=== PATIENT | female | born 1940 | race Caucasian/White ===

== ENCOUNTER → 2017-04-24 12:00 | Outpatient (CLI) | payer MEDICARE, OTHER, SELFPAY ==
[2017-04-24 14:13] LABS: Absolute Lymphocyte Count 1.01 X10^3/ul (0.83-4.51); Absolute Neutrophil Count 2.7 X10^3/uL (2.0-7.7); Basophil# 0.01 X10^3/uL; Basophil% 0.2 % (0-1); Eosinophil# 0.07 X10^3/uL; Eosinophils% 1.6 % (0-5); Hematocrit 42.9 % (37-47); Hemoglobin 13.8 g/dl (12.0-15.0); Lymphocyte # 1.01 X10^3/ul (4.0); Lymphocyte % 23.7 % (19-41); Mean Corp Hgb Conc 32.2 g/gl (32-36); Mean Corpuscular Hgb 30.3 pg (27.0-32.0); Mean Corpuscular Volume 94.3 fL (81-99); Mean Platelet Vol. 10.5 fl (6.2-12.0); Monocyte% 11.7 % (0-10); Neutrophil # 2.68 X10^3/uL (2.7-7.7); Neutrophil % 62.8 % (47-70); Platelet Count 181 K/mm3 (150-450); RBC Distribution Width CV 13.2 % (11.6-14.6); RBC Distribution Width SD 45.6 fl (35.1-43.9); Red Blood Count 4.55 M/mm3 (4.2-5.4); White Blood Count 4.3 K/mm3 (4.4-11.0)
[2017-04-24 14:15] LABS: POSITIVE COUNT NO; POSITIVE DIFFERENTIAL NO; POSITIVE MORPHOLOGY NO
[2017-04-24 14:56] LABS: Anion Gap 5 (5-15); BUN 19 mg/dL (7-18); BUN/Creat Ratio 26.1 RATIO (10-20); Calcium,Total 8.7 mg/dL (8.5-10.1); Chloride 103 mmol/L (98-107); Creatinine, Serum 0.73 mg/dL (0.55-1.02); EST Glomerular Filtration Rate 83 mL/min (>60); Est Glom Filt Rate - Afr Amer 100 mL/min (>60); Glucose 77 mg/dL (74-106); Potassium 4.3 mmol/L (3.5-5.1); Sodium Level 138 mmol/L (136-145); Thyroid Stim Hormone (TSH) 2.57 uIU/mL (0.358-3.74)
== END ==
PROVIDERS: Family Provider Family Medicine; PCP Family Medicine; Visit Provider Physician Assistant Medical
DX: I48.91 Unspecified atrial fibrillation (principal); R53.83 Other fatigue
CPT/HCPCS: 80048; 83735; 84436; 84443; 85025

== ENCOUNTER → 2017-05-08 05:50 | Outpatient (CLI) | payer MEDICARE, OTHER, SELFPAY ==
--- NOTE | 2017-05-08 09:52 | STRESSREP_ITS ---
Stress Test Report Pharmacologic myocardial perfusion stress test. 77-year-old lady with a history of chest pain. Stress protocol: Resting EKG demonstrates sinus rhythm with frequent premature atrial complexes noted. Resting blood pressure is 122/70 mmHg. 0.4 mg of regadenoson was infused per usual protocol. Continuous EKG monitoring was performed. The maximum heart rate attained was 73 bpm which was 50% of maximum predicted heart rate the maximum workload attained was 1 metabolic equivalent. At rest or T- wave inversions was noted in leads II, III and aVF V5 and V6. The above persisted throughout the infusion. No other ST or T-wave changes were noted suggest ischemia. The resting blood pressure is 122/70 final blood pressure was 120/76. Myocardial perfusion protocol. 11.2 mCi of technetium 99m sestamibi was injected at rest. 0.4 mg regadenoson was infused per usual protocol. At peak infusion 33.3 mCi of technetium 99m sestamibi was injected. Stress images were obtained. Stress and rest images were reconstructed and compared in the short axis vertical long and horizontal long axis. Gated images could not be obtained. Perfusion SPECT analysis: Review of the stress images demonstrate normal uptake of tracer noted in the septum anterior wall and lateral wall. There is reduction of perfusion noted in the inferior wall on the stress and resting images to a similar extent. The above appears to be suggestive of a previous inferior infarct. Diaphragmatic and GI attenuation artifact is also likely. There is mild reduction in the apex as well. No obvious ischemia is noted. Gated SPECT analysis. Gated images were not obtained. Conclusion: Pharmacologic myocardial perfusion stress test with no obvious ischemia noted. Previous inferior infarct and apical infarct cannot be completely excluded.
== END ==
PROVIDERS: Family Provider Family Medicine; PCP Family Medicine; Visit Provider Physician Assistant Medical
DX: I48.91 Unspecified atrial fibrillation (principal); R53.83 Other fatigue; R94.31 Abnormal electrocardiogram [ECG] [EKG]
CPT/HCPCS: 78452; 93017; A9500; A4216; J2785

== ENCOUNTER 2017-05-25 07:29 | Day surgery (SDC) | payer MEDICARE, OTHER, SELFPAY ==
[2017-05-25 07:52] VITALS: BP 175/64; PULSE 47; RESP 14; TEMP 36.3; O2SAT 95; BMI 37.5
--- NOTE | 2017-05-25 08:55 | RAD_ITS ---
STUDY: X-RAY - RIGHT KNEE REASON FOR EXAM: Female, 77 years old. Radiofrequency ablation of the genicular nerve. TECHNIQUE: 8 C-arm view(s) of the knee. 13.8 seconds of fluoroscopy time. COMPARISON: None. FINDINGS: C-arm views of the knee show knees along the medial surfaces of the distal femur and proximal tibia for nerve ablation. Correlate with procedure note. Electronically Signed: Michael Gallagher MD at 7:48 EDT , Service support , RAD/Knee 1 or 2 Views
[2017-05-25] MEDS: Bupivacaine 0.25% 30 ML Vial (09:08)
[2017-05-25] MEDS: MethylPREDNISolone Acetate 80 MG/ML Vial (09:08)
[2017-05-25 09:22] VITALS: BP 122/53; BP 175/64; PULSE 49; RESP 14; TEMP 36.3; O2SAT 94
[2017-05-25 09:30] VITALS: BP 140/56; BP 175/64; PULSE 49; RESP 14; O2SAT 94
[2017-05-25 09:35] VITALS: BP 140/60; BP 175/64; PULSE 49; RESP 14; O2SAT 95
[2017-05-25 09:40] VITALS: BP 153/63; BP 175/64; PULSE 50; RESP 14; TEMP 36.6; O2SAT 94
[2017-05-25 10:14] VITALS: BP 175/64
--- NOTE | 2017-05-25 10:25 | PCM.OPRPT ---
Problem List (1) Chronic postoperative pain Status: Chronic (2) Status post right partial knee replacement Status: Chronic (3) History of partial knee replacement Status: Chronic Report of Operation Date of Procedure: 05/25/17 Pre-Operative Diagnosis: Chronic postoperative right knee pain, history of right partial knee replacement Post-Operative Diagnosis: Chronic postoperative knee pain, history of right partial knee replacement Surgery/Procedure Performed:: Right sided radiofrequency ablation of the knee superior medial, superior lateral, medial genicular nerves under fluoroscopic guidance Description of Surgical Findings:: PROCEDURE: Right sided radiofrequency ablation of the knee superior medial, superior lateral, inferior medial genicular nerves under fluoroscopic guidance PREOPERATIVE DIAGNOSIS: chronic postoperative right knee pain, history of right partial knee replacement POSTOPERATIVE DIAGNOSIS: Chronic postoperative right knee pain, history of right partial knee replacement ANESTHESIA: MAC COMPLICATIONS: None BLOOD LOSS: Minimal PROCEDURE IN DETAIL: History and physical today was reviewed. Risks and benefits of the procedure were explained. The patient understood, agreed to our procedure, and informed consent was obtained. IV inserted per routine protocol. The patient was taken to the operating room, placed in a supine position with a pillow position underneath the right knee the left knee was prepped and draped in a sterile fashion using iodine ?3 under direct visualization fluoroscopy on AP view the left knee joint was visualized the skin and subcutaneous tissue were anesthetized with approximately 10 cc of 1% lidocaine using a 25-gauge regular needle under direct visualization fluoroscopy starting at the right superior medial ending at the right inferior medial passing through the right superior lateral genicular nerves using a 20-gauge 10 cm with a 10 mm curved active tip radiofrequency ablation needle the needle passed through the skin the tip of the needle's maneuver and directed towards the diaphyseal junction of each corresponding nerve once the tip of the needle was at the vicinity of the nerve and contact with the bone after confirmation of AP as well as lateral and oblique view the stylette of each needle was then removed after negative aspiration for blood the radiofrequency ablation probe was then inserted at each level impedance was recorded at the superior medial 274 at the superior lateral 272 at the inferior medial 230 ohm motor evoked potential was then initiated to 1.5 V without any motor response at each corresponding level the radiofrequency ablation probe was then removed after repeated negative aspiration for blood a total of 6 cc of preservative-free 1% lidocaine were injected in divided doses between those 3 levels the radiofrequency ablation probe was then reinserted after confirmation AP as well as lateral view radiofrequency ablation was then initiated to 80?C for 90 seconds at each level once concluded the probe was then removed intact and a total of 6 cc of preservative-free 0.25% Marcaine with 40 mg of Depo-Medrol were injected in divided doses between those 3 levels the needles were then removed intact patient experienced no sinus symptoms of intravascular injection patient experienced no paresthesia the procedure was completed without any apparent difficulty any complication the patient appeared to tolerate well sensory as well as motor exam was unchanged from prior to the procedure. ASSESSMENT AND PLAN: This is a 77-year-old female with chronic postoperative right knee pain history of right partial knee replacement status post right-sided radiofrequency ablation of the knee superior medial, superior lateral, inferior medial genicular nerves under fluoroscopic guidance guidance, patient will continue her current medications. The patient will follow in approximately 2 weeks for reevaluation.
--- NOTE | 2017-05-25 10:44 | OP.PCM_ITS ---
Problem List (1) Chronic postoperative pain Status: Chronic (2) Status post right partial knee replacement Status: Chronic (3) History of partial knee replacement Status: Chronic Report of Operation Date of Procedure: 05/25/17 Pre-Operative Diagnosis: Chronic postoperative right knee pain, history of right partial knee replacement Post-Operative Diagnosis: Chronic postoperative knee pain, history of right partial knee replacement Surgery/Procedure Performed:: Right sided radiofrequency ablation of the knee superior medial, superior lateral, medial genicular nerves under fluoroscopic guidance Description of Surgical Findings:: PROCEDURE: Right sided radiofrequency ablation of the knee superior medial, superior lateral, inferior medial genicular nerves under fluoroscopic guidance PREOPERATIVE DIAGNOSIS: chronic postoperative right knee pain, history of right partial knee replacement POSTOPERATIVE DIAGNOSIS: Chronic postoperative right knee pain, history of right partial knee replacement ANESTHESIA: MAC COMPLICATIONS: None BLOOD LOSS: Minimal PROCEDURE IN DETAIL: History and physical today was reviewed. Risks and benefits of the procedure were explained. The patient understood, agreed to our procedure, and informed consent was obtained. IV inserted per routine protocol. The patient was taken to the operating room, placed in a supine position with a pillow position underneath the right knee the left knee was prepped and draped in a sterile fashion using iodine ?3 under direct visualization fluoroscopy on AP view the left knee joint was visualized the skin and subcutaneous tissue were anesthetized with approximately 10 cc of 1 % lidocaine using a 25-gauge regular needle under direct visualization fluoroscopy starting at the right superior medial ending at the right inferior medial passing through the right superior lateral genicular nerves using a 20- gauge 10 cm with a 10 mm curved active tip radiofrequency ablation needle the needle passed through the skin the tip of the needle's maneuver and directed towards the diaphyseal junction of each corresponding nerve once the tip of the needle was at the vicinity of the nerve and contact with the bone after confirmation of AP as well as lateral and oblique view the stylette of each needle was then removed after negative aspiration for blood the radiofrequency ablation probe was then inserted at each level impedance was recorded at the superior medial 274 at the superior lateral 272 at the inferior medial 230 ohm motor evoked potential was then initiated to 1.5 V without any motor response at each corresponding level the radiofrequency ablation probe was then removed after repeated negative aspiration for blood a total of 6 cc of preservative- free 1% lidocaine were injected in divided doses between those 3 levels the radiofrequency ablation probe was then reinserted after confirmation AP as well as lateral view radiofrequency ablation was then initiated to 80?C for 90 seconds at each level once concluded the probe was then removed intact and a total of 6 cc of preservative-free 0.25% Marcaine with 40 mg of Depo-Medrol were injected in divided doses between those 3 levels the needles were then removed intact patient experienced no sinus symptoms of intravascular injection patient experienced no paresthesia the procedure was completed without any apparent difficulty any complication the patient appeared to tolerate well sensory as well as motor exam was unchanged from prior to the procedure. ASSESSMENT AND PLAN: This is a 77-year-old female with chronic postoperative right knee pain history of right partial knee replacement status post right-sided radiofrequency ablation of the knee superior medial, superior lateral, inferior medial genicular nerves under fluoroscopic guidance guidance, patient will continue her current medications. The patient will follow in approximately 2 weeks for reevaluation.
== END 2017-05-25 10:17 | disposition home or self-care (01) ==
LOC: SDC 07:29
PROVIDERS: Family Provider Family Medicine; PCP Family Medicine; Visit Provider Anesthesiology Pain Medicine
PROC: (CPT 64999; principal; 2017-05-25 08:55)
DX: M25.561 Pain in right knee (principal); G89.28 Other chronic postprocedural pain; M51.16 Intervertebral disc disorders with radiculopathy, lumbar region; M47.817 Spondylosis without myelopathy or radiculopathy, lumbosacral region; M48.061 Spinal stenosis, lumbar region without neurogenic claudication; I48.91 Unspecified atrial fibrillation; J44.9 Chronic obstructive pulmonary disease, unspecified; I27.20 Pulmonary hypertension, unspecified; E11.9 Type 2 diabetes mellitus without complications; I10 Essential (primary) hypertension; G25.81 Restless legs syndrome; K58.9 Irritable bowel syndrome, unspecified; G47.30 Sleep apnea, unspecified; G56.00 Carpal tunnel syndrome, unspecified upper limb; Z79.01 Long term (current) use of anticoagulants; Z79.891 Long term (current) use of opiate analgesic; Z79.899 Other long term (current) drug therapy; Z96.651 Presence of right artificial knee joint; Z87.891 Personal history of nicotine dependence
CPT/HCPCS: 64999; 73560; 76000; J7120

== ENCOUNTER → 2017-06-04 11:52 | Outpatient (CLI) | payer MEDICARE, OTHER, SELFPAY ==
--- NOTE | 2017-06-04 11:58 | BI_ITS ---
MAMMOGRAPHY - BILATERAL SCREENING REASON FOR EXAM: Female, 77 years old. Routine annual screening examination. PERTINENT HISTORY: Non-contributory. TECHNIQUE: Digital bilateral breast mayo (3D mammographic acquisition) in the CC and MLO projections. 2-D mediolateral oblique (MLO) and craniocaudad (CC) views of both breasts were obtained. CAD: Full Field Digital Mammography with Computer Added Detection was performed. COMPARISON: Comparison is made with prior study dated February 04, 2016 and December 28, 2014. FINDINGS: Breast Composition: The breasts are almost entirely fatty. There are no dominant masses or suspicious calcifications. No other significant abnormalities are identified. There has been no significant change since the prior study. BI/SCREENING MAMM (CAD), BILAT IMPRESSION: Stable bilateral screening mammogram. Yearly follow-up mammogram recommended. (A) ASSESSMENT CATEGORY: BIRADS Category 1: Negative. A letter regarding these results will be sent to the patient by the facility within 30 days. Approximately 10% of breast cancers are not detected by mammography. A normal mammogram should not delay biopsy of a clinically suspicious abnormality. [id number] Electronically Signed: Rajesh Velasquez MD at 13:35 EDT Tel [phone], Service support ,
== END ==
PROVIDERS: Family Provider Family Medicine; PCP Family Medicine; Visit Provider Family Medicine
DX: Z12.31 Encounter for screening mammogram for malignant neoplasm of breast (principal)
CPT/HCPCS: 77063; 77067

== ENCOUNTER → 2017-06-11 10:04 | Outpatient (CLI) | payer MEDICARE, OTHER, SELFPAY ==
[2017-06-11 12:26] LABS: Cholesterol 142 mg/dL (200); High Density Lipoprotein 52 mg/dL; Triglycerides 101 mg/dL; Very Low Density Lipoprotein 20 mg/dL (5-40)
== END ==
PROVIDERS: Family Provider Family Medicine; PCP Family Medicine; Visit Provider Family Medicine
DX: Z00.00 Encounter for general adult medical examination without abnormal findings (principal)
CPT/HCPCS: 36415; 80061

== ENCOUNTER 2017-09-13 11:28 | Emergency (ER) | payer MEDICARE, OTHER, SELFPAY ==
[2017-09-13 11:29] VITALS: BP 190/80; PULSE 99; RESP 16; TEMP 36.5; O2SAT 114; BMI 29.3
--- NOTE | 2017-09-13 11:42 | EKG12_ITS ---
Test Reason : Blood Pressure : / mmHG Vent. Rate : 070 BPM Atrial Rate : 070 BPM P-R Int : 146 ms QRS Dur : 078 ms QT Int : 412 ms P-R-T Axes : 078 015 218 degrees QTc Int : 444 ms Sinus rhythm with frequent Premature ventricular complexes and Premature atrial complexes Nonspecific ST and T wave abnormality Abnormal ECG Confirmed by PORTILLO SCHROEDER, JOSH ([id number]), city editor KUNAL CRAFT ([id number]) on 09/15/2017 1:31:01 PM Referred By: LUZ ELENA Confirmed By:JOSH NATH MD
--- NOTE | 2017-09-13 11:58 | ED.VISSUMM ---
- ER Visit Summary Date of Service: 09/13/17 Chief Complaint: Acute exacerbation left flank upper lumbar back pain History of Present Illness: The patient is a 77 F with history of chronic back pain for months. She seen by Dr. Denis. Has an appointment see Dr. Denis tomorrow. She is over the past 24 hours the pain is worse. She has a fentanyl patch on. She is also on Voltaren cream, Flexeril and gabapentin. She denies fever, chills night sweats. She denies dysuria, frequency, urgency or hematuria. She denies history of renal or ureteral calculi. She reports her pain is better to gone when she remains supine and still. Any type of movement exacerbates the pain. She denies bowel bladder dysfunction. I saddle paresthesia anesthesia. She denies thigh weakness going up or down her steps or inclines. She denies foot drop. Physical Examination: Patient's blood pressure is elevated 190/80. She was uncomfortable. HEENT is unremarkable. Heart is irregular secondary to frequent ventricular premature beats. Monitor reveals a sinus mechanism. Lungs are clear to auscultation. Abdomen soft nontender. She has reproducible back pain left side. Straight leg test is negative. She has normal sensation bilaterally and perineal region. Patella and ankle reflex are 1-2+ symmetric. EHL is intact. There is no clonus or Babinski sign noted. DP pulses palpable bilaterally. Test Results: UA was obtained because of the abrupt onset of worsening left flank pain. EKG reveals a sinus rhythm with frequent premature ventricular beats. MD interval normal. Respiration normal. No evidence of ischemia. CBC unremarkable. BMP unremarkable. UA is unremarkable. Emergency Department Course and Treatment: There is no history of trauma and no evidence of trauma therefore imaging was not obtained. She was medicated with opiate analgesia and a UA was obtained to evaluate the worsening left flank pain. Treatment Plan: Patient was initially medicated with morphine. She had improvement was unable to ambulate without significant assistance. She received a second dose of morphine. She was seen walking with walker in the hallway. Plan is to discharge to home since she has an appointment with pain management tomorrow. Disposition: Discharged home with daughter in stable improved condition Impression: Acute exacerbation of left thoracic lumbar back strain History of chronic back pain History of pulmonary hypertension History of paroxysmal atrial fibrillation on Eliquis This note was generated with Dragon dictation software. It may contain incorrect words, spelling, and punctuation that were not noted in review of the chart prior to signing ED Disposition - Plan for ED Patient: Disposition: Home or Assisted Living Chief Complaint: Back Instructions: ED Neck Back Pain General Referrals: Jake Schwarz [Primary Care Provider] - As Needed Hasmukh Noble MD [STAFF PHYSICIAN] - Keep Whitney appointment
[2017-09-13 12:50] LABS: Absolute Lymphocyte Count 0.64 X10^3/ul (0.83-4.51); Absolute Neutrophil Count 3.9 X10^3/uL (2.0-7.7); Eosinophil# 0.07 X10^3/uL; Eosinophils% 1.4 % (0-5); Hematocrit 40.9 % (37-47); Hemoglobin 13.2 g/dl (12.0-15.0); Lymphocyte # 0.64 X10^3/ul (4.0); Lymphocyte % 12.7 % (19-41); Mean Corp Hgb Conc 32.3 g/gl (32-36); Mean Corpuscular Hgb 30.4 pg (27.0-32.0); Mean Corpuscular Volume 94.2 fL (81-99); Mean Platelet Vol. 10.1 fl (6.2-12.0); Monocyte# 0.44 X10^3/uL; Monocyte% 8.8 % (0-10); Neutrophil # 3.87 X10^3/uL (2.7-7.7); Neutrophil % 77.1 % (47-70); Platelet Count 174 K/mm3 (150-450); RBC Distribution Width CV 13.2 % (11.6-14.6); Red Blood Count 4.34 M/mm3 (4.2-5.4)
[2017-09-13 12:51] LABS: POSITIVE COUNT NO; POSITIVE DIFFERENTIAL NO; POSITIVE MORPHOLOGY NO
[2017-09-13] MEDS: Ondansetron 4 MG/2 ML Vial IV (12:51)
[2017-09-13] MEDS: morphine 8 MG/ML Syringe 6 MG IV (12:52)
[2017-09-13 12:53] VITALS: BP 166/48; PULSE 62; RESP 18; O2SAT 96
[2017-09-13 13:01] LABS: Anion Gap 7 (5-15); BUN 18 mg/dL (7-18); BUN/Creat Ratio 24.2 RATIO (10-20); Calcium,Total 8.5 mg/dL (8.5-10.1); Chloride 108 mmol/L (98-107); Creatinine, Serum 0.74 mg/dL (0.55-1.02); EST Glomerular Filtration Rate 81 mL/min (>60); Est Glom Filt Rate - Afr Amer 97 mL/min (>60); Glucose 86 mg/dL (74-106); Sodium Level 145 mmol/L (136-145)
[2017-09-13 14:02] LABS: Mucous, Urine 0 SEEN /hpf (<or=2+); Red Blood Cells-Urine 0 SEEN /hpf (0-5)
[2017-09-13 14:04] LABS: Color, Urine Yellow (Yellow); Glucose, Dipstick Normal (Normal); Ketone-Dipstick Negative (Negative); Leukocyte Esterase-Dipstick 100 /ul (Negative); Nitrite-Dipstick Negative (Negative); Occult Blood-Urine Negative /ul (Negative); Protein-Dipstick 30 mg/dl (Negative); Urine Bilirubin Dipstick Negative (Negative); Urine Clarity Sl. Cloudy (Clear); Urine Urobilinogen Normal (Normal); Urine pH 6.5 (5.0 - 8.0)
[2017-09-13 14:12] LABS: Squamous Epithelial Cells - UA 0-5 SEEN /hpf (5-10); White Blood Cells 0-5 SEEN /hpf (0-5)
[2017-09-13 14:13] LABS: Bacteria RARE /hpf (None Seen)
[2017-09-13] MEDS: Morphine 4 MG/ML Syringe IV (14:22)
[2017-09-13 14:26] VITALS: BP 142/53; PULSE 62; RESP 18; O2SAT 94
--- NOTE | 2017-09-13 16:22 | ED.RN ---
WALKED PT AGAIN. PT STATES SHE DOES NOT FEEL LIKE SHE CAN GO HOME. DR LEONE.
[2017-09-13 16:39] VITALS: BP 149/62; PULSE 61; RESP 18
== END 2017-09-13 16:40 | disposition home or self-care (01) ==
PROVIDERS: Emergency Provider Emergency Medicine; Family Provider Family Medicine; PCP Family Medicine
DX: S39.012A Strain of muscle, fascia and tendon of lower back, initial encounter (principal); X58.XXXA Exposure to other specified factors, initial encounter; Y93.9 Activity, unspecified; Y92.9 Unspecified place or not applicable; Y99.9 Unspecified external cause status; G89.29 Other chronic pain; I48.0 Paroxysmal atrial fibrillation; I49.3 Ventricular premature depolarization; I27.20 Pulmonary hypertension, unspecified; I47.1 Supraventricular tachycardia; Z79.01 Long term (current) use of anticoagulants; Z79.899 Other long term (current) drug therapy
CPT/HCPCS: 80048; 81001; 85025; 93005; 96374; 96375; 96376; 99283; A4216; J2405

== ENCOUNTER → 2017-12-10 11:38 | Outpatient (CLI) | payer MEDICARE, OTHER, SELFPAY ==
[2017-12-10 14:27] LABS: AST(SGOT) 27 U/L (15-37); Alanine Aminotransfer ALT/SGPT 28 U/L (13-56); Albumin, Serum 3.3 g/dL (3.2-5.0); Alkaline Phosphatase 91 U/L (45-117); Bilirubin, Direct 0.14 mg/dL (0.00-0.30); Globulin 3.3 g/dL (2.2-4.2); Protein, Total 6.6 g/dL (6.4-8.2)
[2017-12-10 14:32] LABS: BNP,B-Type NATRIURETIC PEPTIDE 206.5 pg/mL (0-100)
== END ==
PROVIDERS: Family Provider Family Medicine; PCP Family Medicine; Referring Provider Internal Medicine Pulmonary Disease; Visit Provider Internal Medicine Pulmonary Disease
DX: R06.02 Shortness of breath (principal); Z79.899 Other long term (current) drug therapy
CPT/HCPCS: 36415; 80076; 83880

== ENCOUNTER → 2018-02-26 13:21 | Outpatient (CLI) | payer MEDICARE, OTHER, SELFPAY ==
--- NOTE | 2018-02-26 13:32 | RAD_ITS ---
STUDY: X-RAY - LEFT ELBOW REASON FOR EXAM: Female, 78 years old. Left elbow pain TECHNIQUE: 3 view(s) of the elbow. COMPARISON: None. FINDINGS: Normal visualized humerus, radius and ulna. Normal radiocapitellar and ulnotrochlear articulations. There is localized soft tissue swelling of the posterior elbow. No joint effusion. RAD/Elbow min 3 Views IMPRESSION: 1. Posterior elbow soft tissue swelling may represent contusion or olecranon bursitis. Electronically Signed: Dominik Banks MD at 8:07 EST , Service support ,
[2018-02-26 14:20] LABS: Absolute Lymphocyte Count 1.02 X10^3/ul (0.83-4.51); Absolute Neutrophil Count 3.4 X10^3/uL (2.0-7.7); Basophil# 0.01 X10^3/uL; Basophil% 0.2 % (0-1); Eosinophil# 0.08 X10^3/uL; Eosinophils% 1.7 % (0-5); Hematocrit 43.2 % (37-47); Hemoglobin 13.6 g/dl (12.0-15.0); Lymphocyte # 1.02 X10^3/ul (4.0); Lymphocyte % 21.3 % (19-41); Mean Corp Hgb Conc 31.5 g/gl (32-36); Mean Corpuscular Volume 95.4 fL (81-99); Monocyte# 0.31 X10^3/uL; Monocyte% 6.5 % (0-10); Neutrophil # 3.36 X10^3/uL (2.7-7.7); Neutrophil % 70.3 % (47-70); Platelet Count 178 K/mm3 (150-450); RBC Distribution Width SD 48.5 fl (35.1-43.9); Red Blood Count 4.53 M/mm3 (4.2-5.4); White Blood Count 4.8 K/mm3 (4.4-11.0)
[2018-02-26 14:28] LABS: POSITIVE COUNT NO; POSITIVE DIFFERENTIAL NO; POSITIVE MORPHOLOGY NO
== END ==
PROVIDERS: Family Provider Family Medicine; PCP Family Medicine; Referring Provider Physician Assistant Medical; Visit Provider Physician Assistant Medical
DX: I48.0 Paroxysmal atrial fibrillation (principal); M25.522 Pain in left elbow
CPT/HCPCS: 73080; 85025

== ENCOUNTER → 2018-05-07 14:14 | Outpatient (CLI) | payer MEDICARE, OTHER, SELFPAY ==
[2018-05-07 16:05] LABS: Anion Gap 3 (5-15); BUN 22 mg/dL (7-18); Calcium,Total 8.3 mg/dL (8.5-10.1); Chloride 107 mmol/L (98-107); Cholesterol 145 mg/dL (200); Creatinine, Serum 0.71 mg/dL (0.55-1.02); EST Glomerular Filtration Rate 85 mL/min (>60); Est Glom Filt Rate - Afr Amer 103 mL/min (>60); Glucose 89 mg/dL (74-106); High Density Lipoprotein 47 mg/dL; Potassium 4.5 mmol/L (3.5-5.1); Sodium Level 142 mmol/L (136-145); Triglycerides 148 mg/dL; Very Low Density Lipoprotein 30 mg/dL (5-40)
== END ==
PROVIDERS: Family Provider Family Medicine; PCP Family Medicine; Referring Provider Family Medicine; Visit Provider Family Medicine
DX: I48.91 Unspecified atrial fibrillation (principal)
CPT/HCPCS: 36415; 80048; 80061

== ENCOUNTER → 2018-05-14 13:52 | Outpatient (CLI) | payer MEDICARE, OTHER, SELFPAY ==
[2018-01-05 14:53] VITALS: BMI 31.1
== END ==
PROVIDERS: Family Provider Family Medicine; PCP Family Medicine; Referring Provider Family Medicine; Visit Provider Family Medicine
DX: R30.0 Dysuria (principal)
CPT/HCPCS: 87077; 87086; 87088; 87186

== ENCOUNTER → 2018-10-26 14:05 | Outpatient (CLI) | payer MEDICARE, OTHER, SELFPAY ==
[2018-07-27 07:58] VITALS: BMI 31.9
--- NOTE | 2018-10-26 14:10 | RAD_ITS ---
STUDY: X-RAY - LUMBAR SPINE REASON FOR EXAM: Female, 78 years old. Lower back pain TECHNIQUE: 3 view(s) of the lumbar spine were obtained. COMPARISON: None FINDINGS: There is straightening of the normal lumbar lordosis. There is diffuse facet arthrosis. Multilevel degenerative disease throughout the lumbar spine. There is an age-indeterminate compression deformity of the L4 vertebral body likely accentuated by levoscoliosis with loss of approximately 50% vertebral body height. The soft tissue structures are unremarkable. Atherosclerotic abdominal aortic calcification visualized. RAD/Lumbar Spine 2 or 3 Views IMPRESSION: Age-indeterminate compression deformity of the L4 vertebral body. Diffuse degenerative changes. Electronically Signed: Phillip Tejada, at 0:49 EDT Tel , Service support ,
== END ==
PROVIDERS: Family Provider Family Medicine; PCP Family Medicine; Referring Provider Nurse Practitioner Family; Visit Provider Nurse Practitioner Family
DX: M51.36 Other intervertebral disc degeneration, lumbar region (principal); M54.16 Radiculopathy, lumbar region; M47.817 Spondylosis without myelopathy or radiculopathy, lumbosacral region; M48.061 Spinal stenosis, lumbar region without neurogenic claudication
CPT/HCPCS: 72100

== ENCOUNTER → 2018-11-01 09:22 | Outpatient (CLI) | payer MEDICARE, OTHER, SELFPAY ==
[2018-07-27 07:58] VITALS: BMI 31.9
--- NOTE | 2018-11-01 09:32 | MRI_ITS ---
STUDY: MRI LUMBAR SPINE WITHOUT CONTRAST REASON FOR EXAM: Female, 78 years old. Lower back pain. No radiculopathy. TECHNIQUE: Standardized fat and water weighted pulse sequences were obtained in the sagittal and axial planes. COMPARISON: Lumbar spine radiographs 10/26/2018. FINDINGS: T10-T11: (Sagittal only). Normal endplates. Normal disc height. Small posterior bulging disc. Normal central canal and bilateral intervertebral neural foramina. T11-T12: (Sagittal only). Moderate anterior wedge compression fracture of the lower T11 vertebral body with minimal residual edema underneath the central aspect of the compression fracture. Normal T12 superior endplate. Decreased disc space height due to the lower T11 compression fracture. Small posterior bulging disc. Normal central canal and bilateral intervertebral neural foramina. T12-L1: Normal endplates. Normal disc height, hydration and morphology. Normal bilateral facet joints. Normal central canal and bilateral lateral recesses. Normal bilateral intervertebral neural foramina. Normal lumbar lordosis. There is no substantial scoliosis. Normal conus medullaris that terminates at the lower L1 vertebral body level. L1-2: Acute fracture across the L1 inferior endplate with fluid edema. Extensive bone edema of the L1 vertebral body. The of bone edema extends into the right L1 pedicle. There is sparing of the left L1 pedicle. Normal L2 superior endplate. Increased disc space height. Minimal degenerative retrolisthesis of L1 on L2. Mild flattening central canal stenosis the AP canal diameter is 10 mm. Mild dorsal epidural lipomatosis. Mild bilateral degenerative facet arthropathy. Left renal cyst is visible at this level. L2-3: Small anterior marginal spurs. Pronounced disc space height narrowing. Mild central canal stenosis. The AP canal diameter is 10 mm. Mild stenosis of the right lateral recesses. Normal left lateral recesses. Mild to moderate right degenerative facet arthropathy. Mild left degenerative facet arthropathy. Normal bilateral intervertebral neural foramina. L3-4: Normal L3 inferior endplate. Moderate old anterior wedge compression fracture of the upper L4 vertebral body causing increased disc space height. Mild degenerative anterolisthesis of L3 on L4. Moderately pronounced central canal stenosis with an AP canal diameter 6.6 mm. Pronounced stenosis of the right lateral recesses. Mild stenosis of the left lateral recesses. Moderately pronounced right degenerative facet hypertrophy. Moderate left degenerative facet arthropathy. Moderately pronounced stenosis of the right intervertebral neural foramen. Normal left intervertebral neural foramen. L4-5: Normal L4 inferior endplate. Minimal central compression fracture of the L5 superior endplate with Modic type II degenerative vertebral marrow fatty change underneath it. Minimal degenerative anterolisthesis of L4 on L5. Mild central canal stenosis with a transverse canal diameter of 9.3 mm. Normal bilateral lateral recesses. Moderate left degenerative facet arthropathy. Mild right degenerative facet arthropathy. Normal bilateral intervertebral neural foramina. L5-S1: Normal endplates. Mild degenerative vacuum phenomenon with mild disc space height narrowing. No ventral extradural defect. Normal central canal and bilateral lateral recesses. Moderate asymmetric degenerative facet arthropathy. Normal bilateral intervertebral foramina. Normal visualized sacral ala. Normal visualized paraspinous soft tissue structures. MRI/Spine Lumbar (Routine) IMPRESSION: 1. Acute fracture across the L1 inferior endplate with fluid underneath the and extensive bone edema of the L1 vertebral body and the fracture edema extends to the right L1 pedicle. This is highly suggestive of osteonecrosis (Kummel's Disease). This is most likely highly symptomatic and is the site of severe back pain. This is feasible for kyphoplasty. 2. Mild flattening central canal stenosis at the L1-L2 disc level and minimal degenerative retrolisthesis of L1 on L2. 3. Mild central canal stenosis at L2-L3 disc level and mild stenosis of the right lateral recess. 4. Moderately pronounced central canal stenosis at L3-L4 disc level with an AP canal diameter 6.6 mm, mild degenerative anterolisthesis of L3 on L4, moderately pronounced right degenerative facet arthropathy and moderately pronounced stenosis of the right intervertebral neural foramen. 5. Mild central canal stenosis at L4-L5 disc space level with minimal degenerative anterolisthesis of L4 on L5 and moderate left degenerative facet arthropathy. 6. Moderate anterior wedge compression fracture of the lower T11 vertebral body with minimal residual edema underneath the central aspect of the compression fracture. Electronically Signed: Duarte Mike MD at 13:49 EDT , Service support ,
== END ==
PROVIDERS: Family Provider Family Medicine; PCP Family Medicine; Referring Provider Anesthesiology Pain Medicine; Visit Provider Anesthesiology Pain Medicine
DX: M48.56XA Collapsed vertebra, not elsewhere classified, lumbar region, initial encounter for fracture (principal); M47.27 Other spondylosis with radiculopathy, lumbosacral region; M48.061 Spinal stenosis, lumbar region without neurogenic claudication
CPT/HCPCS: 72148

== ENCOUNTER → 2018-11-10 15:49 | Outpatient (CLI) | payer MEDICARE, OTHER, SELFPAY ==
[2018-07-27 07:58] VITALS: BMI 31.9
--- NOTE | 2018-11-09 | BON_PTH ---
PATIENT: ADRIEN CHILEL LOC: [facility] U#:[id number] AGE/SX: 84/F ROOM: RE11/10/[address]: Dr. Hasmukh Noble MD : [id number] BED: DIS: SPEC #: [id number] RECD: 11/10/18 15:32 STATUS: BRITTANY MARINE #: [id number] XUAN: 11/09/18 00:[address]: Hasmukh Noble DEPT: SURGICAL PATHOLOGY RECD BY: Raulito Sim ENTERED: 11/11/18 14:23 SP TYPE: Bone OTHR DR: MD Jake Payan [facility] Tissues: Vertebra, NOS Procedures: Decalcification bone/plaque Surgery Specimen Level IV HEADER OPERATION: Kyphoplasty L1 PRE-OP DIAGNOSIS: Compression fracture L1 TISSUE SUBMITTED: Body of L1 MICROSCOPIC DIAGNOSIS Body of L1, biopsy: Bony fragments of unremarkable bone. See microscopic description and comment. AM:louis 11/12/18 COMMENT The lesion may represent an area of fracture. There is no evidence of malignancy. Clinical correlation is suggested. MICROSCOPIC DESCRIPTION Slides are reviewed. Sections show normal cortical bone. Minimal bone marrow elements are present. GROSS DESCRIPTION Received in fixative is one container labeled with the patient's name and designated body of L1. The specimen consists of three minute fragments of brown soft tissue with possible fragment of bone measuring in aggregate <0.1 cm in greatest dimension. / SJ:louis 11/11/18 TC:5 CPT: 17888, 26274
== END ==
PROVIDERS: Family Provider Family Medicine; PCP Family Medicine; Referring Provider Anesthesiology Pain Medicine; Visit Provider Anesthesiology Pain Medicine
DX: M48.56XA Collapsed vertebra, not elsewhere classified, lumbar region, initial encounter for fracture (principal)
CPT/HCPCS: 88305; 88311

== ENCOUNTER → 2018-11-24 10:33 | Outpatient (CLI) | payer MEDICARE, OTHER, SELFPAY ==
[2018-07-27 07:58] VITALS: BMI 31.9
--- NOTE | 2018-11-24 11:02 | BD_ITS ---
STUDY: DUAL ENERGY X-RAY ABSORPTIOMETRY / DXA REASON FOR EXAM: Female, 78 years old. The patient is postmenopausal. Loss of height. TECHNIQUE: Bone Mineral Density (BMD) measurements of lumbar spine and bilateral hips were obtained. COMPARISON: Comparison is made with prior study of June 03, 2012. FINDINGS: Lumbar Spine (L1-L4): g/cm2 (1.208) / T-score (0.1) / Z-score (1.9) Findings are suggestive of normal bone density with a low fracture risk. Left Femur Total: g/cm2 (0.890) / T-score (-0.9) / Z-score (0.9) Left Femoral Neck: g/cm2 (0.801) / T-score (-1.7) / Z-score (0.3) The T-Scores on the most recent prior examination were: Lumbar Spine (L1-L4): There has been worsening of bone density since the previous examination. Left Femur Total: which represents a worsening of 6.4%. Right Femur Total: . BD/Dexa Bone Density Study IMPRESSION: The patient is considered osteopenic as outlined below according to World Zen Organization (WHO) criteria with a moderate fracture risk. There has been worsening of bone density since the previous examination. Reference Information: The T-score is the number of standard deviations above or below the standard which is normal for young adults at their peak bone mineral density. The World Health Organization (WHO) interprets the T-scores as follows: Above -1 Normal bone density Between -1 and -2.5 Osteopenia Equal to / or below -2.5 Osteoporosis As a practical clinical guideline, osteopenia may be graded as follows: Mild -1 through -1.5 Moderate -1.6 through -2.0 Severe -2.1 through -2.4 The Z-score is the number of standard deviations above or below age-matched controls. A Z-score of less than -1.5 would be considered abnormal. References: 1. NIH Osteoporosis and Related Bone Diseases http://www.osteo.org 2. International Society for Clinical Densitometry http://www.iscd.org 3. National Osteoporosis Foundation http://www.nof.org Electronically Signed: Rajesh Velasquez, at 14:23 EDT , Service support ,
== END ==
PROVIDERS: Family Provider Family Medicine; PCP Family Medicine; Referring Provider Family Medicine; Visit Provider Family Medicine
DX: M48.50XA Collapsed vertebra, not elsewhere classified, site unspecified, initial encounter for fracture (principal); M85.80 Other specified disorders of bone density and structure, unspecified site; Z78.0 Asymptomatic menopausal state
CPT/HCPCS: 77080

== ENCOUNTER → 2018-12-06 12:53 | Outpatient (CLI) | payer MEDICARE, OTHER, SELFPAY ==
[2018-07-27 07:58] VITALS: BMI 31.9
[2018-12-06 14:23] LABS: AST(SGOT) 20 U/L (15-37); Alanine Aminotransfer ALT/SGPT 19 U/L (13-56); Albumin, Serum 3.2 g/dL (3.2-5.0); Alkaline Phosphatase 92 U/L (45-117); Bilirubin, Direct 0.13 mg/dL (0.00-0.30); Globulin 3.1 g/dL (2.2-4.2); Protein, Total 6.3 g/dL (6.4-8.2)
[2018-12-06 14:27] LABS: BNP,B-Type NATRIURETIC PEPTIDE 349.9 pg/mL (0-100)
== END ==
PROVIDERS: Family Provider Family Medicine; PCP Family Medicine; Referring Provider Internal Medicine Pulmonary Disease; Visit Provider Internal Medicine Pulmonary Disease
DX: I27.20 Pulmonary hypertension, unspecified (principal)
CPT/HCPCS: 36415; 80076; 83880

== ENCOUNTER → 2019-01-10 12:30 | Outpatient (CLI) | payer MEDICARE, OTHER, SELFPAY ==
[2018-07-27 07:58] VITALS: BMI 31.9
--- NOTE | 2019-01-10 12:36 | RAD_ITS ---
STUDY: X-RAY CHEST REASON FOR EXAM: Female, 78 years old. Bronchitis cough and shortness of breath TECHNIQUE: Two view of the chest were performed COMPARISON: None. FINDINGS: Right hemidiaphragm is elevated along the anterior and central portions, likely eventration/herniated. Left hemidiaphragm is normal. There is no pneumothorax, pulmonary edema or pleural effusions. There is bulky well-defined enlargement of the right hilum, less so of the left hilum. Cardiac size is mildly enlarged. There is osteoporosis with lower thoracic/upper lumbar segment augmentation. Otherwise osseous structures are intact. [ ] RAD/Chest PA and Lateral IMPRESSION: 1. No acute cardiorespiratory disease. [ 2. Enlarged pulmonary tameka, unclear etiology, refer to CT chest with contrast for further assessment. ] 3. Mild cardiomegaly without failure. 4. Eventrated/partially paralyzed/herniated right diaphragm. Electronically Signed: Chad Darnell, at 17:46 EST Tel , Service support ,
== END ==
PROVIDERS: Family Provider Family Medicine; PCP Family Medicine; Referring Provider Family Medicine; Visit Provider Family Medicine
DX: J20.9 Acute bronchitis, unspecified (principal)
CPT/HCPCS: 71046

== ENCOUNTER → 2019-01-18 17:16 | Outpatient (CLI) | payer MEDICARE, OTHER, SELFPAY ==
[2018-07-27 07:58] VITALS: BMI 31.9
--- NOTE | 2019-01-18 17:19 | CT_ITS ---
STUDY: CT CHEST/THORAX WITH CONTRAST REASON FOR EXAM: Female, 78 years old. Right middle lobe mass. Enlarged tameka on chest x-ray. RADIATION DOSAGE (If Supplied By Facility): CTDIvol = ( 12.47 ) mGy, DLP = ( 652.34 ) mGycm TECHNIQUE: Transaxial imaging was performed following intravenous administration of IV 100mL Isovue-370 100. Multiplanar coronal and sagittal images were reformatted. Individualized dose optimization techniques were used for this CT. COMPARISON: PA and lateral chest x-ray January 10, 2019. FINDINGS: The left lobe of the thyroid gland, measuring roughly 4.4 x 2.55 x 2.25 cm, is larger than the right, which is 4.4 x 1.5 x 1.2 cm. Both show mottled density, with question of an incompletely defined 1.25 x 1.5 x 1.8 cm mass on the left. There is moderate elevation of the right diaphragm, etiology uncertain, with corresponding subsegmental atelectasis in the right lung base. Minimal subsegmental atelectasis also in the inferolateral left lower lobe and in the inferior lingula of left upper lobe. There is a 7 mm pleural-based nodule posterolateral periphery of the left lower lobe on series 4 image 82. There is no demonstrated pleural abnormality. There is borderline cardiomegaly. Normal pericardium. Normal mediastinum. Normal hilar regions. The main pulmonary artery is 3.47 x 3.38 cm. The right pulmonary artery is 2.97 x 2.61 cm, while the left pulmonary artery is 2.74 x 2.64 cm. There is atherosclerotic calcification of the aortic arch, proximal right and left subclavian arteries, and proximal abdominal aorta. There are multi-level degenerative changes of the thoracic spine. There is anterior wedging of the T11 vertebra with slight depression of the right superior T12 endplate. Patient has undergone prior cement augmentation of an L1 vertebral fracture. The gallbladder is nonvisualized. The common bile duct diameter reaches 9 mm. Elongated left lobe of liver extends into the left upper quadrant anterior to the spleen. Incidental note of interposition of the hepatic flexure anterior to the liver. Incompletely included in the [id number]-[id number] is a 2.5 x 2.7 cm water density structure in the inferior spleen, consistent with a cyst. There is a very small hiatal hernia. CT/Chest WITH Contrast IMPRESSION: 1. Borderline cardiac enlargement. The proximal pulmonary artery segments are borderline prominent, but there is no hilar mass. 2. There is elevation of the right diaphragm and atelectasis in the right lung base. Minor subsegmental inferior left base atelectasis. 3. 7 mm pleural-based nodule in the posterolateral left lower lobe. No demonstrated right middle lobe mass. 4. Enlarged left lobe of the thyroid with possible 1.8 cm nodule. This could be further characterized and followed with ultrasound. 5. Anterior wedging of the T11 vertebra and slight depression of the right superior T12 vertebral endplate. Prior cement augmentation of an L1 vertebral fracture. There are multilevel degenerative changes of the spine. 6. Very small hiatal hernia. 7. 2.7 cm cyst in the inferior aspect of the spleen. Electronically Signed: Michael De La Fuente MD at 18:30 EST , Service support ,
[2019-01-18 17:36] LABS: CREATININE FINGERSTICK 0.7 mg/dL (0.55-1.02)
== END ==
PROVIDERS: Family Provider Family Medicine; PCP Family Medicine; Referring Provider Family Medicine; Visit Provider Family Medicine
DX: R91.8 Other nonspecific abnormal finding of lung field (principal); J98.6 Disorders of diaphragm
CPT/HCPCS: 71260; Q9967

== ENCOUNTER → 2019-01-27 10:57 | Outpatient (CLI) | payer MEDICARE, OTHER, SELFPAY ==
[2018-07-27 07:58] VITALS: BMI 31.9
--- NOTE | 2019-01-27 10:59 | US_ITS ---
INDICATION: Follow-up thyroid nodule. 78-year-old female. COMPARISON: CT scan 01/18/2019. TECHNIQUE: Ultrasound of the thyroid is performed. FINDINGS: Right Lobe: 4.4 x 1.6 x 1.6 cm. Homogeneous. Normal Doppler flow. Isthmus: 3 mm. Left lobe: 4.7 x 0.1 x 2.5 cm. Homogeneous. Normal Doppler flow. Nodules: Thyroid nodules measuring greater than 5mm are present, as described below: #1- Location: Left midgland Size: 26 x 20 x 24 mm. Composition: Solid or almost completely solid (2 pts) Echogenicity: Hyperechoic or isoechoic (1 pt) Shape: Wider than tall (0 pts) Margins: Smooth (0 pts) Echogenic Foci: None or large comet-tail artifacts (0 pts) US/Thyroid IMPRESSION: Large solid nodule within the left thyroid meets criteria for tissue sampling as listed below. TR3:Probably benign- FNA biopsy if nodule at least 2.5cm; follow if at least 1.5cm. Follow-up is recommended at 1, 3 and 5 years. Electronically Signed: Zia Pandey, at 19:01 EST Tel , Service support ,
== END ==
PROVIDERS: Family Provider Family Medicine; PCP Family Medicine; Referring Provider Family Medicine; Visit Provider Family Medicine
DX: E04.1 Nontoxic single thyroid nodule (principal)
CPT/HCPCS: 76536

== ENCOUNTER → 2019-02-17 11:09 | Outpatient (CLI) | payer MEDICARE, OTHER, SELFPAY ==
[2019-02-17 08:56] VITALS: BMI 31.9
--- NOTE | 2019-02-17 09:00 | ASPS_PTH ---
PATIENT: ADRIEN CHILEL [facility]: [facility] U#:[id number] AGE/SX: 84/F ROOM: RE02/17/[address]: Dr. Gerhard Fu MD : 1940 BED: DIS: SPEC #: [id number] RECD: 02/17/19 11:00 STATUS: BRITTANY MARINE #: [id number] XUAN: 02/17/19 09:[address]: Gerhard Fu DEPT: CYTOLOGY RECD BY: Raulito Sim ENTERED: 02/17/19 13:15 SP TYPE: ASPIRATION OTHR DR: MD Jake Payan Tissues: Thyroid gland, NOS Procedures: Special Stain Group II Cytology Other HEADER OPERATION: Ultrasound-guided left thyroid fine needle aspiration PRE-OP DIAGNOSIS: Left thyroid nodule TISSUE SUBMITTED: Left thyroid fine needle aspiration slides x8 DIAGNOSIS CYTOLOGY Fine needle aspiration, left thyroid nodule (smears): Adequate for evaluation. 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 AM:louis 02/18/19 CYTOLOGY STUDY Slides are reviewed. CYTOLOGY GROSS Received are eight smears labeled with the patient's name and designated per the requisition as left thyroid. Submitted for staining. / louis 02/17/19 TC:? CPT: 72416
== END ==
PROVIDERS: Family Provider Family Medicine; PCP Family Medicine; Referring Provider Surgery; Visit Provider Surgery
DX: E04.1 Nontoxic single thyroid nodule (principal)
CPT/HCPCS: 88161; 88313

== ENCOUNTER → 2019-07-22 13:31 | Outpatient (CLI) | payer MEDICARE, OTHER, SELFPAY ==
[2019-03-04 15:02] VITALS: BMI 37.8
[2019-07-22 15:46] LABS: AST(SGOT) 49 U/L (15-37); Alanine Aminotransfer ALT/SGPT 44 U/L (13-56); Albumin, Serum 3.2 g/dL (3.2-5.0); Alkaline Phosphatase 103 U/L (45-117); Bilirubin, Direct 0.27 mg/dL (0.00-0.30); Globulin 3.5 g/dL (2.2-4.2); Protein, Total 6.7 g/dL (6.4-8.2)
== END ==
PROVIDERS: PCP Family Medicine; Visit Provider Internal Medicine Pulmonary Disease
DX: R06.02 Shortness of breath (principal); I27.20 Pulmonary hypertension, unspecified
CPT/HCPCS: 36415; 80076; 83880

== ENCOUNTER → 2019-08-01 16:33 | Outpatient (CLI) | payer MEDICARE, OTHER, SELFPAY ==
[2019-03-04 15:02] VITALS: BMI 37.8
[2019-08-01 17:44] LABS: Anion Gap 6 (5-15); BUN 16 mg/dL (7-18); BUN/Creat Ratio 22.7 RATIO (10-20); Calcium,Total 8.8 mg/dL (8.5-10.1); Chloride 106 mmol/L (98-107); EST Glomerular Filtration Rate 85 mL/min (>60); Est Glom Filt Rate - Afr Amer 103 mL/min (>60); Glucose 97 mg/dL (74-106); Potassium 4.4 mmol/L (3.5-5.1); Sodium Level 142 mmol/L (136-145)
[2019-08-01 17:45] LABS: Absolute Lymphocyte Count 0.75 X10^3/uL (0.83-4.51); Absolute Neutrophil Count 2.9 X10^3/uL (2.0-7.7); Basophil# 0.01 X10^3/uL; Basophil% 0.2 % (0-1); Eosinophil# 0.05 X10^3/uL; Eosinophils% 1.2 % (0-5); Hematocrit 44.5 % (37-47); Lymphocyte # 0.75 X10^3/ul (4.0); Lymphocyte % 18.4 % (19-41); Mean Corp Hgb Conc 31.5 g/dL (32-36); Mean Corpuscular Hgb 30.8 pg (27.0-32.0); Mean Corpuscular Volume 97.8 fL (81-99); Mean Platelet Vol. 10.7 fl (6.2-12.0); Monocyte# 0.41 X10^3/uL; NRBC Flagged by Analyzer 0 % (0-5); Neutrophil # 2.86 X10^3/uL (2.7-7.7); Neutrophil % 70.2 % (47-70); Platelet Count 142 K/mm3 (150-450); RBC Distribution Width CV 13.3 % (11.6-14.6); RBC Distribution Width SD 47.2 fl (35.1-43.9); Red Blood Count 4.55 M/mm3 (4.2-5.4); White Blood Count 4.1 K/mm3 (4.4-11.0)
== END ==
PROVIDERS: PCP Family Medicine; Referring Provider Family Medicine; Visit Provider Family Medicine
DX: Z00.00 Encounter for general adult medical examination without abnormal findings (principal); E11.9 Type 2 diabetes mellitus without complications
CPT/HCPCS: 36415; 80048; 85025

== ENCOUNTER → 2019-12-21 12:34 | Outpatient (CLI) | payer MEDICARE, OTHER, SELFPAY ==
[2019-11-29 11:26] VITALS: BMI 38.0
--- NOTE | 2019-12-21 12:35 | ECHOD_ITS ---
Reason For Study: Afib Procedure This was a 2D Doppler, Color Flow transthoracic echocardiogram. Exam performed in department. Left Ventricle Normal LV size. Left ventricular systolic function is normal. The estimated ejection fraction is 55 %. No regional wall motion abnormalities noted. Right Ventricle Normal RV size. Normal systolic function. Atria Normal left atrium. Normal right atrium. Mitral Valve Normal mitral valve. Tricuspid Valve Normal tricuspid valve. Aortic Valve Trisinus/trileaflet aortic valve. Mild focal aortic valve calcification. Peak aortic valve gradient 22 mmHg. Mean aortic valve gradient 8 mmHg. Pulmonic Valve Normal pulmonic valve. Great Vessels Normal aortic root. The pulmonary artery is normal size. Normal inferior vena cava. Pericardium/Pleural No pericardial effusion. MMode/2D Measurements & Calculations LVIDd: 4.4 cm IVSd: 1.1 cm LVOT diam: 2.0 cm LVIDs: 3.2 cm LVPWd: 1.3 cm LVOT area: 3.2 cm2 FS: 27.4 % LA dimension: 4.4 cm LAV(MOD-bp): 48.1 ml LA A4 area: 18.6 cm2 LAV(MOD-bp) Indexed: 26.3 ml/m2 LAV(MOD-sp2): 43.8 ml LAV(MOD-sp4): 50.7 ml RA A4 area: 17.0 cm2 Time Measurements MV dec time: 0.17 sec Doppler Measurements & Calculations MV E max srinivasan: 94.9 cm/sec Lat Peak E' Srinivasan: 6.4 cm/sec Med Peak E' Srinivasan: 4.4 cm/sec MV A max srinivasan: 30.7 cm/sec E/E' lat: 14.9 E/E' med: 21.6 MV E/A: 3.1 MV V2 max: 107.8 cm/sec MV P1/2t max srinivasan: 107.4 cm/sec Ao V2 max: 237.7 cm/sec MV max P.7 mmHg MV P1/2t: 74.5 msec Ao max P.6 mmHg MV V2 mean: 47.0 cm/sec MV dec slope: 422.1 cm/sec2 Ao V2 mean: 128.4 cm/sec MV mean P.2 mmHg Ao mean P.5 mmHg MV V2 VTI: 26.6 cm MVA(P1/2t): 3.0 cm2 Ao V2 VTI: 44.6 cm MVA(VTI): 2.1 cm2 REBEL(I,D): 1.2 cm2 REBEL(V,D): 1.2 cm2 LV V1 max: 92.3 cm/sec SV(LVOT): 55.2 ml PA V2 max: 104.0 cm/sec LV V1 max P.4 mmHg LV V1 mean P.5 mmHg LV V1 mean: 56.0 cm/sec LV V1 VTI: 17.2 cm Interpretation Summary Normal LV size. Left ventricular systolic function is normal. The estimated ejection fraction is 55 %. Mild focal aortic valve calcification. Mean aortic valve gradient 8 mmHg. Ordering Physician: Dwaine Lundberg Referring Physician: Jake Schwarz Performed By: Brendan Vieyra RCS
== END ==
PROVIDERS: PCP Family Medicine; Referring Provider Internal Medicine Cardiovascular Disease; Visit Provider Internal Medicine Cardiovascular Disease
DX: I48.19 Other persistent atrial fibrillation (principal)
CPT/HCPCS: 93306

== ENCOUNTER 2019-12-27 07:55 | Day surgery (SDC) | payer MEDICARE, OTHER, SELFPAY ==
[2019-11-29 11:26] VITALS: BMI 38.0
--- NOTE | 2019-12-21 12:48 | EKG12_ITS ---
Test Reason : PRE OP Blood Pressure : / mmHG Vent. Rate : 080 BPM Atrial Rate : 267 BPM P-R Int : 000 ms QRS Dur : 070 ms QT Int : 372 ms P-R-T Axes : 000 -10 075 degrees QTc Int : 429 ms Atrial fibrillation Septal infarct , age undetermined Abnormal ECG Confirmed by PORTILLO SCHROEDER, JOSH ([id number]), editorial director HEATHER PELLETIER ([id number]) on 12/22/2019 8:58:23 AM Referred By: Rose Kraus Confirmed By:JOSH NATH MD
[2019-12-21 13:42] LABS: Hemoglobin 13.9 g/dL (12.0-15.0); Mean Corp Hgb Conc 30.9 g/dL (32-36); Mean Corpuscular Hgb 30.3 pg (27.0-32.0); Mean Corpuscular Volume 98.3 fL (81-99); Mean Platelet Vol. 10.5 fl (6.2-12.0); Platelet Count 180 K/mm3 (150-450); RBC Distribution Width CV 13.4 % (11.6-14.6); RBC Distribution Width SD 48.9 fl (35.1-43.9); Red Blood Count 4.58 M/mm3 (4.2-5.4)
[2019-12-21 14:07] LABS: Hemoglobin A1c 5.9 % (3.8-5.6)
[2019-12-21 14:09] LABS: Anion Gap 2 (5-15); BUN 16 mg/dL (7-18); BUN/Creat Ratio 20.2 RATIO (10-20); Calcium,Total 8.8 mg/dL (8.5-10.1); Chloride 106 mmol/L (98-107); Creatinine, Serum 0.79 mg/dL (0.55-1.02); EST Glomerular Filtration Rate 75 mL/min (>60); Est Glom Filt Rate - Afr Amer 90 mL/min (>60); Glucose 108 mg/dL (74-106); Potassium 4.2 mmol/L (3.5-5.1); Sodium Level 140 mmol/L (136-145)
--- NOTE | 2019-12-27 08:16 | PCM.HP.STD ---
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 She underwent office cystoscopy and was found to have several areas of erythema warranting biopsy for further evaluation and management. Informed consent was obtained including a discussion of COVID-19 risks.] Past Medical History Past Medical History (Chronic Problems): Chronic Problems (Last Reviewed 11/29/19 @ 11:[address] Dwaine Lundberg MD) Nonobstructive atherosclerosis of coronary artery (Chronic) Paroxysmal atrial fibrillation (Chronic) Paroxysmal SVT (supraventricular tachycardia) (Chronic) Nonrheumatic aortic valve stenosis (Chronic) Essential (primary) hypertension (Chronic) Medical History: Medical History (Last Reviewed 12/27/19 @ 08:[address] Rose Kraus MD) Nonobstructive atherosclerosis of coronary artery (Chronic) I25.10 Paroxysmal atrial fibrillation (Chronic) I48.0 Paroxysmal SVT (supraventricular tachycardia) (Chronic) I47.1 Nonrheumatic aortic valve stenosis (Chronic) I35.0 Essential (primary) hypertension (Chronic) I10 Arthritis M19.90 COPD (chronic obstructive pulmonary disease) J44.9 Left thyroid nodule E04.1 Obesity E66.9 Osteoarthritis M19.90 RLS (restless legs syndrome) G25.81 Type 2 diabetes mellitus without complications E11.9 Secondary pulmonary arterial hypertension I27.21 Nonrheumatic aortic valve stenosis (Ruled-out) I35.0 Allergies gabapentin Allergy (Verified 12/20/19 12:27) STROKE LIKE SYMPTOMS ropinirole HCl [From Requip] Allergy (Verified 12/20/19 12:27) STROKE LIKE SYMPTOMS pentazocine lactate [From Talwin] Adverse Reaction (Verified 12/20/19 12:27) Unknown sulfamethoxazole [From Bactrim] Adverse Reaction (Verified 12/20/19 12:27) Makes me high, feel weird trimethoprim [From Bactrim] Adverse Reaction (Verified 12/20/19 12:27) Makes me feel strange Home Medications: Ambulatory Orders Medication Instructions Recorded Albuterol Sulfate [Proventil Hfa] 2 puff IH PRN PRN 09/26/15 Multivitamins,Therapeutic 1 tab PO DAILY 09/26/15 [Multivitamin] fentaNYL patch [Duragesic] 25 mcg TRANSDERM. Q72H 09/26/15 pramipexole 1 mg tablet 1 mg PO QHS 01/05/18 sennosides 8.6 mg tablet 8.6 mg PO BID 01/05/18 oxybutynin chloride 10 mg 10 mg PO DAILY 90 Days #90 tab 07/27/18 tablet,extended release 24 hr apixaban 5 mg tablet 5 mg PO BID #180 tab 02/28/19 metoprolol tartrate 50 mg tablet 50 mg PO BID #180 tab 02/28/19 furosemide 20 mg tablet 20 mg PO DAILY PRN tab 11/29/19 losartan 100 mg tablet 100 mg PO DAILY #90 tab 11/29/19 Calcium Carb/Vitamin D3/Vit K1 2 ea PO DAILY 12/20/19 [Citracal Soft Chew] Macitentan [Opsumit] 10 mg PO QHS 12/20/19 Surgical History: Surgical History (Last Reviewed 12/27/19 @ 08:[address] Rose Kraus MD) H/O right heart catheterization Onset Date: 2007 Z98.890 10/15/2002; 09/14/2007 History of carpal tunnel release Z98.890 History of cholecystectomy Z98.890, Z90.49 History of left heart catheterization Onset Date: 1999 Z98.890 10/20/2002; 11/14/1999; History of open reduction and internal fixation (ORIF) procedure Z98.890 right leg History of right knee joint replacement Z96.651 partial right knee replacement Smoking Status: Former smoker Tobacco Use: Non-smoker Review of Systems Constitutional: Denies: Anorexia, Chills, Fever Eyes: Denies: Vision Change HEENT: Denies: Visual Changes Cardiovascular: Denies: Chest Pain, Chest Pressure Respiratory: Denies: Cough, Shortness of Breath Gastrointestinal: Denies: Abdominal Pain, Vomiting Genitourinary: Reports: Frequency, Incontinence, Urgency Gynecological: Denies: Vaginal itching Musculoskeletal: Denies: Muscle pain Skin: Denies: Wounds Neurological: Denies: Difficulty swallowing VTE Information - Inpt Only VTE Present on Admission: Yes VTE Mechan Device Prophylaxis: SCD's VTE Pharm Prophylaxis ordered?: Yes - Physical Exam Vitals/I&O's: Body Mass Index (BMI) 38.0 General: Alert, Oriented x3, Cooperative, No apparent distress HEENT: Atraumatic, Normocephalic Oral: Moist Mucosa Neck: Supple, Trachea Midline Lungs: Normal air movement Cardiovascular: Regular rate Abdomen: Soft, Non Tender Extremities: No cyanosis Skin: No rashes Musculoskeletal: No Muscle Wasting Neurological: Cranial nerves II-XII grossly intact, Neuro grossly intact Psych/Mental Status: Normal Affect, Alert and oriented to time, place, person, mood and affect Current Medications Cefazolin Sodium 2 gm/ Sodium (Chloride) 110 mls @ 150 mls/hr IV PREOP ONE Stop: 12/27/19 10:13 Assessment/Plan All Active Problems (Last Reviewed 11/29/19 @ 11:[address] Dwaine Lundberg MD) Neoplasm of uncertain behavior of bladder (Acute) Persistent atrial fibrillation (Acute) Nonrheumatic aortic valve stenosis (Ruled-out) Cystoscopy with bladder biopsy and fulguration, patient to restart Eliquis today. Procedure Criteria Procedure Type: Elective COVID Risk Discussion: The surgeon/proceduralist and patient have discussed in detail the risk of exposure to and/or potential harm posed by the COVID-19 virus with having a surgery/procedure at this time versus the risk of delaying the surgery/procedure. It is not possible to know either the risk of delaying the surgery or procedure or chance of getting an infection with perfect accuracy, but a joint decision was made between the patient and the surgeon/proceduralist to proceed at this time with the scheduled surgery/procedure as indicated on the consent form.
--- NOTE | 2019-12-27 08:19 | PCM.OPRPT ---
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 Informed consent was obtained and she agreed to proceed with biopsy under anesthesia. Risks of COVID-19 were discussed and her anticoagulation was stopped. Patient was taken to the operating room and placed on the operating room table anesthesia monitored the head, neck, airway, IV access and vital signs throughout the case. Once anesthesia was appropriately administered the patient was placed into dorsal lithotomy position was prepped and draped in usual sterile fashion. A cystourethroscopy was performed through the urethra under direct visualization. The areas seen in the office were much smaller in size. There were two 3 to 4 mm erythematous lesions in the posterior bladder wall. Each of these areas were biopsied and fulgurated for hemostatic control and tissue treatment. No other lesions were identified, including polyps or foreign bodies. The patient's bladder was emptied and the case was terminated. She was taken the operating room in good condition. There were no complications during this procedure. - Complications None - Admit VTE Documentation VTE Present on Admission: Yes VTE Mechan Device Prophylaxis: SCD's VTE Pharm Prophylaxis ordered?: Yes
[2019-12-27 08:30] VITALS: BP 145/71; PULSE 60; RESP 16; TEMP 36.3; O2SAT 92; BMI 38.7
[2019-12-27] MEDS: Lactated Ringers 1,000 ML 100 ML IV (08:53)
[2019-12-27 09:05] LABS: Bedside Glucose 94 mg/dL (70-110)
[2019-12-27] MEDS: Cefazolin 2 GM in 0.9% Normal Saline 100 ML IV (09:21)
--- NOTE | 2019-12-27 09:40 | BLA_PTH ---
PATIENT: ADRIEN CHILEL [place] [facility] [place][id number] AGE/SX: 79/F ROOM: RE12/27/[address]: Dr. Rose Kraus MD : 1940 BED: DIS: 12/27/2019 SPEC #: [id number] RECD: 12/27/19 09:58 STATUS: BRITTANY MARINE #: [id number] XUAN: 12/27/19 09:[address]: Rose Kraus DEPT: SURGICAL PATHOLOGY RECD BY: Orly Hernandez ENTERED: 12/27/19 15:11 SP TYPE: BLADDER BX OTHR DR: Jake Schwarz Tissues: Urinary bladder, NOS Procedures: Surgery Specimen Level IV HEADER OPERATION: Cysto, biopsy, fulguration, bladder tumor PRE-OP DIAGNOSIS: Bladder neoplasm TISSUE SUBMITTED: Bladder biopsy MICROSCOPIC DIAGNOSIS Urinary bladder, biopsy: Focal urothelial hyperplasia and minimal chronic inflammation. AM:louis 11/4/20 MICROSCOPIC DESCRIPTION Slides are reviewed. GROSS DESCRIPTION Received in fixative is one container labeled with the patient's name and designated bladder biopsy. The specimen consists of two irregular fragments of pa soft tissue that in aggregate measure 0.2 x 0.1 x 0.1 cm. The specimen is totally submitted in one cassette. / SJ:rg 12/27/19 TC:5 CPT: 29019 ADDENDUM ADDENDUM ADDENDUM ADDENDUM 12/29/2019 11:33 ADDENDUM 12/29/2019 11:33 ADDENDUM 12/29/2019 11:33 ADDENDUM 12/29/2019 11:33 ADDENDUM 12/29/2019 11:33 Detrusor muscle is not present in the biopsy. AM:louis 12/29/19
[2019-12-27 09:46] VITALS: BP 128/78; BP 145/71; PULSE 58; RESP 16; TEMP 36.4; O2SAT 94
--- NOTE | 2019-12-27 09:48 | DCINST_ITS ---
Discharge Diet: No Restrictions Discharge Activity: May not drive while taking narcotic pain medications. Call your doctor if you observe: Fever of 101 or Higher, Inability to urinate, Inability to have a bowel movement Additional Instructions: restart Eliquis today Allergies/Adverse Reactions: Allergies gabapentin Allergy (Verified 12/27/19 08:27) STROKE LIKE SYMPTOMS ropinirole HCl [From Requip] Allergy (Verified 12/27/19 08:27) STROKE LIKE SYMPTOMS pentazocine lactate [From Talwin] Adverse Reaction (Verified 12/27/19 08:27) Unknown sulfamethoxazole [From Bactrim] Adverse Reaction (Verified 12/27/19 08:27) Makes me high, feel weird trimethoprim [From Bactrim] Adverse Reaction (Verified 12/27/19 08:27) Makes me feel strange Medications to take at Discharge RX: Albuterol Sulfate [Proventil Hfa] 2 puff IH PRN PRN 09/26/15 RX: Multivitamins,Therapeutic [Multivitamin] 1 tab PO DAILY 09/26/15 RX: fentaNYL patch [Duragesic patch] 25 mcg TRANSDERM. Q72H 09/26/15 pramipexole 1 mg tablet 1 mg PO QHS 01/05/18 sennosides 8.6 mg tablet 8.6 mg PO BID 01/05/18 oxybutynin chloride 10 mg tablet,extended release 24 hr 10 mg PO DAILY 90 Days #90 tab 07/27/18 apixaban 5 mg tablet 5 mg PO BID #180 tab 02/28/19 metoprolol tartrate 50 mg tablet 50 mg PO BID #180 tab 02/28/19 furosemide 20 mg tablet 20 mg PO DAILY PRN tab 11/29/19 losartan 100 mg tablet 100 mg PO DAILY #90 tab 11/29/19 RX: Calcium Carb/Vitamin D3/Vit K1 [Citracal-D3 500 mg Soft Chew] 2 ea PO DAILY 12/20/19 RX: Macitentan [Opsumit] 10 mg PO DAILY 12/20/19 Cephalexin [Keflex] 500 mg PO Q12 3 Days #6 cap 12/27/19 Oxycodone HCl/Acetaminophen [Percocet 5/325] 1 tablet PO Q12H PRN PRN 2 Days #4 tablet 12/27/19 The following prescriptions were given: Cephalexin [Keflex] 500 mg PO Q12 3 Days #6 cap Transmission Status: Pending to [facility] Oxycodone HCl/Acetaminophen [Percocet 5/325] 1 tablet PO Q12H PRN PRN 2 Days #4 tablet PRN Reason: Pain Transmission Status: Sent to [facility] Orders to be completed after discharge: 12 Lead EKG [[facility]] Time Frame: 12/21/19, Location: None Selected Primary Care Physician: Jake Schwarz [Primary Care Provider] - Test Results: Test results from this visit will be discussed in further detail at your follow- up appointment, if applicable. Please Follow Up With: Rose Kraus MD When: call for appt in office next week Proposed Discharge Date: 12/27/19
[2019-12-27 10:00] VITALS: BP 143/87; BP 145/71; PULSE 66; RESP 16; O2SAT 99
[2019-12-27 10:15] VITALS: BP 128/70; BP 145/71; PULSE 63; RESP 16; O2SAT 94
[2019-12-27 10:15] LABS: Bedside Glucose 85 mg/dL (70-110)
[2019-12-27 10:30] VITALS: BP 123/68; BP 145/71; PULSE 60; RESP 16; TEMP 36.2; O2SAT 97
[2019-12-27 11:18] VITALS: BP 127/73; BP 145/71; PULSE 80; RESP 16; TEMP 36.3; O2SAT 92
== END 2019-12-27 11:45 | disposition home or self-care (01) ==
LOC: SDC 07:56 → AC 07:57
PROVIDERS: Anesthesiology; PCP Family Medicine; Referring Provider Urology; Visit Provider Urology
PROC: 0TBB8ZX Excision of Bladder, Via Natural or Artificial Opening Endoscopic, Diagnostic (ICD-10-PCS; CPT 52204; principal; 2019-12-27 09:30)
DX: D41.4 Neoplasm of uncertain behavior of bladder (principal); Z20.828 Contact with and (suspected) exposure to other viral communicable diseases; I10 Essential (primary) hypertension; J44.9 Chronic obstructive pulmonary disease, unspecified; M19.90 Unspecified osteoarthritis, unspecified site; E66.9 Obesity, unspecified; E11.9 Type 2 diabetes mellitus without complications; I27.21 Secondary pulmonary arterial hypertension; G25.81 Restless legs syndrome; Z79.899 Other long term (current) drug therapy; Z87.891 Personal history of nicotine dependence; Z68.38 Body mass index [BMI] 38.0-38.9, adult; I48.19 Other persistent atrial fibrillation; E78.00 Pure hypercholesterolemia, unspecified
CPT/HCPCS: 00910; 52204; 36415; 80048; 82962; 83036; 85027; 87635; 88305; 93005; C9803; J7120; J2405; U0003

== ENCOUNTER → 2020-02-10 11:21 | Outpatient (CLI) | payer MEDICARE, OTHER, SELFPAY ==
[2020-02-10 12:42] LABS: Anion Gap 2 (5-15); BUN 15 mg/dL (7-18); BUN/Creat Ratio 20.5 RATIO (10-20); Calcium,Total 8.8 mg/dL (8.5-10.1); Chloride 107 mmol/L (98-107); Cholesterol 120 mg/dL (200); Creatinine, Serum 0.73 mg/dL (0.55-1.02); EST Glomerular Filtration Rate 82 mL/min (>60); Est Glom Filt Rate - Afr Amer 99 mL/min (>60); Glucose 85 mg/dL (74-106); High Density Lipoprotein 49 mg/dL; Sodium Level 141 mmol/L (136-145); Triglycerides 61 mg/dL; Very Low Density Lipoprotein 12 mg/dL (5-40)
== END ==
PROVIDERS: PCP Family Medicine; Referring Provider Family Medicine; Visit Provider Family Medicine
DX: E11.9 Type 2 diabetes mellitus without complications (principal)
CPT/HCPCS: 36415; 80048; 80061

== ENCOUNTER → 2020-03-06 15:32 | Outpatient (CLI) | payer MEDICARE, OTHER, SELFPAY ==
[2020-03-06 18:20] LABS: Absolute Lymphocyte Count 0.85 X10^3/uL (0.83-4.51); Absolute Neutrophil Count 4.1 X10^3/uL (2.0-7.7); Basophil# 0.02 X10^3/uL; Basophil% 0.4 % (0-1); Eosinophil# 0.08 X10^3/uL; Eosinophils% 1.5 % (0-5); Hemoglobin 13.5 g/dL (12.0-15.0); Lymphocyte # 0.85 X10^3/ul (4.0); Lymphocyte % 15.5 % (19-41); Mean Corp Hgb Conc 30.7 g/dL (32-36); Mean Corpuscular Hgb 30.1 pg (27.0-32.0); Mean Platelet Vol. 10.7 fl (6.2-12.0); Monocyte# 0.47 X10^3/uL; Monocyte% 8.6 % (0-10); NRBC Flagged by Analyzer 0 % (0-5); Neutrophil # 4.05 X10^3/uL (2.7-7.7); Neutrophil % 73.6 % (47-70); Platelet Count 171 K/mm3 (150-450); RBC Distribution Width CV 13.1 % (11.6-14.6); Red Blood Count 4.49 M/mm3 (4.2-5.4); White Blood Count 5.5 K/mm3 (4.4-11.0)
[2020-03-06 18:52] LABS: ALB/GLOB Ratio 0.9 RATIO (0.9-2.4); AST(SGOT) 27 U/L (15-37); Alanine Aminotransfer ALT/SGPT 28 U/L (13-56); Albumin, Serum 3.3 g/dL (3.2-5.0); Alkaline Phosphatase 107 U/L (45-117); Anion Gap 3 (5-15); BUN 16 mg/dL (7-18); BUN/Creat Ratio 20.9 RATIO (10-20); CRP < 2.90 mg/L (0.0-3.0); Calcium,Total 8.3 mg/dL (8.5-10.1); Chloride 105 mmol/L (98-107); Creatinine, Serum 0.76 mg/dL (0.55-1.02); EST Glomerular Filtration Rate 77 mL/min (>60); Est Glom Filt Rate - Afr Amer 94 mL/min (>60); Globulin 3.5 g/dL (2.2-4.2); Glucose 97 mg/dL (74-106); Potassium 4.3 mmol/L (3.5-5.1); Protein, Total 6.8 g/dL (6.4-8.2); Sodium Level 139 mmol/L (136-145); Thyroid Stim Hormone (TSH) 1.64 uIU/mL (0.358-3.74)
== END ==
PROVIDERS: PCP Family Medicine; Referring Provider Family Medicine; Visit Provider Family Medicine
DX: L50.9 Urticaria, unspecified (principal)
CPT/HCPCS: 36415; 80053; 84443; 85025; 86140

== ENCOUNTER 2020-03-16 09:49 | Outpatient (RCR) | payer MEDICARE, OTHER, SELFPAY | END 2020-03-16 23:59 | LOC: IMMUN 09:49 | PROVIDERS: PCP Family Medicine; Visit Provider Family Medicine | DX: Z23 Encounter for immunization (principal) | CPT/HCPCS: 0011A; 0012A ==

== ENCOUNTER → 2020-05-01 11:49 | Outpatient (CLI) | payer MEDICARE, OTHER, SELFPAY ==
[2020-05-01 15:31] LABS: Absolute Lymphocyte Count 0.86 X10^3/uL (0.83-4.51); Basophil# 0.01 X10^3/uL; Basophil% 0.2 % (0-1); Eosinophil# 0.05 X10^3/uL; Eosinophils% 0.9 % (0-5); Hematocrit 44.2 % (37-47); Hemoglobin 13.7 g/dL (12.0-15.0); Lymphocyte # 0.86 X10^3/ul (4.0); Lymphocyte % 15.8 % (19-41); Mean Corpuscular Hgb 30.3 pg (27.0-32.0); Mean Corpuscular Volume 97.8 fL (81-99); Mean Platelet Vol. 10.8 fl (6.2-12.0); Monocyte# 0.51 X10^3/uL; Monocyte% 9.4 % (0-10); NRBC Flagged by Analyzer 0 % (0-5); Neutrophil % 73.3 % (47-70); Platelet Count 172 K/mm3 (150-450); RBC Distribution Width CV 14.3 % (11.6-14.6); RBC Distribution Width SD 51.8 fl (35.1-43.9); Red Blood Count 4.52 M/mm3 (4.2-5.4); White Blood Count 5.5 K/mm3 (4.4-11.0)
[2020-05-01 15:48] LABS: BNP,B-Type NATRIURETIC PEPTIDE 428.5 pg/mL (0-100)
[2020-05-01 15:58] LABS: AST(SGOT) 26 U/L (15-37); Alanine Aminotransfer ALT/SGPT 33 U/L (13-56); Albumin, Serum 3.6 g/dL (3.2-5.0); Alkaline Phosphatase 115 U/L (45-117); Bilirubin, Direct 0.14 mg/dL (0.00-0.30); Globulin 3.6 g/dL (2.2-4.2); Protein, Total 7.2 g/dL (6.4-8.2)
== END ==
PROVIDERS: PCP Family Medicine; Referring Provider Internal Medicine Pulmonary Disease; Visit Provider Internal Medicine Pulmonary Disease
DX: I27.20 Pulmonary hypertension, unspecified (principal)
CPT/HCPCS: 36415; 80076; 83880; 85025

== ENCOUNTER → 2020-08-10 11:16 | Outpatient (CLI) | payer MEDICARE, OTHER, SELFPAY ==
[2020-05-29 13:43] VITALS: BMI 38.7
[2020-08-10 15:37] LABS: Anion Gap 4 (5-15); BUN 15 mg/dL (7-18); BUN/Creat Ratio 21.3 RATIO (10-20); Calcium,Total 8.4 mg/dL (8.5-10.1); Chloride 107 mmol/L (98-107); Cholesterol 131 mg/dL (200); EST Glomerular Filtration Rate 85 mL/min (>60); Est Glom Filt Rate - Afr Amer 103 mL/min (>60); Glucose 80 mg/dL (74-106); High Density Lipoprotein 46 mg/dL; Potassium 4.4 mmol/L (3.5-5.1); Sodium Level 142 mmol/L (136-145); Triglycerides 75 mg/dL; Very Low Density Lipoprotein 15 mg/dL (5-40)
== END ==
PROVIDERS: PCP Family Medicine; Referring Provider Family Medicine; Visit Provider Family Medicine
DX: E11.9 Type 2 diabetes mellitus without complications (principal)
CPT/HCPCS: 36415; 80048; 80061

== ENCOUNTER → 2020-10-02 11:31 | Outpatient (CLI) | payer MEDICARE, OTHER, SELFPAY ==
[2020-05-29 13:43] VITALS: BMI 38.7
[2020-10-02 15:18] LABS: Absolute Lymphocyte Count 0.72 X10^3/uL (0.83-4.51); Absolute Neutrophil Count 2.8 X10^3/uL (2.0-7.7); Basophil# 0.01 X10^3/uL; Basophil% 0.2 % (0-1); Eosinophil# 0.09 X10^3/uL; Eosinophils% 2.2 % (0-5); Hemoglobin 12.5 g/dL (12.0-15.0); Lymphocyte # 0.72 X10^3/ul (0.83-4.51); Lymphocyte % 17.9 % (19-41); Mean Corp Hgb Conc 31.3 g/dL (32-36); Mean Corpuscular Hgb 30.5 pg (27.0-32.0); Mean Corpuscular Volume 97.6 fL (81-99); Mean Platelet Vol. 10.4 fl (6.2-12.0); Monocyte# 0.39 X10^3/uL; Monocyte% 9.7 % (0-10); NRBC Flagged by Analyzer 0 % (0-5); Neutrophil % 69.5 % (47-70); Platelet Count 151 K/mm3 (150-450); RBC Distribution Width CV 13.2 % (11.6-14.6); RBC Distribution Width SD 47.8 fl (35.1-43.9)
[2020-10-02 15:36] LABS: BNP,B-Type NATRIURETIC PEPTIDE 288.5 pg/mL (0-100)
[2020-10-02 15:47] LABS: AST(SGOT) 22 U/L (15-37); Alanine Aminotransfer ALT/SGPT 26 U/L (13-56); Albumin, Serum 3.3 g/dL (3.2-5.0); Alkaline Phosphatase 105 U/L (45-117); Bilirubin, Direct 0.16 mg/dL (0.00-0.30); Globulin 3.1 g/dL (2.2-4.2); Protein, Total 6.4 g/dL (6.4-8.2)
== END ==
PROVIDERS: PCP Family Medicine; Referring Provider Internal Medicine Pulmonary Disease; Visit Provider Internal Medicine Pulmonary Disease
DX: I27.20 Pulmonary hypertension, unspecified (principal); R06.00 Dyspnea, unspecified; R60.0 Localized edema; Z79.899 Other long term (current) drug therapy
CPT/HCPCS: 36415; 80076; 83880; 85025

== ENCOUNTER 2021-05-02 14:45 | Outpatient (CLI) | payer MEDICARE, OTHER, SELFPAY ==
[2021-05-02 18:19] LABS: BNP,B-Type NATRIURETIC PEPTIDE 379.1 pg/mL (0-100)
[2021-05-02 18:31] LABS: AST(SGOT) 25 U/L (15-37); Alanine Aminotransfer ALT/SGPT 38 U/L (13-56); Albumin, Serum 3.3 g/dL (3.2-5.0); Alkaline Phosphatase 104 U/L (45-117); Bilirubin, Direct 0.14 mg/dL (0.00-0.30); Globulin 3.6 g/dL (2.2-4.2); Protein, Total 6.9 g/dL (6.4-8.2)
== END 2021-05-02 23:59 | disposition home or self-care (01) ==
LOC: MTLAB 14:47
PROVIDERS: PCP Family Medicine; Referring Provider Internal Medicine Pulmonary Disease; Visit Provider Internal Medicine Pulmonary Disease
DX: I27.20 Pulmonary hypertension, unspecified (principal); Z79.899 Other long term (current) drug therapy
CPT/HCPCS: 36415; 80076; 83880

== ENCOUNTER 2021-07-31 12:22 | Emergency (ER) | payer MEDICARE, OTHER, SELFPAY ==
[2021-07-31 12:24] VITALS: BP 182/108; PULSE 87; RESP 16; TEMP 36.2; O2SAT 98; BMI 37.3
--- NOTE | 2021-07-31 12:59 | EDS_ITS ---
HPI History of Present Illness Chief Complaint: Abd Pain Informant: patient Narrative Narrative: Patient is an 9-year-old female with history of proximal atrial fibrillation on metoprolol as well as Eliquis and chronic pain on a fentanyl patch presenting for left-sided rib pain. She denies any trauma or falls. She notes he does deal with chronic constipation associated with her pain medication however states this is pretty well controlled right now. Denies any nausea or vomiting. Denies any urinary symptoms. Denies any chest pain or difficulty breathing. Notes the pain is worse with movement or when she takes a deep breath. Her pain management doctor suggested she come in. No other complaints at this time. [facility] Medical History (Updated 07/31/21 @ 15:[address] Claire Nuñez, ) Arthritis COPD (chronic obstructive pulmonary disease) Essential (primary) hypertension Left thyroid nodule Nonobstructive atherosclerosis of coronary artery Nonrheumatic aortic valve stenosis Nonrheumatic aortic valve stenosis Obesity Osteoarthritis Paroxysmal atrial fibrillation Paroxysmal SVT (supraventricular tachycardia) RLS (restless legs syndrome) Secondary pulmonary arterial hypertension Type 2 diabetes mellitus without complications Home Medications albuterol sulfate 2 puff IH PRN PRN 09/26/15 [History Last Taken Unknown] fentanyl 25 mcg TRANSDERM. Q72H 09/26/15 [History Last Taken Unknown] multivitamin with folic acid 1 tab PO DAILY 09/26/15 [History Last Taken Unknown] pramipexole 1 mg tablet 1 mg PO QHS 01/05/18 [History Last Taken Unknown] sennosides 8.6 mg tablet 8.6 mg PO BID 01/05/18 [History Last Taken Unknown] oxybutynin chloride 10 mg tablet,extended release 24 hr 10 mg PO DAILY 90 Days #90 tab 07/27/18 [History Last Taken Unknown] calcium-vitamin D3-vitamin K 2 ea PO DAILY 12/20/19 [History Last Taken Unknown] macitentan 10 mg PO DAILY 12/20/19 [History Last Taken 12/27/19] furosemide 20 mg tablet 20 mg PO DAILY PRN #90 tab 05/09/20 [Rx Last Taken Unknown] losartan 100 mg tablet 100 mg PO DAILY #90 tab 11/12/20 [Rx Last Taken Unknown] apixaban 5 mg tablet See Rx Instructions .ROUTE .COMPLEX #180 tab 02/26/21 [Rx Last Taken Unknown] metoprolol tartrate 50 mg tablet See Rx Instructions .ROUTE .COMPLEX #180 tab 05/01/21 [Rx Last Taken Unknown] doxycycline hyclate 100 mg PO BID #14 tab 07/31/21 [Rx Last Taken Unknown] Allergy/AdvReac Type Severity Reaction Status Date / Time gabapentin Allergy STROKE Verified 07/31/21 12:24 LIKE SYMPTOMS ropinirole HCl [From Requip] Allergy STROKE Verified 07/31/21 12:24 LIKE SYMPTOMS pentazocine lactate AdvReac Unknown Verified 07/31/21 12:24 [From Talwin] sulfamethoxazole AdvReac Makes me Verified 07/31/21 12:24 [From Bactrim] high, feel weird trimethoprim [From Bactrim] AdvReac Makes me Verified 07/31/21 12:24 feel strange Family History Father CAD (coronary artery disease) CVA (cerebral vascular accident) Hypertension Sister CAD (coronary artery disease) Diabetes Hypertension Surgical History H/O right heart catheterization (2007) History of carpal tunnel release History of cholecystectomy History of left heart catheterization (1999) History of open reduction and internal fixation (ORIF) procedure History of right knee joint replacement partial right knee replacement Social History Smoking Status: Former smoker how long ago did patient quit smokin alcohol intake: never caffeine: Yes Type: coffee Number of servings: 1 ROS ROS ED Constitutional Constitutional ED: Denies chills or fever(s) Eyes Eyes: Denies change in vision ENT ENT ED: Denies rhinorrhea or sore throat Cardiovascular Cardiovascular: Reports chest pain; Denies palpitations Respiratory/Chest Respiratory/Chest: Denies cough, dyspnea, dyspnea on exertion or sputum Gastrointestinal Gastrointestinal: Denies abdominal pain, diarrhea, nausea or vomiting Musculoskeletal Musculoskeletal: Reports back pain; Denies arthralgias or myalgias Integumentary Denies rash Neurologic Neurologic: Denies headache(s) or weakness Psychiatric Psychiatric: Denies depression EXAM Physical Exam Const Vital Signs: 07/31/21 12:24 07/31/21 13:14 Temperature 97.1 F L Temperature Source Temporal Pulse Rate 87 Respiratory Rate 16 Blood Pressure 182/108 H 139/83 H Blood Pressure Mean 132 101 Pulse Ox 98 Oxygen Delivery Method Room Air Positive well nourished and well developed General Appearance ED: well developed and NAD HEENT Reports moist mucous membranes Negative for trauma Eyes PERRL and EOMs intact bilaterally Neck supple and no JVD Chest Wall inspection of chest normal Resp normal respiratory effort and clear to auscultation bilaterally Resp Narrative: No splinting Auscultation: Negative for wheezes or diminished lung sounds Cardio regular rate, regular rhythm and no murmurs GI normal to inspection, nondistended, normoactive bowel sounds, non-tender and non-distended Palpation: soft Back/Spine no CVA tenderness Extremity normal to inspection Neuro oriented x3 Sensorium / Orientation: alert Motor Exam: Negative for general weakness Psych mental status grossly normal Skin no rashes or lesions noted and no wounds MDM MDM MDM Narrative Medical decision making narrative: Patient evaluated for left-sided rib pain. Initially she checked in for left upper quadrant pain but on exam the pain is much more in the thoracic area. She is some chronic constipation which is stable and she has been having regular bowel movements. Her abdomen is soft. I do not think that is the cause of her symptoms today. Vital signs initially remarkable for hypertension with a blood pressure of 132/101 however this resolves with rest and pain medication. The lab work largely unremarkable. Patient is high since he troponin is normal and 16. I do not think this is cardiac in nature. My concern is this is pleuritic pain versus muscle skeletal pain. She has been compliant with her Eliquis has not missed any doses so I do not think this is a pulmonary emboli. In addition she is not tachycardic or hypoxic. Rib series interpreted by myself as well as radiology does not show any acute fracture but does show a small left effusion with bibasilar at attacks versus infiltrates and some mild pulmonary vascular congestion. Patient does not appear fluid overloaded. Given the localized discomfort we will treat as a possible pneumonia with doxycycline. Also given Lidoderm patch for further pain control. She will follow-up with her pain management doctor for further pain control as needed. Patient counseled on return precautions. She verbalized agreement understand this plan. Discharged home in stable condition. Lab Data Attestation: I reviewed the patient's lab results. Labs: Laboratory Results - last 24 hr 07/31/21 07/31/21 13:25 13:25 WBC 5.9 RBC 4.39 Hgb 13.7 Hct 42.5 MCV 96.8 MCH 31.2 MCHC 32.2 RDW Std Deviation 47.9 H RDW Coeff of Jacob 13.5 Plt Count 138 L MPV 10.1 Immature Gran % (Auto) 0.300 Neut % (Auto) 78.9 H Lymph % (Auto) 11.5 L Gulf % (Auto) 8.4 Eos % (Auto) 0.7 Baso % (Auto) 0.2 Absolute Neuts (auto) 4.7 Absolute Lymphs (auto) 0.68 L Nucleated RBC % 0 Sodium 140 Potassium 4.0 Chloride 106 Carbon Dioxide 31.0 Anion Gap 3 L BUN 16 Creatinine 0.68 Estim Creat Clear Calc 35.49 Est GFR (MDRD) Af Amer 107 Est GFR (MDRD) Non-Af 89 BUN/Creatinine Ratio 23.6 H Glucose 108 H Calcium 8.7 Total Bilirubin 0.60 AST 21 ALT 27 Alkaline Phosphatase 92 Troponin I High Sens 16 Total Protein 6.8 Albumin 3.2 Globulin 3.6 Albumin/Globulin Ratio 0.9 Lipase 52 L Radiography Diagnostic Testing: Clinical Impression(s) from Imaging Studies Ribs w/Chest X-Ray 07/31/21 12:59 IMPRESSION: RIBS: No acute abnormality is seen. CHEST: Small left effusion with bibasilar atelectasis. Mild degree of vascular congestion. Electronically Signed: Rajesh Velasquez MD at 14:48 EDT , Discharge Plan Triage Chief Complaint: Abd Pain ED Provider: Claire Nuñez Dx/Rx/DC Orders Clinical Impression: Left-sided chest wall pain, Left lower lobe pneumonia, Pleurisy with effusion Instructions: ED Pleural Effusion, ED Pleurisy, ED Pneumonia (Adult) Prescriptions: New doxycycline hyclate 100 mg tablet 100 mg PO BID Qty: 14 RF: 0 No Action pramipexole 1 mg tablet 1 mg PO QHS RF: 0 sennosides [Senexon] 8.6 mg tablet 8.6 mg PO BID RF: 0 oxybutynin chloride 10 mg tablet extended release 24hr 10 mg PO DAILY 90 Days Qty: 90 RF: 0 Eliquis 5 mg tablet See Rx Instructions .ROUTE .COMPLEX Qty: 180 RF: 3 fentanyl 25 MCG patch 25 mcg TRANSDERM. Q72H RF: 0 albuterol sulfate 6.7 GM HFA aerosol inhaler 2 puff IH PRN PRN (Reason: PULMONARY HTN) RF: 0 multivitamin with folic acid 1 TABLET tablet 1 tab PO DAILY RF: 0 calcium-vitamin D3-vitamin K 1 EACH tablet,chewable 2 ea PO DAILY RF: 0 macitentan 10 MG tablet 10 mg PO DAILY RF: 0 furosemide 20 mg tablet 20 mg PO DAILY PRN (Reason: edema) Qty: 90 RF: 3 losartan 100 mg tablet 100 mg PO DAILY Qty: 90 RF: 3 metoprolol tartrate 50 mg tablet See Rx Instructions .ROUTE .COMPLEX Qty: 180 RF: 3 Primary Care Provider: Jake Schwarz Referrals: Jake Schwarz [Primary Care Provider] - Activity Restrictions/Additional Instructions: Your blood work was largely normal. Your x-ray does show a small amount of fluid/inflammation and possible pneumonia on the left lung. Please follow-up with your primary care doctor for this. We will put you on antibiotics to see if this clears it up and help with the pain. Recommend using [id number] Lidoderm patches (4%) to help with the pain. Disposition Disposition: Home, Self Care
--- NOTE | 2021-07-31 12:59 | RAD_ITS ---
STUDY: X-RAY - UNILATERAL RIBS ( LEFT ) WITH CHEST REASON FOR EXAM: Female, 81 years old. [Vein. No evidence of injury. TECHNIQUE - RIBS: 4 view(s) of the ribs. TECHNIQUE - CHEST: Single PA view of the chest. COMPARISON: Comparison is made with prior chest radiograph dated 01/10/2019. FINDINGS - RIBS: Normal visualized ribs without a demonstrated fracture. FINDINGS - CHEST: Stable elevation of the right hemidiaphragm. Stable mild increased markings at the lung bases suggesting bibasilar atelectasis and/or infiltrate at blunting of the left costophrenic angle. Mild vascular congestion. Normal size heart. Normal mediastinum and tameka. Normal visualized pulmonary arteries. Normal visualized aortic arch and descending thoracic aorta. Prior vertebroplasty of the L2 vertebra. Normal visualized ribs, clavicles, and shoulders. There is no demonstrated abnormality of the visualized soft tissue structures of the upper abdomen. RAD/Ribs Uni Min 3V w/PA Chest IMPRESSION: RIBS: No acute abnormality is seen. CHEST: Small left effusion with bibasilar atelectasis. Mild degree of vascular congestion. Electronically Signed: Rajesh Velasquez MD at 14:48 EDT ,
[2021-07-31 13:14] VITALS: BP 139/83
[2021-07-31] MEDS: Morphine 4 MG/ML Syringe IV (13:26)
[2021-07-31 13:31] LABS: Absolute Lymphocyte Count 0.68 X10^3/uL (0.83-4.51); Absolute Neutrophil Count 4.7 X10^3/uL (2.0-7.7); Basophil# 0.01 X10^3/uL; Basophil% 0.2 % (0-1); Eosinophil# 0.04 X10^3/uL; Eosinophils% 0.7 % (0-5); Hematocrit 42.5 % (37-47); Hemoglobin 13.7 g/dL (12.0-15.0); Lymphocyte # 0.68 X10^3/ul (0.83-4.51); Lymphocyte % 11.5 % (19-41); Mean Corp Hgb Conc 32.2 g/dL (32-36); Mean Corpuscular Hgb 31.2 pg (27.0-32.0); Mean Corpuscular Volume 96.8 fL (81-99); Mean Platelet Vol. 10.1 fl (6.2-12.0); Monocyte% 8.4 % (0-10); NRBC Flagged by Analyzer 0 % (0-5); Neutrophil # 4.68 X10^3/uL (2.7-7.7); Neutrophil % 78.9 % (47-70); Platelet Count 138 K/mm3 (150-450); RBC Distribution Width CV 13.5 % (11.6-14.6); RBC Distribution Width SD 47.9 fl (35.1-43.9); Red Blood Count 4.39 M/mm3 (4.2-5.4); White Blood Count 5.9 K/mm3 (4.4-11.0)
[2021-07-31 13:49] LABS: ALB/GLOB Ratio 0.9 RATIO (0.9-2.4); AST(SGOT) 21 U/L (15-37); Alanine Aminotransfer ALT/SGPT 27 U/L (13-56); Albumin, Serum 3.2 g/dL (3.2-5.0); Alkaline Phosphatase 92 U/L (45-117); Anion Gap 3 (5-15); BUN 16 mg/dL (7-18); BUN/Creat Ratio 23.6 RATIO (10-20); Calcium,Total 8.7 mg/dL (8.5-10.1); Chloride 106 mmol/L (98-107); Creatinine, Serum 0.68 mg/dL (0.55-1.02); EST Glomerular Filtration Rate 89 mL/min (>60); Est Glom Filt Rate - Afr Amer 107 mL/min (>60); Estimated Creatinine Clearance 35.49 ml/min; Globulin 3.6 g/dL (2.2-4.2); Glucose 108 mg/dL (74-106); Lipase 52 U/L (73-393); Protein, Total 6.8 g/dL (6.4-8.2); Sodium Level 140 mmol/L (136-145); Troponin-I HS 16 pg/mL (3.0-54.0)
[2021-07-31] MEDS: Doxycycline 100 MG CAPSULE PO (15:13)
[2021-07-31] MEDS: Lidocaine 5% Patch 1 PATCH TOPICAL (15:13)
[2021-07-31 15:20] VITALS: BP 155/93; RESP 18
== END 2021-07-31 15:29 | disposition home or self-care (01) ==
PROVIDERS: Emergency Provider Emergency Medicine; PCP Family Medicine; Visit Provider Emergency Medicine
DX: R07.89 Other chest pain (principal); J44.9 Chronic obstructive pulmonary disease, unspecified; I27.21 Secondary pulmonary arterial hypertension; I48.0 Paroxysmal atrial fibrillation; E11.9 Type 2 diabetes mellitus without complications; R09.1 Pleurisy; J18.9 Pneumonia, unspecified organism; J90 Pleural effusion, not elsewhere classified; R07.81 Pleurodynia; I10 Essential (primary) hypertension; I25.10 Atherosclerotic heart disease of native coronary artery without angina pectoris; G89.29 Other chronic pain; E04.1 Nontoxic single thyroid nodule; I35.0 Nonrheumatic aortic (valve) stenosis; E66.9 Obesity, unspecified; Z79.01 Long term (current) use of anticoagulants; Z79.899 Other long term (current) drug therapy; Z87.891 Personal history of nicotine dependence; Z96.653 Presence of artificial knee joint, bilateral
CPT/HCPCS: 71101; 80053; 83690; 84484; 85025; 96374; 99284; A4216

== ENCOUNTER → 2021-08-28 | Outpatient (CLI) | payer MEDICARE, OTHER, SELFPAY ==
[2021-08-28 18:11] LABS: Anion Gap 3 (5-15); BUN 15 mg/dL (7-18); BUN/Creat Ratio 18.3 RATIO (10-20); Calcium,Total 8.8 mg/dL (8.5-10.1); Chloride 110 mmol/L (98-107); Cholesterol 141 mg/dL (200); Creatinine, Serum 0.82 mg/dL (0.55-1.02); EST Glomerular Filtration Rate 71 mL/min (>60); Est Glom Filt Rate - Afr Amer 86 mL/min (>60); Glucose 107 mg/dL (74-106); High Density Lipoprotein 46 mg/dL; Potassium 4.2 mmol/L (3.5-5.1); Sodium Level 141 mmol/L (136-145); Triglycerides 93 mg/dL; Very Low Density Lipoprotein 19 mg/dL (5-40)
== END | disposition home or self-care (01) ==
LOC: MFPLAB 15:16
PROVIDERS: PCP Family Medicine; Visit Provider Family Medicine
DX: I10 Essential (primary) hypertension (principal)
CPT/HCPCS: 36415; 80048; 80061

== ENCOUNTER 2021-10-17 05:26 | Day surgery (SDC) | payer MEDICARE, OTHER, SELFPAY ==
[2021-10-17] VITALS (9 sets, daily range): BP systolic 87–141; BP diastolic 53–76; PULSE 64–85; RESP 16–18; TEMP 36.3–36.6; O2SAT 89–99; BMI 40.0
[2021-10-17] MEDS: Lactated Ringers 1,000 ML 15 ML IV (06:35)
[2021-10-17] MEDS: Ipratropium/Albuterol Sulfate 3 ML AMPUL.NEB INHALATION (06:44)
[2021-10-17 07:00] LABS: Bedside Glucose 105 mg/dL (74-106)
[2021-10-17] MEDS: Cefazolin 2 GM in 0.9% Normal Saline 100 ML IV (07:30)
--- NOTE | 2021-10-17 07:31 | DCINST_ITS ---
Discharge Instructions Diet Discharge Diet: No restrictions Activity Discharge Activity: Return to Normal Activity May resume sexual activity in: No Restrictions Dressing / Incision Call your doctor if you observe: Fever of 101 or Higher, Inability to urinate, Inability to have a bowel movement and - (Call if passing blood clots in the urine, urine looks like tomato juice or difficulty with voiding) Follow Up Care Please Follow Up With: Rose Kraus MD When: Call for an appointment to be seen next week Test Results: Test results from this visit will be discussed in further detail at your follow- up appointment, if applicable. Discharge Plan Admission Attending Provider: Rose Kraus Primary Care Provider: Jake Schwarz Discharge Orders/Prescriptions Prescriptions: New cephalexin [cephalexin] 500 mg capsule 500 mg PO Q12 3 Days Qty: 6 0RF Continued pramipexole [Mirapex] 1 mg tablet 1 mg PO QHS sennosides [Senexon] 8.6 mg tablet 8.6 mg PO BID oxybutynin chloride [Ditropan XL] 10 mg tablet extended release 24hr 10 mg PO DAILY 90 Days Qty: 90 Label Comments: TAKE 1 TABLET BY MOUTH EVERY DAY Eliquis 5 mg tablet See Rx Instructions .ROUTE .COMPLEX Qty: 180 3RF Dose Instruction: TAKE 1 TABLET BY MOUTH TWICE A DAY Rx Instructions: TAKE 1 TABLET BY MOUTH TWICE A DAY fentanyl 25 MCG patch 25 mcg TRANSDERM. Q72H multivitamin with folic acid 1 TABLET tablet 1 tab PO DAILY calcium-vitamin D3-vitamin K 1 EACH tablet,chewable 2 ea PO DAILY Opsumit 10 MG tablet 10 mg PO DAILY budesonide 0.5 mg/2 mL Suspension For Nebulization 0.5 mg INHALATION DAILY furosemide 20 mg tablet 20 mg PO DAILY PRN (Reason: edema) Qty: 90 3RF losartan 100 mg tablet 100 mg PO DAILY Qty: 90 3RF metoprolol tartrate 50 mg tablet See Rx Instructions .ROUTE .COMPLEX Qty: 180 3RF Dose Instruction: TAKE 1 TABLET BY MOUTH TWICE A DAY Rx Instructions: TAKE 1 TABLET BY MOUTH TWICE A DAY Referrals / Follow Up: Jake Schwarz [Primary Care Provider] - Disposition Disposition (needs filled in before D/C Order can be placed): Home, Self Care
--- NOTE | 2021-10-17 07:34 | PCM.OPRPT ---
Report of Operation Date of Procedure: 10/17/21 Pre-Operative Diagnosis: Overactive bladder, urge incontinence Post-Operative Diagnosis: Same Surgery/Procedure Performed:: Cystoscopy, Botox 100 unit injection Surgeon: Rose Kraus Type of Anesthesia: MAC Description of Procedure: The patient is an 81-year-old female with overactive bladder and urge incontinence. She has had successful Botox 100 unit injection in the past and now presents for repeat therapy. Informed consent was obtained. She has negative preoperative culture. The patient was taken to the operating room and placed on the operating room table. Anesthesia monitored the head, neck, airway, IV access and vital signs throughout the case. Once anesthesia was appropriately administered, the patient was placed into dorsolithotomy position was prepped and draped in usual sterile fashion. The cystoscope was inserted through the urethra under direct visualization into the urinary bladder. The bladder mucosa was visualized in its entirety and found to be without evidence of mass, erythema, foreign body or other abnormality. In systematic fashion, total of 20 injections of 0.5 cc of the Botox solution was injected throughout the bladder focused on areas of trabeculation and avoiding periureteral areas, the trigone, and vasculature. At the end of the injections, the patient's bladder was emptied and she was awakened and taken to the recovery room in good condition. There were no complications during this procedure. Grafts/Implants Used: None Complications None Admit VTE Documentation VTE Present on Admission: Yes VTE Mechan Device Prophylaxis: SCD's VTE Pharm Prophylaxis ordered?: Yes
[2021-10-17] MEDS: 0.9% Normal Saline (Pres. free 10 ML Vial (07:37)
[2021-10-17] MEDS: Botulinum Toxin A 100 Units Vial IJ (07:49)
== END 2021-10-17 09:19 | disposition home or self-care (01) ==
LOC: SDC 05:27 → AC 05:28
PROVIDERS: PCP Family Medicine; Referring Provider Urology; Visit Provider Urology
PROC: 3E0K8GC Introduction of Other Therapeutic Substance into Genitourinary Tract, Via Natural or Artificial Opening Endoscopic (ICD-10-PCS; CPT 52287; principal; 2021-10-17 07:20)
DX: N32.81 Overactive bladder (principal); J44.9 Chronic obstructive pulmonary disease, unspecified; I27.21 Secondary pulmonary arterial hypertension; I48.91 Unspecified atrial fibrillation; I48.0 Paroxysmal atrial fibrillation; E11.9 Type 2 diabetes mellitus without complications; N39.0 Urinary tract infection, site not specified; N39.41 Urge incontinence; I10 Essential (primary) hypertension; E04.1 Nontoxic single thyroid nodule; R30.0 Dysuria; I25.10 Atherosclerotic heart disease of native coronary artery without angina pectoris; G47.30 Sleep apnea, unspecified; E66.9 Obesity, unspecified; Z79.01 Long term (current) use of anticoagulants; Z79.899 Other long term (current) drug therapy; Z99.81 Dependence on supplemental oxygen; Z87.891 Personal history of nicotine dependence; Z96.653 Presence of artificial knee joint, bilateral; R31.0 Gross hematuria
CPT/HCPCS: 52287; 00910; 80048; 81001; 82962; 85025; 85610; 85730; 87077; 87086; 87088; 87186; 94640; 96365; 96366; 99282; J7050; J7120; A4216; J0585; J2405; J3490

== ENCOUNTER 2021-10-17 22:03 | Emergency (ER) | payer MEDICARE, OTHER, SELFPAY ==
[2021-10-17 22:05] VITALS: BP 142/85; PULSE 114; RESP 22; TEMP 36.4; O2SAT 79; BMI 46.8
[2021-10-17 22:18] VITALS: O2SAT 95
[2021-10-17 23:13] LABS: Absolute Lymphocyte Count 0.67 X10^3/uL (0.83-4.51); Absolute Neutrophil Count 5.3 X10^3/uL (2.0-7.7); Basophil# 0.01 X10^3/uL; Basophil% 0.1 % (0-1); Eosinophil# 0.06 X10^3/uL; Eosinophils% 0.9 % (0-5); Hemoglobin 12.2 g/dL (12.0-15.0); Lymphocyte # 0.67 X10^3/ul (0.83-4.51); Mean Corpuscular Hgb 31.9 pg (27.0-32.0); Mean Corpuscular Volume 96.9 fL (81-99); Monocyte# 0.63 X10^3/uL; Monocyte% 9.4 % (0-10); NRBC Flagged by Analyzer 0 % (0-5); Neutrophil # 5.32 X10^3/uL (2.7-7.7); Neutrophil % 79.3 % (47-70); Platelet Count 152 K/mm3 (150-450); RBC Distribution Width CV 13.7 % (11.6-14.6); RBC Distribution Width SD 48.7 fl (35.1-43.9); Red Blood Count 3.82 M/mm3 (4.2-5.4); White Blood Count 6.7 K/mm3 (4.4-11.0)
[2021-10-17 23:31] LABS: Anion Gap 2 (5-15); BUN 15 mg/dL (7-18); BUN/Creat Ratio 17.2 RATIO (10-20); Calcium,Total 8.4 mg/dL (8.5-10.1); Chloride 107 mmol/L (98-107); Creatinine, Serum 0.87 mg/dL (0.55-1.02); EST Glomerular Filtration Rate 66 mL/min (>60); Est Glom Filt Rate - Afr Amer 80 mL/min (>60); Estimated Creatinine Clearance 37.05 ml/min; Glucose 106 mg/dL (74-106); Potassium 4.3 mmol/L (3.5-5.1); Sodium Level 139 mmol/L (136-145)
[2021-10-17 23:47] LABS: International Normalized Ratio 1.2; Prothrombin Time (Protime)PT. 14.8 SECONDS (11.7-14.9)
[2021-10-17 23:48] LABS: Partial Thromboplast Time 30.3 Seconds (24.1-36.2)
[2021-10-18 00:04] VITALS: RESP 17; O2SAT 92
[2021-10-18 00:31] LABS: Mucous, Urine 0 SEEN /hpf (<or=2+); Squamous Epithelial Cells - UA 0 SEEN /hpf (5-10); White Blood Cells 0 SEEN /hpf (0-5)
--- NOTE | 2021-10-18 00:31 | NURSING ---
ACCEPTED TO [facility] BY DR. JUN PURI NOT AVAILABLE TILL 10AM
[2021-10-18 00:42] LABS: Glucose, Dipstick Normal (Normal); Ketone-Dipstick Negative (Negative); Leukocyte Esterase-Dipstick Negative /ul (Negative); Nitrite-Dipstick Positive (Negative); Occult Blood-Urine 250 /ul (Negative); Protein-Dipstick 500 mg/dl (Negative); Urine Bilirubin Dipstick Negative (Negative); Urine Clarity Turbid (Clear); Urine Urobilinogen Normal (Normal)
[2021-10-18 00:47] LABS: Bacteria 4+ /hpf (None Seen); Color, Urine Red (Yellow); Red Blood Cells-Urine > 100 SEEN /hpf (0-5)
[2021-10-18] MEDS: Ceftriaxone 1 GM/50 ML BAG IV (01:08)
--- NOTE | 2021-10-18 01:25 | EX.ED.DYSGE1 ---
HPI History of Present Illness Chief Complaint: Complaint Narrative Narrative: Patient is an 81-year-old female with past medical history of paroxysmal atrial fibrillation hypertension and COPD. She underwent Botox injections to her bladder earlier today. She states that she has been off her Eliquis because of this procedure. She states that hours after the procedure she developed lower abdominal pain and felt like she was having difficulty urinating. She states when she did urinate it was bright red blood. She also states that she has had this procedure done in the past and has never had side effects like this and secondary to this comes in for evaluation. [facility] Medical History Arthritis Back pain BiPAP (biphasic positive airway pressure) dependence COPD (chronic obstructive pulmonary disease) Essential (primary) hypertension Left thyroid nodule Nonobstructive atherosclerosis of coronary artery Nonrheumatic aortic valve stenosis Nonrheumatic aortic valve stenosis Obesity On home oxygen therapy Osteoarthritis Paroxysmal atrial fibrillation Paroxysmal SVT (supraventricular tachycardia) RLS (restless legs syndrome) Secondary pulmonary arterial hypertension Shortness of breath on exertion Sleep apnea Type 2 diabetes mellitus without complications Wears dentures Wears glasses Home Medications fentanyl 25 mcg/hr transdermal patch 25 mcg TRANSDERM. Q72H 09/26/15 [History Last Taken 10/16/21] multivitamin with folic acid 400 mcg tablet 1 tab PO DAILY 09/26/15 [History Last Taken Unknown] pramipexole 1 mg tablet (Mirapex) 1 mg PO QHS 01/05/18 [History Last Taken Unknown] sennosides 8.6 mg tablet (Senexon) 8.6 mg PO BID 01/05/18 [History Last Taken Unknown] oxybutynin chloride 10 mg tablet,extended release 24 hr (Ditropan XL) 10 mg PO DAILY 90 days #90 tabs 07/27/18 [History Last Taken Unknown] calcium-vitamin D3-vitamin K 500 mg-1,000 unit-40 mcg chewable tablet 2 ea PO DAILY 12/20/19 [History Last Taken Unknown] macitentan 10 mg tablet (Opsumit) 10 mg PO DAILY pulmonary htn 12/20/19 [History Last Taken 12/27/19] furosemide 20 mg tablet 20 mg PO DAILY PRN edema #90 tabs 05/09/20 [Rx Last Taken Unknown] losartan 100 mg tablet 100 mg PO DAILY #90 tabs 11/12/20 [Rx Last Taken 10/17/21] budesonide 0.5 mg/2 mL suspension for nebulization 0.5 mg inhalation BID 10/10/21 [History Last Taken Unknown] albuterol sulfate 1.25 mg/3 mL solution for nebulization 1.25 mg inhalation BID PRN sob 10/17/21 [History Last Taken Unknown] apixaban 5 mg tablet (Eliquis) 5 mg PO BID 10/17/21 [History Last Taken Unknown] cephalexin 500 mg capsule 500 mg PO Q12 post-operative 3 days #6 CAPSULES 10/17/21 [Rx Last Taken Unknown] docusate sodium 100 mg capsule (Colace) 100 mg PO BID 10/17/21 [History Last Taken Unknown] metoprolol tartrate 50 mg tablet 50 mg PO BID 10/17/21 [History Last Taken Unknown] Allergy/AdvReac Type Severity Reaction Status Date / Time gabapentin Allergy STROKE Verified 10/17/21 22:07 LIKE SYMPTOMS ropinirole HCl [From Requip] Allergy STROKE Verified 10/17/21 22:07 LIKE SYMPTOMS pentazocine lactate AdvReac Unknown Verified 10/17/21 22:07 [From Talwin] sulfamethoxazole AdvReac Makes me Verified 10/17/21 22:07 [From Bactrim] high, feel weird trimethoprim [From Bactrim] AdvReac Makes me Verified 10/17/21 22:07 feel strange Family History Father CAD (coronary artery disease) CVA (cerebral vascular accident) Hypertension Sister CAD (coronary artery disease) Diabetes Hypertension Surgical History H/O right heart catheterization (2007) History of carpal tunnel release History of cholecystectomy History of left heart catheterization (1999) History of open reduction and internal fixation (ORIF) procedure History of right knee joint replacement partial right knee replacement Social History Smoking Status: Former smoker how long ago did patient quit smokin alcohol intake: never caffeine: Yes Type: coffee Number of servings: 1 ROS ROS ED Constitutional Constitutional ED: Denies chills or fever(s) ENT ENT ED: Denies sore throat Cardiovascular Cardiovascular: Denies chest pain Respiratory/Chest Respiratory/Chest: Reports dyspnea; Denies cough Gastrointestinal Gastrointestinal: Reports abdominal pain; Denies diarrhea, nausea or vomiting Genitourinary Genitourinary ED: Reports dysuria and hematuria Musculoskeletal Musculoskeletal: Denies back pain or myalgias Integumentary Denies rash Neurologic Neurologic: Denies headache(s) Hematologic/Lymphatic Hematologic/Lymphatic: Reports easy bleeding and easy bruising EXAM Physical Exam Const Vital Signs: 10/17/21 22:05 10/17/21 22:18 10/18/21 00:04 Temperature 97.6 F L Temperature Source Temporal Pulse Rate 114 H Respiratory Rate 22 H 17 Blood Pressure 142/85 H Blood Pressure Mean 104 Pulse Ox 79 95 92 Oxygen Delivery Method Room Air Nasal Cannula Nasal Cannula Oxygen Flow Rate (L/min) 2 2 Positive well nourished and well developed General Appearance ED: well developed Eyes PERRL and EOMs intact bilaterally Neck supple Resp normal respiratory effort Resp Narrative: Breath sounds are diminished throughout with faint expiratory wheeze diffusely without signs of respiratory distress Cardio Rate: other Other Details: Irregularly irregular rhythm with slightly tachycardic rate consistent with history of atrial fibrillation GI non-distended GI Narrative: Abdomen is obese soft and nondistended with normoactive bowel sounds. There is mild pain with palpation in the suprapubic region without voluntary guarding or rigidity and no organomegaly noted to suggest acute urinary retention Auscultation: normoactive bowel sounds Palpation: soft Narrative: External genitalia is normal there is no active bleeding noted from the vaginal os Extremity normal to inspection Neuro oriented x3 and CN's II-XII intact bilaterally Sensorium / Orientation: alert Psych mental status grossly normal Skin no rashes or lesions noted MDM MDM MDM Narrative Medical decision making narrative: Patient presented to the ER with report of blood with urination and possibly in the vaginal opening. She does take Eliquis but has currently not been on the medication secondary to her recent surgical procedure. Bladder does not feel distended but with her recent procedure her urologist recommends a Sanchez catheter be placed. Once this was placed there was passage of bright red blood and multiple clots. Patient had her bladder irrigated and after irrigation the urine was clear. The case was then discussed with her urologist and she suggest that patient have the irrigation stopped and patient be watched to see if there is return of bleeding. Patient was watched in the ER for 1 hour after the irrigation was completed and urine has remained clear without return of bleeding. Therefore at this time as her hemoglobin and hematocrit are stable her kidney function is normal and she does not have signs of urosepsis there is no need for placement. Patient will be discharged at this time and can follow-up with her urologist for repeat evaluation Lab Data Attestation: I reviewed the patient's lab results. Labs: Laboratory Results - last 24 hr 10/17/21 10/17/21 10/17/21 22:50 22:50 22:50 WBC 6.7 RBC 3.82 L Hgb 12.2 Hct 37.0 MCV 96.9 MCH 31.9 MCHC 33.0 RDW Std Deviation 48.7 H RDW Coeff of Jacob 13.7 Plt Count 152 MPV 10.0 Immature Gran % (Auto) 0.300 Neut % (Auto) 79.3 H Lymph % (Auto) 10.0 L [place] % (Auto) 9.4 Eos % (Auto) 0.9 Baso % (Auto) 0.1 Absolute Neuts (auto) 5.3 Absolute Lymphs (auto) 0.67 L Nucleated RBC % 0 PT 14.8 INR 1.2 APTT 30.3 Sodium 139 Potassium 4.3 Chloride 107 Carbon Dioxide 30.0 Anion Gap 2 L BUN 15 Creatinine 0.87 Estim Creat Clear Calc 37.05 Est GFR (MDRD) Af Amer 80 Est GFR (MDRD) Non-Af 66 BUN/Creatinine Ratio 17.2 Glucose 106 Calcium 8.4 L Urine Color Urine Clarity Urine pH Ur Specific [place] Urine Protein Urine Glucose (UA) Urine Ketones Urine Occult Blood Urine Nitrite Urine Bilirubin Urine Urobilinogen Ur Leukocyte Esterase Urine RBC Urine WBC Ur Squamous Epith Cells Urine Bacteria Urine Mucus 10/18/21 00:20 WBC RBC Hgb Hct MCV MCH MCHC RDW Std Deviation RDW Coeff of Jacob Plt Count MPV Immature Gran % (Auto) Neut % (Auto) Lymph % (Auto) [place] % (Auto) Eos % (Auto) Baso % (Auto) Absolute Neuts (auto) Absolute Lymphs (auto) Nucleated RBC % PT INR APTT Sodium Potassium Chloride Carbon Dioxide Anion Gap BUN Creatinine Estim Creat Clear Calc Est GFR (MDRD) Af Amer Est GFR (MDRD) Non-Af BUN/Creatinine Ratio Glucose Calcium Urine Color Red Urine Clarity Turbid Urine pH 7.0 Ur Specific [place] 1.010 Urine Protein 500 H Urine Glucose (UA) Normal Urine Ketones Negative Urine Occult Blood 250 H Urine Nitrite Positive H Urine Bilirubin Negative Urine Urobilinogen Normal Ur Leukocyte Esterase Negative Urine RBC > 100 SEEN Urine WBC 0 SEEN Ur Squamous Epith Cells 0 SEEN Urine Bacteria 4+ Urine Mucus 0 SEEN Discharge Plan Triage Chief Complaint: Complaint ED Provider: Tye Candelario Dx/Rx/DC Orders Clinical Impression: Gross hematuria, UTI (urinary tract infection), Current use of long term care social worker anticoagulation, Persistent atrial fibrillation, Essential (primary) hypertension Instructions: ED Hematuria, UTIs Women Prescriptions: No Action pramipexole [Mirapex] 1 mg tablet 1 mg PO QHS sennosides [Senexon] 8.6 mg tablet 8.6 mg PO BID oxybutynin chloride [Ditropan XL] 10 mg tablet extended release 24hr 10 mg PO DAILY 90 Days Qty: 90 Label Comments: TAKE 1 TABLET BY MOUTH EVERY DAY fentanyl 25 MCG patch 25 mcg TRANSDERM. Q72H multivitamin with folic acid 1 TABLET tablet 1 tab PO DAILY calcium-vitamin D3-vitamin K 1 EACH tablet,chewable 2 ea PO DAILY Opsumit 10 MG tablet 10 mg PO DAILY budesonide 0.5 mg/2 mL Suspension For Nebulization 0.5 mg INHALATION BID cephalexin [cephalexin] 500 mg capsule 500 mg PO Q12 3 Days Qty: 6 0RF Label Comments: through 10/20 albuterol sulfate 1.25 mg/3 mL Solution For Nebulization 1.25 mg INHALATION BID PRN (Reason: sob) docusate sodium [Colace] 100 mg Capsule 100 mg PO BID metoprolol tartrate 50 mg tablet 50 mg PO BID Eliquis 5 mg tablet 5 mg PO BID Rx Instructions: TAKE 1 TABLET BY MOUTH TWICE A DAY furosemide 20 mg tablet 20 mg PO DAILY PRN (Reason: edema) Qty: 90 3RF losartan 100 mg tablet 100 mg PO DAILY Qty: 90 3RF Primary Care Provider: Jake Schwarz Referrals: Rose Kraus MD [Med Staff - Active Staff] - 2 Days Jake Schwarz [Primary Care Provider] - Activity Restrictions/Additional Instructions: Please continue the Keflex as previously directed. Your urologist will follow urine culture from today's visit and instruct you on the need for further antibiotics. Please follow-up with the urologist for repeat evaluation but if he have worsening of symptoms or any further concerns please return to the ER for repeat evaluation Disposition Disposition: Home, Self Care
[2021-10-18 02:31] VITALS: O2SAT 92
== END 2021-10-18 03:20 | disposition home or self-care (01) ==
PROVIDERS: Emergency Provider Emergency Medicine; PCP Family Medicine; Visit Provider Emergency Medicine
DX: N39.0 Urinary tract infection, site not specified (principal); R31.0 Gross hematuria; J44.9 Chronic obstructive pulmonary disease, unspecified; I48.0 Paroxysmal atrial fibrillation; I25.10 Atherosclerotic heart disease of native coronary artery without angina pectoris; I27.21 Secondary pulmonary arterial hypertension; E11.9 Type 2 diabetes mellitus without complications; I10 Essential (primary) hypertension; G47.30 Sleep apnea, unspecified; E66.9 Obesity, unspecified; Z79.01 Long term (current) use of anticoagulants; Z99.81 Dependence on supplemental oxygen; Z87.891 Personal history of nicotine dependence; Z96.653 Presence of artificial knee joint, bilateral
CPT/HCPCS: 80048; 81001; 85025; 85610; 85730; 87086

== ENCOUNTER → 2021-11-14 | Outpatient (CLI) | payer MEDICARE, OTHER, SELFPAY ==
[2021-11-14 18:39] LABS: BNP,B-Type NATRIURETIC PEPTIDE 354.5 pg/mL (0-100)
== END | disposition home or self-care (01) ==
LOC: MTLAB 14:15
PROVIDERS: PCP Family Medicine; Referring Provider Internal Medicine Pulmonary Disease; Visit Provider Internal Medicine Pulmonary Disease
DX: I27.20 Pulmonary hypertension, unspecified (principal)
CPT/HCPCS: 36415; 83880

== ENCOUNTER → 2021-12-11 | Outpatient (CLI) | payer MEDICARE, OTHER, SELFPAY ==
[2021-12-11 18:29] LABS: Thyroid Stim Hormone (TSH) 1.73 uIU/mL (0.358-3.74)
== END | disposition home or self-care (01) ==
LOC: MFPLAB 15:13
PROVIDERS: PCP Family Medicine; Referring Provider Family Medicine; Visit Provider Family Medicine
DX: R63.5 Abnormal weight gain (principal)
CPT/HCPCS: 36415; 84443

== ENCOUNTER → 2022-01-02 | Outpatient (CLI) | payer MEDICARE, OTHER, SELFPAY ==
--- NOTE | 2022-01-02 15:15 | RAD_ITS ---
STUDY: X-RAY CHEST REASON FOR EXAM: Female, 81 years old. CHRONIC COUGH TECHNIQUE: PA and lateral views of the chest. COMPARISON: 07/31/2021 FINDINGS: The lungs are clear and expanded. Elevated right hemidiaphragm which is unchanged. There is moderate cardiac enlargement. Normal mediastinum and tameka. Normal visualized pulmonary arteries. Normal visualized aortic arch and descending thoracic aorta. Normal visualized thoracic spine. Multiple healed left rib fractures. There is no demonstrated abnormality of the visualized soft tissue structures of the upper abdomen. RAD/Chest PA and Lateral IMPRESSION: No active disease. Electronically Signed: Wilder Ramirez MD at 17:03 EST ,
== END | disposition home or self-care (01) ==
LOC: RAD 15:08
PROVIDERS: PCP Family Medicine; Referring Provider Internal Medicine Pulmonary Disease; Visit Provider Internal Medicine Pulmonary Disease
DX: R05.9 Cough, unspecified (principal); R09.02 Hypoxemia
CPT/HCPCS: 71046

== ENCOUNTER 2022-01-06 13:34 | Outpatient (CLI) | payer MEDICARE, OTHER, SELFPAY ==
[2022-01-06 15:52] LABS: BNP,B-Type NATRIURETIC PEPTIDE 457.7 pg/mL (0-100)
[2022-01-06 15:59] LABS: AST(SGOT) 30 U/L (15-37); Alanine Aminotransfer ALT/SGPT 27 U/L (13-56); Albumin, Serum 3.3 g/dL (3.2-5.0); Alkaline Phosphatase 94 U/L (45-117); Bilirubin, Direct 0.25 mg/dL (0.00-0.30); Globulin 3.4 g/dL (2.2-4.2); Protein, Total 6.7 g/dL (6.4-8.2)
== END 2022-01-06 23:59 | disposition home or self-care (01) ==
PROVIDERS: PCP Family Medicine; Visit Provider Internal Medicine Pulmonary Disease
DX: I27.20 Pulmonary hypertension, unspecified (principal); R06.00 Dyspnea, unspecified; Z79.899 Other long term (current) drug therapy
CPT/HCPCS: 36415; 80076; 83880

== ENCOUNTER → 2022-01-14 | Outpatient (CLI) | payer MEDICARE, OTHER, SELFPAY ==
[2022-01-14 18:13] LABS: D-Dimer Quantitative (DVT/PE) 0.87 FEU/ug/m (0.27-0.49)
== END | disposition home or self-care (01) ==
LOC: MTLAB 16:04
PROVIDERS: PCP Family Medicine; Referring Provider Internal Medicine Pulmonary Disease; Visit Provider Internal Medicine Pulmonary Disease
DX: R06.00 Dyspnea, unspecified (principal)
CPT/HCPCS: 36415; 85379

== ENCOUNTER → 2022-01-15 | Outpatient (CLI) | payer MEDICARE, OTHER, SELFPAY ==
--- NOTE | 2022-01-15 12:32 | CT_ITS ---
EXAM: CT ANGIOGRAPHY CHEST WITH INTRAVENOUS CONTRAST CLINICAL INDICATION: PE PROTOCAL TECHNIQUE: Helically acquired angiography images were obtained of the chest with intravenous contrast. This CT exam was performed using one or more of the following dose reduction techniques: automated exposure control, adjustment of the mA and/or kV according to patient size, and/or use of iterative reconstruction technique. This report was created using [employer] report generation technology. MIP reconstructed images were created and reviewed. CONTRAST: IV 100mL [id number] COMPARISON: Chest radiograph 01/02/2022, CTA Chest dated 01/18/2019 FINDINGS: PULMONARY ARTERIES: Normal. Normal in caliber. No evidence of pulmonary embolism. AORTA: Normal. Normal in caliber. No evidence of dissection. GREAT VESSELS OF AORTIC ARCH: Normal. Normal in caliber. No evidence of dissection. LUNGS AND PLEURAL SPACES: Eventration of the central portion of the right hemidiaphragm again noted. Atelectatic changes are seen within the right middle and right lower lobes of the lung. Heterogeneous density of the lungs suggestive of air trapping related to small airway disease. Stable 7 mm left lower lobe pleural-based pulmonary nodule. HEART: Heart is mildly enlarged. No pericardial effusion. No signs of right heart strain, ratio of right ventricle to left ventricle measures less than 1. MEDIASTINUM: Normal. No mediastinal or hilar adenopathy. Esophagus is unremarkable. No hiatal hernia. THYROID: Left thyroid lobe is enlarged which may related to goiter. BONES/JOINTS: Vertebroplasty changes noted at L1. Inferior endplate changes of the T11 vertebral body again seen. No suspicious lytic or blastic abnormality. CT/CTA Chest W/WO Contrast IMPRESSION: 1. No evidence of acute pulmonary embolism. 2. Stable 7 mm left lower lobe pleural-based nodule. 3. Mild pulmonary air trapping 4. Mild cardiomegaly. Electronically Signed: Onur Sosa MD at 13:55 EST ,
[2022-01-15 13:36] LABS: CREATININE FINGERSTICK < 0.9 mg/dL (0.55-1.02); EGFR FINGERSTICK > 60.0000 mL/min (>60)
== END | disposition home or self-care (01) ==
PROVIDERS: PCP Family Medicine; Referring Provider Internal Medicine Pulmonary Disease; Visit Provider Internal Medicine Pulmonary Disease
DX: R06.00 Dyspnea, unspecified (principal); R09.02 Hypoxemia
CPT/HCPCS: 71275; Q9967

== ENCOUNTER → 2022-02-27 | Outpatient (CLI) | payer MEDICARE, OTHER, SELFPAY ==
--- NOTE | 2022-02-27 11:50 | RAD_ITS ---
PROCEDURE: Sniff test. DATE OF EXAMINATION: 2022. INDICATION: Female, 82 years old. Dyspnea. There is evidence of elevation of the right hemidiaphragm. No evidence of a diaphragmatic paralysis. RAD/Fluoroscopy 1 Hr or Less IMPRESSION: No evidence of a diaphragmatic paralysis. Electronically Signed: Rajesh Velasquez MD at 15:26 EST ,
== END | disposition home or self-care (01) ==
LOC: RAD 11:46
PROVIDERS: PCP Family Medicine; Visit Provider Internal Medicine Pulmonary Disease
DX: R06.00 Dyspnea, unspecified (principal)
CPT/HCPCS: 76000

== ENCOUNTER → 2022-03-07 | Outpatient (CLI) | payer MEDICARE, OTHER, SELFPAY ==
[2022-03-07 15:46] LABS: BNP,B-Type NATRIURETIC PEPTIDE 373.2 pg/mL (0-100)
== END | disposition home or self-care (01) ==
LOC: MTLAB 13:32
PROVIDERS: PCP Family Medicine; Referring Provider Internal Medicine Pulmonary Disease; Visit Provider Internal Medicine Pulmonary Disease
DX: Z79.899 Other long term (current) drug therapy (principal); R06.00 Dyspnea, unspecified
CPT/HCPCS: 36415; 83880

== ENCOUNTER 2022-04-03 14:11 | Emergency (ER) | payer MEDICARE, OTHER, SELFPAY ==
[2022-04-03] VITALS (11 sets, daily range): BP systolic 82–145; BP diastolic 46–91; PULSE 74–111; RESP 15–26; TEMP 36.1–36.6; O2SAT 96–98; BMI 45.0
--- NOTE | 2022-04-03 15:02 | CT_ITS ---
STUDY: CT ABDOMEN AND PELVIS WITHOUT CONTRAST REASON FOR EXAM: Female, 82 years old. Lower abd pain/tend after coughing RADIATION DOSAGE (If Supplied By Facility): CTDIvol = ( 21.88 ) mGy, DLP = ( 1055.95 ) mGycm TECHNIQUE: Transaxial images were obtained from the dome of the diaphragm to the symphysis pubis without oral contrast, and without intravenous contrast. Sagittal and coronal images were reconstructed. Individualized dose optimization techniques were used for this CT. COMPARISON: None. FINDINGS: Mild degree of increased markings at the lung bases suggestive of linear atelectasis and/or scarring. Coronary artery calcification. Minimal thickening of the anterior pericardium. Normal liver. The patient is status post cholecystectomy. There is a 2.6 x 2.8 cm hypodense nodule in the inferior aspect of the spleen suggestive of a small cyst. Normal pancreas. Normal bilateral adrenal glands. Normal right kidney. Normal left kidney. Normal visualized stomach. Normal small intestine. There are multiple colonic diverticula consistent with diverticulosis. The appendix is visualized and appears normal. There is diffuse atherosclerotic calcification of the abdominal aorta, without a demonstrated aneurysm. Normal inferior vena cava. Heterogeneous soft tissue density in the lower central portion of the abdomen extending into the pelvis. This also extended to the anterior abdominal wall. With the patient''s history of pain following coughing, this may represent intraperitoneal hematoma. There is also evidence of thickening of the left rectus sheath suggestive of a hematoma within the rectus sheath. Normal urinary bladder. Diffuse enlargement of the uterus. Normal abdominal wall. There are diffuse degenerative changes of the visualized lumbar spine. Levoscoliosis of the lumbar spine. Prior ORIF of the right intertrochanteric fracture. CT/Abdomen/Pelvis without Cont IMPRESSION: Findings suggestive of a intraperitoneal hematoma in the lower and mid abdomen extending to the pelvis. Enlargement of the uterus. Focal thickening of the left rectus sheath suggestive of a hematoma. Electronically Signed: Rajesh Velasquez MD at 15:46 EST ,
--- NOTE | 2022-04-03 15:04 | ED.VIS.GI ---
HPI HPI - GI History of Present Illness Chief Complaint: Abd Pain Informant: patient Abdominal Pain/Flank Pain Onset: Today Context: Sudden Onset (w/ coughing) Timing: Continuous Quality: Aching Location: - (suprapubic) Current Severity: Moderate Maximum Severity: Moderate Worsened by: - (bearing down while urinating) Relieved by: Nothing Nausea/Vomiting/Emesis GI Symptom: Negative for Nausea or Vomiting Diarrhea/Melena/Hematochezia GI Symptom: Positive for - (having nml BMs); Negative for Diarrhea, Melena or Hematochezia Associated Symptoms Associated Symptoms: Negative for Dysuria, Frequency or Hematuria Narrative Narrative: Patient states she started having lower abdominal pain today suddenly after coughing. Now when she urinates, the lower abdominal pain gets worse but she does not have burning dysuria. She does not have hematuria or urinary frequency. She denies any other new symptoms. [facility] Medical History Arthritis Back pain BiPAP (biphasic positive airway pressure) dependence COPD (chronic obstructive pulmonary disease) Essential (primary) hypertension Left thyroid nodule Nonobstructive atherosclerosis of coronary artery Nonrheumatic aortic valve stenosis Nonrheumatic aortic valve stenosis Obesity On home oxygen therapy Osteoarthritis Paroxysmal atrial fibrillation Paroxysmal SVT (supraventricular tachycardia) RLS (restless legs syndrome) Secondary pulmonary arterial hypertension Shortness of breath on exertion Sleep apnea Type 2 diabetes mellitus without complications Wears dentures Wears glasses Home Medications fentanyl 25 mcg/hr transdermal patch 25 mcg TRANSDERM. Q72H 09/26/15 [History Last Taken 10/16/21] multivitamin with folic acid 400 mcg tablet 1 tab PO DAILY 09/26/15 [History Last Taken Unknown] pramipexole 1 mg tablet (Mirapex) 1 mg PO QHS 01/05/18 [History Last Taken Unknown] sennosides 8.6 mg tablet (Senexon) 8.6 mg PO BID 01/05/18 [History Last Taken Unknown] oxybutynin chloride 10 mg tablet,extended release 24 hr (Ditropan XL) 10 mg PO DAILY 90 days #90 tabs 07/27/18 [History Last Taken Unknown] calcium-vitamin D3-vitamin K 500 mg-1,000 unit-40 mcg chewable tablet 2 ea PO DAILY 12/20/19 [History Last Taken Unknown] macitentan 10 mg tablet (Opsumit) 10 mg PO DAILY pulmonary htn 12/20/19 [History Last Taken 12/27/19] furosemide 20 mg tablet 20 mg PO DAILY PRN edema #90 tabs 05/09/20 [Rx Last Taken Unknown] losartan 100 mg tablet 100 mg PO DAILY #90 tabs 11/12/20 [Rx Last Taken 10/17/21] budesonide 0.5 mg/2 mL suspension for nebulization 0.5 mg inhalation BID 10/10/21 [History Last Taken Unknown] albuterol sulfate 1.25 mg/3 mL solution for nebulization 1.25 mg inhalation BID PRN sob 10/17/21 [History Last Taken Unknown] apixaban 5 mg tablet (Eliquis) 5 mg PO BID 10/17/21 [History Last Taken Unknown] docusate sodium 100 mg capsule (Colace) 100 mg PO BID 10/17/21 [History Last Taken Unknown] metoprolol tartrate 50 mg tablet 50 mg PO BID 10/17/21 [History Last Taken Unknown] treprostinil diolamine 0.125 mg tablet,extended release (Orenitram) 0.25 mg PO TID 12/20/21 [History Last Taken Unknown] Allergy/AdvReac Type Severity Reaction Status Date / Time gabapentin Allergy STROKE Verified 04/03/22 14:17 LIKE SYMPTOMS ropinirole HCl [From Requip] Allergy STROKE Verified 04/03/22 14:17 LIKE SYMPTOMS pentazocine lactate AdvReac Unknown Verified 04/03/22 14:17 [From Talwin] sulfamethoxazole AdvReac Makes me Verified 04/03/22 14:17 [From Bactrim] high, feel weird trimethoprim [From Bactrim] AdvReac Makes me Verified 04/03/22 14:17 feel strange Family History Father CAD (coronary artery disease) CVA (cerebral vascular accident) Hypertension Sister CAD (coronary artery disease) Diabetes Hypertension Surgical History H/O right heart catheterization (2007) History of carpal tunnel release History of cholecystectomy History of left heart catheterization (1999) History of open reduction and internal fixation (ORIF) procedure History of right knee joint replacement partial right knee replacement Social History Smoking Status: Former smoker how long ago did patient quit smokin alcohol intake: never caffeine: Yes Type: coffee Number of servings: 1 ROS ROS ED Constitutional Constitutional ED: Denies chills or fever(s) Eyes Eyes: Denies change in vision or diplopia ENT ENT ED: Denies rhinorrhea or sore throat Cardiovascular Cardiovascular: Denies chest pain or palpitations Respiratory/Chest Respiratory/Chest: Reports cough; Denies dyspnea Gastrointestinal Gastrointestinal: Reports abdominal pain; Denies diarrhea, nausea or vomiting Genitourinary Genitourinary ED: Denies dysuria, hematuria or urinary frequency Musculoskeletal Musculoskeletal: Denies back pain or neck pain Integumentary Denies abscess or rash Neurologic Neurologic: Denies headache(s), paresthesias or weakness Psychiatric Psychiatric: Denies anxiety or suicidal thoughts EXAM Physical Exam Const Vital Signs: 04/03/22 14:13 04/03/22 14:16 04/03/22 16:20 Temperature 97.1 F L 97.9 F 97.0 F L Temperature Source Oral Temporal Oral Pulse Rate 74 76 87 Respiratory Rate 18 18 16 Blood Pressure 97/59 L 97/59 L 145/91 H Blood Pressure Mean 71 71 109 Pulse Ox 96 98 Oxygen Delivery Method Nasal Cannula Nasal Cannula Nasal Cannula Oxygen Flow Rate (L/min) 2 2 04/03/22 17:48 04/03/22 18:14 04/03/22 18:26 Temperature Temperature Source Pulse Rate 92 83 Respiratory Rate 17 Blood Pressure 105/61 108/55 L 123/87 H Blood Pressure Mean 75 72 99 Pulse Ox Oxygen Delivery Method Nasal Cannula Oxygen Flow Rate (L/min) 2 04/03/22 20:00 04/03/22 20:29 04/03/22 21:35 Temperature Temperature Source Pulse Rate 111 H 79 Respiratory Rate 26 H 20 H Blood Pressure 94/52 L 82/57 L 90/62 Blood Pressure Mean 66 65 71 Pulse Ox 96 98 Oxygen Delivery Method Nasal Cannula Nasal Cannula Oxygen Flow Rate (L/min) 5 5 04/03/22 21:56 04/03/22 22:48 Temperature Temperature Source Pulse Rate 110 H 104 H Respiratory Rate 15 21 H Blood Pressure 82/46 L 101/52 L Blood Pressure Mean 58 68 Pulse Ox 97 97 Oxygen Delivery Method Nasal Cannula Nasal Cannula Oxygen Flow Rate (L/min) 5 5 Positive well nourished, well developed and obese General Appearance ED: well developed and NAD Nutritional Appearance: obese HEENT Reports moist mucous membranes normocephalic and atraumatic Eyes PERRL and EOMs intact bilaterally Neck full ROM and supple Resp normal respiratory effort and clear to auscultation bilaterally Cardio regular rate, regular rhythm and no murmurs GI non-distended GI Narrative: Tender suprapubic but the size of the abdominal pannus greatly limits the exam. No guarding or rebound. Auscultation: normoactive bowel sounds Palpation: soft Back/Spine no CVA tenderness General Back: other FROM Extremity normal to inspection General Extremety ED: Negative for edema, pulses abnormal or tenderness General Extremity: Negative for edema or pulses abnormal Neuro oriented x3, CN's II-XII intact bilaterally and no sensory deficits noted Sensorium / Orientation: awake and alert Motor Exam: strength 5/5 throughout Psych mental status grossly normal and thought process normal Skin no rashes or lesions noted and no wounds MDM MDM MDM Narrative Medical decision making narrative: Certainly a bladder infection is in the differential diagnosis here but given the history and her abdominal obesity, she did have a prior cholecystectomy and no other abdominal surgeries, hernia in addition to other intra-abdominal pathology is in the differential diagnosis so CT along with some basic labs and urinalysis were all ordered/obtained in addition to giving the patient some morphine. CT indeed shows a rectus sheath hematoma with intraperitoneal extension. This was done without contrast as a screening exam for other pathology, but continued blood loss intraperitoneal is expected especially since the patient is anticoagulated. Her hemoglobin is 10.7. She has a blood pressure of 97/59 and is not symptomatic from that pressure., Type and screen, I discussed with Dr. Crowell with surgery who suggest transfer because we do not have the ability to do coiling via interventional radiology at this hospital, and the patient needs a higher level of care. My interpretation of the CT agrees with that of the radiologist. Patient and family prefer [facility]. They do not have a bed right now, but no other hospitals do either. I discussed with their interventional radiologist there Dr. Lomeli. He states that he would recommend further contrasted study, CTA with venous phase, and then admission for monitoring before necessarily doing intervention. I did this study. Based on it, I discussed with the radiologist. He is confident this is extraperitoneal and not intraperitoneal. There is a small blush of a vessel that is bleeding. However, the hematoma is not measurably larger than it was on the initial scan. Discussed with surgery Dr. Crowell, who confirms that there is nothing surgical to do here. I agree. Her blood pressure has been stable. Have been getting her fentanyl for the pain. I gave her some fluids. I will discuss with hospitalist here for inpatient observation. I think we need to keep her off of her anticoagulation and monitor her H&H and possibly reimage, if she is stable, she will not require any intervention. Hospitalists here uncomfortable admitting the patient here due to lack of any backup services that could treat this if conservative treatment and observation fails. Therefore, I called the hospitalists back at [facility] and transferred imaging studies to them. They got me Dr. Lomeli again, and he was not able to see the imaging. He recommended I discuss with medicine for admission and further evaluation, however the hospitalist I spoke with earlier Dr. Garner was off shift and I waited for another hospitalist Dr. Avila to call me back. This is multiple hours into the patient's visit here. In this timeframe, the patient started to drop her blood pressure, we sent a type and screen a repeat H&H, and gave her more IV fluids. After 2 L total, her blood pressure was still in the 80s, and her repeat hemoglobin showed that she had gone from 10.7 down to 8.6. Clinically, the patient appeared very well she was asymptomatic from her decreased blood pressure, I discussed again with Dr. Avila who did not want to admit the patient to stepdown and preferred that I speak with intensive care which I then did. Initially with discussion with them blood pressure 82/46, before the end of the third liter, her blood pressure went up to 101/52. I spoke with the nurse practitioner who was working with Dr. Stevens in the ICU, they recommended at that point that I give the patient Kcentra prior to transfer. We do not have Andexxa at this hospital. Therefore, patient will be given Kcentra 5000 units, she maxes out at the 50 u/kg dosing recommendation from pharmacy. Given her blood loss and hypotension, we are also giving her a unit of blood which she consents to. Lab Data Attestation: I reviewed the patient's lab results. Labs: Laboratory Results - last 24 hr 04/03/22 04/03/22 04/03/22 14:38 14:38 16:05 WBC 8.8 RBC 3.46 L Hgb 10.7 L Hct 34.1 L MCV 98.6 MCH 30.9 MCHC 31.4 L RDW Std Deviation 50.3 H RDW Coeff of Jacob 14.1 Plt Count 192 MPV 9.9 Immature Gran % (Auto) 0.600 Neut % (Auto) 85.1 H Lymph % (Auto) 6.3 L Grady % (Auto) 7.1 Eos % (Auto) 0.8 Baso % (Auto) 0.1 Absolute Neuts (auto) 7.5 Absolute Lymphs (auto) 0.56 L Nucleated RBC % 0 Differential Comment SCANNED Sodium 143 Potassium 4.2 Chloride 107 Carbon Dioxide 33.0 H Anion Gap 3 L BUN 19 H Creatinine 0.88 Estim Creat Clear Calc 36.01 Est GFR (MDRD) Af Amer 79 Est GFR (MDRD) Non-Af 65 BUN/Creatinine Ratio 21.6 H Glucose 120 H Calcium 8.4 L Urine Color Yellow Urine Clarity Sl. Cloudy Urine pH 5.0 Ur Specific [place] 1.015 Urine Protein 100 H Urine Glucose (UA) Normal Urine Ketones Negative Urine Occult Blood 10 H Urine Nitrite Negative Urine Bilirubin Negative Urine Urobilinogen Normal Ur Leukocyte Esterase 25 H Urine RBC 0 SEEN Urine WBC 0-5 SEEN Ur Squamous Epith Cells 0 SEEN Urine Bacteria 0 SEEN Urine Mucus 0 SEEN Blood Type Antibody Screen 04/03/22 04/03/22 16:25 20:39 WBC RBC Hgb 8.6 L Hct 27.4 L MCV MCH MCHC RDW Std Deviation RDW Coeff of Jacob Plt Count MPV Immature Gran % (Auto) Neut % (Auto) Lymph % (Auto) Grady % (Auto) Eos % (Auto) Baso % (Auto) Absolute Neuts (auto) Absolute Lymphs (auto) Nucleated RBC % Differential Comment Sodium Potassium Chloride Carbon Dioxide Anion Gap BUN Creatinine Estim Creat Clear Calc Est GFR (MDRD) Af Amer Est GFR (MDRD) Non-Af BUN/Creatinine Ratio Glucose Calcium Urine Color Urine Clarity Urine pH Ur Specific [place] Urine Protein Urine Glucose (UA) Urine Ketones Urine Occult Blood Urine Nitrite Urine Bilirubin Urine Urobilinogen Ur Leukocyte Esterase Urine RBC Urine WBC Ur Squamous Epith Cells Urine Bacteria Urine Mucus Blood Type O POSITIVE Antibody Screen NEGATIVE Radiography Diagnostic Testing: Clinical Impression(s) from Imaging Studies Abdomen/Pelvis CT 04/03/22 15:02 IMPRESSION: Findings suggestive of a intraperitoneal hematoma in the lower and mid abdomen extending to the pelvis. Enlargement of the uterus. Focal thickening of the left rectus sheath suggestive of a hematoma. Electronically Signed: Rajesh Velasquez MD at 15:46 EST , Abdomen/Pelvis CTA 04/03/22 16:51 IMPRESSION: 1. Normal vascular abnormality. There is no evidence of active bleed. 2. Stable extraperitoneal hematomas in the anterior pelvis along left pelvic sidewall. 3. No other major interval change. 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, Discussing w/Consultants (multiple (6)), Arranging Admission or Transfer and Performing Direct Patient Care at Bedside Discharge Plan Triage Chief Complaint: Abd Pain Other Complaint: Complaint ED Provider: John Urias Dx/Rx/DC Orders Clinical Impression: Hematoma of extraperitoneal space, Rectus sheath hematoma, Anticoagulated, ABLA (acute blood loss anemia), Hemorrhagic shock Prescriptions: No Action pramipexole [Mirapex] 1 mg tablet 1 mg PO QHS sennosides [Senexon] 8.6 mg tablet 8.6 mg PO BID oxybutynin chloride [Ditropan XL] 10 mg tablet extended release 24hr 10 mg PO DAILY 90 Days Qty: 90 Label Comments: TAKE 1 TABLET BY MOUTH EVERY DAY Orenitram 0.125 mg tablet extended release 0.25 mg PO TID Rx Instructions: must administer with a meal/food fentanyl 25 MCG patch 25 mcg TRANSDERM. Q72H multivitamin with folic acid 1 TABLET tablet 1 tab PO DAILY calcium-vitamin D3-vitamin K 1 EACH tablet,chewable 2 ea PO DAILY Opsumit 10 MG tablet 10 mg PO DAILY budesonide 0.5 mg/2 mL Suspension For Nebulization 0.5 mg INHALATION BID albuterol sulfate 1.25 mg/3 mL Solution For Nebulization 1.25 mg INHALATION BID PRN (Reason: sob) docusate sodium [Colace] 100 mg Capsule 100 mg PO BID metoprolol tartrate 50 mg tablet 50 mg PO BID Eliquis 5 mg tablet 5 mg PO BID Rx Instructions: TAKE 1 TABLET BY MOUTH TWICE A DAY furosemide 20 mg tablet 20 mg PO DAILY PRN (Reason: edema) Qty: 90 3RF losartan 100 mg tablet 100 mg PO DAILY Qty: 90 3RF Primary Care Provider: Jake Schwarz Referrals: Jake Schwarz [Primary Care Provider] - Disposition Disposition: Acute Care Hospital Discharge Location: [facility]
[2022-04-03] MEDS: Morphine 2 MG/ML Syringe IV (15:09)
[2022-04-03 15:22] LABS: Absolute Lymphocyte Count 0.56 X10^3/uL (0.83-4.51); Absolute Neutrophil Count 7.5 X10^3/uL (2.0-7.7); Basophil# 0.01 X10^3/uL; Basophil% 0.1 % (0-1); Eosinophil# 0.07 X10^3/uL; Eosinophils% 0.8 % (0-5); Hematocrit 34.1 % (37-47); Hemoglobin 10.7 g/dL (12.0-15.0); Lymphocyte # 0.56 X10^3/ul (0.83-4.51); Lymphocyte % 6.3 % (19-41); Mean Corp Hgb Conc 31.4 g/dL (32-36); Mean Corpuscular Hgb 30.9 pg (27.0-32.0); Mean Corpuscular Volume 98.6 fL (81-99); Mean Platelet Vol. 9.9 fl (6.2-12.0); Monocyte# 0.63 X10^3/uL; Monocyte% 7.1 % (0-10); NRBC Flagged by Analyzer 0 % (0-5); Neutrophil % 85.1 % (47-70); POSITIVE DIFFERENTIAL YES; Platelet Count 192 K/mm3 (150-450); RBC Distribution Width CV 14.1 % (11.6-14.6); RBC Distribution Width SD 50.3 fl (35.1-43.9); Red Blood Count 3.46 M/mm3 (4.2-5.4); White Blood Count 8.8 K/mm3 (4.4-11.0)
[2022-04-03 15:23] LABS: Differential Indicated SCAN CRITERIA MET
[2022-04-03 15:34] LABS: Anion Gap 3 (5-15); BUN 19 mg/dL (7-18); BUN/Creat Ratio 21.6 RATIO (10-20); Calcium,Total 8.4 mg/dL (8.5-10.1); Chloride 107 mmol/L (98-107); Creatinine, Serum 0.88 mg/dL (0.55-1.02); EST Glomerular Filtration Rate 65 mL/min (>60); Est Glom Filt Rate - Afr Amer 79 mL/min (>60); Estimated Creatinine Clearance 36.01 ml/min; Glucose 120 mg/dL (74-106); Potassium 4.2 mmol/L (3.5-5.1); Sodium Level 143 mmol/L (136-145)
[2022-04-03 15:50] LABS: Differential Comment SCANNED
[2022-04-03 16:11] LABS: Bacteria 0 SEEN /hpf (None Seen); Mucous, Urine 0 SEEN /hpf (<or=2+); Red Blood Cells-Urine 0 SEEN /hpf (0-5); Squamous Epithelial Cells - UA 0 SEEN /hpf (5-10)
[2022-04-03 16:15] LABS: Color, Urine Yellow (Yellow); Glucose, Dipstick Normal (Normal); Ketone-Dipstick Negative (Negative); Leukocyte Esterase-Dipstick 25 /ul (Negative); Nitrite-Dipstick Negative (Negative); Occult Blood-Urine 10 /ul (Negative); Protein-Dipstick 100 mg/dl (Negative); Specific Gravity, Urine 1.015 (1.002-1.030); Urine Bilirubin Dipstick Negative (Negative); Urine Clarity Sl. Cloudy (Clear); Urine Urobilinogen Normal (Normal)
[2022-04-03] MEDS: 0.9% Normal Saline 1,000 ML 999 ML IV ×3 (16:17→22:09)
[2022-04-03] MEDS: fentaNYL 100 MCG/2 ML Ampul 50 MCG IV ×2 (16:25→18:25)
--- NOTE | 2022-04-03 16:29 | NURSING ---
1616 CALLED [facility]. THEY HAVE NO ER BEDS. WILL PUT PATIENT ON A WAIT LIST. DR ORDONEZ TALKING TO TRANSFER LINE
[2022-04-03 16:43] LABS: White Blood Cells 0-5 SEEN /hpf (0-5)
--- NOTE | 2022-04-03 16:51 | CT_ITS ---
INDICATION: Intraperitoneal hematoma. EXAMINATION: CTA abdomen and pelvis - TECHNIQUE: Routine abdominal CT angiogram protocol was performed with IV contrast. MIP images provided. A radiation dose optimization technique was used for this scan. IV Contrast dosage and agent: 100 mL of Isovue 370 Radiation dose DLP 2923.23 mGy / cm. COMPARISON: Noncontrast CT of the abdomen and pelvis, April 03, 1999 2030. FINDINGS: Lung bases: Normal. Liver: Normal. No bile ductal dilatation. Gallbladder: Not visualized, surgically absent. Normal CBD. Spleen: Again seen is a cyst lower pole of the spleen. Adrenal gland: Normal. Kidneys: Normal. No hydronephrosis or stone formation. Pancreas:Normal. Bowel gas pattern: Nonobstructive. Sigmoid diverticulosis without inflammatory change. Appendix: Normal. Free air: None. Free fluid: None. Pelvis: Pelvic organs: There is stranding in the retroperitoneal soft tissues of the left pelvic sidewall extending upward into the left retroperitoneum along the pararenal fascial planes. The large hematoma anterior extraperitoneal space unchanged from the earlier study. The urinary bladder and uterus are displaced posteriorly. There is no evidence of active hemorrhage. Bone survey: Degenerative changes lumbar spine and hips. There is a medullary regine in the right femoral shaft. Adenopathy: No significant pathologic adenopathy detected. Other: None. Vascular: Atherosclerotic changes of the abdominal aorta without aneurysm or dissection. There is no stricture. Atherosclerotic changes without stenosis is also noted in the common iliac arteries. Vascular anatomy is otherwise grossly normal. There is minimal stranding in the right lower retroperitoneal structures extending downward along the left pelvic sidewall. CT/CT ANGIO ABD&PEL W/O&W/DYE IMPRESSION: 1. Normal vascular abnormality. There is no evidence of active bleed. 2. Stable extraperitoneal hematomas in the anterior pelvis along left pelvic sidewall. 3. No other major interval change. Electronically Signed: Mirza Keane DO at 17:49 EST Reading Location ID and State: [address] [place] [address] Tel [phone], Service support ,
--- NOTE | 2022-04-03 16:55 | NURSING ---
[facility], DR BOYD, FOR DR ORDONEZ
--- NOTE | 2022-04-03 20:28 | ED.RN ---
Pt BP 81/51, Dr. Urias notified. Ordered 1000 mL bolus NS.
[2022-04-03 20:46] LABS: Hematocrit 27.4 % (37-47); Hemoglobin 8.6 g/dL (12.0-15.0)
[2022-04-04] VITALS: BP 94/60; PULSE 97; RESP 21; O2SAT 98
[2022-04-04 00:56] VITALS: BP 88/63; PULSE 115; RESP 16; TEMP 37; O2SAT 97
--- NOTE | 2022-04-04 01:08 | RAD_ITS ---
EXAM: XR CHEST, 1 VIEW CLINICAL INDICATION: dyspnea TECHNIQUE: Frontal view of the chest. This report was created using x[employer] report generation technology. COMPARISON: 01/02/2022. FINDINGS: LUNGS AND PLEURAL SPACES: Low lung volumes limit the exam. No consolidations. Subsegmental atelectasis in the lower lobes bilaterally. No pneumothorax. No effusion. HEART: Unremarkable. Cardiac silhouette not enlarged. MEDIASTINUM: Central airways and mediastinal contour are unremarkable. BONES/JOINTS: Unremarkable. SOFT TISSUES: Unremarkable. RAD/Chest 1 View (Portable) IMPRESSION: 1. Low lung volumes limit the exam. No consolidations. 2. Subsegmental atelectasis in the lower lobes bilaterally. Electronically Signed: Enrique Alejandro MD at 1:30 EST ,
[2022-04-04 01:11] VITALS: BP 70/54; PULSE 97; RESP 16; TEMP 37.1; O2SAT 99
[2022-04-04 01:26] VITALS: BP 97/59
[2022-04-04 01:30] VITALS: BP 97/59; PULSE 97; RESP 20; TEMP 37; O2SAT 100
--- NOTE | 2022-04-04 01:43 | ED.RN ---
Pt BP dropped to 70/49. Dr. Felton notified, given verbal order for 500 mL bolus of NS and chest X-ray to rule out fluid overload. Pt resting comfortably 103/64, blood still running.
[2022-04-04 02:11] VITALS: BP 82/47; PULSE 97; RESP 15; TEMP 37.1; O2SAT 100
--- NOTE | 2022-04-04 02:51 | ED.RN ---
Blood transfusion continued with transport.
== END 2022-04-04 02:36 | disposition short-term general hospital (02) ==
PROVIDERS: Emergency Provider Emergency Medicine; PCP Family Medicine; Visit Provider Emergency Medicine
DX: M79.81 Nontraumatic hematoma of soft tissue (principal); R57.8 Other shock; J44.9 Chronic obstructive pulmonary disease, unspecified; E11.9 Type 2 diabetes mellitus without complications; D62 Acute posthemorrhagic anemia; I25.10 Atherosclerotic heart disease of native coronary artery without angina pectoris; I10 Essential (primary) hypertension; Z87.891 Personal history of nicotine dependence; R10.9 Unspecified abdominal pain; E66.9 Obesity, unspecified; Z79.01 Long term (current) use of anticoagulants
CPT/HCPCS: 36430; 51702; 71045; 74174; 74176; 80048; 81001; 85014; 85018; 85025; 86850; 86900; 86901; 86920; 96361; 96365; 96375; 96376; 99285; J7030; J7040; J7050; J7168; P9016; P9612; Q9967; A4216

== ENCOUNTER 2022-04-09 22:20 | Inpatient (IN) | payer MEDICARE, OTHER, SELFPAY ==
[2022-04-09 22:44] VITALS: BP 125/68; PULSE 95; RESP 18; RESP 19; TEMP 36.9; O2SAT 96; O2SAT 97; BMI 43.4
[2022-04-09 23:11] LABS: Bedside Glucose 124 mg/dL (74-106)
[2022-04-09 23:30] VITALS: O2SAT 97
[2022-04-10] VITALS (9 sets, daily range): BP systolic 102–125; BP diastolic 52–72; PULSE 81–94; RESP 16–20; TEMP 36.8; O2SAT 90–97
[2022-04-10] MEDS: fentaNYL 25 MCG Patch TD (00:25)
[2022-04-10] MEDS: Pramipexole Di-HCl 1 MG Tablet PO ×2 (00:28→22:35)
[2022-04-10 05:58] LABS: Absolute Lymphocyte Count 0.41 X10^3/uL (0.83-4.51); Absolute Neutrophil Count 4.8 X10^3/uL (2.0-7.7); Basophil# 0.01 X10^3/uL; Basophil% 0.2 % (0-1); Eosinophil# 0.11 X10^3/uL; Eosinophils% 1.8 % (0-5); Hematocrit 28.6 % (37-47); Hemoglobin 8.8 g/dL (12.0-15.0); Lymphocyte # 0.41 X10^3/ul (0.83-4.51); Lymphocyte % 6.9 % (19-41); Mean Corp Hgb Conc 30.8 g/dL (32-36); Mean Corpuscular Volume 97.6 fL (81-99); Mean Platelet Vol. 9.1 fl (6.2-12.0); Monocyte# 0.61 X10^3/uL; Monocyte% 10.2 % (0-10); NRBC Flagged by Analyzer 0 % (0-5); Neutrophil # 4.79 X10^3/uL (2.7-7.7); Neutrophil % 80.1 % (47-70); POSITIVE DIFFERENTIAL YES; Platelet Count 158 K/mm3 (150-450); RBC Distribution Width CV 14.9 % (11.6-14.6); RBC Distribution Width SD 53.3 fl (35.1-43.9); Red Blood Count 2.93 M/mm3 (4.2-5.4)
[2022-04-10] MEDS: MACITENTAN 10 MG PO (06:00)
[2022-04-10] MEDS: Metoprolol Tartrate 50 MG Tablet PO ×2 (06:02→17:57)
[2022-04-10] MEDS: Furosemide 20 MG Tablet PO (06:02)
[2022-04-10] MEDS: Losartan Potassium 25 MG Tablet PO (06:02)
[2022-04-10] MEDS: Tolterodine Tartrate 2 MG CAP.SA PO (06:02)
[2022-04-10 06:03] LABS: Differential Indicated SCAN CRITERIA MET
[2022-04-10] MEDS: Cefdinir 300 MG Capsule PO ×2 (06:03→17:57)
[2022-04-10] MEDS: Senna/Docusate Sodium 1 Tablet 2 TABLET PO ×2 (06:04→17:57)
[2022-04-10] MEDS: Triamcinolone 0.5% Cream 1 APPLIC TOPICAL ×2 (06:09→22:34)
[2022-04-10 06:40] LABS: Bedside Glucose 106 mg/dL (74-106)
[2022-04-10 06:43] LABS: Anion Gap 2 (5-15); BUN 14 mg/dL (7-18); BUN/Creat Ratio 21.5 RATIO (10-20); Calcium,Total 8.1 mg/dL (8.5-10.1); Chloride 100 mmol/L (98-107); Creatinine, Serum 0.65 mg/dL (0.55-1.02); EST Glomerular Filtration Rate 93 mL/min (>60); Est Glom Filt Rate - Afr Amer 112 mL/min (>60); Estimated Creatinine Clearance 31.69 ml/min; Glucose 115 mg/dL (74-106); Potassium 3.8 mmol/L (3.5-5.1); Sodium Level 139 mmol/L (136-145)
[2022-04-10 07:04] LABS: Differential Comment SCANNED; Hypochromasia 1+
--- NOTE | 2022-04-10 07:49 | HP.PCM_ITS ---
HPI - General General Date of Admission: 04/09/22 Date of Service: 04/10/22 Chief Complaint: Here for rehabilitation. HPI Narrative 04/03/2022 ADRIEN CHILEL, is a 82 Female who presents to [facility] Emergency Department with abdominal pain. Sudden lower abdominal pain after coughing. Lower abdominal pain worse with urination. CT shows rectus sheath hematoma with intraperitoneal extension. Hemoglobin 10.7, Hypotensive. Hemoglobin dropped from 10.7 to 8.6, still hypotensive after 2 liters IV fluid bolus. Patient on Eliquis for atrial fibrillation, KCentra given. Transfuse 1 unit PRBC. Transfer to [facility] to consider arterial coiling per IR. 04/04/2022 Admit to [facility]. Extraperitoneal bleeding from Eliquis. Hold Eliquis, monitor H&H. IR recommended no procedures currently. 04/05/2022 Hemorrhagic shock resolved. Remove marks catheter, monitor for retention. EKG for chest pain showed atrial fibrillation. 04/07/2022 Pulmonary recommended continuing Opsumit for pulmonary hypertension. Nocturnal BiPAP for obstructive sleep apnea. Serial troponin, consult Cardiology for chest pain, atrial fibrillation. 04/07/2022 Cardiology thought chest pain non-cardiac. Total of 2 units PRBC transfused during hospitalization. 04/09/2022 Admit to TCU with debility, here for rehabilitation, strengthening, prior to discharge home alone. [facility] Medical History Arthritis Back pain BiPAP (biphasic positive airway pressure) dependence COPD (chronic obstructive pulmonary disease) Essential (primary) hypertension Left thyroid nodule Nonobstructive atherosclerosis of coronary artery Nonrheumatic aortic valve stenosis Nonrheumatic aortic valve stenosis Obesity On home oxygen therapy Osteoarthritis Paroxysmal atrial fibrillation Paroxysmal SVT (supraventricular tachycardia) RLS (restless legs syndrome) Secondary pulmonary arterial hypertension Shortness of breath on exertion Sleep apnea Type 2 diabetes mellitus without complications Wears dentures Wears glasses Home Medications fentanyl 25 mcg/hr transdermal patch 25 mcg TRANSDERM. Q72H Pain 09/26/15 [History Last Taken 04/06/22 23:00] multivitamin with folic acid 400 mcg tablet 1 tab PO DAILY Supplement 09/26/15 [History Last Taken Unknown] pramipexole 1 mg tablet (Mirapex) 1 mg PO QHS Restless legs 01/05/18 [History Last Taken Unknown] sennosides 8.6 mg tablet (Senexon) 8.6 mg PO BID 01/05/18 [History Last Taken Unknown] oxybutynin chloride 10 mg tablet,extended release 24 hr (Ditropan XL) 10 mg PO DAILY Check with primary doctor 90 days #90 tabs 07/27/18 [History Last Taken Unknown] calcium-vitamin D3-vitamin K 500 mg-1,000 unit-40 mcg chewable tablet 2 ea PO DAILY Supplement 12/20/19 [History Last Taken Unknown] macitentan 10 mg tablet (Opsumit) 10 mg PO DAILY pulmonary htn 12/20/19 [History Last Taken 12/27/19] furosemide 20 mg tablet 20 mg PO DAILY PRN edema #90 tabs 05/09/20 [Rx Last Taken Unknown] budesonide 0.5 mg/2 mL suspension for nebulization 0.5 mg inhalation BID Check with primary doctor 10/10/21 [History Last Taken Unknown] albuterol sulfate 1.25 mg/3 mL solution for nebulization 1.25 mg inhalation BID PRN sob 10/17/21 [History Last Taken Unknown] apixaban 5 mg tablet (Eliquis) 5 mg PO BID 10/17/21 [History Last Taken Unknown] docusate sodium 100 mg capsule (Colace) 100 mg PO BID 10/17/21 [History Last Taken Unknown] metoprolol tartrate 50 mg tablet 50 mg PO BID Blood pressure 10/17/21 [History Last Taken Unknown] treprostinil diolamine 0.125 mg tablet,extended release (Orenitram) 2.5 mg PO TID pulmonary HTN 12/20/21 [History Last Taken Unknown] losartan 100 mg tablet 25 mg PO DAILY Blood pressure 04/09/22 [History Last Taken Unknown] Allergy/AdvReac Type Severity Reaction Status Date / Time gabapentin Allergy STROKE Verified 04/03/22 14:17 LIKE SYMPTOMS ropinirole HCl [From Requip] Allergy STROKE Verified 04/03/22 14:17 LIKE SYMPTOMS pentazocine lactate AdvReac Unknown Verified 04/03/22 14:17 [From Talwin] sulfamethoxazole AdvReac Makes me Verified 04/03/22 14:17 [From Bactrim] high, feel weird trimethoprim [From Bactrim] AdvReac Makes me Verified 04/03/22 14:17 feel strange Family History Father CAD (coronary artery disease) CVA (cerebral vascular accident) Hypertension Sister CAD (coronary artery disease) Diabetes Hypertension Surgical History H/O right heart catheterization (2007) History of carpal tunnel release History of cholecystectomy History of left heart catheterization (1999) History of open reduction and internal fixation (ORIF) procedure History of right knee joint replacement partial right knee replacement Social History (Updated 04/10/22 @ 07:[address] Clinton Jerez MD) household members: none Smoking Status: Former smoker how long ago did patient quit smokin alcohol intake: never caffeine: Yes Type: coffee Number of servings: 1 ROS Constitutional Constitutional: Reports fatigue and weakness; Denies chills, fever(s) or weight gain ENT HEENT: Denies headache(s), nasal congestion or nasal discharge Cardiovascular Cardiovascular: Denies chest pain or palpitations Respiratory/Chest Respiratory/Chest: Denies cough, excessive phlegm production or shortness of breath with exertion Gastrointestinal Gastrointestinal: Denies abdominal pain, nausea or vomiting Genitourinary Genitourinary: Denies dysuria Musculoskeletal Musculoskeletal: Denies joint pain or joint swelling Integumentary Integumentary: Denies rash or wounds Neurologic Neurologic: Denies focal weakness, numbness or tingling Psychiatric Psychiatric: Denies anxiety, auditory hallucinations, depression, homicidal ideation or suicidal ideation Vital Signs Vital Signs Vital Signs: 04/09/22 22:44 04/09/22 22:44 04/09/22 23:30 Temperature 98.5 F Temperature Source Oral Pulse Rate 95 95 Pulse Rhythm Irregular Pulse Strength Normal (2+) Respiratory Rate 19 H 18 Respiratory Effort Normal Non-Labored Respiratory Depth Normal Respiratory Pattern Normal Blood Pressure 125/68 H Blood Pressure Mean 87 Blood Pressure Source Monitor Blood Pressure Position Supine Blood Pressure Location Right Arm Pulse Ox 96 97 97 Oxygen Delivery Method Nasal Cannula Nasal Cannula Bi-pap Oxygen Flow Rate (L/min) 4 5 5 04/10/22 06:02 Temperature Temperature Source Pulse Rate 85 Pulse Rhythm Pulse Strength Respiratory Rate Respiratory Effort Respiratory Depth Respiratory Pattern Blood Pressure 119/61 Blood Pressure Mean Blood Pressure Source Blood Pressure Position Blood Pressure Location Pulse Ox Oxygen Delivery Method Oxygen Flow Rate (L/min) Weight Weight: 101.06 kg Body Mass Index (BMI) 43.4 Physical Exam Const alert General Appearance: cooperative HEENT normocephalic Eyes PERRL and EOMs intact bilaterally Neck supple, no JVD and no carotid bruits Resp normal respiratory effort, normal air movement and clear to auscultation bilaterally Cardio regular rate and regular rhythm GI normal to inspection, nondistended, normoactive bowel sounds and non-distended GI Narrative: Abdomen mild diffuse tenderness. Extremity normal capillary refill General Extremity: edema bilateral (Trace.) Skin no rashes or lesions noted General Skin Exam: no breakdown Psych affect normal Appearance: appropriate Results Lab / Micro Data Result Diagrams: 04/10/22 05:35 04/10/22 05:35 Labs: Laboratory Results - last 24 hr 04/09/22 22:52: POC Glucose 124 H 04/10/22 05:35: WBC 6.0, RBC 2.93 L, Hgb 8.8 L, Hct 28.6 L, MCV 97.6, MCH 30.0, MCHC 30.8 L, RDW Std Deviation 53.3 H, RDW Coeff of Jacob 14.9 H, Plt Count 158, MPV 9.1, Immature Gran % (Auto) 0.800, Neut % (Auto) 80.1 H, Lymph % (Auto) 6.9 L, Winkler % (Auto) 10.2 H, Eos % (Auto) 1.8, Baso % (Auto) 0.2, Absolute Neuts (a uto) 4.8, Absolute Lymphs (auto) 0.41 L, Nucleated RBC % 0, Differential Comment SCANNED, Hypochromasia 1+ 04/10/22 05:35: Sodium 139, Potassium 3.8, Chloride 100, Carbon Dioxide 37.0 H, Anion Gap 2 L, BUN 14, Creatinine 0.65, Estim Creat Clear Calc 31.69, Est GFR (MDRD) Af Amer 112, Est GFR (MDRD) Non-Af 93, BUN/Creatinine Ratio 21.5 H, Glucose 115 H, Calcium 8.1 L 04/10/22 06:13: POC Glucose 106 Micro: Microbiology 04/09/22 23:30 Nasal Secretion SARS-CoV-2 Antigen (Rapid) - Final Assessment & Plan Assessment/Plan (1) Debility: (2) Rectus sheath hematoma: (3) Hematoma of extraperitoneal space: (4) ABLA (acute blood loss anemia): (5) Hemorrhagic shock: (6) Secondary pulmonary arterial hypertension: (7) Persistent atrial fibrillation: (8) Urinary retention: (9) Low back pain: (10) Restless leg syndrome: (11) Overactive bladder: (12) Pulmonary hypertension: (13) COPD (chronic obstructive pulmonary disease): (14) Sleep apnea: (15) Hypertension: PLAN: Plan 82 year old female with below past medical history hospitalized for hemorrhagic shock secondary to rectus sheath hematoma, extraperitoneal bleeding from direct oral anticoagulant, complicated by atypical chest pain, urinary retention, admitted to TCU with debility, here for rehabilitation, strengthening, prior to discharge home alone. * Debility - PT/OT. * Pain - Fentanyl 25mcg td q72h. * Bowel - senna/colace 2 tablets bid, MOM 30ml po x 1 prn. * Adult immunization - Administer pneumonia vaccine, covid19 vaccine, flu vaccine. * DVT prophylaxis - Hold, life threatening bleed. * COPD - Budesonide 0.5mg inhalation bid, Albuterol 1.25mg bid prn. * Calcium deficiency - Calcium D 2 tablets daily. * ID - Cefdinir 300mg po q12h thru 04/13/2022. * Edema - Furosemide 20mg daily. * Cough - Robitussin AC 5ml q6h prn. * Allergic conjunctivitis - Ketotifen 1gtt ou q12h thru 04/19/2022. * Hypertension - Metoprolol 50mg bid, Losartan 25mg daily. * Pulmonary HTN (since 2001) - Opsumit 10mg daily, Orenitram 2.75mg tidcm. * Atrial fibrillation - Metoprolol 50mg bid, hold Eliquis until shared decision making amongst Dr. Schwarz, Dr. Lundberg, Dr. Gracia, and resident. * Nutrition - MVI daily. * Restless leg syndrome - Mirapex 1mg qhs. * Overactive bladder - Tolterodine 2mg daily. * Buttock rash - Triamcinolone 0.5% topical bid.
[2022-04-10] MEDS: Budesonide Respules 0.5 MG/2 ML AMPUL.NEB. INHALATION ×2 (07:58→19:26)
[2022-04-10] MEDS: Calcium Carb/Vitamin D 1 TABLET Tablet 2 TABLET PO (08:36)
[2022-04-10] MEDS: Multivitamins,Therapeutic Tablet 1 TABLET PO (08:36)
--- NOTE | 2022-04-10 08:51 | NURSING ---
duragesic intact to LT deltoid upper arm.
--- NOTE | 2022-04-10 09:53 | PCM.PN.DRR ---
TCU RX Drug Regimen Review Subjective: TCU Admission. 82 YOF presented to the ER with abdominal pain. Hospitalized for hemorrhagic shock secondary to rectus sheath hematoma, extraperitoneal bleeding from direct oral anticoagulant, complicated by atypical chest pain, urinary retention. Admitted to TCU with debility for strengthening and rehabilitation. Objective: Allergies gabapentin Allergy (Verified 04/03/22 14:17) STROKE LIKE SYMPTOMS ropinirole HCl [From Requip] Allergy (Verified 04/03/22 14:17) STROKE LIKE SYMPTOMS pentazocine lactate [From Talwin] Adverse Reaction (Verified 04/03/22 14:17) Unknown sulfamethoxazole [From Bactrim] Adverse Reaction (Verified 04/03/22 14:17) Makes me high, feel weird trimethoprim [From Bactrim] Adverse Reaction (Verified 04/03/22 14:17) Makes me feel strange Current Medications Generic Name Dose Route Start Last Admin Trade Name Freq PRN Reason Stop Dose Admin Albuterol Sulfate 1.25 mg 04/09/22 23:24 Albuterol 2.5 Mg/3 Ml Vial.Neb. INHALATION BID PRN PRN sob Budesonide 0.5 mg 04/10/22 06:00 04/10/22 07:58 Budesonide Respules 0.5 Mg/2 Ml Ampul.Neb. INHALATION 0.5 mg BID SIRI Administration Calcium/Vitamin D 2 tablet 04/10/22 08:00 04/10/22 08:36 Calcium Carb/Vitamin D 1 Tablet Tablet PO 2 tablet DAILYCM SIRI Administration Cefdinir 300 mg 04/10/22 06:00 04/10/22 06:03 Cefdinir 300 Mg Capsule PO 04/13/22 18:01 300 mg Q12 SIRI Administration Fentanyl 25 mcg 04/09/22 23:30 04/10/22 00:25 Fentanyl 25 Mcg Patch TD 25 mcg Q72H SIRI Administration Protocol Furosemide 40 mg 04/11/22 06:00 Furosemide 40 Mg Tablet PO QODAY@0600 SIRI Furosemide 20 mg 04/12/22 06:00 Furosemide 20 Mg Tablet PO QODAY@0600 SIRI Guaifenesin/Codeine Phosphate 5 ml 04/09/22 23:20 Guaifenesin/Codeine 5 Ml Udc PO 04/14/22 23:21 Q6H PRN PRN COUGH Losartan Potassium 25 mg 04/10/22 06:00 04/10/22 06:02 Losartan Potassium 25 Mg Tablet PO 25 mg DAILY SIRI Administration Macitentan 10 mg 04/10/22 06:00 04/10/22 06:00 Macitentan 10 Mg Tablet PO 10 mg DAILY SIRI Administration Magnesium Hydroxide 30 ml 04/10/22 08:12 Magnesium Hydroxide 30 Ml Udc PO X1 PRN CONSTIPATION Metoprolol Tartrate 50 mg 04/10/22 06:00 04/10/22 06:02 Metoprolol Tartrate 50 Mg Tablet PO 50 mg BID SIRI Administration Multivitamins 1 tablet 04/10/22 08:00 04/10/22 08:36 Multivitamins,Therapeutic Tablet PO 1 tablet DAILYCM SIRI Administration Pramipexole Dihydrochloride 1 mg 04/09/22 23:45 04/10/22 00:28 Pramipexole Di-Hcl 1 Mg Tablet PO 1 mg QHS SIRI Administration Senna/Docusate Sodium 2 tablet 04/10/22 06:00 04/10/22 06:04 Senna/Docusate Sodium 1 Tablet PO 2 tablet BID SIRI Administration Tolterodine Tartrate 2 mg 04/10/22 06:00 04/10/22 06:02 Tolterodine Tartrate 2 Mg Cap.Sa PO 2 mg DAILY SIRI Administration Triamcinolone Acetonide 1 applic 04/10/22 06:00 04/10/22 06:09 Triamcinolone 0.5% Cream TOPICAL 04/23/22 06:01 1 applic BID SIRI Administration Tuberculin PPD 0.1 ml 04/10/22 10:00 Tuberculin,Purif.Prot.Deriv. 50 Tu/Ml Vial ID 04/10/22 10:01 X1 ONE Tuberculin PPD 0.1 ml 04/17/22 10:00 Tuberculin,Purif.Prot.Deriv. 50 Tu/Ml Vial ID 04/17/22 10:01 X1 ONE Problem List (Last Reviewed 04/10/22 @ 07:[address] Clinton Jerez MD) Hypertension (Chronic) Sleep apnea (Acute) COPD (chronic obstructive pulmonary disease) (Chronic) Pulmonary hypertension (Acute) Overactive bladder (Acute) Restless leg syndrome (Acute) Low back pain (Acute) Urinary retention (Acute) Debility (Acute) Rectus sheath hematoma (Acute) Hematoma of extraperitoneal space (Acute) ABLA (acute blood loss anemia) (Acute) Hemorrhagic shock (Acute) Secondary pulmonary arterial hypertension (Acute) Persistent atrial fibrillation (Acute) Vital Signs Temp Pulse Resp BP Pulse Ox O2 Del Method O2 Flow Rate 98.5 F 81 20 H 119/61 94 Nasal Cannula 4 04/09/22 22:44 04/10/22 07:58 04/10/22 07:58 04/10/22 06:02 04/10/22 07:58 04/10/22 07:58 04/10/22 07:58 Oxygen Flow Rate (L/min) 4 Oxygen Delivery Method Nasal Cannula Weight: 101.06 kg Body Mass Index (BMI) 43.4 Sodium 139 mmol/L (136-145) 04/10/22 05:35 Potassium 3.8 mmol/L (3.5-5.1) 04/10/22 05:35 Chloride 100 mmol/L (98-107) 04/10/22 05:35 Carbon Dioxide 37.0 mmol/L (21.0-32.0) H 04/10/22 05:35 Anion Gap 2 (5-15) L 04/10/22 05:35 BUN 14 mg/dL (7-18) 04/10/22 05:35 Creatinine 0.65 mg/dL (0.55-1.02) 04/10/22 05:35 Est GFR (MDRD) Af Amer 112 mL/min (>60) 04/10/22 05:35 Est GFR (MDRD) Non-Af 93 mL/min (>60) 04/10/22 05:35 BUN/Creatinine Ratio 21.5 RATIO (10-20) H 04/10/22 05:35 Glucose 115 mg/dL (74-106) H 04/10/22 05:35 Assessment/Plan: 1. Pain: fentanyl patch 25mcg TD Q72H. Please continue to monitor for increased pain, constipation, rash, respiratory depression (black box warning) and falls/fractures (BEERs criteria). 2. Bowel: senna/docusate 2T PO BID and MOM 30mL PO x1 PRN constipation. Resident has not had any PRN doses or documented bowel movements. Please continue to monitor for constipation and PRN usage. 3. ID: cefdinir 300mg PO BID thru 04/13/22. Please continue to monitor for S/S of infection, diarrhea, renal function and stool discoloration. 4. Hypertension/atrial fibrillation: metoprolol tartrate 50mg PO BID, losartan 25mg PO daily. Please see physician note regarding anticoagulation. Please continue to monitor BP (last 119/61), HR (last 81), renal function and potassium (last 3.8mmol/L). 5. Pulmonary hypertension: macitentan 10mg PO daily and treprostinil 2.75mg PO TIDCM. Please continue to monitor for edema, rash, hemoglobin, headache, GI side effects, BP and flushing. 6. COPD: budesonide 0.5mg inhalation BID and albuterol 1.25mg inhalation BID PRN shortness of breath. Resident has not had any PRN doses. Please continue to monitor for S/S of COPD/coughing, thrush and PRN usage. Please rinse mouth with water and spit following budesonide administration to prevent thrush. 7. Edema: furosemide 20mg PO and 40mg PO on alternating days. Please continue to monitor for edema, renal function and potassium. 8. Restless leg syndrome: pramipexole 1mg PO QHS. Please continue to monitor for S/S of RLS, dizziness, drowsiness and insomnia. 9. Overactive bladder: tolterodine 2mg PO daily. Please continue to monitor for S/S of overactive bladder, delirium/dementia (BEERs medication) and dry mouth. 10. Allergic conjunctivitis: ketotifen 1gtt OU Q12 thru 04/19/22. Please continue to monitor for headache and eye irritation. 11. Cough: Robitussin AC 5ml PO Q6H PRN cough. Resident has not had any doses yet. Please continue to monitor for cough and PRN usage. 12. Buttock rash: triamcinolone 0.5% cream 1 application topically BID thru 04/23/22. Please continue to monitor for improvement in rash. 13. Calcium deficiency/nutrition: calcium/vitamin D 2T PO daily and multivitamin 1T PO DAILYCM. Please consider ordering a vitamin D level if clinically appropriate as there is no level in the chart. Thanks. Please continue to monitor calcium levels (last 8.1mg/dL). Assessment/Plan for indications treated with psychotropic medications: None Medical chart and medication regimen reviewed. The following medication irregularities or issues were identified: *1. Calcium/vitamin D 2T PO daily. Please consider ordering a vitamin D level if clinically appropriate as there is no level in the chart. Thanks. Date of Note:: 04/10/22
[2022-04-10] MEDS: Tuberculin,Purif.prot.deriv. 50 TU/ML Vial 0.1 ML ID (11:05)
--- NOTE | 2022-04-10 11:40 | CASEMGMT ---
Social Work Met with patient to complete initial assessment. Introduced self and role. Verified contacts. Discussed code status and MOLST form. Pt confirmed DNR-CCA, no intubation. MOLST placed in Dr dela cruz. Educated to Medicare benefit. Encouraged to contact secondary insurance to ensure copay coverage. Pt's goal is to return home alone. Both daughter's live out of state and does not have local support for physical assistance. SW to continue to follow for DC planning. Brandy Lim ,PAINT PROCESS ENGINEER CONCRETING SUPERVISOR
[2022-04-10] MEDS: oxyCODONE 5 MG Tablet PO (13:27)
--- NOTE | 2022-04-10 21:51 | NURSING ---
Contacted RT regarding nebulizer on APR, RT (Joseph) states aware of RTN nebulizers
--- NOTE | 2022-04-10 23:11 | NURSING ---
Duragesic observed in place to left deltoid per order
[2022-04-11 06:41] LABS: Bedside Glucose 106 mg/dL (74-106)
[2022-04-11] MEDS: Furosemide 40 MG Tablet PO (06:50)
[2022-04-11] MEDS: Losartan Potassium 25 MG Tablet PO (06:50)
[2022-04-11] MEDS: Cefdinir 300 MG Capsule PO ×2 (06:50→18:19)
[2022-04-11] MEDS: Senna/Docusate Sodium 1 Tablet 2 TABLET PO ×2 (06:50→18:20)
[2022-04-11] MEDS: Tolterodine Tartrate 2 MG CAP.SA PO (06:50)
[2022-04-11 06:54] VITALS: BP 129/68; PULSE 86
[2022-04-11] MEDS: Metoprolol Tartrate 50 MG Tablet PO ×2 (06:54→18:18)
[2022-04-11] MEDS: MACITENTAN 10 MG PO (06:55)
[2022-04-11] MEDS: Triamcinolone 0.5% Cream 1 APPLIC TOPICAL ×2 (08:01→22:26)
[2022-04-11] MEDS: Calcium Carb/Vitamin D 1 TABLET Tablet 2 TABLET PO (08:02)
[2022-04-11] MEDS: Multivitamins,Therapeutic Tablet 1 TABLET PO (08:02)
[2022-04-11] MEDS: oxyCODONE 5 MG Tablet PO (10:27)
--- NOTE | 2022-04-11 11:19 | NURSING ---
Section Leader Screen Printing Note; Activity Asset: Sebastian Macdonald is independent in her choice of daily activities. She stated her children are in from out of state and when they leave to go back home it will be just her again. She has friends that visit with her through the week but mostly on her own. She enjoys reading and working on word puzzles and she uses her smartphone oscar to color.
[2022-04-11 14:00] VITALS: BP 114/72; PULSE 90; RESP 16; TEMP 36.7; O2SAT 98
[2022-04-11] MEDS: Pantoprazole Sodium 40 MG Tablet PO (15:09)
[2022-04-11] MEDS: Calcium Carbonate 500 MG Tablet PO (15:09)
--- NOTE | 2022-04-11 15:30 | RAD_ITS ---
EXAM: XR ABDOMEN, 1 VIEW CLINICAL INDICATION: Abdominal pain. TECHNIQUE: Frontal supine view of the abdomen/pelvis. This report was created using [employer] report generation technology. COMPARISON: None. FINDINGS: LOWER THORAX: Atelectasis in the lung bases. GASTROINTESTINAL TRACT: Unremarkable. Non-obstructive. No bowel or stomach distention. ORGANS: Unremarkable as visualized. No organomegaly. No abnormal calcifications. BONES/JOINTS: Intramedullary regine right femur. Degenerative changes in the lumbar spine. Multiple old compression fractures in the lumbar spine. Vertebroplasty L1. SOFT TISSUES: No acute pathology. RAD/Abdomen Single View IMPRESSION: 1. No acute abdominal abnormality identified. 2. Atelectasis in the lung bases. Electronically Signed: Enrique Alejandro MD at 17:43 EST ,
[2022-04-11] MEDS: Ensure Clear 120 ML Liquid PO ×2 (18:17→22:29)
[2022-04-11 18:18] VITALS: BP 114/72; PULSE 90
[2022-04-11] MEDS: Electrolyte Solution/Peg's 4000 ML 1000 ML PO (22:25)
[2022-04-11] MEDS: Pramipexole Di-HCl 1 MG Tablet PO (22:29)
[2022-04-12] MEDS: oxyCODONE 5 MG Tablet PO ×2 (04:28→23:27)
[2022-04-12] MEDS: Pantoprazole Sodium 40 MG Tablet PO (04:29)
[2022-04-12] MEDS: Cefdinir 300 MG Capsule PO ×2 (04:29→17:35)
[2022-04-12] MEDS: Senna/Docusate Sodium 1 Tablet 2 TABLET PO (04:29)
[2022-04-12 04:30] VITALS: BP 115/80; PULSE 81
[2022-04-12] MEDS: Furosemide 40 MG Tablet PO (04:30)
[2022-04-12] MEDS: Tolterodine Tartrate 2 MG CAP.SA PO (04:30)
[2022-04-12] MEDS: Losartan Potassium 25 MG Tablet PO (04:30)
[2022-04-12] MEDS: Metoprolol Tartrate 50 MG Tablet PO (04:30)
[2022-04-12] MEDS: Ensure Clear 120 ML Liquid PO ×4 (04:31→23:10)
[2022-04-12] MEDS: MACITENTAN 10 MG PO (04:33)
[2022-04-12] MEDS: Triamcinolone 0.5% Cream 1 APPLIC TOPICAL ×2 (04:33→23:20)
[2022-04-12] MEDS: Furosemide 20 MG Tablet PO (04:41)
[2022-04-12 06:31] LABS: Bedside Glucose 152 mg/dL (74-106)
[2022-04-12] MEDS: Budesonide Respules 0.5 MG/2 ML AMPUL.NEB. INHALATION ×2 (08:08→20:29)
[2022-04-12 08:09] VITALS: PULSE 91; RESP 18; O2SAT 96
[2022-04-12] MEDS: Calcium Carb/Vitamin D 1 TABLET Tablet 2 TABLET PO (09:05)
[2022-04-12] MEDS: Multivitamins,Therapeutic Tablet 1 TABLET PO (09:05)
[2022-04-12] MEDS: Nystatin Powder 15gm Bottle 1 APPLIC TOPICAL ×2 (11:34→17:39)
[2022-04-12 14:00] VITALS: BP 102/49; PULSE 88; RESP 14; TEMP 36.9; O2SAT 93
[2022-04-12 17:36] VITALS: BP 107/53; PULSE 93
[2022-04-12 20:29] VITALS: PULSE 91; RESP 20
[2022-04-12] MEDS: Pramipexole Di-HCl 1 MG Tablet PO (23:14)
[2022-04-12] MEDS: fentaNYL 25 MCG Patch TD (23:15)
[2022-04-12] MEDS: Acetaminophen 500 MG Tablet 1000 MG PO (23:27)
[2022-04-13] VITALS (8 sets, daily range): BP systolic 104–113; BP diastolic 49–56; PULSE 78–104; RESP 17–18; TEMP 36.1–36.7; O2SAT 90–98
[2022-04-13] MEDS: Ensure Clear 120 ML Liquid PO ×3 (06:32→17:58)
[2022-04-13] MEDS: Acetaminophen 500 MG Tablet 1000 MG PO (06:34)
[2022-04-13] MEDS: oxyCODONE 5 MG Tablet PO (06:35)
[2022-04-13] MEDS: Tolterodine Tartrate 2 MG CAP.SA PO (06:36)
[2022-04-13] MEDS: Pantoprazole Sodium 40 MG Tablet PO (06:37)
[2022-04-13] MEDS: Cefdinir 300 MG Capsule PO ×2 (06:37→17:59)
[2022-04-13 06:41] LABS: Bedside Glucose 115 mg/dL (74-106)
[2022-04-13] MEDS: Triamcinolone 0.5% Cream 1 APPLIC TOPICAL ×2 (06:44→23:51)
[2022-04-13] MEDS: Budesonide Respules 0.5 MG/2 ML AMPUL.NEB. INHALATION ×2 (06:58→18:40)
--- NOTE | 2022-04-13 07:50 | NURSING ---
AM meds for pulmonary HTN and HTN held d/t BP of 107/38. Will report to oncoming nurse and continue to monitor.
[2022-04-13] MEDS: Multivitamins,Therapeutic Tablet 1 TABLET PO (08:57)
[2022-04-13] MEDS: Calcium Carb/Vitamin D 1 TABLET Tablet 2 TABLET PO (08:57)
[2022-04-13] MEDS: Metoprolol Tartrate 50 MG Tablet PO ×2 (08:57→17:59)
[2022-04-13] MEDS: Losartan Potassium 25 MG Tablet PO (08:57)
[2022-04-13] MEDS: MACITENTAN 10 MG PO (08:58)
[2022-04-13] MEDS: guaiFENesin/Codeine 5 ML UDC PO (09:10)
[2022-04-13] MEDS: Senna/Docusate Sodium 1 Tablet 2 TABLET PO (18:02)
[2022-04-13] MEDS: Albuterol 2.5 MG/3 ML VIAL.NEB. 1.25 MG INHALATION (18:40)
--- NOTE | 2022-04-13 18:50 | NURSING ---
pt refused nystatin powder to abd folds d/t sitting up in chair and can only put on when laying down. pt does not want to lay down since she had a rough start this AM.
[2022-04-13] MEDS: Pramipexole Di-HCl 1 MG Tablet PO (23:52)
[2022-04-14] VITALS (8 sets, daily range): BP systolic 90–112; BP diastolic 50–59; PULSE 67–94; RESP 16–18; TEMP 36.6; O2SAT 91–94
--- NOTE | 2022-04-14 03:54 | NURSING ---
Late entry for 04/12/22 at 2315: Fentanyl patch changed. Old patch removed from left upper arm and placed in sharps container. Witnessed by Taylor Kamara LPN. New patch applied to rt upper arm.
[2022-04-14 06:35] LABS: Bedside Glucose 112 mg/dL (74-106)
[2022-04-14] MEDS: Budesonide Respules 0.5 MG/2 ML AMPUL.NEB. INHALATION ×2 (07:02→19:35)
[2022-04-14] MEDS: Metoprolol Tartrate 50 MG Tablet PO (08:44)
[2022-04-14] MEDS: Furosemide 20 MG Tablet PO (08:44)
[2022-04-14] MEDS: Tolterodine Tartrate 2 MG CAP.SA PO (08:44)
[2022-04-14] MEDS: Losartan Potassium 25 MG Tablet PO (08:44)
[2022-04-14] MEDS: Pantoprazole Sodium 40 MG Tablet PO (08:45)
[2022-04-14] MEDS: Senna/Docusate Sodium 1 Tablet 2 TABLET PO ×2 (08:45→18:16)
[2022-04-14] MEDS: MACITENTAN 10 MG PO (08:46)
[2022-04-14] MEDS: Multivitamins,Therapeutic Tablet 1 TABLET PO (08:48)
[2022-04-14] MEDS: Calcium Carb/Vitamin D 1 TABLET Tablet 2 TABLET PO (08:48)
[2022-04-14] MEDS: Ensure Clear 120 ML Liquid PO ×4 (08:52→23:01)
--- NOTE | 2022-04-14 10:18 | NURSING ---
Resident agreed to receive the Covid booster while here and provided educational pamphlet.
--- NOTE | 2022-04-14 14:57 | CASEMGMT ---
Social Work BIMS () and PHQ-9 (06/19) completed for MDS assessment. Brandy Lim MSW JUKE BOX MECHANIC
[2022-04-14] MEDS: Triamcinolone 0.5% Cream 1 APPLIC TOPICAL ×2 (15:04→18:00)
[2022-04-14] MEDS: Nystatin Powder 15gm Bottle 1 APPLIC TOPICAL ×2 (15:04→18:19)
[2022-04-14] MEDS: Albuterol 2.5 MG/3 ML VIAL.NEB. 1.25 MG INHALATION (19:35)
[2022-04-14] MEDS: Pramipexole Di-HCl 1 MG Tablet PO (23:02)
[2022-04-15] MEDS: Ensure Clear 120 ML Liquid PO ×2 (06:57→11:30)
[2022-04-15] MEDS: Triamcinolone 0.5% Cream 1 APPLIC TOPICAL ×2 (06:58→22:21)
[2022-04-15] MEDS: MACITENTAN 10 MG PO (06:59)
[2022-04-15] MEDS: Losartan Potassium 25 MG Tablet PO (07:01)
[2022-04-15] MEDS: Tolterodine Tartrate 2 MG CAP.SA PO (07:01)
[2022-04-15] MEDS: Pantoprazole Sodium 40 MG Tablet PO (07:01)
[2022-04-15 07:02] VITALS: BP 141/55; PULSE 107
[2022-04-15] MEDS: Metoprolol Tartrate 50 MG Tablet PO ×2 (07:02→17:31)
[2022-04-15] MEDS: Senna/Docusate Sodium 1 Tablet 2 TABLET PO ×2 (07:02→17:31)
[2022-04-15] MEDS: Furosemide 40 MG Tablet PO (07:02)
[2022-04-15] MEDS: Nystatin Powder 15gm Bottle 1 APPLIC TOPICAL ×2 (07:07→17:31)
[2022-04-15] MEDS: Albuterol 2.5 MG/3 ML VIAL.NEB. 1.25 MG INHALATION ×2 (07:45→19:10)
[2022-04-15] MEDS: Budesonide Respules 0.5 MG/2 ML AMPUL.NEB. INHALATION ×2 (07:55→19:10)
[2022-04-15 08:00] VITALS: BMI 43.2
[2022-04-15] MEDS: Calcium Carb/Vitamin D 1 TABLET Tablet 2 TABLET PO (08:28)
[2022-04-15] MEDS: Multivitamins,Therapeutic Tablet 1 TABLET PO (08:28)
[2022-04-15 09:00] VITALS: PULSE 74; RESP 16; O2SAT 98
[2022-04-15 09:49] VITALS: PULSE 88; RESP 18; O2SAT 90
[2022-04-15 13:10] LABS: Bedside Glucose 108 mg/dL (74-106)
[2022-04-15 14:00] VITALS: BP 118/54; PULSE 99; RESP 22; TEMP 36.2; O2SAT 91
[2022-04-15 17:31] VITALS: BP 120/61; PULSE 94
[2022-04-15 19:11] VITALS: PULSE 91; RESP 18
[2022-04-15] MEDS: Pramipexole Di-HCl 1 MG Tablet PO (22:21)
[2022-04-15] MEDS: guaiFENesin Dm 10 ML UDC PO (22:29)
[2022-04-15] MEDS: fentaNYL 25 MCG Patch TD (22:30)
[2022-04-16 06:46] LABS: Bedside Glucose 95 mg/dL (74-106)
[2022-04-16] MEDS: guaiFENesin Dm 10 ML UDC PO ×2 (07:00→22:10)
[2022-04-16] MEDS: MACITENTAN 10 MG PO (07:02)
[2022-04-16] MEDS: Furosemide 20 MG Tablet PO (07:02)
[2022-04-16 07:03] VITALS: BP 131/59; PULSE 84
[2022-04-16] MEDS: Losartan Potassium 25 MG Tablet PO (07:03)
[2022-04-16] MEDS: Pantoprazole Sodium 40 MG Tablet PO (07:03)
[2022-04-16] MEDS: Metoprolol Tartrate 50 MG Tablet PO ×2 (07:03→17:32)
[2022-04-16] MEDS: Triamcinolone 0.5% Cream 1 APPLIC TOPICAL ×2 (07:07→22:08)
[2022-04-16] MEDS: Tolterodine Tartrate 2 MG CAP.SA PO (07:08)
[2022-04-16] MEDS: Nystatin Powder 15gm Bottle 1 APPLIC TOPICAL ×2 (07:08→22:06)
--- NOTE | 2022-04-16 07:15 | NURSING ---
Patient stated that daughter was able to get in touch with Dr. Garcia regarding patient's breathing. Dr. Garcia to be on unit to see patient.
[2022-04-16 08:11] VITALS: PULSE 102; RESP 18; O2SAT 92
--- NOTE | 2022-04-16 08:55 | NURSING ---
Director Of Finance Note; MDS for 04/15/2022 Complete
[2022-04-16] MEDS: Multivitamins,Therapeutic Tablet 1 TABLET PO (09:02)
[2022-04-16] MEDS: Calcium Carb/Vitamin D 1 TABLET Tablet 2 TABLET PO (09:02)
--- NOTE | 2022-04-16 10:52 | CASEMGMT ---
Social Work IDT met with patient, dtr Shara, then dtrAmaya, via conference call for care plan meeting. Discussed patient's progress in PT/OT/SN. Educated to Medicare benefit. Encouraged to contact secondary insurance to ensure copay coverage. Discussed DC plans and answered questions. Reviewed options for home with HHC, [place] or SNF. Dtr has many questions for Dr. Garcia and that will assist pt/family in a discharge plan. SW to continue to follow for DC planning. YANNA Hickman ACADEMIC COORDINATOR
[2022-04-16 14:00] VITALS: BP 101/56; PULSE 83; RESP 18; TEMP 36.5; O2SAT 98
--- NOTE | 2022-04-16 14:39 | CHAPLAIN ---
Type of Pastoral Visit _x__ Initial Visit ___ Follow-up Visit ___ On-call Visit ___ General Patient Visit ___ Spiritual Assessment ___ Family Conference ___ Bereavement ___ Rapid Response ___ Code Blue ___ Other (describe below) Pastoral Care Referral From __x_ Patient ___ Family ___ Nurse ___ Physician ___ Windsurfing Instructor ___ Marine Mechanic ___ Other (describe below) Sacrament/Intervention _x__ Active listening ___ Anointing ___ Congregational ___ Bereavement _x__ Communion ___ Aditi exploration ___ ___ Life review _x__ Prayer ___ Reconciliation ___ Sacrament of Sick _x__ Supportive presence ___ Wedding ___ Other (describe below) Pastoral Comments patient was introduced to person and role of this vba programmer; pt had also requested the imposition of ashes which were given to her; casual talk and getting acquainted; offer of support; prayer received; daughter of patient is in the room and waiting to talk with the doctor
[2022-04-16 17:32] VITALS: BP 107/56; PULSE 83
[2022-04-16 20:40] VITALS: PULSE 99; RESP 16; O2SAT 92
[2022-04-16] MEDS: Budesonide Respules 0.5 MG/2 ML AMPUL.NEB. INHALATION (20:51)
[2022-04-16] MEDS: Pramipexole Di-HCl 1 MG Tablet PO (22:04)
[2022-04-16 23:00] VITALS: PULSE 91; RESP 18; O2SAT 95
[2022-04-17] VITALS (8 sets, daily range): BP systolic 97–110; BP diastolic 34–75; PULSE 82–103; RESP 16–21; TEMP 37.1; O2SAT 91–99
[2022-04-17 05:50] LABS: Absolute Lymphocyte Count 0.41 X10^3/uL (0.83-4.51); Absolute Neutrophil Count 3.9 X10^3/uL (2.0-7.7); Basophil# 0.01 X10^3/uL; Basophil% 0.2 % (0-1); Eosinophil# 0.08 X10^3/uL; Eosinophils% 1.6 % (0-5); Hematocrit 28.6 % (37-47); Hemoglobin 8.6 g/dL (12.0-15.0); Lymphocyte # 0.41 X10^3/ul (0.83-4.51); Lymphocyte % 8.3 % (19-41); Mean Corp Hgb Conc 30.1 g/dL (32-36); Mean Corpuscular Hgb 30.1 pg (27.0-32.0); Mean Platelet Vol. 9.2 fl (6.2-12.0); Monocyte# 0.51 X10^3/uL; Monocyte% 10.3 % (0-10); NRBC Flagged by Analyzer 0 % (0-5); Neutrophil # 3.93 X10^3/uL (2.7-7.7); Neutrophil % 79.2 % (47-70); POSITIVE DIFFERENTIAL YES; Platelet Count 158 K/mm3 (150-450); RBC Distribution Width CV 15.6 % (11.6-14.6); RBC Distribution Width SD 57.4 fl (35.1-43.9); Red Blood Count 2.86 M/mm3 (4.2-5.4)
[2022-04-17 06:01] LABS: Differential Indicated SCAN CRITERIA MET
[2022-04-17 06:18] LABS: Anion Gap 2 (5-15); BUN 32 mg/dL (7-18); BUN/Creat Ratio 29.6 RATIO (10-20); Calcium,Total 8.4 mg/dL (8.5-10.1); Chloride 99 mmol/L (98-107); Creatinine, Serum 1.08 mg/dL (0.55-1.02); EST Glomerular Filtration Rate 52 mL/min (>60); Est Glom Filt Rate - Afr Amer 63 mL/min (>60); Estimated Creatinine Clearance 29.34 ml/min; Glucose 118 mg/dL (74-106); Potassium 4.1 mmol/L (3.5-5.1); Sodium Level 138 mmol/L (136-145)
[2022-04-17 06:32] LABS: Anisocytosis 1+; Differential Comment SCANNED; Hypochromasia 1+
[2022-04-17 06:56] LABS: Bedside Glucose 105 mg/dL (74-106)
[2022-04-17] MEDS: Tolterodine Tartrate 2 MG CAP.SA PO (07:02)
[2022-04-17] MEDS: MACITENTAN 10 MG PO (07:02)
[2022-04-17] MEDS: Pantoprazole Sodium 40 MG Tablet PO (07:02)
[2022-04-17] MEDS: Nystatin Powder 15gm Bottle 1 APPLIC TOPICAL ×2 (07:03→22:51)
[2022-04-17] MEDS: Triamcinolone 0.5% Cream 1 APPLIC TOPICAL ×2 (07:07→22:56)
[2022-04-17] MEDS: Metoprolol Tartrate 50 MG Tablet PO ×2 (08:22→17:52)
[2022-04-17] MEDS: Multivitamins,Therapeutic Tablet 1 TABLET PO (08:22)
[2022-04-17] MEDS: Furosemide 40 MG Tablet PO ×2 (08:22→17:52)
[2022-04-17] MEDS: Calcium Carb/Vitamin D 1 TABLET Tablet 2 TABLET PO (08:22)
[2022-04-17] MEDS: Tuberculin,Purif.prot.deriv. 50 TU/ML Vial 0.1 ML ID (11:48)
--- NOTE | 2022-04-17 12:14 | NURSING ---
Addendum entered by Jennifer Reno 04/17/22 12:23: Schedule Echo for 3pm 05/14/22 pending pre-cert. Original Note: Pt had appt with Dr. Lundberg this shift. Written order to increase Lasix to 40mg BID hold Losartan and [facility] Echo to assess Left Ventricular function. Called to [facility] they stated they will need to complete pre-cert.
--- NOTE | 2022-04-17 15:22 | NURSING ---
Dr. Garcia called and gave a Verbal order for Chest X-ray PA and LA d/t decreased SpO2. Order read back and entered.
--- NOTE | 2022-04-17 15:35 | RAD_ITS ---
STUDY: X-RAY CHEST REASON FOR EXAM: Female, 82 years old. Cough and SOB TECHNIQUE: PA and lateral views of the chest. COMPARISON: Comparison is made with prior study dated 04/04/2022. FINDINGS: Persistent elevation of the right hemidiaphragm. There is evidence of vascular congestion and mild degree of CHF with bibasilar atelectasis. Blunting of both costophrenic angles. There is mild cardiac enlargement. Normal mediastinum and tameka. Normal visualized pulmonary arteries. There is atherosclerotic calcification of the aortic arch with tortuosity. There are diffuse degenerative changes of the visualized thoracic spine. Healed left rib fractures. There is no demonstrated abnormality of the visualized soft tissue structures of the upper abdomen. RAD/Chest PA and Lateral IMPRESSION: Mild cardiomegaly and CHF with bibasilar atelectasis. Electronically Signed: Rajesh Velasquez MD at 15:50 EST ,
[2022-04-17] MEDS: Senna/Docusate Sodium 1 Tablet 2 TABLET PO (17:51)
[2022-04-17] MEDS: Budesonide Respules 0.5 MG/2 ML AMPUL.NEB. INHALATION (19:19)
[2022-04-17] MEDS: Pramipexole Di-HCl 1 MG Tablet PO (22:50)
[2022-04-18 06:19] LABS: Anion Gap 1 (5-15); BUN 30 mg/dL (7-18); BUN/Creat Ratio 30.9 RATIO (10-20); Calcium,Total 8.5 mg/dL (8.5-10.1); Chloride 99 mmol/L (98-107); Creatinine, Serum 0.97 mg/dL (0.55-1.02); EST Glomerular Filtration Rate 58 mL/min (>60); Est Glom Filt Rate - Afr Amer 71 mL/min (>60); Estimated Creatinine Clearance 32.67 ml/min; Glucose 98 mg/dL (74-106); Sodium Level 138 mmol/L (136-145)
[2022-04-18 06:51] LABS: Bedside Glucose 94 mg/dL (74-106)
[2022-04-18] MEDS: MACITENTAN 10 MG PO (07:03)
[2022-04-18 07:04] VITALS: BP 106/51; PULSE 78
[2022-04-18] MEDS: Tolterodine Tartrate 2 MG CAP.SA PO (07:04)
[2022-04-18] MEDS: Senna/Docusate Sodium 1 Tablet 2 TABLET PO ×2 (07:04→17:45)
[2022-04-18] MEDS: Pantoprazole Sodium 40 MG Tablet PO (07:04)
[2022-04-18] MEDS: Metoprolol Tartrate 50 MG Tablet PO ×2 (07:04→17:45)
[2022-04-18] MEDS: Furosemide 40 MG Tablet PO ×2 (07:04→13:18)
[2022-04-18] MEDS: Nystatin Powder 15gm Bottle 1 APPLIC TOPICAL ×2 (07:08→22:24)
[2022-04-18] MEDS: Triamcinolone 0.5% Cream 1 APPLIC TOPICAL (07:09)
[2022-04-18] MEDS: Calcium Carb/Vitamin D 1 TABLET Tablet 2 TABLET PO (07:43)
[2022-04-18] MEDS: Multivitamins,Therapeutic Tablet 1 TABLET PO (07:43)
[2022-04-18] MEDS: guaiFENesin Dm 10 ML UDC PO (07:45)
[2022-04-18 08:09] VITALS: PULSE 88; RESP 18; O2SAT 95
[2022-04-18] MEDS: Budesonide Respules 0.5 MG/2 ML AMPUL.NEB. INHALATION ×2 (08:09→21:02)
--- NOTE | 2022-04-18 12:00 | NURSING ---
dr cyr updated on cxr results, new order for 1500cc fluid restriction, daily weight, monitor output
[2022-04-18 14:00] VITALS: BP 120/72; PULSE 79; RESP 16; TEMP 36.7; O2SAT 99
[2022-04-18 14:32] VITALS: BMI 44.1
--- NOTE | 2022-04-18 14:33 | NURSING ---
pt noted to have fluid filled vesicles to RT upper buttocks, had wound nurse take a look as well. dr cyr updated, new order to start zovirax. pt & daughter updated. Duragesic intact to LT upper arm.
[2022-04-18] MEDS: Acyclovir 800 MG Tablet PO ×3 (15:49→22:23)
[2022-04-18 17:44] VITALS: BP 123/56; PULSE 96
[2022-04-18 17:45] VITALS: PULSE 96
[2022-04-18 20:28] VITALS: PULSE 90; RESP 18; O2SAT 95
[2022-04-18] MEDS: Albuterol 2.5 MG/3 ML VIAL.NEB. 1.25 MG INHALATION (21:02)
[2022-04-18] MEDS: Pramipexole Di-HCl 1 MG Tablet PO (22:23)
[2022-04-18] MEDS: fentaNYL 25 MCG Patch TD (22:23)
[2022-04-19] MEDS: Acyclovir 800 MG Tablet PO ×5 (05:49→23:15)
[2022-04-19 05:50] VITALS: PULSE 91
[2022-04-19] MEDS: Furosemide 40 MG Tablet PO ×2 (05:50→14:24)
[2022-04-19] MEDS: Pantoprazole Sodium 40 MG Tablet PO (05:50)
[2022-04-19] MEDS: Metoprolol Tartrate 50 MG Tablet PO ×2 (05:50→17:18)
[2022-04-19] MEDS: Tolterodine Tartrate 2 MG CAP.SA PO (05:50)
[2022-04-19] MEDS: MACITENTAN 10 MG PO (05:51)
[2022-04-19 06:03] VITALS: BP 119/60; PULSE 90; RESP 18; TEMP 36.6; O2SAT 95
[2022-04-19] MEDS: guaiFENesin Dm 10 ML UDC PO (06:31)
[2022-04-19 06:36] LABS: Bedside Glucose 110 mg/dL (74-106)
[2022-04-19 07:35] VITALS: O2SAT 95
[2022-04-19 07:59] LABS: Anion Gap 3 (5-15); BUN 24 mg/dL (7-18); BUN/Creat Ratio 26.8 RATIO (10-20); Calcium,Total 8.3 mg/dL (8.5-10.1); Chloride 99 mmol/L (98-107); EST Glomerular Filtration Rate 64 mL/min (>60); Est Glom Filt Rate - Afr Amer 78 mL/min (>60); Estimated Creatinine Clearance 35.21 ml/min; Glucose 137 mg/dL (74-106); Potassium 3.5 mmol/L (3.5-5.1); Sodium Level 138 mmol/L (136-145)
[2022-04-19] MEDS: Calcium Carb/Vitamin D 1 TABLET Tablet 2 TABLET PO (08:53)
[2022-04-19] MEDS: Multivitamins,Therapeutic Tablet 1 TABLET PO (08:53)
[2022-04-19 14:00] VITALS: BP 106/56; PULSE 83; RESP 16; TEMP 36.4; O2SAT 97
[2022-04-19 17:18] VITALS: BP 106/56; PULSE 83
[2022-04-19] MEDS: Senna/Docusate Sodium 1 Tablet 2 TABLET PO (17:18)
[2022-04-19] MEDS: Albuterol 2.5 MG/3 ML VIAL.NEB. 1.25 MG INHALATION (22:26)
[2022-04-19] MEDS: Budesonide Respules 0.5 MG/2 ML AMPUL.NEB. INHALATION (22:26)
[2022-04-19 22:27] VITALS: PULSE 90; RESP 18; O2SAT 95
--- NOTE | 2022-04-19 22:27 | CPS ---
changed water bottle on nc
[2022-04-19] MEDS: Pramipexole Di-HCl 1 MG Tablet PO (23:17)
[2022-04-19] MEDS: Nystatin Powder 15gm Bottle 1 APPLIC TOPICAL (23:22)
[2022-04-20 06:00] VITALS: BMI 41.7
[2022-04-20 06:41] LABS: Bedside Glucose 116 mg/dL (74-106)
[2022-04-20 06:53] VITALS: BP 124/42; PULSE 86
[2022-04-20] MEDS: Furosemide 40 MG Tablet PO ×2 (06:53→12:57)
[2022-04-20] MEDS: Metoprolol Tartrate 50 MG Tablet PO ×2 (06:53→18:24)
[2022-04-20] MEDS: Pantoprazole Sodium 40 MG Tablet PO (06:53)
[2022-04-20] MEDS: Tolterodine Tartrate 2 MG CAP.SA PO (06:53)
[2022-04-20] MEDS: MACITENTAN 10 MG PO (06:55)
[2022-04-20] MEDS: Acyclovir 800 MG Tablet PO ×5 (06:57→23:14)
[2022-04-20] MEDS: Nystatin Powder 15gm Bottle 1 APPLIC TOPICAL ×2 (06:58→23:17)
[2022-04-20] MEDS: Multivitamins,Therapeutic Tablet 1 TABLET PO (08:06)
[2022-04-20] MEDS: Calcium Carb/Vitamin D 1 TABLET Tablet 2 TABLET PO (08:06)
[2022-04-20] MEDS: guaiFENesin Dm 10 ML UDC PO (08:06)
[2022-04-20 14:00] VITALS: BP 111/54; PULSE 86; RESP 16; TEMP 37; O2SAT 96
[2022-04-20 18:24] VITALS: BP 120/67; PULSE 100
[2022-04-20] MEDS: Albuterol 2.5 MG/3 ML VIAL.NEB. 1.25 MG INHALATION (19:29)
[2022-04-20] MEDS: Budesonide Respules 0.5 MG/2 ML AMPUL.NEB. INHALATION (19:29)
[2022-04-20 19:30] VITALS: PULSE 94; RESP 18
[2022-04-20] MEDS: Pramipexole Di-HCl 1 MG Tablet PO (23:14)
[2022-04-21] VITALS (7 sets, daily range): BP systolic 111–129; BP diastolic 57–84; PULSE 75–104; RESP 16–20; TEMP 36.2; O2SAT 94–96; BMI 43.7
[2022-04-21] MEDS: Albuterol 2.5 MG/3 ML VIAL.NEB. 1.25 MG INHALATION (06:25)
[2022-04-21] MEDS: Budesonide Respules 0.5 MG/2 ML AMPUL.NEB. INHALATION ×2 (06:25→19:45)
[2022-04-21] MEDS: Acyclovir 800 MG Tablet PO ×5 (06:52→22:44)
[2022-04-21] MEDS: Pantoprazole Sodium 40 MG Tablet PO (06:52)
[2022-04-21] MEDS: Tolterodine Tartrate 2 MG CAP.SA PO (06:52)
[2022-04-21] MEDS: MACITENTAN 10 MG PO (06:53)
[2022-04-21] MEDS: Metoprolol Tartrate 50 MG Tablet PO ×2 (06:54→18:00)
[2022-04-21] MEDS: Furosemide 40 MG Tablet PO ×2 (06:54→14:12)
[2022-04-21] MEDS: Nystatin Powder 15gm Bottle 1 APPLIC TOPICAL ×2 (06:54→22:43)
[2022-04-21] MEDS: guaiFENesin Dm 10 ML UDC PO (06:58)
[2022-04-21 07:00] LABS: Bedside Glucose 108 mg/dL (74-106)
[2022-04-21] MEDS: Calcium Carb/Vitamin D 1 TABLET Tablet 2 TABLET PO (08:28)
[2022-04-21] MEDS: Multivitamins,Therapeutic Tablet 1 TABLET PO (08:28)
[2022-04-21] MEDS: fentaNYL 25 MCG Patch TD (22:39)
[2022-04-21] MEDS: Pramipexole Di-HCl 1 MG Tablet PO (22:44)
[2022-04-22 06:00] VITALS: BMI 43.5
[2022-04-22] MEDS: Furosemide 40 MG Tablet PO ×2 (06:40→14:28)
[2022-04-22] MEDS: Pantoprazole Sodium 40 MG Tablet PO (06:40)
[2022-04-22 06:41] VITALS: BP 121/56; PULSE 88
[2022-04-22 06:41] LABS: Bedside Glucose 93 mg/dL (74-106)
[2022-04-22] MEDS: Acyclovir 800 MG Tablet PO ×5 (06:41→22:36)
[2022-04-22] MEDS: Tolterodine Tartrate 2 MG CAP.SA PO (06:41)
[2022-04-22] MEDS: Metoprolol Tartrate 50 MG Tablet PO ×2 (06:41→17:48)
[2022-04-22] MEDS: MACITENTAN 10 MG PO (06:41)
[2022-04-22 06:53] VITALS: PULSE 97; RESP 16; O2SAT 93
[2022-04-22] MEDS: Budesonide Respules 0.5 MG/2 ML AMPUL.NEB. INHALATION ×2 (06:55→19:15)
[2022-04-22] MEDS: Albuterol 2.5 MG/3 ML VIAL.NEB. 1.25 MG INHALATION (06:55)
--- NOTE | 2022-04-22 06:55 | NURSING ---
Addendum entered by Franca Lawrence 04/22/22 10:19: Spoke with pharmacy, per order they can adjust dose per patient's med sheet. Pharmacy requested med sheet be sent to them so they can change dose, sheet tubed to them. Also updated pharmacy that patient requesting extra 0.5 to make up for her not getting 3mg this AM. Original Note: Patient requests Orenitram be increased to 3mg starting today statingThats what I was told I was supposed to do starting today when it was ordered. Written communication left for regarding patient request.
[2022-04-22] MEDS: Nystatin Powder 15gm Bottle 1 APPLIC TOPICAL ×2 (08:30→22:37)
[2022-04-22] MEDS: Calcium Carb/Vitamin D 1 TABLET Tablet 2 TABLET PO (08:32)
[2022-04-22] MEDS: Multivitamins,Therapeutic Tablet 1 TABLET PO (08:32)
--- NOTE | 2022-04-22 09:17 | MDS.RN ---
Information for the mds was obtained from review of the clinical record, interview of resident, staff, and direct observation of resident's care.
[2022-04-22 14:00] VITALS: BP 95/53; PULSE 91; RESP 17; TEMP 36.7; O2SAT 97
--- NOTE | 2022-04-22 14:53 | CASEMGMT ---
Social Work IDT discussed patient's progress and ongoing needs. Pt is doing well physically but still not medically stable to DC. SW spoke with pt to provide update. Asked if pt would relay to dtr who also was asking questions. Pt stated she can update dtr. pt agrees with IDT's discussion. Explained IDT will review pt next week and determine ongoing LOS. EDC in the next two weeks, with goal to return home alone. pt replies, maybe when asked if she would be ready to go home in a week. Pt agreed to notify this worker if she cannot return home to assist with plans for AL or SNF. SW introduced and educated to Palliative Care. Pt agreeable to referral and services. Referral made via secure email to [facility]. SW to continue to follow. YANNA HickmanW
[2022-04-22 17:48] VITALS: BP 226/62; PULSE 99
[2022-04-22] MEDS: Senna/Docusate Sodium 1 Tablet 2 TABLET PO (17:48)
[2022-04-22 19:15] VITALS: PULSE 80; RESP 20
[2022-04-22 20:28] VITALS: PULSE 65; RESP 18; O2SAT 94
[2022-04-22] MEDS: Pramipexole Di-HCl 1 MG Tablet PO (22:36)
[2022-04-23 06:00] VITALS: BMI 43.7
[2022-04-23 06:31] LABS: Bedside Glucose 98 mg/dL (74-106)
[2022-04-23] MEDS: Nystatin Powder 15gm Bottle 1 APPLIC TOPICAL ×2 (06:37→23:08)
[2022-04-23] MEDS: Pantoprazole Sodium 40 MG Tablet PO (06:37)
[2022-04-23] MEDS: Furosemide 40 MG Tablet PO ×2 (06:37→14:17)
[2022-04-23] MEDS: Tolterodine Tartrate 2 MG CAP.SA PO (06:37)
[2022-04-23] MEDS: Acyclovir 800 MG Tablet PO ×5 (06:37→23:03)
[2022-04-23] MEDS: MACITENTAN 10 MG PO (06:38)
[2022-04-23 06:42] VITALS: BP 110/56; PULSE 86
[2022-04-23] MEDS: Metoprolol Tartrate 50 MG Tablet PO ×2 (06:42→18:36)
--- NOTE | 2022-04-23 06:49 | NURSING ---
Duragesic observed intact to left deltoid as ordered.
[2022-04-23 07:43] VITALS: PULSE 76; RESP 18; O2SAT 95
[2022-04-23] MEDS: Calcium Carb/Vitamin D 1 TABLET Tablet 2 TABLET PO (08:22)
[2022-04-23] MEDS: Multivitamins,Therapeutic Tablet 1 TABLET PO (08:22)
[2022-04-23 08:26] VITALS: PULSE 86; O2SAT 94
--- NOTE | 2022-04-23 11:20 | NURSING ---
left message with Paz in scheduling for Echo date/time. awaiting return call.
[2022-04-23 14:00] VITALS: BP 123/62; PULSE 84; RESP 16; TEMP 36.1; O2SAT 97
--- NOTE | 2022-04-23 15:00 | NURSING ---
pt to have echo @ 2pm 04/24/22
[2022-04-23 17:17] VITALS: O2SAT 98
[2022-04-23 18:36] VITALS: BP 123/62; PULSE 82
--- NOTE | 2022-04-23 19:25 | NURSING ---
duragesic intact to LT deltoid/shoulder
[2022-04-23] MEDS: Pramipexole Di-HCl 1 MG Tablet PO (23:03)
[2022-04-24] VITALS (7 sets, daily range): BP systolic 122–129; BP diastolic 50–63; PULSE 77–105; RESP 14–20; TEMP 36.5; O2SAT 95–98; BMI 43.2
[2022-04-24] MEDS: Albuterol 2.5 MG/3 ML VIAL.NEB. 1.25 MG INHALATION ×2 (00:51→07:36)
[2022-04-24 05:34] LABS: Absolute Lymphocyte Count 0.46 X10^3/uL (0.83-4.51); Absolute Neutrophil Count 2.9 X10^3/uL (2.0-7.7); Eosinophils% 2.6 % (0-5); Hematocrit 30.5 % (37-47); Hemoglobin 9.1 g/dL (12.0-15.0); Lymphocyte # 0.46 X10^3/ul (0.83-4.51); Lymphocyte % 11.9 % (19-41); Mean Corp Hgb Conc 29.8 g/dL (32-36); Mean Corpuscular Hgb 29.6 pg (27.0-32.0); Mean Corpuscular Volume 99.3 fL (81-99); Mean Platelet Vol. 8.7 fl (6.2-12.0); Monocyte# 0.45 X10^3/uL; Monocyte% 11.6 % (0-10); NRBC Flagged by Analyzer 0 % (0-5); Neutrophil # 2.85 X10^3/uL (2.7-7.7); Neutrophil % 73.4 % (47-70); POSITIVE DIFFERENTIAL YES; Platelet Count 184 K/mm3 (150-450); RBC Distribution Width CV 15.2 % (11.6-14.6); RBC Distribution Width SD 55.7 fl (35.1-43.9); Red Blood Count 3.07 M/mm3 (4.2-5.4); White Blood Count 3.9 K/mm3 (4.4-11.0)
[2022-04-24 05:36] LABS: Differential Indicated SCAN CRITERIA MET
[2022-04-24 06:23] LABS: Differential Comment SCANNED; Hypochromasia 1+
[2022-04-24 06:31] LABS: Bedside Glucose 110 mg/dL (74-106)
[2022-04-24 06:37] LABS: Anion Gap 5 (5-15); BUN 18 mg/dL (7-18); BUN/Creat Ratio 21.1 RATIO (10-20); Calcium,Total 8.2 mg/dL (8.5-10.1); Chloride 97 mmol/L (98-107); Creatinine, Serum 0.86 mg/dL (0.55-1.02); EST Glomerular Filtration Rate 68 mL/min (>60); Est Glom Filt Rate - Afr Amer 82 mL/min (>60); Estimated Creatinine Clearance 36.85 ml/min; Glucose 111 mg/dL (74-106); Potassium 3.2 mmol/L (3.5-5.1); Sodium Level 142 mmol/L (136-145)
[2022-04-24] MEDS: MACITENTAN 10 MG PO (06:46)
[2022-04-24] MEDS: Acyclovir 800 MG Tablet PO ×5 (06:47→22:42)
[2022-04-24] MEDS: Tolterodine Tartrate 2 MG CAP.SA PO (06:47)
[2022-04-24] MEDS: Furosemide 40 MG Tablet PO ×2 (06:47→15:07)
[2022-04-24] MEDS: Metoprolol Tartrate 50 MG Tablet PO ×2 (06:47→18:20)
[2022-04-24] MEDS: Pantoprazole Sodium 40 MG Tablet PO (06:47)
[2022-04-24] MEDS: Nystatin Powder 15gm Bottle 1 APPLIC TOPICAL ×2 (06:51→22:40)
[2022-04-24] MEDS: Budesonide Respules 0.5 MG/2 ML AMPUL.NEB. INHALATION ×2 (07:36→22:10)
[2022-04-24] MEDS: Potassium Chloride Oral Tablet 20 MEQ PO ×2 (09:15→18:19)
[2022-04-24] MEDS: Calcium Carb/Vitamin D 1 TABLET Tablet 2 TABLET PO (09:15)
[2022-04-24] MEDS: Multivitamins,Therapeutic Tablet 1 TABLET PO (09:15)
[2022-04-24 12:59] LABS: Pathologist Review Reviewed
[2022-04-24] MEDS: Senna/Docusate Sodium 1 Tablet 2 TABLET PO (18:20)
[2022-04-24] MEDS: fentaNYL 25 MCG Patch TD (22:37)
[2022-04-24] MEDS: Pramipexole Di-HCl 1 MG Tablet PO (22:41)
--- NOTE | 2022-04-24 23:00 | NURSING ---
New Duragesic patch in place to right deltoid per order, old patch wasted with second RN (Ramiro)
[2022-04-25] VITALS (9 sets, daily range): BP systolic 79–128; BP diastolic 47–70; PULSE 84–132; RESP 16–18; TEMP 36.5; O2SAT 87–98; BMI 43.3
[2022-04-25 06:21] LABS: Bedside Glucose 103 mg/dL (74-106)
[2022-04-25] MEDS: MACITENTAN 10 MG PO (06:36)
[2022-04-25] MEDS: Tolterodine Tartrate 2 MG CAP.SA PO (06:37)
[2022-04-25] MEDS: Furosemide 40 MG Tablet PO ×2 (06:37→14:40)
[2022-04-25] MEDS: Acyclovir 800 MG Tablet PO ×3 (06:37→14:46)
[2022-04-25] MEDS: Pantoprazole Sodium 40 MG Tablet PO (06:39)
[2022-04-25] MEDS: Budesonide Respules 0.5 MG/2 ML AMPUL.NEB. INHALATION (07:19)
[2022-04-25] MEDS: Albuterol 2.5 MG/3 ML VIAL.NEB. 1.25 MG INHALATION (07:19)
[2022-04-25] MEDS: Multivitamins,Therapeutic Tablet 1 TABLET PO (08:05)
[2022-04-25] MEDS: Potassium Chloride Oral Tablet 20 MEQ PO ×2 (08:05→16:45)
[2022-04-25] MEDS: Calcium Carb/Vitamin D 1 TABLET Tablet 2 TABLET PO (08:06)
[2022-04-25] MEDS: Metoprolol Tartrate 50 MG Tablet PO ×2 (10:57→16:47)
--- NOTE | 2022-04-25 11:45 | NURSING ---
Duragesic patch noted to Right deltoid, O2 increase to 5-6L at this time to keep >90%
[2022-04-25] MEDS: Senna/Docusate Sodium 1 Tablet 2 TABLET PO (16:45)
[2022-04-25] MEDS: Pramipexole Di-HCl 1 MG Tablet PO (22:50)
[2022-04-25] MEDS: Nystatin Powder 15gm Bottle 1 APPLIC TOPICAL (22:55)
[2022-04-26] MEDS: Pantoprazole Sodium 40 MG Tablet PO (06:41)
[2022-04-26] MEDS: Tolterodine Tartrate 2 MG CAP.SA PO (06:41)
[2022-04-26] MEDS: Senna/Docusate Sodium 1 Tablet 2 TABLET PO ×2 (06:41→17:50)
[2022-04-26] MEDS: Furosemide 40 MG Tablet PO ×2 (06:41→13:26)
[2022-04-26 06:42] VITALS: BP 101/48; PULSE 79
[2022-04-26] MEDS: Nystatin Powder 15gm Bottle 1 APPLIC TOPICAL ×2 (06:42→21:37)
[2022-04-26] MEDS: Metoprolol Tartrate 50 MG Tablet PO ×2 (06:42→17:49)
[2022-04-26] MEDS: MACITENTAN 10 MG PO (06:44)
[2022-04-26 06:45] LABS: Bedside Glucose 93 mg/dL (74-106)
[2022-04-26] MEDS: Budesonide Respules 0.5 MG/2 ML AMPUL.NEB. INHALATION ×2 (07:50→19:35)
[2022-04-26 07:55] VITALS: PULSE 88; RESP 18; O2SAT 95
[2022-04-26 08:44] LABS: Anion Gap 5 (5-15); BUN 18 mg/dL (7-18); BUN/Creat Ratio 18.9 RATIO (10-20); Calcium,Total 8.9 mg/dL (8.5-10.1); Chloride 95 mmol/L (98-107); Creatinine, Serum 0.95 mg/dL (0.55-1.02); EST Glomerular Filtration Rate 60 mL/min (>60); Est Glom Filt Rate - Afr Amer 73 mL/min (>60); Estimated Creatinine Clearance 33.36 ml/min; Glucose 126 mg/dL (74-106); Potassium 4.1 mmol/L (3.5-5.1); Sodium Level 137 mmol/L (136-145)
[2022-04-26] MEDS: Multivitamins,Therapeutic Tablet 1 TABLET PO (08:48)
[2022-04-26] MEDS: Potassium Chloride Oral Tablet 20 MEQ PO ×2 (08:48→17:50)
[2022-04-26] MEDS: Calcium Carb/Vitamin D 1 TABLET Tablet 2 TABLET PO (08:48)
[2022-04-26 14:00] VITALS: BP 128/59; PULSE 9; RESP 16; TEMP 35.6; O2SAT 92
[2022-04-26 16:34] VITALS: BMI 43.4
[2022-04-26 17:49] VITALS: BP 128/59; PULSE 99
[2022-04-26 19:35] VITALS: PULSE 89; RESP 16
[2022-04-26 21:30] VITALS: BP 117/59; PULSE 84; RESP 16; TEMP 36.4; O2SAT 94
[2022-04-26] MEDS: Pramipexole Di-HCl 1 MG Tablet PO (23:13)
[2022-04-27 05:47] LABS: Hematocrit 30.6 % (37-47); Hemoglobin 9.7 g/dL (12.0-15.0)
[2022-04-27 06:30] LABS: Bedside Glucose 96 mg/dL (74-106)
[2022-04-27] MEDS: MACITENTAN 10 MG PO (06:41)
[2022-04-27] MEDS: Tolterodine Tartrate 2 MG CAP.SA PO (06:42)
[2022-04-27] MEDS: Pantoprazole Sodium 40 MG Tablet PO (06:42)
[2022-04-27] MEDS: Furosemide 40 MG Tablet PO ×2 (06:42→15:34)
[2022-04-27 06:48] VITALS: BP 131/66; PULSE 96
[2022-04-27] MEDS: Metoprolol Tartrate 50 MG Tablet PO ×2 (06:48→17:12)
[2022-04-27] MEDS: Nystatin Powder 15gm Bottle 1 APPLIC TOPICAL ×2 (07:19→23:09)
[2022-04-27 08:05] VITALS: PULSE 118; RESP 18; O2SAT 92
[2022-04-27] MEDS: Potassium Chloride Oral Tablet 20 MEQ PO ×2 (08:22→17:12)
[2022-04-27] MEDS: Multivitamins,Therapeutic Tablet 1 TABLET PO (08:23)
[2022-04-27] MEDS: Calcium Carb/Vitamin D 1 TABLET Tablet 2 TABLET PO (08:23)
[2022-04-27 11:26] VITALS: PULSE 89; RESP 18
[2022-04-27] MEDS: Budesonide Respules 0.5 MG/2 ML AMPUL.NEB. INHALATION ×2 (11:26→19:25)
[2022-04-27 14:00] VITALS: BP 111/46; PULSE 99; RESP 14; TEMP 36; O2SAT 95
[2022-04-27 16:33] VITALS: BMI 43.5
[2022-04-27 17:12] VITALS: BP 111/46; PULSE 99
[2022-04-27] MEDS: Senna/Docusate Sodium 1 Tablet 2 TABLET PO (17:12)
--- NOTE | 2022-04-27 17:21 | NURSING ---
Duragesic patch noted to Right deltoid
[2022-04-27 19:26] VITALS: PULSE 85; RESP 16
[2022-04-27] MEDS: Pramipexole Di-HCl 1 MG Tablet PO (23:08)
[2022-04-27] MEDS: fentaNYL 25 MCG Patch TD (23:20)
--- NOTE | 2022-04-27 23:26 | NURSING ---
New duragesic intact to LT deltoid/shoulder
--- NOTE | 2022-04-27 23:27 | NURSING ---
Old Duragesic patch wasted with Carolina Rosales RN.
[2022-04-28] VITALS (7 sets, daily range): BP systolic 125–143; BP diastolic 58–61; PULSE 77–101; RESP 16–22; TEMP 36; O2SAT 96–98; BMI 43.2
[2022-04-28] MEDS: Senna/Docusate Sodium 1 Tablet 2 TABLET PO ×2 (06:20→17:43)
[2022-04-28] MEDS: Metoprolol Tartrate 50 MG Tablet PO ×2 (06:21→17:43)
[2022-04-28] MEDS: Furosemide 40 MG Tablet PO ×2 (06:21→14:41)
[2022-04-28] MEDS: Pantoprazole Sodium 40 MG Tablet PO (06:21)
[2022-04-28] MEDS: Tolterodine Tartrate 2 MG CAP.SA PO (06:21)
[2022-04-28] MEDS: MACITENTAN 10 MG PO (06:23)
[2022-04-28] MEDS: Nystatin Powder 15gm Bottle 1 APPLIC TOPICAL ×2 (06:24→22:43)
[2022-04-28 06:25] LABS: Bedside Glucose 123 mg/dL (74-106)
[2022-04-28] MEDS: Calcium Carb/Vitamin D 1 TABLET Tablet 2 TABLET PO (08:14)
[2022-04-28] MEDS: Potassium Chloride Oral Tablet 20 MEQ PO ×2 (08:14→17:42)
[2022-04-28] MEDS: Multivitamins,Therapeutic Tablet 1 TABLET PO (08:14)
[2022-04-28] MEDS: Budesonide Respules 0.5 MG/2 ML AMPUL.NEB. INHALATION ×2 (08:39→19:12)
--- NOTE | 2022-04-28 20:21 | NURSING ---
Duragesic observed to left deltoid per order
[2022-04-28] MEDS: Pramipexole Di-HCl 1 MG Tablet PO (22:42)
[2022-04-29 06:00] VITALS: BMI 43.1
[2022-04-29 06:36] LABS: Bedside Glucose 107 mg/dL (74-106)
[2022-04-29] MEDS: MACITENTAN 10 MG PO (06:56)
[2022-04-29] MEDS: Pantoprazole Sodium 40 MG Tablet PO (06:58)
[2022-04-29] MEDS: Senna/Docusate Sodium 1 Tablet 2 TABLET PO (06:58)
[2022-04-29 06:59] VITALS: BP 118/73; PULSE 102
[2022-04-29] MEDS: Furosemide 40 MG Tablet PO ×2 (06:59→14:50)
[2022-04-29] MEDS: Metoprolol Tartrate 50 MG Tablet PO ×2 (06:59→17:54)
[2022-04-29] MEDS: Nystatin Powder 15gm Bottle 1 APPLIC TOPICAL ×2 (06:59→22:57)
[2022-04-29] MEDS: Tolterodine Tartrate 2 MG CAP.SA PO (06:59)
[2022-04-29 08:10] VITALS: PULSE 74; RESP 18; O2SAT 93
[2022-04-29] MEDS: Budesonide Respules 0.5 MG/2 ML AMPUL.NEB. INHALATION ×2 (08:12→20:07)
[2022-04-29] MEDS: Potassium Chloride Oral Tablet 20 MEQ PO ×2 (09:06→17:54)
[2022-04-29] MEDS: Multivitamins,Therapeutic Tablet 1 TABLET PO (09:06)
[2022-04-29] MEDS: Calcium Carb/Vitamin D 1 TABLET Tablet 2 TABLET PO (09:10)
[2022-04-29 14:00] VITALS: BP 117/63; PULSE 89; RESP 16; TEMP 36.4; O2SAT 100
[2022-04-29 17:54] VITALS: BP 130/60; PULSE 88
[2022-04-29 20:07] VITALS: PULSE 100; RESP 16; O2SAT 93
--- NOTE | 2022-04-29 20:08 | CPS ---
pt rinsed mouth out after aero tx
[2022-04-29] MEDS: Pramipexole Di-HCl 1 MG Tablet PO (22:56)
[2022-04-30 06:25] LABS: Bedside Glucose 95 mg/dL (74-106)
[2022-04-30 07:22] VITALS: BP 132/65; PULSE 99
[2022-04-30 07:23] VITALS: PULSE 99
[2022-04-30] MEDS: Metoprolol Tartrate 50 MG Tablet PO ×2 (07:23→17:14)
[2022-04-30] MEDS: Pantoprazole Sodium 40 MG Tablet PO (07:23)
[2022-04-30] MEDS: Furosemide 40 MG Tablet PO ×2 (07:24→15:14)
[2022-04-30] MEDS: Senna/Docusate Sodium 1 Tablet 2 TABLET PO ×2 (07:24→17:14)
[2022-04-30] MEDS: Tolterodine Tartrate 2 MG CAP.SA PO (07:25)
[2022-04-30] MEDS: MACITENTAN 10 MG PO (07:25)
[2022-04-30] MEDS: Potassium Chloride Oral Tablet 20 MEQ PO ×2 (07:27→17:14)
[2022-04-30] MEDS: Multivitamins,Therapeutic Tablet 1 TABLET PO (07:27)
[2022-04-30] MEDS: Calcium Carb/Vitamin D 1 TABLET Tablet 2 TABLET PO (07:27)
[2022-04-30 08:51] VITALS: BMI 42.8
--- NOTE | 2022-04-30 09:12 | NURSING ---
duragesic intact to LT shoulder.
[2022-04-30] MEDS: Nystatin Powder 15gm Bottle 1 APPLIC TOPICAL ×2 (09:13→22:47)
[2022-04-30 10:33] VITALS: PULSE 86; RESP 16; O2SAT 95
[2022-04-30 14:00] VITALS: BP 115/64; PULSE 74; RESP 20; TEMP 36.4; O2SAT 97
[2022-04-30 17:14] VITALS: PULSE 74
[2022-04-30 19:00] VITALS: PULSE 92; RESP 20
[2022-04-30] MEDS: Budesonide Respules 0.5 MG/2 ML AMPUL.NEB. INHALATION (19:00)
[2022-04-30] MEDS: Pramipexole Di-HCl 1 MG Tablet PO (22:56)
[2022-04-30] MEDS: fentaNYL 25 MCG Patch TD (23:05)
[2022-05-01 05:33] LABS: Absolute Lymphocyte Count 0.47 X10^3/uL (0.83-4.51); Absolute Neutrophil Count 2.6 X10^3/uL (2.0-7.7); Basophil# 0.01 X10^3/uL; Basophil% 0.3 % (0-1); Eosinophil# 0.13 X10^3/uL; Eosinophils% 3.6 % (0-5); Hematocrit 32.4 % (37-47); Hemoglobin 9.8 g/dL (12.0-15.0); Lymphocyte # 0.47 X10^3/ul (0.83-4.51); Lymphocyte % 12.8 % (19-41); Mean Corp Hgb Conc 30.2 g/dL (32-36); Mean Corpuscular Hgb 30.1 pg (27.0-32.0); Mean Corpuscular Volume 99.4 fL (81-99); Mean Platelet Vol. 8.8 fl (6.2-12.0); Monocyte# 0.42 X10^3/uL; Monocyte% 11.5 % (0-10); NRBC Flagged by Analyzer 0 % (0-5); Neutrophil # 2.61 X10^3/uL (2.7-7.7); Neutrophil % 71.3 % (47-70); POSITIVE DIFFERENTIAL YES; Platelet Count 145 K/mm3 (150-450); RBC Distribution Width CV 15.1 % (11.6-14.6); RBC Distribution Width SD 55.6 fl (35.1-43.9); Red Blood Count 3.26 M/mm3 (4.2-5.4); White Blood Count 3.7 K/mm3 (4.4-11.0)
[2022-05-01 05:36] LABS: Differential Indicated SCAN CRITERIA MET
[2022-05-01 05:55] LABS: Anisocytosis 1+; Macrocytosis RARE; Platelet Estimate SLT DEC (ADEQ)
[2022-05-01 06:07] LABS: Anion Gap 5 (5-15); BUN 18 mg/dL (7-18); BUN/Creat Ratio 21.6 RATIO (10-20); Calcium,Total 8.5 mg/dL (8.5-10.1); Chloride 100 mmol/L (98-107); Creatinine, Serum 0.83 mg/dL (0.55-1.02); EST Glomerular Filtration Rate 70 mL/min (>60); Est Glom Filt Rate - Afr Amer 84 mL/min (>60); Estimated Creatinine Clearance 38.18 ml/min; Glucose 102 mg/dL (74-106); Potassium 4.1 mmol/L (3.5-5.1); Sodium Level 141 mmol/L (136-145)
[2022-05-01] MEDS: MACITENTAN 10 MG PO (06:41)
[2022-05-01 06:42] VITALS: BP 112/46; PULSE 91
[2022-05-01] MEDS: Pantoprazole Sodium 40 MG Tablet PO (06:42)
[2022-05-01] MEDS: Furosemide 40 MG Tablet PO ×2 (06:42→14:14)
[2022-05-01] MEDS: Metoprolol Tartrate 50 MG Tablet PO ×2 (06:42→17:30)
[2022-05-01] MEDS: Tolterodine Tartrate 2 MG CAP.SA PO (06:42)
[2022-05-01] MEDS: Senna/Docusate Sodium 1 Tablet 2 TABLET PO ×2 (06:43→17:30)
[2022-05-01] MEDS: Budesonide Respules 0.5 MG/2 ML AMPUL.NEB. INHALATION ×2 (06:45→19:35)
[2022-05-01 06:46] VITALS: PULSE 85; RESP 16
[2022-05-01] MEDS: Nystatin Powder 15gm Bottle 1 APPLIC TOPICAL ×2 (06:47→22:37)
[2022-05-01] MEDS: Multivitamins,Therapeutic Tablet 1 TABLET PO (07:41)
[2022-05-01] MEDS: Potassium Chloride Oral Tablet 20 MEQ PO ×2 (07:41→17:30)
[2022-05-01] MEDS: Calcium Carb/Vitamin D 1 TABLET Tablet 2 TABLET PO (07:41)
[2022-05-01 12:11] LABS: Bedside Glucose 94 mg/dL (74-106)
[2022-05-01 13:28] LABS: Pathologist Review Reviewed
[2022-05-01 14:00] VITALS: BP 110/55; PULSE 92; RESP 16; TEMP 36.3; O2SAT 95
--- NOTE | 2022-05-01 14:17 | CHAPLAIN ---
Type of Pastoral Visit ___ Initial Visit _x__ Follow-up Visit ___ On-call Visit ___ General Patient Visit ___ Spiritual Assessment ___ Family Conference ___ Bereavement ___ Rapid Response ___ Code Blue ___ Other (describe below) Pastoral Care Referral From _x__ Patient ___ Family ___ Nurse ___ Physician ___ Want Ad Receiver ___ Manager Of Housekeeping ___ Other (describe below) Sacrament/Intervention _x__ Active listening ___ Anointing ___ Worship ___ Bereavement ___ Communion ___ Aditi exploration ___ ___ Life review ___ Prayer ___ Reconciliation ___ Sacrament of Sick ___ Supportive presence ___ Wedding ___ Other (describe below) Pastoral Comments follow up visit to patient to see how she is managing; a family member is with her at this time; pt states she is doing well; family member adds that physically she is doing great but that the doctor is working on fixing some other issues still; pt agrees but remains hopeful; pt has many cards, balloons, and varghese to which she adds that she has great support
[2022-05-01 17:30] VITALS: PULSE 133
[2022-05-01 19:35] VITALS: PULSE 85; RESP 18; O2SAT 93
[2022-05-01 22:30] VITALS: PULSE 105; RESP 18; O2SAT 96
[2022-05-01] MEDS: Pramipexole Di-HCl 1 MG Tablet PO (22:38)
[2022-05-02 06:00] VITALS: BMI 42.5
[2022-05-02] MEDS: Tolterodine Tartrate 2 MG CAP.SA PO (06:31)
[2022-05-02] MEDS: Pantoprazole Sodium 40 MG Tablet PO (06:31)
[2022-05-02] MEDS: Furosemide 40 MG Tablet PO ×2 (06:31→14:29)
[2022-05-02] MEDS: MACITENTAN 10 MG PO (06:31)
[2022-05-02 06:32] VITALS: BP 118/66; PULSE 89
[2022-05-02] MEDS: Metoprolol Tartrate 50 MG Tablet PO ×2 (06:32→17:51)
[2022-05-02 06:40] LABS: Bedside Glucose 97 mg/dL (74-106)
[2022-05-02 07:35] VITALS: O2SAT 92
[2022-05-02] MEDS: Multivitamins,Therapeutic Tablet 1 TABLET PO (09:38)
[2022-05-02] MEDS: Potassium Chloride Oral Tablet 20 MEQ PO ×2 (09:38→17:51)
[2022-05-02] MEDS: Calcium Carb/Vitamin D 1 TABLET Tablet 2 TABLET PO (09:39)
--- NOTE | 2022-05-02 12:23 | CASEMGMT ---
Social Work SW was approached by pt requesting discharge date be set. SW spoke with IDT who is agreeable to discharge and feel pt is ready for return home alone. HHS PT/OT/SN are recommended. Pt states she has needed DME including home oxygen. Discharge set for 05/07/22. Pt family will transport pt home that afternoon. Pt provided with a list of HHC providers including quality and resource use data and consistent with the patient's preferred geographic region, medical needs and insurance network. Pt will review list and notify SW of choice of home care provider. SW to arrange HHC after preferences obtained. Referral had been made to Palliative medicine during stay and SW will notify of planned discharge. SW spoke with pt dgt on phone and updated on discharge plan and dgt is agreeable. Discharge Date: 05/07/22 Discharge Plan: Home alone, home health services PT/OT/SN and Palliative Medicine OLGA Pedroza
[2022-05-02 14:00] VITALS: BP 112/51; PULSE 93; RESP 16; TEMP 36.6; O2SAT 100
--- NOTE | 2022-05-02 14:17 | DS.PCM_ITS ---
Providers Date of Admission: 04/09/22 Primary Care Physician: Jake Schwarz Consultations 04/22/22 15:06 Consult: Hospice / Palliative Care Routine Consulting Provider: [facility] Reason for Consult: PALLIATIVE - COPD, PULMONARY HYPERTENSION, WEIGHT GAIN R/T FLUID RETENTION EMERGENT Consult: No MD Notified: Yes Date Notified: 04/22/22 Time Notified: 15:06 Method of Notification: Text Reason For Visit: EXTRA PERITONEAL BLEED Diagnosis Discharge Diagnosis (1) Debility: Status: Inactive Code(s): R53.81 - Other malaise (2) Rectus sheath hematoma: Status: Inactive Code(s): S30.1XXA - Contusion of abdominal wall, initial encounter (3) Hematoma of extraperitoneal space: Status: Inactive Code(s): S36.892A - Contusion of other intra-abdominal organs, initial encounter (4) ABLA (acute blood loss anemia): Status: Inactive Code(s): D62 - Acute posthemorrhagic anemia (5) Hemorrhagic shock: Status: Inactive Code(s): R57.8 - Other shock (6) Secondary pulmonary arterial hypertension: Status: Acute Code(s): I27.21 - Secondary pulmonary arterial hypertension (7) Persistent atrial fibrillation: Status: Acute Code(s): I48.19 - Other persistent atrial fibrillation (8) Urinary retention: Status: Inactive Code(s): R33.9 - Retention of urine, unspecified (9) Low back pain: Status: Inactive Code(s): M54.50 - Low back pain, unspecified (10) Restless leg syndrome: Status: Inactive Code(s): G25.81 - Restless legs syndrome (11) Overactive bladder: Status: Inactive Code(s): N32.81 - Overactive bladder (12) Pulmonary hypertension: Status: Inactive Code(s): I27.20 - Pulmonary hypertension, unspecified (13) COPD (chronic obstructive pulmonary disease): Status: Inactive Code(s): J44.9 - Chronic obstructive pulmonary disease, unspecified (14) Sleep apnea: Status: Inactive Code(s): G47.30 - Sleep apnea, unspecified (15) Hypertension: Status: Inactive Code(s): I10 - Essential (primary) hypertension Plan 82 year old female with below past medical history hospitalized for hemorrhagic shock secondary to rectus sheath hematoma, extraperitoneal bleeding from direct oral anticoagulant, complicated by atypical chest pain, urinary retention, admitted to TCU with debility, here for rehabilitation, strengthening, prior to discharge home alone. * Debility - PT/OT. * Pain - Fentanyl 25mcg td q72h. * Bowel - senna/colace 2 tablets bid, MOM 30ml po x 1 prn. * Adult immunization - Administer pneumonia vaccine, covid19 vaccine, flu vaccine. * DVT prophylaxis - Hold, life threatening bleed. * COPD - Budesonide 0.5mg inhalation bid, Albuterol 1.25mg bid prn. * Calcium deficiency - Calcium D 2 tablets daily. * ID - Cefdinir 300mg po q12h thru 04/13/2022. * Edema - Furosemide 20mg daily. * Cough - Robitussin AC 5ml q6h prn. * Allergic conjunctivitis - Ketotifen 1gtt ou q12h thru 04/19/2022. * Hypertension - Metoprolol 50mg bid, Losartan 25mg daily. * Pulmonary HTN (since 2001) - Opsumit 10mg daily, Orenitram 2.75mg tidcm. * Atrial fibrillation - Metoprolol 50mg bid, hold Eliquis until shared decision making amongst Dr. Schwarz, Dr. Lundberg, Dr. Garcia, and resident. * Nutrition - MVI daily. * Restless leg syndrome - Mirapex 1mg qhs. * Overactive bladder - Tolterodine 2mg daily. * Buttock rash - Triamcinolone 0.5% topical bid. Medications at Discharge Home Medications fentanyl 25 mcg/hr transdermal patch 25 mcg TRANSDERM. Q72H Pain 09/26/15 multivitamin with folic acid 400 mcg tablet 1 tab PO DAILY Supplement 09/26/15 pramipexole 1 mg tablet (Mirapex) 1 mg PO QHS Restless legs 01/05/18 oxybutynin chloride 10 mg tablet,extended release 24 hr (Ditropan XL) 10 mg PO DAILY Check with primary doctor 90 days #90 tabs 07/27/18 calcium-vitamin D3-vitamin K 500 mg-1,000 unit-40 mcg chewable tablet 2 ea PO DAILY Supplement 12/20/19 macitentan 10 mg tablet (Opsumit) 10 mg PO DAILY pulmonary htn 12/20/19 budesonide 0.5 mg/2 mL suspension for nebulization 0.5 mg inhalation BID Check with primary doctor 10/10/21 albuterol sulfate 1.25 mg/3 mL solution for nebulization 1.25 mg inhalation BID PRN sob 10/17/21 furosemide 40 mg tablet 80 mg PO 1XD 30 days #60 tabs 05/02/22 metoprolol tartrate 50 mg tablet 50 mg PO BID #0 tabs 05/02/22 pantoprazole 40 mg tablet,delayed release 40 mg PO DAILY 30 days #30 tabs 05/02/22 potassium chloride 20 mEq tablet,extended release(part/cryst) (Klor-Con M) 20 meq PO BIDCM 30 days #60 tabs 05/02/22 treprostinil diolamine 0.25 mg tablet,extended release (Orenitram) 0.5 mg PO 0700,1500,2300 #0 tabs 05/02/22 treprostinil diolamine 2.5 mg tablet,extended release (Orenitram) 2.5 mg PO 0700,1500,2300 #0 tabs 05/02/22 Hospital Course Summary of Care Provided Minutes Spent on Discharge: 35 Hospital Course: 82 year old female with below past medical history hospitalized for hemorrhagic shock secondary to rectus sheath hematoma, extraperitoneal bleeding from direct oral anticoagulant, complicated by atypical chest pain, urinary retention, admitted to TCU with debility, here for rehabilitation, strengthening, prior to discharge home alone. Discharge home alone 05/07/2022, Home Health Care PT/OT/SN, Palliative Care. Physical Exam Const alert General Appearance: cooperative HEENT normocephalic Eyes PERRL and EOMs intact bilaterally Neck supple, no JVD and no carotid bruits Resp normal respiratory effort, normal air movement and clear to auscultation bilaterally Cardio regular rate and regular rhythm GI normal to inspection, nondistended, normoactive bowel sounds, non-tender and non-distended Extremity normal capillary refill General Extremity: Negative for edema Skin no rashes or lesions noted General Skin Exam: no breakdown Psych affect normal Appearance: appropriate Weight / BMI Weight Weight: 99.019 kg Body Mass Index (BMI) 42.8 ABG / Lab / Microbiology Data Result Diagrams: 05/01/22 05:20 05/01/22 05:20 Laboratory: Laboratory Results - last 24 hr 05/02/22 06:08: POC Glucose 97 Microbiology: Microbiology 04/13/22 09:06 Nasal Secretion SARS-CoV-2 Antigen (Rapid) - Final 04/11/22 06:45 Nasal Secretion SARS-CoV-2 Antigen (Rapid) - Final 04/09/22 23:30 Nasal Secretion SARS-CoV-2 Antigen (Rapid) - Final D/C Instructions Discharge Diet: No restrictions Discharge Activity: Return to Normal Activity, May Shower and Use Walker Weight Bearing Status: Weight bearing as tolerated Call your doctor if you observe: Fever of 101 or Higher, Inability to urinate, Inability to have a bowel movement, Shortness of breath, Dizziness, Fainting spells, Swelling in the ankles, Chest pain and Uncontrolled pain Additional Instructions: Discharge home alone 05/07/2022, Home Health Care PT/OT/SN, Palliative Care. Please Follow Up With: Dwaine Lundberg MD When: As scheduled. Meaningful Use Info Meaningful Use Diagnoses (Choose all that apply): None applicable Discharge Plan Admission Admit Date/Time: 04/09/22 22:20 Primary Reason for Your Visit: Debility. Attending Provider: Clinton Jerez Chi Primary Care Provider: Jake Schwarz Consulting Providers: Anneliese Blood ; Rj Rodriguez ; Yazmin Yusuf ; Roberta Giang ; Lana Phelan [employer]AR LOAD TRUCK DRIVER Instructions Additional Instructions / Restrictions: Discharge home alone 05/07/2022, Home Health Care PT/OT/SN, Palliative Care. Discharge Orders/Prescriptions Prescriptions: New furosemide 40 mg Tablet 80 mg PO 1XD 30 Days Qty: 60 0RF metoprolol tartrate 50 mg Tablet 50 mg PO BID Qty: 0 0RF Orenitram 0.25 mg Tablet Extended Release 0.5 mg PO 0700,1500,2300 Qty: 0 0RF Orenitram 2.5 mg Tablet Extended Release 2.5 mg PO 0700,1500,2300 Qty: 0 0RF potassium chloride [Klor-Con M20] 20 mEq Tablet,Er Particles/Crystals 20 meq PO BIDCM 30 Days Qty: 60 0RF pantoprazole 40 mg Tablet,Delayed Release (Dr/Ec) 40 mg PO DAILY 30 Days Qty: 30 0RF Continued pramipexole [Mirapex] 1 mg tablet 1 mg PO QHS oxybutynin chloride [Ditropan XL] 10 mg tablet extended release 24hr 10 mg PO DAILY 90 Days Qty: 90 Label Comments: TAKE 1 TABLET BY MOUTH EVERY DAY fentanyl 25 MCG patch 25 mcg TRANSDERM. Q72H multivitamin with folic acid 1 TABLET tablet 1 tab PO DAILY calcium-vitamin D3-vitamin K 1 EACH tablet,chewable 2 ea PO DAILY Opsumit 10 MG tablet 10 mg PO DAILY Rx Instructions: Patient may use own medication budesonide 0.5 mg/2 mL Suspension For Nebulization 0.5 mg INHALATION BID albuterol sulfate 1.25 mg/3 mL Solution For Nebulization 1.25 mg INHALATION BID PRN (Reason: sob) Discontinued sennosides [Senexon] 8.6 mg tablet 8.6 mg PO BID Orenitram 0.125 mg tablet extended release 0.125 mg PO TID Rx Instructions: must administer with a meal/food; Patient may use own medication give with 2.5 and 0.25 for total dose of 2.875mg tolterodine [Detrol LA] 2 mg capsule,extended release 24hr 2 mg PO DAILY ketotifen fumarate 0.025 % (0.035 %) drops 1 drp ophthalmic (eye) BID Rx Instructions: administer at least 8 hours apart furosemide 20 mg tablet 20 mg PO DAILY Rx Instructions: Alternate between 1 and 2 tabs daily nystatin 100,000 unit/gram powder 1 applic topical DAILY Orenitram 0.25 mg tablet extended release 0.25 mg PO TID Rx Instructions: must administer with a meal/food; Patient may use own medication give with 2.5 and 0.125 for total dose of 2.875mg Orenitram 2.5 mg tablet extended release 2.5 mg PO TID Rx Instructions: must administer with a meal/food; Patient may use own medication give with 0.125 and 0.25 for total dose of 2.875mg pantoprazole 40 mg tablet,delayed release (DR/EC) 40 mg PO DAILY triamcinolone acetonide 0.5 % cream 1 applic topical BID oxycodone 5 mg capsule 5 mg PO Q4H PRN docusate sodium [Colace] 100 mg Capsule 100 mg PO BID Eliquis 5 mg tablet 5 mg PO BID Rx Instructions: TAKE 1 TABLET BY MOUTH TWICE A DAY losartan 100 mg tablet 25 mg PO DAILY metoprolol tartrate 50 mg tablet See Rx Instructions .ROUTE .COMPLEX Qty: 180 3RF Dose Instruction: TAKE ONE TABLET BY MOUTH TWICE A DAY Rx Instructions: TAKE ONE TABLET BY MOUTH TWICE A DAY Referrals / Follow Up: Jake Schwarz [Primary Care Provider] - Disposition Disposition (needs filled in before D/C Order can be placed): Home Health Service
--- NOTE | 2022-05-02 16:12 | CASEMGMT ---
Social Work RIANA met with pt and preferred provider for HHC is [facility]. Referral made to Dodie at [facility] and they are able to accept with start date of 05/09/22. RIANA updated pt and she is agreeable. Discharge information sent to Palliative medicine at this time. Dicharge Date 05/07/22 Discharge Dispostion: home alone, [facility] PT/OT/SN, [facility] OLGA Pedroza
[2022-05-02 17:51] VITALS: PULSE 93
[2022-05-02 18:47] VITALS: PULSE 101; RESP 18; O2SAT 92
[2022-05-02] MEDS: Budesonide Respules 0.5 MG/2 ML AMPUL.NEB. INHALATION (18:52)
[2022-05-02] MEDS: Pramipexole Di-HCl 1 MG Tablet PO (19:59)
[2022-05-02] MEDS: Nystatin Powder 15gm Bottle 1 APPLIC TOPICAL (20:00)
[2022-05-03] MEDS: Tolterodine Tartrate 2 MG CAP.SA PO (06:16)
[2022-05-03] MEDS: Pantoprazole Sodium 40 MG Tablet PO (06:16)
[2022-05-03] MEDS: Furosemide 40 MG Tablet PO ×2 (06:16→14:56)
[2022-05-03 06:17] VITALS: BP 111/51; PULSE 79
[2022-05-03] MEDS: Metoprolol Tartrate 50 MG Tablet PO ×2 (06:17→17:07)
[2022-05-03] MEDS: Senna/Docusate Sodium 1 Tablet 2 TABLET PO ×2 (06:18→17:07)
[2022-05-03] MEDS: MACITENTAN 10 MG PO (06:19)
[2022-05-03 06:30] LABS: Bedside Glucose 102 mg/dL (74-106)
[2022-05-03 07:12] VITALS: O2SAT 95
[2022-05-03] MEDS: Multivitamins,Therapeutic Tablet 1 TABLET PO (08:20)
[2022-05-03] MEDS: Calcium Carb/Vitamin D 1 TABLET Tablet 2 TABLET PO (08:20)
[2022-05-03] MEDS: Potassium Chloride Oral Tablet 20 MEQ PO ×2 (08:20→17:08)
[2022-05-03] MEDS: Nystatin Powder 15gm Bottle 1 APPLIC TOPICAL (08:24)
[2022-05-03 12:50] VITALS: BMI 42.2
[2022-05-03 14:00] VITALS: BP 122/68; PULSE 93; RESP 16; TEMP 36.7; O2SAT 97
[2022-05-03] MEDS: Acetaminophen 500 MG Tablet 1000 MG PO (17:06)
[2022-05-03 17:07] VITALS: PULSE 93
[2022-05-03 18:30] VITALS: PULSE 74; RESP 18
[2022-05-03] MEDS: Budesonide Respules 0.5 MG/2 ML AMPUL.NEB. INHALATION (18:30)
--- NOTE | 2022-05-03 19:13 | NURSING ---
duragesic intact to rt deltoid
[2022-05-03] MEDS: Pramipexole Di-HCl 1 MG Tablet PO (22:47)
[2022-05-03 23:05] VITALS: PULSE 90; RESP 18; O2SAT 97
[2022-05-03] MEDS: fentaNYL 25 MCG Patch TD (23:14)
--- NOTE | 2022-05-03 23:27 | NURSING ---
Addendum entered by Jamee Alexandre 05/03/22 23:28: Previous Fentanyl patch* Original Note: Fentanyl patch removed and placed in rx destroyer, witnessed by this nurse and Natalie MANUEL.
[2022-05-04 06:31] LABS: Bedside Glucose 87 mg/dL (74-106)
[2022-05-04] MEDS: Senna/Docusate Sodium 1 Tablet 2 TABLET PO ×2 (06:46→17:40)
[2022-05-04 06:47] VITALS: BP 101/54; PULSE 81
[2022-05-04] MEDS: Metoprolol Tartrate 50 MG Tablet PO ×2 (06:47→17:39)
[2022-05-04] MEDS: MACITENTAN 10 MG PO (06:47)
[2022-05-04] MEDS: Furosemide 40 MG Tablet PO ×2 (06:47→15:01)
[2022-05-04] MEDS: Pantoprazole Sodium 40 MG Tablet PO (06:48)
[2022-05-04] MEDS: Tolterodine Tartrate 2 MG CAP.SA PO (06:49)
[2022-05-04] MEDS: Calcium Carb/Vitamin D 1 TABLET Tablet 2 TABLET PO (08:26)
[2022-05-04] MEDS: Multivitamins,Therapeutic Tablet 1 TABLET PO (08:26)
[2022-05-04] MEDS: Potassium Chloride Oral Tablet 20 MEQ PO ×2 (08:26→17:39)
[2022-05-04] MEDS: oxyCODONE 5 MG Tablet PO (08:27)
[2022-05-04] MEDS: Nystatin Powder 15gm Bottle 1 APPLIC TOPICAL (10:18)
[2022-05-04 12:41] VITALS: PULSE 72; RESP 18; O2SAT 92
[2022-05-04 14:00] VITALS: BP 117/57; PULSE 92; RESP 17; TEMP 36.4; O2SAT 92
[2022-05-04 17:39] VITALS: PULSE 92
--- NOTE | 2022-05-04 18:44 | NURSING ---
duragesic patch intact to LT upper chest
[2022-05-04] MEDS: Budesonide Respules 0.5 MG/2 ML AMPUL.NEB. INHALATION (19:22)
[2022-05-04 19:23] VITALS: PULSE 73; RESP 16; O2SAT 93
[2022-05-04] MEDS: Pramipexole Di-HCl 1 MG Tablet PO (22:48)
[2022-05-04 22:59] VITALS: BP 119/54; PULSE 96
[2022-05-05 06:00] VITALS: BMI 41.7
[2022-05-05 06:30] VITALS: BP 125/53; PULSE 80
[2022-05-05] MEDS: Metoprolol Tartrate 50 MG Tablet PO ×2 (06:30→18:25)
[2022-05-05] MEDS: Senna/Docusate Sodium 1 Tablet 2 TABLET PO (06:31)
[2022-05-05] MEDS: Pantoprazole Sodium 40 MG Tablet PO (06:31)
[2022-05-05] MEDS: Furosemide 40 MG Tablet PO ×2 (06:31→14:19)
[2022-05-05] MEDS: Tolterodine Tartrate 2 MG CAP.SA PO (06:31)
[2022-05-05] MEDS: MACITENTAN 10 MG PO (06:32)
[2022-05-05 06:40] LABS: Bedside Glucose 101 mg/dL (74-106)
[2022-05-05 07:55] VITALS: PULSE 81; RESP 16; O2SAT 94
[2022-05-05] MEDS: Budesonide Respules 0.5 MG/2 ML AMPUL.NEB. INHALATION (07:55)
[2022-05-05] MEDS: Multivitamins,Therapeutic Tablet 1 TABLET PO (08:09)
[2022-05-05] MEDS: Potassium Chloride Oral Tablet 20 MEQ PO ×2 (08:09→18:25)
[2022-05-05] MEDS: Calcium Carb/Vitamin D 1 TABLET Tablet 2 TABLET PO (08:09)
[2022-05-05] MEDS: Nystatin Powder 15gm Bottle 1 APPLIC TOPICAL ×2 (08:10→22:54)
[2022-05-05 14:00] VITALS: BP 125/62; PULSE 78; RESP 16; TEMP 36.2; O2SAT 96
[2022-05-05 18:25] VITALS: PULSE 78
[2022-05-05] MEDS: Menthol/Lanolin/Calamine/Znox 113 GM Tube 1 APPLIC TOPICAL (18:26)
[2022-05-05 19:08] VITALS: O2SAT 94
[2022-05-05] MEDS: Pramipexole Di-HCl 1 MG Tablet PO (22:54)
[2022-05-05 22:59] VITALS: PULSE 88; RESP 18; O2SAT 96
[2022-05-06 06:00] VITALS: BMI 41.3
[2022-05-06 06:31] LABS: Bedside Glucose 107 mg/dL (74-106)
[2022-05-06] MEDS: Senna/Docusate Sodium 1 Tablet 2 TABLET PO (06:58)
[2022-05-06] MEDS: MACITENTAN 10 MG PO (06:58)
[2022-05-06 06:59] VITALS: BP 127/61; PULSE 93
[2022-05-06] MEDS: Pantoprazole Sodium 40 MG Tablet PO (06:59)
[2022-05-06] MEDS: Metoprolol Tartrate 50 MG Tablet PO ×2 (06:59→17:54)
[2022-05-06] MEDS: Tolterodine Tartrate 2 MG CAP.SA PO (06:59)
[2022-05-06] MEDS: Menthol/Lanolin/Calamine/Znox 113 GM Tube 1 APPLIC TOPICAL ×2 (07:05→17:55)
[2022-05-06] MEDS: Furosemide 40 MG Tablet PO ×2 (09:54→15:18)
[2022-05-06] MEDS: Multivitamins,Therapeutic Tablet 1 TABLET PO (09:55)
[2022-05-06] MEDS: Calcium Carb/Vitamin D 1 TABLET Tablet 2 TABLET PO (09:55)
[2022-05-06] MEDS: Potassium Chloride Oral Tablet 20 MEQ PO ×2 (09:56→17:48)
[2022-05-06] MEDS: Nystatin Powder 15gm Bottle 1 APPLIC TOPICAL ×2 (09:58→20:24)
[2022-05-06 10:30] VITALS: BP 108/51; PULSE 78; RESP 18; TEMP 36.6; O2SAT 95
[2022-05-06 11:55] VITALS: O2SAT 95
[2022-05-06] MEDS: Budesonide Respules 0.5 MG/2 ML AMPUL.NEB. INHALATION ×2 (11:55→20:15)
[2022-05-06 14:25] VITALS: BP 118/66; PULSE 58; RESP 21; TEMP 36.4; O2SAT 92
--- NOTE | 2022-05-06 14:27 | CASEMGMT ---
Social Work BIMS () and PHQ-9 (03/21) completed for MDS assessment. Brandy Lim MSW VOICE PATHOLOGIST
[2022-05-06 17:54] VITALS: BP 133/70; PULSE 101
[2022-05-06 20:15] VITALS: PULSE 87; RESP 18
[2022-05-06] MEDS: Pramipexole Di-HCl 1 MG Tablet PO (20:24)
[2022-05-06] MEDS: fentaNYL 25 MCG Patch TD (22:59)
[2022-05-07] MEDS: Senna/Docusate Sodium 1 Tablet 2 TABLET PO (05:59)
[2022-05-07 06:00] VITALS: BP 123/67; PULSE 92
[2022-05-07] MEDS: Metoprolol Tartrate 50 MG Tablet PO (06:00)
[2022-05-07] MEDS: Tolterodine Tartrate 2 MG CAP.SA PO (06:00)
[2022-05-07] MEDS: Furosemide 40 MG Tablet PO (06:00)
[2022-05-07] MEDS: MACITENTAN 10 MG PO (06:01)
[2022-05-07] MEDS: Pantoprazole Sodium 40 MG Tablet PO (06:06)
[2022-05-07] MEDS: Menthol/Lanolin/Calamine/Znox 113 GM Tube 1 APPLIC TOPICAL (06:07)
[2022-05-07 06:52] VITALS: BMI 41.1
[2022-05-07 07:02] VITALS: PULSE 90; RESP 17; O2SAT 96
[2022-05-07] MEDS: Budesonide Respules 0.5 MG/2 ML AMPUL.NEB. INHALATION (07:05)
[2022-05-07 07:10] LABS: Bedside Glucose 142 mg/dL (74-106)
[2022-05-07] MEDS: Calcium Carb/Vitamin D 1 TABLET Tablet 2 TABLET PO (09:04)
[2022-05-07] MEDS: Multivitamins,Therapeutic Tablet 1 TABLET PO (09:05)
[2022-05-07] MEDS: Potassium Chloride Oral Tablet 20 MEQ PO (09:05)
[2022-05-07 13:00] VITALS: BP 125/67; PULSE 100; RESP 16; TEMP 36.4; O2SAT 94
[2022-05-07 14:00] VITALS: BP 125/67; PULSE 100; RESP 18; TEMP 36.4; O2SAT 94
== END 2022-05-07 13:00 | disposition home health service (06) | DRG 556 ==
PROVIDERS: Admitting Provider Family Medicine Geriatric Medicine; PCP Family Medicine; Visit Provider Family Medicine Geriatric Medicine
DX: M79.81 Nontraumatic hematoma of soft tissue (principal); I48.19 Other persistent atrial fibrillation; Z68.41 Body mass index [BMI] 40.0-44.9, adult; I27.21 Secondary pulmonary arterial hypertension; Z99.81 Dependence on supplemental oxygen; E11.9 Type 2 diabetes mellitus without complications; G25.81 Restless legs syndrome; E66.9 Obesity, unspecified; J44.9 Chronic obstructive pulmonary disease, unspecified; G47.30 Sleep apnea, unspecified; H10.10 Acute atopic conjunctivitis, unspecified eye; I25.10 Atherosclerotic heart disease of native coronary artery without angina pectoris; I10 Essential (primary) hypertension; Z87.891 Personal history of nicotine dependence; Z79.01 Long term (current) use of anticoagulants; R33.9 Retention of urine, unspecified; R21 Rash and other nonspecific skin eruption; N32.81 Overactive bladder; Z79.899 Other long term (current) drug therapy; Z23 Encounter for immunization
CPT/HCPCS: 0134A; 36415; 71046; 74018; 80048; 82962; 85014; 85018; 85025; 87426; 87811; 91313; 94640; 94660; 97110; 97116; 97162; 97166; 97530; 97535; 97802

== ENCOUNTER → 2022-04-17 | Outpatient (CLI) | payer MEDICARE, OTHER, SELFPAY | END | disposition home or self-care (01) | LOC: CVS 12:54 | PROVIDERS: PCP Family Medicine; Visit Provider Internal Medicine Cardiovascular Disease | DX: R94.31 Abnormal electrocardiogram [ECG] [EKG] (principal); I48.91 Unspecified atrial fibrillation ==

== ENCOUNTER → 2022-04-24 | Outpatient (CLI) | payer MEDICARE, OTHER, SELFPAY ==
--- NOTE | 2022-04-24 14:10 | ECHOD_ITS ---
Reason For Study: LV Function Procedure This was a 2D Doppler, Color Flow transthoracic echocardiogram. The study was technically difficult. Exam performed in department. Left Ventricle Normal LV size. Mild concentric left ventricular hypertrophy. Left ventricular systolic function is normal. The estimated ejection fraction is 55 %. No regional wall motion abnormalities noted. Right Ventricle Normal RV size. Normal systolic function. Atria The left atrium is mildly enlarged. The right atrium is mildly enlarged. Mitral Valve Normal mitral valve. Mild (1+) eccentric mitral valve insufficiency. Tricuspid Valve Normal tricuspid valve. Mild tricuspid valve insufficiency. Pulmonary artery systolic pressure is 35 mmHg. Aortic Valve Trisinus/trileaflet aortic valve. Mild focal aortic valve calcification. Peak aortic valve gradient 21 mmHg. Mean aortic valve gradient 11 mmHg. Mild aortic stenosis. Pericardium/Pleural No pericardial effusion. MMode/2D Measurements & Calculations LVIDd: 4.9 cm IVSd: 1.3 cm LVOT diam: 2.0 cm LVIDs: 3.2 cm LVPWd: 1.3 cm LVOT area: 3.3 cm2 RVDd: 4.0 cm FS: 35.3 % LA dimension: 5.1 cm LAV(MOD-bp): 74.2 ml LA A4 area: 24.8 cm2 LAV(MOD-bp) Indexed: 39.0 ml/m2 LAV(MOD-sp2): 55.4 ml LAV(MOD-sp4): 79.1 ml RA A4 area: 21.7 cm2 Doppler Measurements & Calculations MV E max vincenzo: 127.3 cm/sec MV V2 max: 131.2 cm/sec Ao V2 max: 227.3 cm/sec MV max P.9 mmHg Ao max P.7 mmHg MV V2 mean: 70.8 cm/sec Ao V2 mean: 152.4 cm/sec MV mean P.4 mmHg Ao mean P.8 mmHg MV V2 VTI: 23.3 cm Ao V2 VTI: 43.0 cm AV (velocity ratio): 0.51 MVA(VTI): 3.1 cm2 REBEL(I,D): 1.7 cm2 REBEL(V,D): 1.5 cm2 LV V1 max: 105.0 cm/sec SV(LVOT): 72.0 ml PA V2 max: 157.1 cm/sec LV V1 max P.4 mmHg LV V1 mean P.6 mmHg LV V1 mean: 77.0 cm/sec LV V1 VTI: 22.1 cm TR max vincenzo: 275.2 cm/sec TR max P.3 mmHg ECHO/Echo Complete Interpretation Summary Normal LV size. Mild concentric left ventricular hypertrophy. Left ventricular systolic function is normal. The estimated ejection fraction is 55 %. The left atrium is mildly enlarged. Mean aortic valve gradient 11 mmHg. Mild aortic stenosis. Ordering Physician: Dwaine Lundberg Performed By: Brendan Vieyra, [facility]
== END | disposition home or self-care (01) ==
LOC: CVS 14:05
PROVIDERS: PCP Family Medicine; Visit Provider Internal Medicine Cardiovascular Disease
DX: I35.0 Nonrheumatic aortic (valve) stenosis (principal); I51.7 Cardiomegaly
CPT/HCPCS: 93306

== ENCOUNTER → 2022-05-06 | Outpatient (CLI) | payer MEDICARE, OTHER, SELFPAY ==
--- NOTE | 2022-07-29 17:13 | PFTCOMP ---
Complete pulmonary function test report Date: May 06, 2022 Referring physician: Dr. Garcia Indication: Dyspnea, BMI 42.6 Smoking history: Current smoker. Pre-bronchodilator spirometry showed: 1. Unreliable test due to inadequate inspiratory effort for FVC maneuver. 2. Possible moderate airway obstruction is suggested by FEV1/FVC of 57% predicted 3. Due to variable inspiratory and expiratory effort, these test results are probably not valid for clinical application. 4. Clinical correlation is recommended. 5. No prior study available for comparison. 6. Patient refused albuterol during the test. Therefore no bronchodilator test was done.. 7. Reference equations were taken from NHANES III, which are not well applicable to patients greater than 80 years old. Lung volume studies by plethysmography showed: 1. No evidence of restriction: The total lung capacity was 105% predicted. 2. Significant hyperinflation is suggested by a residual volume of 160% predicted and RV/TLC of 154% predicted. 3. Clinical and radiographic correlation is recommended. Diffusing capacity by single breath carbon monoxide technique showed: 1. Very severe gas exchange abnormality, which normalized when adjusted for lung volumes. Clinical and radiographic correlation is recommended. Fuel System Maintenance Worker comments were not available for DLCO.
== END | disposition home or self-care (01) ==
LOC: PSN 08:47
PROVIDERS: PCP Family Medicine; Referring Provider Internal Medicine Pulmonary Disease; Visit Provider Internal Medicine Pulmonary Disease
DX: I27.20 Pulmonary hypertension, unspecified (principal); R06.00 Dyspnea, unspecified
CPT/HCPCS: 94010; 94726; 94729

== ENCOUNTER → 2022-07-02 | Outpatient (CLI) | payer MEDICARE, OTHER, SELFPAY ==
--- NOTE | 2022-07-02 15:22 | RAD_ITS ---
EXAM: XR RIGHT SHOULDER COMPLETE, 2 OR MORE VIEWS CLINICAL INDICATION: PAIN TECHNIQUE: Two or more views of the right shoulder. COMPARISON: No relevant prior studies available. FINDINGS: BONES/JOINTS: Slightly inferiorly subluxed appearance of the right humeral head but no nidhi dislocation, this may be positional. Demineralization. Unremarkable right ribs and scapular body. Fusion of the AC joint. No acute fracture. No sclerotic or destructive changes observed. SOFT TISSUES: Unremarkable. No soft tissue swelling or gas. No radiopaque foreign body. OTHER FINDINGS: 4 views. RAD/Shoulder min 2 Views IMPRESSION: Mild demineralization and degenerative changes. No convincing acute abnormality. Electronically Signed: Kinjal Ramsay MD at 9:11 EDT ,
== END | disposition home or self-care (01) ==
LOC: MTRAD 15:21
PROVIDERS: PCP Family Medicine; Referring Provider Family Medicine; Visit Provider Family Medicine
DX: M25.511 Pain in right shoulder (principal)
CPT/HCPCS: 73030

== ENCOUNTER → 2022-08-04 | Outpatient (CLI) | payer MEDICARE, OTHER, SELFPAY ==
--- NOTE | 2022-08-04 15:51 | RAD_ITS ---
INDICATION: COPD EXAMINATION/TECHNIQUE: X-RAY - XR Chest 2 Views COMPARISON: 04/17/2022. FINDINGS: LINES/DEVICES: None. LUNGS: No consolidation, edema or effusion. No pneumothorax. MEDIASTINUM AND CARDIOVASCULAR STRUCTURES: Borderline cardiac silhouette.. Central airways and mediastinal contour are unremarkable. BONES AND SOFT TISSUES: Healed left rib fracture. Lumbar vertebroplasty. RAD/Chest PA and Lateral IMPRESSION: No acute cardiopulmonary disease. Electronically Signed: Shelley Cuadra MD at 17:15 EDT Reading Location ID and State: [id number] / Tel , Service support ,
[2022-08-04 18:29] LABS: Absolute Lymphocyte Count 0.45 X10^3/uL (0.83-4.51); Absolute Neutrophil Count 5.9 X10^3/uL (2.0-7.7); Basophil# 0.01 X10^3/uL; Basophil% 0.1 % (0-1); Eosinophil# 0.02 X10^3/uL; Eosinophils% 0.3 % (0-5); Hematocrit 37.5 % (37-47); Hemoglobin 11.2 g/dL (12.0-15.0); Lymphocyte # 0.45 X10^3/ul (0.83-4.51); Lymphocyte % 6.5 % (19-41); Mean Corp Hgb Conc 29.9 g/dL (32-36); Mean Corpuscular Hgb 29.6 pg (27.0-32.0); Mean Corpuscular Volume 98.9 fL (81-99); Mean Platelet Vol. 9.8 fl (6.2-12.0); Monocyte# 0.55 X10^3/uL; Monocyte% 7.9 % (0-10); NRBC Flagged by Analyzer 0 % (0-5); Neutrophil # 5.92 X10^3/uL (2.7-7.7); Neutrophil % 84.9 % (47-70); POSITIVE DIFFERENTIAL YES; Platelet Count 155 K/mm3 (150-450); RBC Distribution Width CV 14.7 % (11.6-14.6); Red Blood Count 3.79 M/mm3 (4.2-5.4)
[2022-08-04 18:30] LABS: Differential Indicated SCAN CRITERIA MET
[2022-08-04 18:56] LABS: Anion Gap 4 (5-15); BUN 24 mg/dL (7-18); Calcium,Total 8.5 mg/dL (8.5-10.1); Chloride 101 mmol/L (98-107); EST Glomerular Filtration Rate 57 mL/min (>60); Est Glom Filt Rate - Afr Amer 69 mL/min (>60); Glucose 123 mg/dL (74-106); Potassium 4.6 mmol/L (3.5-5.1); Sodium Level 139 mmol/L (136-145); Thyroid Stim Hormone (TSH) 1.81 uIU/mL (0.358-3.74)
[2022-08-04 19:10] LABS: Differential Comment SCANNED
== END | disposition home or self-care (01) ==
PROVIDERS: PCP Family Medicine; Referring Provider Family Medicine; Visit Provider Family Medicine
DX: J44.9 Chronic obstructive pulmonary disease, unspecified (principal); F32.A Depression, unspecified
CPT/HCPCS: 36415; 71046; 80048; 84443; 85025

== ENCOUNTER → 2022-08-21 | Outpatient (CLI) | payer MEDICARE, OTHER, SELFPAY ==
[2022-08-21 16:19] LABS: AST(SGOT) 23 U/L (15-37); Alanine Aminotransfer ALT/SGPT 24 U/L (13-56); Albumin, Serum 3.1 g/dL (3.2-5.0); Alkaline Phosphatase 118 U/L (45-117); Anion Gap 0 (5-15); BUN 26 mg/dL (7-18); BUN/Creat Ratio 25.2 RATIO (10-20); Bilirubin, Direct 0.14 mg/dL (0.00-0.30); Calcium,Total 8.7 mg/dL (8.5-10.1); Chloride 101 mmol/L (98-107); Creatinine, Serum 1.03 mg/dL (0.55-1.02); EST Glomerular Filtration Rate 55 mL/min (>60); Est Glom Filt Rate - Afr Amer 66 mL/min (>60); Globulin 3.8 g/dL (2.2-4.2); Glucose 115 mg/dL (74-106); Potassium 4.5 mmol/L (3.5-5.1); Protein, Total 6.9 g/dL (6.4-8.2); Sodium Level 139 mmol/L (136-145)
== END | disposition home or self-care (01) ==
LOC: MTLAB 12:32
PROVIDERS: PCP Family Medicine; Referring Provider Internal Medicine Pulmonary Disease; Visit Provider Internal Medicine Pulmonary Disease
DX: I27.20 Pulmonary hypertension, unspecified (principal)
CPT/HCPCS: 36415; 80048; 80076

== ENCOUNTER → 2022-09-03 | Outpatient (CLI) | payer MEDICARE, OTHER, SELFPAY ==
--- NOTE | 2022-09-03 13:44 | ECHOD_ITS ---
Reason For Study: PHTN Procedure This was a 2D Doppler, Color Flow transthoracic echocardiogram. Myocardial strain analysis was performed in this exam to aid in the assessment of cardiac function. Exam performed in department. Left Ventricle Normal left ventricle. Mild concentric left ventricular hypertrophy. The estimated ejection fraction is 55 %. No regional wall motion abnormalities noted. Right Ventricle Normal RV size. Normal systolic function. TAPSE is 1.7. Atria The left atrium is mildly enlarged. Normal right atrium. Mitral Valve Normal mitral valve. Tricuspid Valve Normal tricuspid valve. Mild (1+) tricuspid valve insufficiency. Pulmonary artery systolic pressure is 40 mmHg. Aortic Valve Trisinus/trileaflet aortic valve. Mild focal aortic valve calcification. Peak aortic valve gradient 21 mmHg. Mean aortic valve gradient 13 mmHg. Pulmonic Valve The pulmonic valve is not well visualized. Great Vessels Normal aortic root. The pulmonary artery is normal size. Normal inferior vena cava. Pericardium/Pleural Trivial pericardial effusion. MMode/2D Measurements & Calculations LVIDd: 4.5 cm IVSd: 1.2 cm LVOT diam: 2.0 cm LVIDs: 3.3 cm LVPWd: 1.2 cm LVOT area: 3.1 cm2 RVDd: 3.5 cm FS: 27.8 % Ao root diam: 2.9 cm LAV(MOD-bp): 61.9 ml LVAd ap4: 23.0 cm2 ACS: 1.4 cm LAV(MOD-bp) Indexed: 33.1 ml/m2 LVLd ap4: 7.6 cm LAV(MOD-sp2): 61.2 ml EDV(MOD-sp4): 57.5 ml LAV(MOD-sp4): 61.7 ml EDV(sp4-el): 58.9 ml LVAs ap4: 12.4 cm2 LVLs ap4: 6.1 cm ESV(MOD-sp4): 21.6 ml ESV(sp4-el): 21.3 ml EF(MOD-sp4): 62.4 % EF(sp4-el): 63.8 % SV(MOD-sp4): 35.9 ml SV(sp4-el): 37.6 ml LA A4 area: 21.4 cm2 LA dimension(2D): 4.5 cm RA A4 area: 16.4 cm2 TAPSE: 1.7 cm Time Measurements MV dec time: 0.17 sec Doppler Measurements & Calculations MV E max srinivasan: 107.1 cm/sec Lat Peak E' Srinivasan: 6.6 cm/sec Med Peak E' Srinivasan: 5.9 cm/sec E/E' lat: 16.2 E/E' med: 18.1 Ao V2 max: 229.8 cm/sec LV V1 max: 80.8 cm/sec SV(LVOT): 52.9 ml Ao max P.2 mmHg LV V1 max P.6 mmHg Ao V2 mean: 169.4 cm/sec LV V1 mean P.5 mmHg Ao mean P.8 mmHg LV V1 mean: 58.5 cm/sec Ao V2 VTI: 48.0 cm LV V1 VTI: 17.3 cm AV (velocity ratio): 0.36 REBEL(I,D): 1.1 cm2 REBEL(V,D): 1.1 cm2 PA V2 max: 92.2 cm/sec PI end-d srinivasan: 110.1 cm/sec TR max srinivasan: 301.4 cm/sec TR max P.3 mmHg ECHO/Echo Complete Interpretation Summary Normal left ventricle. Mild concentric left ventricular hypertrophy. The estimated ejection fraction is 55 %. TAPSE is 1.7. Pulmonary artery systolic pressure is 40 mmHg. The global longitudinal strain = -12.7 with apical sparing.% (abnormal). The global longitudinal strain is severely abnormal. The global longitudinal st rain = -12.7 with apical sparing.% (abnormal). Ordering Physician: Gerhard Garcia V Referring Physician: Jake Schwarz Performed By: Mimi Arredondo, JAMARI, RVT
== END | disposition home or self-care (01) ==
LOC: CVS 13:43
PROVIDERS: PCP Family Medicine; Referring Provider Internal Medicine Pulmonary Disease; Visit Provider Internal Medicine Pulmonary Disease
DX: I27.20 Pulmonary hypertension, unspecified (principal)
CPT/HCPCS: 93306

== ENCOUNTER 2022-09-04 23:31 | Inpatient (IN) | payer MEDICARE, OTHER, SELFPAY ==
--- NOTE | 2022-09-04 00:10 | RAD_ITS ---
STUDY: X-RAY CHEST REASON FOR EXAM: Female, 82 years old. Sob TECHNIQUE: Single AP portable view of the chest. COMPARISON: August 04, 2022 chest x-ray FINDINGS: There is a focus of opacity in the right midlung zone. There is persistent linear density and limited visualization of the left lung base due to the cardiac size and atelectasis. There is no demonstrated pleural abnormality. Normal size heart. Normal mediastinum and tameka. Normal visualized pulmonary arteries. There is atherosclerotic calcification of the aortic arch with tortuosity. There are diffuse degenerative changes of the visualized thoracic spine. Normal visualized ribs, clavicles, and shoulders. There is no demonstrated abnormality of the visualized soft tissue structures of the upper abdomen. RAD/Chest 1 View (Portable) IMPRESSION: Findings suspicious for interval right upper lobe pneumonia. Left lower lobe atelectasis and/or recurrent infiltrates. Electronically Signed: Bre Monroy MD at 0:24 EDT ,
[2022-09-04 23:33] VITALS: BP 102/67; PULSE 113; RESP 18; TEMP 36.8; O2SAT 90; BMI 42.3
[2022-09-04 23:40] VITALS: O2SAT 93
--- NOTE | 2022-09-04 23:55 | EKG12_ITS ---
Test Reason : PALPATIONS Blood Pressure : / mmHG Vent. Rate : 125 BPM Atrial Rate : 000 BPM P-R Int : 000 ms QRS Dur : 066 ms QT Int : 272 ms P-R-T Axes : 000 004 132 degrees QTc Int : 392 ms Atrial fibrillation with rapid ventricular response Nonspecific T wave abnormality Abnormal ECG Confirmed by GENARO SCHROEDER, DAMIÁN ([id number]), department editor HEATHER PELLETIER ([id number]) on 09/05/2022 12:59:37 PM Referred By: STEVE Confirmed By:DAMIÁN LAM MD
--- NOTE | 2022-09-04 23:55 | EDS_ITS ---
HPI History of Present Illness Chief Complaint: Shortness of Breath Informant: patient Onset/Context/Timing Onset: Days (Chronic shortness of breath, worsened over the past 2 days) Current Severity: Mild Maximum Severity: Moderate Narrative Narrative: Patient presents via EMS secondary to increased shortness of breath. She reports chronic shortness of breath and wears 4 to 5 L of oxygen at home. She states she wears 10 L with CPAP at night. She has noticed increased shortness of breath the past 2 days. She denies chest pain. No fever. She denies otherwise feeling ill. I did review her last cardiology visit from late July. A second diuretic, spironolactone, was added to her regimen. Patient had an echocardiogram yesterday. Reading appears to show mild LVH with an EF of 55%. There is global longitudinal strain with apical sparing. Patient states that she was told that her echocardiogram was bad and she may have a heart infection. [facility] Medical History Arthritis Back pain BiPAP (biphasic positive airway pressure) dependence COPD (chronic obstructive pulmonary disease) Debility Essential (primary) hypertension Left thyroid nodule Low back pain Neoplasm of uncertain behavior of bladder Nonobstructive atherosclerosis of coronary artery Nonrheumatic aortic valve stenosis Obesity On home oxygen therapy Osteoarthritis Overactive bladder Paroxysmal atrial fibrillation Paroxysmal SVT (supraventricular tachycardia) Persistent atrial fibrillation Pulmonary hypertension Restless leg syndrome RLS (restless legs syndrome) Secondary pulmonary arterial hypertension Shortness of breath on exertion Sleep apnea Type 2 diabetes mellitus without complications Urinary retention Wears dentures Wears glasses Home Medications fentanyl 25 mcg/hr transdermal patch 25 mcg TRANSDERM. Q72H Pain 09/26/15 [History Last Taken 04/06/22 23:00] multivitamin with folic acid 400 mcg tablet 1 tab PO DAILY Supplement 09/26/15 [History Last Taken Unknown] pramipexole 1 mg tablet (Mirapex) 1 mg PO QHS Restless legs 01/05/18 [History Last Taken Unknown] calcium-vitamin D3-vitamin K 500 mg-1,000 unit-40 mcg chewable tablet 2 ea PO DAILY Supplement 12/20/19 [History Last Taken Unknown] macitentan 10 mg tablet (Opsumit) 10 mg PO DAILY pulmonary htn 12/20/19 [History Last Taken 12/27/19] budesonide 0.5 mg/2 mL suspension for nebulization 0.5 mg inhalation BID Check with primary doctor 10/10/21 [History Last Taken Unknown] albuterol sulfate 1.25 mg/3 mL solution for nebulization 1.25 mg inhalation BID PRN sob 10/17/21 [History Last Taken Unknown] furosemide 40 mg tablet 80 mg (2 x 40 mg) PO 1XD 30 days #60 tabs 05/02/22 [Rx Last Taken Unknown] metoprolol tartrate 50 mg tablet 50 mg PO BID #0 tabs 05/02/22 [Rx Last Taken Unknown] pantoprazole 40 mg tablet,delayed release 40 mg PO DAILY 30 days #30 tabs 05/02/22 [Rx Last Taken Unknown] treprostinil diolamine 0.25 mg tablet,extended release (Orenitram) 0.5 mg (2 x 0.25 mg) PO 0700,1500,2300 #0 tabs 05/02/22 [Rx Last Taken Unknown] potassium chloride 20 mEq tablet,extended release(part/cryst) (Klor-Con M) 20 meq PO DAILY 30 days #30 tabs 08/14/22 [Rx Last Taken Unknown] spironolactone 25 mg tablet 25 mg PO DAILY #90 tabs 08/14/22 [Rx Last Taken Unknown] diclofenac sodium 1 % topical gel 2 g topical 4X/DAY PRN itching 09/04/22 [History Last Taken Unknown] mirabegron 50 mg tablet,extended release 24 hr (Myrbetriq) 50 mg PO DAILY 09/04/22 [History Last Taken Unknown] treprostinil diolamine 2.5 mg tablet,extended release (Orenitram) 5 mg PO 0700,1500,2300 09/04/22 [History Last Taken Unknown] Allergy/AdvReac Type Severity Reaction Status Date / Time gabapentin Allergy STROKE Verified 09/04/22 23:33 LIKE SYMPTOMS ropinirole HCl [From Requip] Allergy STROKE Verified 09/04/22 23:33 LIKE SYMPTOMS pentazocine lactate AdvReac Unknown Verified 09/04/22 23:33 [From Marycruz] sulfamethoxazole AdvReac Makes me Verified 09/04/22 23:33 [From Bactrim] high, feel weird trimethoprim [From Bactrim] AdvReac Makes me Verified 09/04/22 23:33 feel strange Family History Father CAD (coronary artery disease) CVA (cerebral vascular accident) Hypertension Sister CAD (coronary artery disease) Diabetes Hypertension Surgical History H/O right heart catheterization (2007) History of carpal tunnel release History of cholecystectomy History of left heart catheterization (1999) History of open reduction and internal fixation (ORIF) procedure History of right knee joint replacement partial right knee replacement Social History household members: none Smoking Status: Former smoker how long ago did patient quit smokin alcohol intake: never caffeine: Yes Type: coffee Number of servings: 1 ROS ROS ED Constitutional Constitutional ED: Denies chills or fever(s) Eyes Eyes: Denies change in vision or discharge from eye(s) ENT ENT ED: Denies discharge from eye(s), rhinorrhea or sore throat Cardiovascular Cardiovascular: Denies chest pain or palpitations Respiratory/Chest Respiratory/Chest: Reports dyspnea; Denies cough Gastrointestinal Gastrointestinal: Reports other Details: Abdominal bloating ; Denies abdominal pain, diarrhea, nausea or vomiting Genitourinary Genitourinary ED: Denies difficulty urinating or dysuria Musculoskeletal Musculoskeletal: Denies back pain or extremity pain Integumentary Denies Abrasions or rash Neurologic Neurologic: Reports weakness; Denies headache(s) Psychiatric Psychiatric: Denies anxiety or depression Allergic/Immunologic Allergic/Immunologic ED: Denies lip swelling or urticaria EXAM Physical Exam Const Vital Signs: 09/04/22 23:33 09/04/22 23:40 09/05/22 00:04 Temperature 98.3 F Temperature Source Oral Pulse Rate 113 H Respiratory Rate 18 Respiratory Effort Normal Respiratory Depth Normal Respiratory Pattern Normal Blood Pressure 102/67 Blood Pressure Mean 78 Pulse Ox 90 93 Oxygen Delivery Method Nasal Cannula Nasal Cannula Nasal Cannula Oxygen Flow Rate (L/min) 4 5 5 09/05/22 00:50 Temperature 98.3 F Temperature Source Oral Pulse Rate 116 H Respiratory Rate 26 H Respiratory Effort Respiratory Depth Respiratory Pattern Blood Pressure 100/73 Blood Pressure Mean 82 Pulse Ox 94 Oxygen Delivery Method Room Air Oxygen Flow Rate (L/min) Positive well nourished and well developed General Appearance ED: well developed HEENT Reports normocephalic and head/scalp atraumatic Eyes PERRL and EOMs intact bilaterally Neck supple Chest Wall inspection of chest normal and palpation of chest normal Resp normal respiratory effort and clear to auscultation bilaterally Resp Narrative: Diminished breath sounds bilateral bases. No wheezing appreciated. 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 At the time of my exam she is on 5 L nasal cannula and satting in the low 90s. Labwork obtained to evaluate for leukocytosis, anemia, and electrolyte derangement. Chest x-ray obtained to evaluate for acute lung pathology, cardiac size, or mediastinal abnormality. EKG obtained to evaluate for cardiac arrhythmia/ischemia. History & Record Review Discussion w/independent historian: EMS personnel and Patient Additional record(s) reviewed:: Prior outpatient record and Prior ED visit Lab Data Labs: Laboratory Results - last 24 hr 09/04/22 09/05/22 23:22 00:26 WBC 5.5 RBC 3.17 L Hgb 9.4 L Hct 31.4 L MCV 99.1 H MCH 29.7 MCHC 29.9 L RDW Std Deviation 55.7 H RDW Coeff of Jacob 15.4 H Plt Count 168 MPV 10.1 Immature Gran % (Auto) 0.400 Neut % (Auto) 84.3 H Lymph % (Auto) 6.2 L [place] % (Auto) 8.4 Eos % (Auto) 0.5 Baso % (Auto) 0.2 Absolute Neuts (auto) 4.6 Absolute Lymphs (auto) 0.34 L Nucleated RBC % 0 Differential Comment SCANNED Toxic Granulation 2+ Sodium 141 Potassium 4.1 Chloride 98 Carbon Dioxide 38.0 H Anion Gap 5 BUN 25 H Creatinine 1.16 H Estim Creat Clear Calc 27.32 Est GFR (MDRD) Af Amer 58 L Est GFR (MDRD) Non-Af 48 L BUN/Creatinine Ratio 21.6 H Glucose 142 H Lactic Acid 0.4 Calcium 8.7 Troponin I High Sens 34 B-Natriuretic Peptide 288.4 H Radiography Chest X-Ray - ED: 1 View, Read by ED Physician, Chronic Changes and Right Infiltrate Diagnostic Testing: Clinical Impression(s) from Imaging Studies Chest X-Ray 09/04/22 00:10 IMPRESSION: Findings suspicious for interval right upper lobe pneumonia. Left lower lobe atelectasis and/or recurrent infiltrates. Electronically Signed: Bre Monroy MD at 0:24 EDT , EKG Initial EKG: Attestation: I personally reviewed and interpreted this EKG as follows: Interpretation: Atrial Fibrillation (A-fib RVR with ventricular rate of 116. No acute ST change.) Treatment and Re-Evaluation :: CBC was normal white count of 5.5 with a hemoglobin of 9.4. It appears that she fluctuates between 9 and 11 for her baseline hemoglobin. 84% neutrophils are noted. Chemistry studies reveal a bicarb of 38. This appears to be her baseline. BUN is 25 and creatinine is 1.16. Glucose is 142. Troponin is normal at 34. BNP is 288. Lactic acid is 0.4. Portable chest x-ray per my interpretation appears to show a focal right-sided infiltrate. This appears new when compared to prior study from July. EKG is atrial fibrillation with no acute ischemia. Blood cultures have been ordered. Patient is given a dose of Levaquin. I will speak with hospitalist regarding admission. Discharge Plan Triage Chief Complaint: Shortness of Breath ED Provider: Jenny Diaz Dx/Rx/DC Orders Clinical Impression: Chronic respiratory failure, Pneumonia Prescriptions: No Action pramipexole [Mirapex] 1 mg tablet 1 mg PO QHS potassium chloride [Klor-Con M20] 20 mEq tablet,ER particles/crystals 20 meq PO DAILY 30 Days Qty: 30 0RF spironolactone 25 mg tablet 25 mg PO DAILY Qty: 90 3RF fentanyl 25 MCG patch 25 mcg TRANSDERM. Q72H multivitamin with folic acid 1 TABLET tablet 1 tab PO DAILY calcium-vitamin D3-vitamin K 1 EACH tablet,chewable 2 ea PO DAILY Opsumit 10 MG tablet 10 mg PO DAILY Rx Instructions: Patient may use own medication budesonide 0.5 mg/2 mL Suspension For Nebulization 0.5 mg INHALATION BID Hold Instructions: Order Changed albuterol sulfate 1.25 mg/3 mL Solution For Nebulization 1.25 mg INHALATION BID PRN (Reason: sob) Hold Instructions: Order Changed furosemide 40 mg Tablet 80 mg PO 1XD 30 Days Qty: 60 0RF metoprolol tartrate 50 mg Tablet 50 mg PO BID Qty: 0 0RF Orenitram 0.25 mg Tablet Extended Release 0.5 mg PO 0700,1500,2300 Qty: 0 0RF Hold Instructions: Order Changed pantoprazole 40 mg Tablet,Delayed Release (Dr/Ec) 40 mg PO DAILY 30 Days Qty: 30 0RF Myrbetriq 50 mg tablet extended release 24 hr 50 mg PO DAILY diclofenac sodium 1 % gel 2 g TOPICAL 4X/DAY PRN (Reason: itching) Orenitram 2.5 mg Tablet Extended Release 5 mg PO 0700,1500,2300 Primary Care Provider: Jake Schwarz Referrals: Jake Schwarz MD [Primary Care Provider] - Disposition Disposition: Acute Care [facility]
[2022-09-05] VITALS (23 sets, daily range): BP systolic 100–118; BP diastolic 49–73; PULSE 67–133; RESP 12–26; TEMP 36.4–37; O2SAT 89–98; BMI 41.5
[2022-09-05 00:12] LABS: Absolute Lymphocyte Count 0.34 X10^3/uL (0.83-4.51); Absolute Neutrophil Count 4.6 X10^3/uL (2.0-7.7); Basophil# 0.01 X10^3/uL; Basophil% 0.2 % (0-1); Eosinophil# 0.03 X10^3/uL; Eosinophils% 0.5 % (0-5); Hematocrit 31.4 % (37-47); Hemoglobin 9.4 g/dL (12.0-15.0); Lymphocyte # 0.34 X10^3/ul (0.83-4.51); Lymphocyte % 6.2 % (19-41); Mean Corp Hgb Conc 29.9 g/dL (32-36); Mean Corpuscular Hgb 29.7 pg (27.0-32.0); Mean Corpuscular Volume 99.1 fL (81-99); Mean Platelet Vol. 10.1 fl (6.2-12.0); Monocyte# 0.46 X10^3/uL; Monocyte% 8.4 % (0-10); NRBC Flagged by Analyzer 0 % (0-5); Neutrophil # 4.64 X10^3/uL (2.7-7.7); Neutrophil % 84.3 % (47-70); POSITIVE DIFFERENTIAL YES; Platelet Count 168 K/mm3 (150-450); RBC Distribution Width CV 15.4 % (11.6-14.6); RBC Distribution Width SD 55.7 fl (35.1-43.9); Red Blood Count 3.17 M/mm3 (4.2-5.4); White Blood Count 5.5 K/mm3 (4.4-11.0)
[2022-09-05 00:29] LABS: Anion Gap 5 (5-15); BUN 25 mg/dL (7-18); BUN/Creat Ratio 21.6 RATIO (10-20); Calcium,Total 8.7 mg/dL (8.5-10.1); Chloride 98 mmol/L (98-107); Creatinine, Serum 1.16 mg/dL (0.55-1.02); Differential Indicated SCAN CRITERIA MET; EST Glomerular Filtration Rate 48 mL/min (>60); Est Glom Filt Rate - Afr Amer 58 mL/min (>60); Estimated Creatinine Clearance 27.32 ml/min; Glucose 142 mg/dL (74-106); Potassium 4.1 mmol/L (3.5-5.1); Sodium Level 141 mmol/L (136-145); Troponin-I HS 34 pg/mL (3.0-54.0)
[2022-09-05 00:34] LABS: BNP,B-Type NATRIURETIC PEPTIDE 288.4 pg/mL (0-100)
[2022-09-05] MEDS: levoFLOXacin IV 750 MG/150 ML BAG 100 MG IV (00:46)
[2022-09-05 00:52] LABS: Differential Comment SCANNED; Toxic Granulation 2+
[2022-09-05 01:10] LABS: Lactic Acid 0.4 mmol/L (0.4-1.9)
--- NOTE | 2022-09-05 02:27 | HP.PCM.HOS_ITS ---
HPI - General General Date of Admission: 09/05/22 Date of Service: 09/05/22 Chief Complaint: Dyspnea, cough, fatigue. HPI Narrative The patient is an 82 y/o F w/ PMHx: Former tobacco use, Chronic pain syndrome, Morbid obesity, ROYAL on CPAP with 10 L versus BIPAP as records notable, Nonobstructive CAD, HTN, HLD, COPD with chronic hypoxic respiratory failure (4- 5L NC), PAF, RLS, Diabetes mellitus type II, CKD stage III unclear subtype who p resents to the [facility] ED on 09/05/22 with history of increased dyspnea over the last 2 days with no recent productive cough nor any fevers or chills and given ongoing significant dyspnea as well as fatigue and malaise prompted eventual ED evaluation. Work-up in the ED included T98.3, heart rate 113, BP 102/67, respiratory rate 18, initially 90% on 4 L with transition to 5 L nasal cannula with improvement to 93 to 94% oxygenation, CBC with WBC 5.5, hemoglobin 9.4, MCV 99.1, platelet 168 with lymphopenia, BMP with A 38, BUN/creatinine 25/1.16, glucose 142, BNP 288.4, troponin 34, lactic acid 0.4, chest x-ray with findings suspicious for interval right upper lobe pneumonia with a left lower lobe at electasis and or recurrent infiltrates. In the ED patient administered normal saline as well as Levaquin 750 mg x1. Initially blood pressure maintained 100 range however she did drop into the mid 80s with 500 cc IV fluid bolus administered with improvement. [facility] Medical History Arthritis Back pain BiPAP (biphasic positive airway pressure) dependence COPD (chronic obstructive pulmonary disease) Debility Essential (primary) hypertension Left thyroid nodule Low back pain Neoplasm of uncertain behavior of bladder Nonobstructive atherosclerosis of coronary artery Nonrheumatic aortic valve stenosis Obesity On home oxygen therapy Osteoarthritis Overactive bladder Paroxysmal atrial fibrillation Paroxysmal SVT (supraventricular tachycardia) Persistent atrial fibrillation Pulmonary hypertension Restless leg syndrome RLS (restless legs syndrome) Secondary pulmonary arterial hypertension Shortness of breath on exertion Sleep apnea Type 2 diabetes mellitus without complications Urinary retention Wears dentures Wears glasses Home Medications fentanyl 25 mcg/hr transdermal patch 25 mcg TRANSDERM. Q72H Pain 09/26/15 [History Last Taken 04/06/22 23:00] multivitamin with folic acid 400 mcg tablet 1 tab PO DAILY Supplement 09/26/15 [History Last Taken Unknown] pramipexole 1 mg tablet (Mirapex) 1 mg PO QHS Restless legs 01/05/18 [History Last Taken Unknown] calcium-vitamin D3-vitamin K 500 mg-1,000 unit-40 mcg chewable tablet 2 ea PO DAILY Supplement 12/20/19 [History Last Taken Unknown] macitentan 10 mg tablet (Opsumit) 10 mg PO DAILY pulmonary htn 12/20/19 [History Last Taken 12/27/19] budesonide 0.5 mg/2 mL suspension for nebulization 0.5 mg inhalation BID Check with primary doctor 10/10/21 [History Last Taken Unknown] albuterol sulfate 1.25 mg/3 mL solution for nebulization 1.25 mg inhalation BID PRN sob 10/17/21 [History Last Taken Unknown] furosemide 40 mg tablet 80 mg (2 x 40 mg) PO 1XD 30 days #60 tabs 05/02/22 [Rx Last Taken Unknown] metoprolol tartrate 50 mg tablet 50 mg PO BID #0 tabs 05/02/22 [Rx Last Taken Un known] pantoprazole 40 mg tablet,delayed release 40 mg PO DAILY 30 days #30 tabs 05/02/22 [Rx Last Taken Unknown] treprostinil diolamine 0.25 mg tablet,extended release (Orenitram) 0.5 mg (2 x 0.25 mg) PO 0700,1500,2300 #0 tabs 05/02/22 [Rx Last Taken Unknown] potassium chloride 20 mEq tablet,extended release(part/cryst) (Klor-Con M) 20 meq PO DAILY 30 days #30 tabs 08/14/22 [Rx Last Taken Unknown] spironolactone 25 mg tablet 25 mg PO DAILY #90 tabs 08/14/22 [Rx Last Taken Unknown] diclofenac sodium 1 % topical gel 2 g topical 4X/DAY PRN itching 09/04/22 [History Last Taken Unknown] mirabegron 50 mg tablet,extended release 24 hr (Myrbetriq) 50 mg PO DAILY 09/04/22 [History Last Taken Unknown] treprostinil diolamine 2.5 mg tablet,extended release (Orenitram) 5 mg PO 0700,1500,2300 09/04/22 [History Last Taken Unknown] Allergy/AdvReac Type Severity Reaction Status Date / Time gabapentin Allergy STROKE Verified 09/04/22 23:33 LIKE SYMPTOMS ropinirole HCl [From Requip] Allergy STROKE Verified 09/04/22 23:33 LIKE SYMPTOMS pentazocine lactate AdvReac Unknown Verified 09/04/22 23:33 [From Talwin] sulfamethoxazole AdvReac Makes me Verified 09/04/22 23:33 [From Bactrim] high, feel weird trimethoprim [From Bactrim] AdvReac Makes me Verified 09/04/22 23:33 feel strange Family History Father CAD (coronary artery disease) CVA (cerebral vascular accident) Hypertension Sister CAD (coronary artery disease) Diabetes Hypertension Surgical History H/O right heart catheterization (2007) History of carpal tunnel release History of cholecystectomy History of left heart catheterization (1999) History of open reduction and internal fixation (ORIF) procedure History of right knee joint replacement partial right knee replacement Social History household members: none Smoking Status: Former smoker how long ago did patient quit smokin alcohol intake: never caffeine: Yes Type: coffee Number of servings: 1 ROS ROS Narrative Admission Review of Systems: CONSTITUTIONAL: No weight loss, fever, chills, + weakness or fatigue. HEENT: Eyes: No visual loss, blurred vision, double vision or yellow sclerae. Ears, Nose, Throat: No hearing loss, sneezing, congestion, runny nose or sore throat. SKIN: No rash or itching, lesions, wounds. CARDIOVASCULAR: + Palpitations, chronic mild BL LE edema. No chest pain, chest pressure or chest discomfort, orthopnea, syncopal events. RESPIRATORY: + shortness of breath, cough chronically without marked sputum, occasional wheezing, No hemoptysis. GASTROINTESTINAL: + anorexia, No nausea, vomiting or diarrhea, abdominal pain, melena, BRBPR. GENITOURINARY: No dysuria, frequency, urgency or retention. NEUROLOGICAL: No headache, dizziness, syncope, paralysis, ataxia, numbness or tingling in the extremities, focal weakness, change in bowel or bladder control, seizure. MUSCULOSKELETAL: muscle, back pain, joint pain or stiffness. HEMATOLOGIC: + anemia, bleeding or bruising. LYMPHATICS: No enlarged nodes. No history of splenectomy. PSYCHIATRIC: No history of depression or anxiety. ENDOCRINOLOGIC: No reports of sweating, cold or heat intolerance. No polyuria or polydipsia. ALLERGIES: No history of asthma, hives, eczema or rhinitis. Vital Signs Vital Signs Vital Signs: 09/04/22 23:33 09/04/22 23:40 09/05/22 00:04 Temperature 98.3 F Temperature Source Oral Pulse Rate 113 H Respiratory Rate 18 Respiratory Effort Normal Respiratory Depth Normal Respiratory Pattern Normal Blood Pressure 102/67 Blood Pressure Mean 78 Pulse Ox 90 93 Oxygen Delivery Method Nasal Cannula Nasal Cannula Nasal Cannula Oxygen Flow Rate (L/min) 4 5 5 09/05/22 00:50 Temperature 98.3 F Temperature Source Oral Pulse Rate 116 H Respiratory Rate 26 H Respiratory Effort Respiratory Depth Respiratory Pattern Blood Pressure 100/73 Blood Pressure Mean 82 Pulse Ox 94 Oxygen Delivery Method Room Air Oxygen Flow Rate (L/min) Weight Weight: 216 lb 14.958 oz Body Mass Index (BMI) 42.3 Physical Exam Narrative Physical Examination: General: Awake, alert, oriented x 3 and cooperative, seated upright in the ED bed in no apparent distress, fatigued appearing. Skin: Normal color, normal turgor, no icterus, no cyanosis except occasional staged ecchymoses. HEENT: AT/NC, EOMI, PERRLA, moderately dry MM, no carotid bruits or JVD noted. Lungs: Significantly diminished, greater bases, moderate effort, no evidence of any respiratory distress, no rales, ronchi or wheezing. Heart: Tachycardic; no gallop, rub audible. Abdomen: Soft, morbidly obese, NTTP, ND, distant normal BS, no HSM. Extremities: No cyanosis, no clubbing, mild bilateral peripheral mid escalante downward not markedly pitting edema. Neurological: Patient awake, alert, oriented as noted, cognitive function intact; pupils equally reactive to light and accommodation, cranial nerves II- XII grossly normal, moving all 4 extremities, no focal deficits, strength mode rately to severely global decrease secondary to acute presentation and underlying comorbidities. Psychiatric: Affect appears fatigued, no acute evidence of depressive or anxiety feelings. Results Lab / Micro Data 09/04/22 23:22 09/04/22 23:22 Labs: Laboratory Results - last 24 hr 09/04/22 23:22: WBC 5.5, RBC 3.17 L, Hgb 9.4 L, Hct 31.4 L, MCV 99.1 H, MCH 29.7, MCHC 29.9 L, RDW Std Deviation 55.7 H, RDW Coeff of Jacob 15.4 H, Plt Count 168, MPV 10.1, Immature Gran % (Auto) 0.400, Neut % (Auto) 84.3 H, Lymph % (Auto) 6.2 L, [place] % (Auto) 8.4, Eos % (Auto) 0.5, Baso % (Auto) 0.2, Absolute Neuts (auto) 4.6, Absolute Lymphs (auto) 0.34 L, Nucleated RBC % 0, Differential Comment SCANNED, Toxic Granulation 2+, Sodium 141, Potassium 4.1, Chloride 98, Carbon Dioxide 38.0 H, Anion Gap 5, BUN 25 H, Creatinine 1.16 H, Estim Creat Clear Calc 27.32, Est GFR (MDRD) Af Amer 58 L, Est GFR (MDRD) Non-Af 48 L, BUN/Creatinine Ratio 21.6 H, Glucose 142 H, Calcium 8.7, Troponin I High Sens 34, B-Natriuretic Peptide 288.4 H 09/05/22 00:26: Lactic Acid 0.4 Radiology Impression Chest X-Ray 09/04/22 00:10 IMPRESSION: Findings suspicious for interval right upper lobe pneumonia. Left lower lobe atelectasis and/or recurrent infiltrates. Electronically Signed: Bre Monroy MD at 0:24 EDT , Assessment & Plan Assessment/Plan (1) Pneumonia: PLAN: Plan The patient is an 82 y/o F w/ PMHx: Former tobacco use, Chronic pain syndrome, Morbid obesity, ROYAL on CPAP with 10 L versus BIPAP as records notable, Nonobstructive CAD, HTN, HLD, COPD with chronic hypoxic respiratory failure (4- 5L NC), PAF, RLS, Diabetes mellitus type II, CKD stage III unclear subtype who presents to the [facility] ED on 09/05/22 with history of increased dyspnea over the last 2 days with no recent productive cough nor any fevers or chills and given ongoing significant dyspnea as well as fatigue and malaise prompted eventual ED evaluation. #1. Suspected right upper lobe as well as possible left lower lobe pneumonia: Will admit to medical surgical floor, maintain on additional supplementation of oxygen with wean as tolerated to home oxygen supplementation 4-5L nasal cannula, maintain on ATC budesonide therapy, PRN albuterol, maintained on IV Rocephin and Azithromycin HOB, IS parameters w/ pending sputum cultures, full respiratory viral panel and urine antigens. Procalcitonin requested. Bld cx x 2 obtained in the ED. PT/OT/case management consultation for discharge planning. #2. Chronic COPD with chronic hypoxic respiratory failure (4-5L NC) complicated by significant pulmonary hypertension: Will maintain on oxygen with wean as tolerated to home 4-5L NC oxygen supplementation, continue ATC budesonide therapy, PRN albuterol, HOB, IS parameters, continue patient home treprostinil/Opsumit home regimen. #3. PAF: We will continue patient on metoprolol regimen, previously was on Eliquis but did have a history of a hematoma, does not appear as if this is continued but clarifying. Most recent echocardiogram 09/03/2022 with normal LV, mild concentric LVH, EF 55%, PASP 40 mmHg, global longitudinal strain with apical sparing noted to be severely abnormal. #4. Diabetes mellitus type II: Most recent hemoglobin A1c noted 12/21/2019 5.9%, will repeat to be cautious, from currently is not on any regimen, will maintain on ADA diet as well as accu checks w/ ISS pending A1c assessment but if appears to be well controlled can consider de-escalating off Accu-Cheks/sliding scale. #5. Chronic anemia: Prior has been on the edge of macrocytic, currently MCV upon presentation 99.1, admission hemoglobin 9.4, baseline appears primarily 8- 9, stable, continue to trend. #6. Hypertension: Continue home regimen including Lasix, metoprolol, spironolactone with hold parameters as needed, PRN hydralazine. #7. Hyperlipidemia: Per current list not on statin therapy, defer to outpatient. #8. Chronic Kidney Disease Stage III, unclear subtype: Admission BUN/Cr 25/1.16, baseline renal function primarily 0.8-1.0, repeat BMP in AM. #9. Chronic pain syndrome: We will continue patient home transdermal chronic fentanyl patch. #10. Morbid Obesity: Weight loss and lifestyle changes encouraged. #11. Restless leg syndrome: We will continue patient home pramipexole regimen. #12. GERD: We will continue patient home PPI. #13. Former tobacco usage: Encourage continued tobacco cessation. #14. ROYAL: Reports CPAP with 10 L nightly however other records note BiPAP nightly. #15. DVT prophylaxis: Lovenox. #16. CODE status: Patient DAYANARA is her daughter Bre Oakes and living will is currently in place. Discussed CODE status at length including difference between FULL code, DNR-CCA and DNR-CC status. Following discussions about the differences in these status, requested DNR-CCA, no intubation status. Advanced Care Planning Face to Face Time: 16 minutes. Admission Evaluation Time spent evaluating chart, patient history, patient evaluation, care planning and discussion with specialists: 75 minutes. Charges/Coding Visit Charges Inpatient E&M: 42530 Init Hosp L3 Procedures Hospitalists Procedures: 36291 Advncd Care Plan 30 Min
--- NOTE | 2022-09-05 02:40 | EKG12_ITS ---
Test Reason : SOB Blood Pressure : / mmHG Vent. Rate : 116 BPM Atrial Rate : 000 BPM P-R Int : 000 ms QRS Dur : 078 ms QT Int : 276 ms P-R-T Axes : 000 003 117 degrees QTc Int : 383 ms Atrial fibrillation with rapid ventricular response Nonspecific T wave abnormality Abnormal ECG Confirmed by GENARO SCHROEDER, DAMIÁN ([id number]), news video editor HEATHER PELLETIER ([id number]) on 09/05/2022 1:00:05 PM Referred By: MARIELA Confirmed By:DAMIÁN LAM MD
--- NOTE | 2022-09-05 02:43 | ED.RN ---
Pt complaining of chest pain. States she feels a pressure on her chest. Dr. Diaz notified, new order for EKG.
[2022-09-05] MEDS: 0.9% Normal Saline 1,000 ML 100 ML IV (05:37)
[2022-09-05 06:11] LABS: Bedside Glucose 115 mg/dL (74-106)
[2022-09-05 06:49] LABS: Absolute Lymphocyte Count 0.25 X10^3/uL (0.83-4.51); Absolute Neutrophil Count 3.3 X10^3/uL (2.0-7.7); Eosinophil# 0.02 X10^3/uL; Eosinophils% 0.5 % (0-5); Hematocrit 29.6 % (37-47); Lymphocyte # 0.25 X10^3/ul (0.83-4.51); Lymphocyte % 6.4 % (19-41); Mean Corp Hgb Conc 30.4 g/dL (32-36); Mean Corpuscular Hgb 30.6 pg (27.0-32.0); Mean Corpuscular Volume 100.7 fL (81-99); Mean Platelet Vol. 9.6 fl (6.2-12.0); Monocyte# 0.35 X10^3/uL; Monocyte% 8.9 % (0-10); NRBC Flagged by Analyzer 0 % (0-5); Neutrophil # 3.29 X10^3/uL (2.7-7.7); Neutrophil % 83.9 % (47-70); POSITIVE COUNT YES; POSITIVE DIFFERENTIAL YES; Platelet Count 137 K/mm3 (150-450); RBC Distribution Width CV 15.2 % (11.6-14.6); RBC Distribution Width SD 55.8 fl (35.1-43.9); Red Blood Count 2.94 M/mm3 (4.2-5.4); White Blood Count 3.9 K/mm3 (4.4-11.0)
[2022-09-05 06:52] LABS: Bedside Glucose 102 mg/dL (74-106)
[2022-09-05 06:57] LABS: Differential Indicated SCAN CRITERIA MET
[2022-09-05 07:11] LABS: ALB/GLOB Ratio 0.8 RATIO (0.9-2.4); AST(SGOT) 20 U/L (15-37); Alanine Aminotransfer ALT/SGPT 18 U/L (13-56); Albumin, Serum 2.7 g/dL (3.2-5.0); Alkaline Phosphatase 96 U/L (45-117); Anion Gap 2 (5-15); BUN 24 mg/dL (7-18); BUN/Creat Ratio 23.3 RATIO (10-20); Calcium,Total 8.1 mg/dL (8.5-10.1); Chloride 100 mmol/L (98-107); Creatinine, Serum 1.03 mg/dL (0.55-1.02); EST Glomerular Filtration Rate 55 mL/min (>60); Est Glom Filt Rate - Afr Amer 66 mL/min (>60); Estimated Creatinine Clearance 63.03 ml/min; Globulin 3.5 g/dL (2.2-4.2); Glucose 105 mg/dL (74-106); Potassium 3.9 mmol/L (3.5-5.1); Protein, Total 6.2 g/dL (6.4-8.2); Sodium Level 140 mmol/L (136-145)
[2022-09-05 07:20] LABS: Differential Comment SCANNED; Hypochromasia 1+
[2022-09-05] MEDS: Budesonide Respules 0.5 MG/2 ML AMPUL.NEB. INHALATION ×2 (07:34→19:46)
--- NOTE | 2022-09-05 07:36 | PN.HOSP_ITS ---
Reason for Visit Reason for Visit: Diagnoses Pneumonia, unspecified organism (09/05/22) Objective Data Objective Data Vital Signs: Vital Signs Temp Pulse Resp BP Pulse Ox O2 Del Method O2 Flow Rate 97.5 F L 113 H 20 H 118/62 98 Nasal Cannula 4 09/05/22 04:50 09/05/22 04:50 09/05/22 04:50 09/05/22 04:50 09/05/22 04:50 09/05/22 05:23 09/05/22 05:23 Oxygen Flow Rate (L/min) 4 Oxygen Delivery Method Nasal Cannula Weight: 205 lb 7.533 oz Body Mass Index (BMI) 41.5 Intake & Output: Intake and Output for Last 24 Hours 09/03/22 09/04/22 09/05/22 23:59 23:59 23:59 Intake Total 770 / 770 Balance 770 / 770 Lab / Micro Data 09/05/22 06:15 09/05/22 06:15 Labs: Laboratory Results - last 24 hr 09/04/22 23:22: WBC 5.5, RBC 3.17 L, Hgb 9.4 L, Hct 31.4 L, MCV 99.1 H, MCH 29.7, MCHC 29.9 L, RDW Std Deviation 55.7 H, RDW Coeff of Jacob 15.4 H, Plt Count 168, MPV 10.1, Immature Gran % (Auto) 0.400, Neut % (Auto) 84.3 H, Lymph % (Auto) 6.2 L, [place] % (Auto) 8.4, Eos % (Auto) 0.5, Baso % (Auto) 0.2, Absolute Neuts (auto) 4.6, Absolute Lymphs (auto) 0.34 L, Nucleated RBC % 0, Differential Comment SCANNED, Toxic Granulation 2+, Sodium 141, Potassium 4.1, Chloride 98, Carbon Dioxide 38.0 H, Anion Gap 5, BUN 25 H, Creatinine 1.16 H, Estim Creat Clear Calc 27.32, Est GFR (MDRD) Af Amer 58 L, Est GFR (MDRD) Non-Af 48 L, BUN/Creatinine Ratio 21.6 H, Glucose 142 H, Calcium 8.7, Troponin I High Sens 34, B-Natriuretic Peptide 288.4 H 09/05/22 00:26: Lactic Acid 0.4 09/05/22 01:57: Procalcitonin 0.10 H 09/05/22 04:54: POC Glucose 115 H 09/05/22 06:15: WBC 3.9 L, RBC 2.94 L, Hgb 9.0 L, Hct 29.6 L, MCV 100.7 H, MCH 30.6, MCHC 30.4 L, RDW Std Deviation 55.8 H, RDW Coeff of Jacob 15.2 H, Plt Count 137 L, MPV 9.6, Immature Gran % (Auto) 0.300, Neut % (Auto) 83.9 H, Lymph % (Auto) 6.4 L, [place] % (Auto) 8.9, Eos % (Auto) 0.5, Baso % (Auto) 0.0, Absolute Neuts (auto) 3.3, Absolute Lymphs (auto) 0.25 L, Nucleated RBC % 0, Differential Comment SCANNED, Diff Path Review May foll, Hypochromasia 1+, Sodium 140, Potassium 3.9, Chloride 100, Carbon Dioxide 38.0 H, Anion Gap 2 L, BUN 24 H, Creatinine 1.03 H, Estim Creat Clear Calc 63.03, Est GFR (MDRD) Af Amer 66, Est GFR (MDRD) Non-Af 55 L, BUN/Creatinine Ratio 23.3 H, Glucose 105, Calcium 8.1 L, Total Bilirubin 0.60, AST 20, ALT 18, Alkaline Phosphatase 96, Total Protein 6.2 L, Albumin 2.7 L, Globulin 3.5, Albumin/Globulin Ratio 0.8 L 09/05/22 06:28: POC Glucose 102 Micro: Microbiology 09/05/22 03:18 Mucosa - Nasopharyngeal Respiratory Panel (PCR) - Final Radiography Diagnostic Testing: Radiology Impression Chest X-Ray 09/04/22 00:10 IMPRESSION: Findings suspicious for interval right upper lobe pneumonia. Left lower lobe atelectasis and/or recurrent infiltrates. Electronically Signed: Bre Monroy MD at 0:24 EDT , Physical Exam Narrative Seen and examined. Patient was admitted yesterday for shortness of breath. She denies significant cough, sputum production or fever. She has history of pulmonary hypertension and is on home oxygen. She follows Dr. Garcia. Physical exam General: Alert, Oriented x3, Cooperative HEENT: Atraumatic, PERRLA, EOMI, Normocephalic Oral: No Gingival or Mucosal Lesions/ Ulcerations Neck: Supple, No JVD, Negative Carotid Bruits Lungs: Air entry diminished in bilateral lung bases. No crepitation/rhonchi Cardiovascular: Regular rate, Regular Rhythm, loud P2. Systolic murmur LLSB. Abdomen: Bowel Sounds Present, Soft, Non Tender, Non-Distended : No renal angle tenderness. No suprapubic tenderness. Extremities: No edema, Capillary Refill Less than 3 Seconds Skin: No rashes, No breakdown Musculoskeletal: No Tenderness to Palpation of Joints or Extremities. ROM intact. Neurological: Cranial nerves II-XII grossly intact, DTR 2+/4 and Symmetrical, Neuro grossly intact Psych/Mental Status: Normal Affect, Appropriate. Assessment & Plan Assessment/Plan (1) Pneumonia: QUALIFIERS: Laterality: right Lung location: upper lobe of lung Pneumonia type: due to unspecified organism Qualified Code(s): J18.9 - Pneumonia, unspecified organism PLAN: Plan The patient is an 82 y/o F came to ED for increased dyspnea over the last 2 days with no recent productive cough fever/chills fatigue and malaise. #1. Suspected right upper lobe as well as possible left lower lobe pneumonia: Patient is admitted to MedSurg floor. Oxygen therapy. Patient on IV ceftriaxone and azithromycin, budesonide therapy, incentive spirometry/Pep. Pneumonia work-up is ordered including blood culture respiratory panel negative. Chest x-ray individually reviewed and shows right upper lobe alveolar opacity/consolidation and left lower lobe infiltrate/atelectasis. #2. COPD with chronic hypoxic respiratory failure (4-5L NC) during daytime and 10 L at night with CPAP complicated by significant pulmonary hypertension: Continue oxygen therapy to keep pulse ox 90%. Continue ATC budesonide therapy, PRN albuterol, HOB, incentive spirometry/Pep. Continue patient home treprostinil/Opsumit home regimen. #3. PAF: Continue patient on metoprolol regimen, previously was on Eliquis but did have a history of a hematoma, probably stopped after that. Most recent echocardiogram 09/03/2022 with normal LV, mild concentric LVH, EF 55%, PASP 40 mmHg. #4. Diabetes mellitus type II: Most recent hemoglobin A1c noted 12/21/2019 5.9%. Repeat A1c 6.8. Accu-Cheks before meals and at bedtime correctional sliding scale. #5. Chronic anemia: Prior has been on the edge of macrocytic, currently MCV upon presentation 99.1, admission hemoglobin 9.4, baseline appears primarily 8- 9, stable, continue to monitor #6. Hypertension: Continue home regimen including Lasix, metoprolol, spironolactone with hold parameters as needed, PRN hydralazine. #7. Hyperlipidemia: Per current list not on statin therapy, defer to outpatient. #8. Chronic Kidney Disease Stage III, unclear subtype: Admission BUN/Cr 25/1. 16, baseline renal function primarily 0.8-1.0, repeat BMP in AM. #9. Chronic pain syndrome: continue patient home transdermal chronic fentanyl patch. #10. Morbid Obesity: Weight loss and lifestyle changes encouraged. #11. Restless leg syndrome: We will continue patient home pramipexole regimen. #12. GERD: We will continue patient home PPI. #13. Former tobacco usage: Encourage continued tobacco cessation. #14. ROYAL: Reports CPAP with 10 L nightly however other records note BiPAP nightly. #15. DVT prophylaxis: Lovenox. #16. CODE status: Patient DAYANARA is her daughter Bre Oakes and living will is currently in place. Discussed CODE status at length including difference between FULL code, DNR-CCA and DNR-CC status. Following discussions about the differences in these status, requested DNR-CCA, no intubation status. Microbiology Past 72 Hours 09/05/22 08:49 Urine, Clean Catch Legionella Antigen - Final 09/05/22 08:49 Urine, Clean Catch Streptococcus pneumoniae Antigen (M - Final 09/05/22 03:18 Mucosa - Nasopharyngeal Respiratory Panel (PCR) - Final Laboratory Results 09/04/22 23:22: WBC 5.5, RBC 3.17 L, Hgb 9.4 L, Hct 31.4 L, MCV 99.1 H, MCH 29.7, MCHC 29.9 L, RDW Std Deviation 55.7 H, RDW Coeff of Jacob 15.4 H, Plt Count 168, MPV 10.1, Immature Gran % (Auto) 0.400, Neut % (Auto) 84.3 H, Lymph % (Auto) 6.2 L, [place] % (Auto) 8.4, Eos % (Auto) 0.5, Baso % (Auto) 0.2, Absolute Neuts (auto) 4.6, Absolute Lymphs (auto) 0.34 L, Nucleated RBC % 0, Differential Comment SCANNED, Toxic Granulation 2+, Sodium 141, Potassium 4.1, Chloride 98, Carbon Dioxide 38.0 H, Anion Gap 5, BUN 25 H, Creatinine 1.16 H, Estim Creat Clear Calc 27.32, Est GFR (MDRD) Af Amer 58 L, Est GFR (MDRD) Non-Af 48 L, BUN/Creatinine Ratio 21.6 H, Glucose 142 H, Calcium 8.7, Troponin I High Sens 34, B-Natriuretic Peptide 288.4 H 09/05/22 00:26: Lactic Acid 0.4 09/05/22 01:57: Procalcitonin 0.10 H 09/05/22 04:54: POC Glucose 115 H 09/05/22 05:28: MRSA (PCR) Negative 09/05/22 06:15: WBC 3.9 L, RBC 2.94 L, Hgb 9.0 L, Hct 29.6 L, MCV 100.7 H, MCH 30.6, MCHC 30.4 L, RDW Std Deviation 55.8 H, RDW Coeff of Jacob 15.2 H, Plt Count 137 L, MPV 9.6, Immature Gran % (Auto) 0.300, Neut % (Auto) 83.9 H, Lymph % (Auto) 6.4 L, [place] % (Auto) 8.9, Eos % (Auto) 0.5, Baso % (Auto) 0.0, Absolute Neuts (auto) 3.3, Absolute Lymphs (auto) 0.25 L, Nucleated RBC % 0, Differential Comment SCANNED, Diff Path Review Reviewed, Hypochromasia 1+, Sodium 140, Potassium 3.9, Chloride 100, Carbon Dioxide 38.0 H, Anion Gap 2 L, BUN 24 H, Creatinine 1.03 H, Estim Creat Clear Calc 63.03, Est GFR (MDRD) Af Amer 66, Est GFR (MDRD) Non-Af 55 L, BUN/Creatinine Ratio 23.3 H, Glucose 105, Hemoglobin A1c 6.8 H, Calcium 8.1 L, Total Bilirubin 0.60, AST 20, ALT 18, Alkaline Phosphatase 96, Total Protein 6.2 L, Albumin 2.7 L, Globulin 3.5, Albumin/Globulin Ratio 0.8 L 09/05/22 06:28: POC Glucose 102 09/05/22 11:30: POC Glucose 133 H Charges/Coding Visit Charges Inpatient E&M: 45395 Subs Hosp L2
[2022-09-05 07:57] LABS: M R Staph aureus DNA By PCR Negative (Negative); Probe Check PASS; Specimen Processing Control PASS
[2022-09-05] MEDS: Metoprolol Tartrate 50 MG Tablet PO ×2 (10:02→22:40)
[2022-09-05] MEDS: Potassium Chloride Oral Tablet 20 MEQ PO (10:02)
[2022-09-05] MEDS: Mirabegron 50 MG TAB.ER.24H PO (10:03)
[2022-09-05] MEDS: Furosemide 80 MG Tablet PO (10:03)
[2022-09-05] MEDS: Enoxaparin 40 MG/0.4 ML Syringe SC ×2 (10:03→22:39)
[2022-09-05] MEDS: Spironolactone 25 MG Tablet PO (10:03)
[2022-09-05] MEDS: Pantoprazole Sodium 40 MG Tablet PO (10:03)
[2022-09-05] MEDS: MACITENTAN 10 MG PO (10:03)
[2022-09-05 11:01] LABS: Hemoglobin A1c 6.8 % (3.8-5.6)
[2022-09-05 11:10] LABS: Pathologist Review Reviewed
[2022-09-05 11:48] LABS: Bedside Glucose 133 mg/dL (74-106)
--- NOTE | 2022-09-05 12:00 | CASEMGMT ---
RN CM Face to Face with patient for initial transition planning/care coordination assessment. RN CM introduced self and role at [facility]. Patient sitting in chair, alert and oriented. Patient willing to participate in assessment and is able to answer all questions appropriately. Care providers, pharmacy, and demographics verified. Patient wishes to discharge possibly to TCU. Patient states she has no further needs or concerns at this time. SW updated regarding TCU request. CM to follow for discharge planning needs that may arise. PCP: [facility] Specialists: Tamika, checking clerk; Radha, trip follower Preferred Pharmacy: [facility] Insurance: [employer], [employer] Prescription Benefit: yes Living Will/HPOA: yes, daughters Mague Oakes and Amaya Magallon LNOK: daughters Living Arrangements: Patient lives alone in a 2 story home with stair lift. Patient states she is independent at home and able to ambulate stairs. Transportation: self, [place], friends DME/HHC: Patient shower, cane, grab bars, walker, rollator, wheelchair, medical alert, bipap, nebulizer, pulse ox, and home oxygen through [facility] at 4.5lpm during the day and 10lpm at HS, has portable concentrator and tanks. Patient has been to TCU, [facility], and [facility] in the past. Patient has had [facility] in the past. Disposition Plan: TCU pending acceptance. Caryn RASMUSSEN, RN, CM
--- NOTE | 2022-09-05 12:10 | CASEMGMT ---
RN CHEPE said patient is possibly interested in [facility] TCU. SW made a referral to Mary in TCU. Mary will review patient's medications on Thursday as patient will be here through the weekend. Plan: Possibly TCU if that is what patient chooses to do and if TCU is okay with patient's medications. Ana Santos VMWARE ADMINISTRATOR NERY
--- NOTE | 2022-09-05 13:13 | CHAPLAIN ---
Type of Pastoral Visit _x__ Initial Visit ___ Follow-up Visit ___ On-call Visit ___ General Patient Visit ___ Spiritual Assessment ___ Family Conference ___ Bereavement ___ Rapid Response ___ Code Blue ___ Other (describe below) Pastoral Care Referral From _x__ Patient ___ Family ___ Nurse ___ Physician ___ Hand Molder And Caster ___ Clinical Instructor ___ Other (describe below) Sacrament/Intervention _x__ Active listening ___ Anointing ___ Methodist ___ Bereavement ___ Communion _x__ Aditi exploration ___ _x__ Life review _x__ Prayer ___ Reconciliation ___ Sacrament of Sick _x__ Supportive presence ___ Wedding ___ Other (describe below) Pastoral Comments patient reports on her physical health although she states she is not much concerned about that; pt talks about family being so far away from her but that she has great neighbors and a couple of relatives here; pt talks about losing her one year ago and about spiritual care for him at that time; pt requests prayer but has no other needs
[2022-09-05 16:55] LABS: Bedside Glucose 112 mg/dL (74-106)
[2022-09-05] MEDS: Ciprofloxacin 0.3% 2.5ml Bottle 2 DRP EACH EYE ×2 (17:36→22:38)
[2022-09-05 21:34] LABS: Bedside Glucose 101 mg/dL (74-106)
[2022-09-05] MEDS: Pramipexole Di-HCl 1 MG Tablet PO (22:40)
[2022-09-05] MEDS: Ipratropium 0.5 MG/2.5 ML SOLUTION INHALATION (22:49)
--- NOTE | 2022-09-05 23:20 | CPS ---
pt has sleep lab bipap, has a similar nasal mask to her at home. sister brought in her head strap.
[2022-09-06] VITALS (23 sets, daily range): BP systolic 97–122; BP diastolic 54–75; PULSE 87–118; RESP 12–20; TEMP 36.7–37.2; O2SAT 85–97; BMI 41.5
[2022-09-06] MEDS: Ciprofloxacin 0.3% 2.5ml Bottle 2 DRP EACH EYE ×6 (02:31→21:34)
[2022-09-06] MEDS: Budesonide Respules 0.5 MG/2 ML AMPUL.NEB. INHALATION ×2 (07:03→19:25)
[2022-09-06] MEDS: Ipratropium 0.5 MG/2.5 ML SOLUTION INHALATION ×4 (07:03→19:25)
[2022-09-06] MEDS: Potassium Chloride Oral Tablet 20 MEQ PO (08:08)
[2022-09-06] MEDS: Spironolactone 25 MG Tablet PO (08:08)
[2022-09-06] MEDS: Metoprolol Tartrate 50 MG Tablet PO ×2 (08:09→22:18)
[2022-09-06] MEDS: Furosemide 80 MG Tablet PO (08:09)
[2022-09-06] MEDS: Enoxaparin 40 MG/0.4 ML Syringe SC ×2 (08:09→21:34)
[2022-09-06] MEDS: Mirabegron 50 MG TAB.ER.24H PO (08:10)
[2022-09-06] MEDS: MACITENTAN 10 MG PO (08:10)
[2022-09-06] MEDS: Pantoprazole Sodium 40 MG Tablet PO (08:11)
[2022-09-06 08:24] LABS: Bedside Glucose 95 mg/dL (74-106)
[2022-09-06] MEDS: Insulin Lispro 100 UNIT/ML INSULN.PEN SC ×2 (11:23→21:34)
[2022-09-06 11:39] LABS: Bedside Glucose 174 mg/dL (74-106)
--- NOTE | 2022-09-06 15:04 | PN.HOSP_ITS ---
Reason for Visit Reason for Visit: Diagnoses Pneumonia, unspecified organism (09/05/22) Objective Data Objective Data Vital Signs: Vital Signs Temp Pulse Resp BP Pulse Ox O2 Del Method O2 Flow Rate 98.0 F 88 20 H 104/54 L 88 High Flow 8 09/06/22 08:15 09/06/22 10:47 09/06/22 10:47 09/06/22 08:15 09/06/22 14:33 09/06/22 14:47 09/06/22 14:47 Oxygen Flow Rate (L/min) 8 Oxygen Delivery Method High Flow Weight: 205 lb 11.06 oz Body Mass Index (BMI) 41.5 Intake & Output: Intake and Output for Last 24 Hours 09/04/22 09/05/22 09/06/22 23:59 23:59 23:59 Intake Total 2858.34 / 2858.34 345 / 345 Balance 2858.34 / 2858.34 345 / 345 Lab / Micro Data 09/05/22 06:15 09/05/22 06:15 Labs: Laboratory Results - last 24 hr 09/05/22 16:31: POC Glucose 112 H 09/05/22 21:06: POC Glucose 101 09/06/22 06:14: POC Glucose 95 09/06/22 11:20: POC Glucose 174 H Micro: Microbiology 09/05/22 08:49 Urine, Clean Catch Legionella Antigen - Final 09/05/22 08:49 Urine, Clean Catch Streptococcus pneumoniae Antigen (M - Final 09/05/22 03:18 Mucosa - Nasopharyngeal Respiratory Panel (PCR) - Final Physical Exam Narrative Seen and examined. Patient recently got short of breath/obvious dyspnea in the morning today after PT/walking. It took time to get baseline. She denies significant cough, sputum production or fever. She has history of pulmonary hypertension and is on home oxygen. She follows Dr. Garcia. Physical exam General: Alert, Oriented x3, Cooperative HEENT: Atraumatic, PERRLA, EOMI, Normocephalic Oral: No Gingival or Mucosal Lesions/ Ulcerations Neck: Supple, No JVD, Negative Carotid Bruits Lungs: Air entry diminished in bilateral lung bases. No crepitation/rhonchi Cardiovascular: Regular rate, Regular Rhythm, loud P2. Systolic murmur LLSB. Abdomen: Bowel Sounds Present, Soft, Non Tender, Non-Distended : No renal angle tenderness. No suprapubic tenderness. Extremities: No edema, Capillary Refill Less than 3 Seconds Skin: No rashes, No breakdown Musculoskeletal: No Tenderness to Palpation of Joints or Extremities. ROM intact. Neurological: Cranial nerves II-XII grossly intact, DTR 2+/4 and Symmetrical, Neuro grossly intact Psych/Mental Status: Normal Affect, Appropriate. Assessment & Plan Assessment/Plan (1) Pneumonia: QUALIFIERS: Pneumonia type: due to unspecified organism Laterality: right Lung location: upper lobe of lung Qualified Code(s): J18.9 - Pneumonia, unspecified organism PLAN: Plan The patient is an 82 y/o F came to ED for increased dyspnea over the last 2 days with no recent productive cough fever/chills fatigue and malaise. #1. Suspected right upper lobe as well as possible left lower lobe pneumonia: Patient is admitted to MedSurg floor. Oxygen therapy. Patient on IV ceftriaxone and azithromycin, budesonide therapy, incentive spirometry/Pep. Pneumonia work-up is ordered including blood culture respiratory panel negative. Chest x-ray individually reviewed and shows right upper lobe alveolar opacity/consolidation and left lower lobe infiltrate/atelectasis. 09/06: Continue IV antibiotics. Continue above treatment including bronchodilator, incentive and Pep. Patient wants to go to TCU. #2. COPD with chronic hypoxic respiratory failure (4-5L NC) during daytime and 10 L at night with CPAP complicated by significant pulmonary hypertension: Continue oxygen therapy to keep pulse ox 90%. Continue ATC budesonide therapy, PRN albuterol, HOB, incentive spirometry/Pep. Continue patient home treprostinil/Opsumit home regimen. 09/06: With history of pulmonary hypertension, realistic expectation was given that she will have dyspnea on exertion and hypoxia and continue to wear her oxygen to keep pulse ox 90%. #3. PAF: Continue patient on metoprolol regimen, previously was on Eliquis but did have a history of a hematoma, probably stopped after that. Most recent echocardiogram 09/03/2022 with normal LV, mild concentric LVH, EF 55%, PASP 40 mmHg. #4. Diabetes mellitus type II: Most recent hemoglobin A1c noted 12/21/2019 5.9%. Repeat A1c 6.8. Accu-Cheks before meals and at bedtime correctional sliding scale. #5. Chronic anemia: Prior has been on the edge of macrocytic, currently MCV upon presentation 99.1, admission hemoglobin 9.4, baseline appears primarily 8- 9, stable, continue to monitor #6. Hypertension: Continue home regimen including Lasix, metoprolol, spironolactone with hold parameters as needed, PRN hydralazine. #7. Hyperlipidemia: Per current list not on statin therapy, defer to outpatient. #8. Chronic Kidney Disease Stage III, unclear subtype: Admission BUN/Cr 25/1.16, baseline renal function primarily 0.8-1.0, repeat BMP in AM. #9. Chronic pain syndrome: continue patient home transdermal chronic fentanyl patch. #10. Morbid Obesity: Weight loss and lifestyle changes encouraged. #11. Restless leg syndrome: We will continue patient home pramipexole regimen. #12. GERD: We will continue patient home PPI. #13. Former tobacco usage: Encourage continued tobacco cessation. #14. ROYAL: Reports CPAP with 10 L nightly however other records note BiPAP nightly. #15. DVT prophylaxis: Lovenox. #16. CODE status: Patient DAYANARA is her daughter Bre Oakes and living will is currently in place. Discussed CODE status at length including difference between FULL code, DNR-CCA and DNR-CC status. Following discussions about the differences in these status, requested DNR-CCA, no intubation status. Charges/Coding Visit Charges Inpatient E&M: 15574 Subs Hosp L2
[2022-09-06 16:54] LABS: Bedside Glucose 110 mg/dL (74-106)
[2022-09-06] MEDS: Pramipexole Di-HCl 1 MG Tablet PO (21:34)
[2022-09-06] MEDS: 0.9% Saline Lock 10 ML Syringe IV (21:35)
[2022-09-06 23:43] LABS: Bedside Glucose 152 mg/dL (74-106)
[2022-09-07] VITALS (26 sets, daily range): BP systolic 97–135; BP diastolic 41–60; PULSE 85–141; RESP 12–28; TEMP 36.4–36.8; O2SAT 78–869; BMI 42.6
[2022-09-07] MEDS: Sodium Chloride 0.65% 1 SPRAY SPRAY.BTL 2 SPRAY NASAL (01:32)
[2022-09-07] MEDS: Ciprofloxacin 0.3% 2.5ml Bottle 2 DRP EACH EYE ×6 (01:32→20:55)
--- NOTE | 2022-09-07 02:06 | PCM.HOSP.N ---
Hospitalist Note Reviewed cultures as patient requiring notable supplementation, alhough on high chronic 10L baseline, noted Pseudomonas history thus will d/c rocephin and change to zosyn to be cautious, will obtain repeat CXR in AM also. Discussed her care with RT and will alter the BIPAP settings to attempt to improve her oxygenation.
[2022-09-07] MEDS: 0.9% Saline Lock 10 ML Syringe IV ×2 (02:26→20:56)
--- NOTE | 2022-09-07 03:11 | CPS ---
O2 sats continued to drop even after increased pressure and more. decreased pressures back to 16/11. Sats seemed to go up with the lower pressures. pt is wearing a full facemask now also.
--- NOTE | 2022-09-07 03:17 | CPS ---
Discussed with Dr Hernandez about this pt. Updated her O2 requirements and we are going to continue to monitor pt closely.
--- NOTE | 2022-09-07 05:55 | RAD_ITS ---
INDICATION: Dyspnea, cough EXAMINATION/TECHNIQUE: X-RAY - XR Chest 1 View COMPARISON: 09/05/2022. FINDINGS: LINES/DEVICES: None. LUNGS: Stable right upper lobe consolidation. Bibasilar atelectasis versus infiltrates. Bilateral pleural effusions. No evidence of a pneumothorax. MEDIASTINUM AND CARDIOVASCULAR STRUCTURES: Cardiac silhouette not visualized. Mediastinum is unremarkable. BONES AND SOFT TISSUES: No acute abnormality. RAD/Chest 1 View (Portable) IMPRESSION: 1. Stable right upper lobe consolidation consistent with pneumonia. 2. Bilateral pleural effusions. 3. Bibasilar atelectasis versus infiltrates. Electronically Signed: Hasmukh Guillory DO at 7:02 EDT ,
[2022-09-07 06:05] LABS: Absolute Lymphocyte Count 0.49 X10^3/uL (0.83-4.51); Absolute Neutrophil Count 3.5 X10^3/uL (2.0-7.7); Basophil# 0.01 X10^3/uL; Basophil% 0.2 % (0-1); Eosinophil# 0.05 X10^3/uL; Eosinophils% 1.1 % (0-5); Hematocrit 30.7 % (37-47); Hemoglobin 9.1 g/dL (12.0-15.0); Lymphocyte # 0.49 X10^3/ul (0.83-4.51); Mean Corp Hgb Conc 29.6 g/dL (32-36); Mean Corpuscular Hgb 29.4 pg (27.0-32.0); Mean Corpuscular Volume 99.4 fL (81-99); Mean Platelet Vol. 9.6 fl (6.2-12.0); NRBC Flagged by Analyzer 0 % (0-5); Neutrophil # 3.49 X10^3/uL (2.7-7.7); Neutrophil % 78.3 % (47-70); POSITIVE DIFFERENTIAL YES; Platelet Count 141 K/mm3 (150-450); RBC Distribution Width SD 55.6 fl (35.1-43.9); Red Blood Count 3.09 M/mm3 (4.2-5.4); White Blood Count 4.5 K/mm3 (4.4-11.0)
[2022-09-07 06:10] LABS: Differential Indicated SCAN CRITERIA MET
[2022-09-07 06:38] LABS: Anion Gap 2 (5-15); BUN 23 mg/dL (7-18); Calcium,Total 8.2 mg/dL (8.5-10.1); Chloride 100 mmol/L (98-107); Creatinine, Serum 1.15 mg/dL (0.55-1.02); EST Glomerular Filtration Rate 48 mL/min (>60); Est Glom Filt Rate - Afr Amer 58 mL/min (>60); Estimated Creatinine Clearance 56.51 ml/min; Glucose 141 mg/dL (74-106); Potassium 3.9 mmol/L (3.5-5.1); Sodium Level 139 mmol/L (136-145)
[2022-09-07 06:42] LABS: Anisocytosis 1+; Differential Comment SCANNED; Macrocytosis 1+
[2022-09-07 06:56] LABS: Bedside Glucose 126 mg/dL (74-106)
[2022-09-07] MEDS: Ipratropium 0.5 MG/2.5 ML SOLUTION INHALATION ×4 (06:57→19:46)
[2022-09-07] MEDS: Budesonide Respules 0.5 MG/2 ML AMPUL.NEB. INHALATION ×2 (06:57→19:46)
[2022-09-07] MEDS: Spironolactone 25 MG Tablet PO (08:36)
[2022-09-07] MEDS: Potassium Chloride Oral Tablet 20 MEQ PO (08:37)
[2022-09-07] MEDS: Enoxaparin 40 MG/0.4 ML Syringe SC ×2 (08:37→20:56)
[2022-09-07] MEDS: Metoprolol Tartrate 50 MG Tablet PO ×2 (08:37→20:57)
[2022-09-07] MEDS: Mirabegron 50 MG TAB.ER.24H PO (08:38)
[2022-09-07] MEDS: MACITENTAN 10 MG PO (08:38)
[2022-09-07] MEDS: Pantoprazole Sodium 40 MG Tablet PO (08:39)
[2022-09-07] MEDS: Furosemide 40 MG/4 ML Vial IV (09:25)
[2022-09-07] MEDS: Azithromycin 250 MG Tablet 500 MG PO (10:07)
[2022-09-07] MEDS: Insulin Lispro 100 UNIT/ML INSULN.PEN SC ×2 (10:55→20:56)
[2022-09-07 11:23] LABS: Bedside Glucose 190 mg/dL (74-106)
--- NOTE | 2022-09-07 13:05 | PN.HOSP_ITS ---
Reason for Visit Reason for Visit: Diagnoses Pneumonia, unspecified organism (09/05/22) Subjective Subjective Follow-up for acute on chronic hypoxic respiratory failure secondary to pulmonary hypertension Objective Data Objective Data Vital Signs: Vital Signs Temp Pulse Resp BP Pulse Ox O2 Del Method O2 Flow Rate 98 F 96 18 100/56 L 94 Nasal Cannula 12 09/07/22 11:00 09/07/22 11:01 09/07/22 11:01 09/07/22 11:00 09/07/22 11:00 09/07/22 11:00 09/07/22 11:00 Oxygen Flow Rate (L/min) 12 Oxygen Delivery Method Nasal Cannula Weight: 210 lb 15.718 oz Body Mass Index (BMI) 42.6 Intake & Output: Intake and Output for Last 24 Hours 09/05/22 09/06/22 09/07/22 23:59 23:59 23:59 Intake Total 2858.34 / 2858.34 585 / 585 75 / 75 Balance 2858.34 / 2858.34 585 / 585 75 / 75 Lab / Micro Data 09/07/22 05:33 09/07/22 05:33 Labs: Laboratory Results - last 24 hr 09/06/22 16:22: POC Glucose 110 H 09/06/22 21:31: POC Glucose 152 H 09/07/22 05:33: WBC 4.5, RBC 3.09 L, Hgb 9.1 L, Hct 30.7 L, MCV 99.4 H, MCH 29.4, MCHC 29.6 L, RDW Std Deviation 55.6 H, RDW Coeff of Jacob 15.0 H, Plt Count 141 L, MPV 9.6, Immature Gran % (Auto) 0.400, Neut % (Auto) 78.3 H, Lymph % (Auto) 11.0 L, [place] % (Auto) 9.0, Eos % (Auto) 1.1, Baso % (Auto) 0.2, Absolute Neuts (auto) 3.5, Absolute Lymphs (auto) 0.49 L, Nucleated RBC % 0, Differential Comment SCANNED, Anisocytosis 1+, Macrocytosis 1+, Sodium 139, Potassium 3.9, Chloride 100, Carbon Dioxide 37.0 H, Anion Gap 2 L, BUN 23 H, Creatinine 1.15 H, Estim Creat Clear Calc 56.51, Est GFR (MDRD) Af Amer 58 L, Est GFR (MDRD) Non-Af 48 L, BUN/Creatinine Ratio 20.0, Glucose 141 H, Calcium 8.2 L 09/07/22 06:23: POC Glucose 126 H 09/07/22 10:54: POC Glucose 190 H Micro: Microbiology 09/05/22 19:45 Sputum, Expectorated/Coughed Gram Stain - Final 09/05/22 19:45 Sputum, Expectorated/Coughed Respiratory Culture - Preliminary Yeast Like Organism 09/05/22 00:26 Blood Culture (Wb) - Right Hand Blood Culture - Preliminary No growth in 48 hours. 09/05/22 00:26 Blood Culture (Wb) - Anticubital Left Blood Culture - Preliminary No growth in 48 hours. 09/05/22 08:49 Urine, Clean Catch Legionella Antigen - Final 09/05/22 08:49 Urine, Clean Catch Streptococcus pneumoniae Antigen (M - Final 09/05/22 03:18 Mucosa - Nasopharyngeal Respiratory Panel (PCR) - Final Radiography Diagnostic Testing: Radiology Impression Chest X-Ray 09/07/22 05:55 IMPRESSION: 1. Stable right upper lobe consolidation consistent with pneumonia. 2. Bilateral pleural effusions. 3. Bibasilar atelectasis versus infiltrates. Electronically Signed: Hasmukh Guillory DO at 7:02 EDT , Physical Exam Narrative Seen and examined. Overnight in the morning patient very short of breath. Dyspnea at minimal exertion even going to bathroom. Requires 12 L of oxygen. On BiPAP last night. Repeat chest x-ray in the morning done and individually reviewed. Consistent with pulmonary venous congestion and small bilateral pleural effusion,, CP angle blunted. Stable right upper lobe consolidation. She denies significant cough, sputum production or fever. She has history of pulmonary hypertension and is on home oxygen. She follows Dr. Garcia. Physical exam General: Alert, Oriented x3, Cooperative HEENT: Atraumatic, PERRLA, EOMI, Normocephalic Oral: No Gingival or Mucosal Lesions/ Ulcerations Neck: Supple, No JVD, Negative Carotid Bruits Lungs: Air entry diminished in bilateral lung bases. No crepitation/rhonchi Cardiovascular: Regular rate, Regular Rhythm, loud P2. Systolic murmur LLSB. Abdomen: Bowel Sounds Present, Soft, Non Tender, Non-Distended : No renal angle tenderness. No suprapubic tenderness. Extremities: No edema, Capillary Refill Less than 3 Seconds Skin: No rashes, No breakdown Musculoskeletal: No Tenderness to Palpation of Joints or Extremities. ROM intact. Neurological: Cranial nerves II-XII grossly intact, DTR 2+/4 and Symmetrical, Neuro grossly intact Psych/Mental Status: Normal Affect, Appropriate. Assessment & Plan Assessment/Plan (1) Pneumonia: QUALIFIERS: Pneumonia type: due to unspecified organism Laterality: right Lung location: upper lobe of lung Qualified Code(s): J18.9 - Pneumonia, unspecified organism PLAN: Plan The patient is an 82 y/o F came to ED for increased dyspnea over the last 2 days with no recent productive cough fever/chills fatigue and malaise. #1. Suspected right upper lobe as well as possible left lower lobe pneumonia: Patient is admitted to MedSurg floor. Oxygen therapy. Patient on IV ceftriaxone and azithromycin, budesonide therapy, incentive spirometry/Pep. Pneumonia work-up is ordered including blood culture respiratory panel negative. Chest x-ray individually reviewed and shows right upper lobe alveolar opacity/consolidation and left lower lobe infiltrate/atelectasis. 09/06: Continue IV antibiotics. Continue above treatment including bronchodilator, incentive and Pep. Patient wants to go to TCU. 09/07: Spirometry/PFT data sheet on 05/06/2022, it seems patient did not had post postbronchodilator readings. FEV1 0.7 L, 48%, FVC 1.24 liters, 63% FEV1/FVC 77%. TLC 105%. DLCO 29%. Although PFT not reported but overall suggestive of mixed ventilatory defect with increased TLC and FEV1/FVC ratio 77% and decreased FVC suggestive of restrictive lung disease. Overall I think PFT was incomplete. I discussed with Dr. Garcia who is on vacation out of [facility]. Recomm ended pulmonary consult Dr. Leigh. Pulmonary consult requested. Chest x-ray in the morning shows pulmonary venous congestion with small pulmonary edema. Lasix 40 mg IV given. Scheduled Lasix 20 mg IV twice daily as patient's blood pressure is in low 100s. Started on Solu-Medrol 40 mg IV every 8 hourly. #2. COPD with chronic hypoxic respiratory failure (4-5L NC) during daytime and 10 L at night with CPAP complicated by significant pulmonary hypertension: Continue oxygen therapy to keep pulse ox 90%. Continue ATC budesonide therapy, PRN albuterol, HOB, incentive spirometry/Pep. Continue patient home treprostinil/Opsumit home regimen. 09/06: With history of pulmonary hypertension, realistic expectation was given that she will have dyspnea on exertion and hypoxia and continue to wear her oxygen to keep pulse ox 90%. 09/07: Possible COPD exacerbation with increased dyspnea but no change in cough. Patient has bilateral crepitations. IV Solu-Medrol and Lasix added as mentioned above #3. PAF: Continue patient on metoprolol regimen, previously was on Eliquis but did have a history of a abdominal hematoma, was stopped after that. Most recent echocardiogram 09/03/2022 with normal LV, mild concentric LVH, EF 55%, PASP 40 mmHg. #4. Diabetes mellitus type II: Most recent hemoglobin A1c noted 12/21/2019 5.9%. Repeat A1c 6.8. Accu-Cheks before meals and at bedtime correctional sliding scale. #5. Chronic anemia: Prior has been on the edge of macrocytic, currently MCV upon presentation 99.1, admission hemoglobin 9.4, baseline appears primarily 8- 9, stable, continue to monitor #6. Hypertension: Continue home regimen including Lasix, metoprolol, spironolactone with hold parameters as needed, PRN hydralazine. #7. Hyperlipidemia: Per current list not on statin therapy, defer to outpatient. #8. Chronic Kidney Disease Stage III, unclear subtype: Admission BUN/Cr 25/1.16, baseline renal function primarily 0.8-1.0, repeat BMP in AM. #9. Chronic pain syndrome: continue patient home transdermal chronic fentanyl patch. #10. Morbid Obesity: Weight loss and lifestyle changes encouraged. #11. Restless leg syndrome: We will continue patient home pramipexole regimen. #12. GERD: We will continue patient home PPI. #13. Former tobacco usage: Encourage continued tobacco cessation. #14. ROYAL: Reports CPAP with 10 L nightly however other records note BiPAP nightly. #15. DVT prophylaxis: Lovenox. #16. CODE status: Patient DAYANARA is her daughter Bre Oakes and living will is currently in place. Discussed CODE status at length including difference between FULL code, DNR-CCA and DNR-CC status. Following discussions about the differences in these status, requested DNR-CCA, no intubation status. Total time of the visit including total time spent in counseling or coordination of care, (more than 50% of the total time, spent in obtaining medical information from nurses and other ancillary care providers,explaining to the patient about labs, imaging, diagnosis and management of active complex medical conditions including moderate to severe pulmonary hypertension pulmonary edema, COPD), discussion with Dr. Garcia and [place] pulmonary consult , review of labs and imaging is 50 minutes. Charges/Coding Visit Charges Inpatient E&M: 24458 Subs Hosp L3
[2022-09-07] MEDS: Methylprednisolone Sod Succ 40 MG/ML VIAL IV ×2 (16:29→20:55)
[2022-09-07] MEDS: guaiFENesin 1,200 MG Tablet 1200 MG PO ×2 (16:30→21:12)
[2022-09-07 17:02] LABS: Bedside Glucose 109 mg/dL (74-106)
[2022-09-07] MEDS: Furosemide 20 MG/2 ML VIAL IV (17:31)
--- NOTE | 2022-09-07 19:25 | NURSING ---
1900 pt cont to be pink/dry w/respers even/easy mid teens. SpO2 cont to be in mid 70s. spoke w/RT re ABGs. (see labs), she plans to switch sleep lab bipap for a regular hospital bipap to see if there is any improvment in SpO2.
[2022-09-07] MEDS: Pramipexole Di-HCl 1 MG Tablet PO (20:57)
--- NOTE | 2022-09-07 22:04 | CPS ---
Patient switched to V60 bipap from Sleep lab machine due to increased Oxygen and pressure needs after ABG was obtained
--- NOTE | 2022-09-07 22:06 | CPS ---
Pressures decreased due to patient complaint
[2022-09-08] VITALS (26 sets, daily range): BP systolic 100–124; BP diastolic 50–90; PULSE 85–125; RESP 12–24; TEMP 36.6–37.2; O2SAT 83–96
[2022-09-08 04:30] LABS: Bedside Glucose 202 mg/dL (74-106)
[2022-09-08] MEDS: fentaNYL 25 MCG Patch TD (04:40)
[2022-09-08] MEDS: Methylprednisolone Sod Succ 40 MG/ML VIAL IV ×3 (06:22→20:37)
[2022-09-08] MEDS: Ciprofloxacin 0.3% 2.5ml Bottle 2 DRP EACH EYE ×5 (06:25→20:37)
[2022-09-08 06:28] LABS: Absolute Lymphocyte Count 0.14 X10^3/uL (0.83-4.51); Absolute Neutrophil Count 4.4 X10^3/uL (2.0-7.7); Hematocrit 30.3 % (37-47); Lymphocyte # 0.14 X10^3/ul (0.83-4.51); Mean Corp Hgb Conc 29.7 g/dL (32-36); Mean Corpuscular Hgb 29.1 pg (27.0-32.0); Mean Corpuscular Volume 98.1 fL (81-99); Mean Platelet Vol. 9.9 fl (6.2-12.0); Monocyte# 0.07 X10^3/uL; Monocyte% 1.5 % (0-10); NRBC Flagged by Analyzer 0 % (0-5); Neutrophil # 4.37 X10^3/uL (2.7-7.7); Neutrophil % 94.6 % (47-70); POSITIVE DIFFERENTIAL YES; Platelet Count 155 K/mm3 (150-450); RBC Distribution Width CV 14.6 % (11.6-14.6); RBC Distribution Width SD 53.3 fl (35.1-43.9); Red Blood Count 3.09 M/mm3 (4.2-5.4); White Blood Count 4.6 K/mm3 (4.4-11.0)
[2022-09-08] MEDS: Insulin Lispro 100 UNIT/ML INSULN.PEN SC ×4 (06:29→20:40)
[2022-09-08] MEDS: Ipratropium 0.5 MG/2.5 ML SOLUTION INHALATION ×4 (06:52→19:10)
[2022-09-08] MEDS: Budesonide Respules 0.5 MG/2 ML AMPUL.NEB. INHALATION ×2 (06:52→19:10)
[2022-09-08 06:55] LABS: Differential Indicated SCAN CRITERIA MET
[2022-09-08 07:06] LABS: Anion Gap 3 (5-15); BUN 30 mg/dL (7-18); Calcium,Total 8.5 mg/dL (8.5-10.1); Chloride 98 mmol/L (98-107); Creatinine, Serum 1.25 mg/dL (0.55-1.02); EST Glomerular Filtration Rate 44 mL/min (>60); Est Glom Filt Rate - Afr Amer 53 mL/min (>60); Estimated Creatinine Clearance 53.33 ml/min; Glucose 190 mg/dL (74-106); Potassium 4.1 mmol/L (3.5-5.1); Sodium Level 136 mmol/L (136-145)
[2022-09-08 07:10] LABS: Differential Comment SCANNED
[2022-09-08 07:23] LABS: Bedside Glucose 167 mg/dL (74-106)
--- NOTE | 2022-09-08 08:20 | CT_ITS ---
STUDY: CTA CHEST REASON FOR EXAM: Female, 82 years old. persist ant hypoxia RADIATION DOSAGE (If Supplied By Facility): CTDIvol = ( 17.38 ) mGy, DLP = ( 484.51 ) mGycm TECHNIQUE: The examination was performed with the intravenous administration of IV 100mL Isovue-370. Post-processing of the angiographic images was performed, with multiplanar reformation and 3D reconstruction. Individualized dose optimization techniques were used for this CT. COMPARISON: 01/15/2022 FINDINGS: Stable enlargement of the left lobe of the thyroid gland with low-density nodules. There is limited enhancement of the main pulmonary artery and right and left pulmonary arteries. There is limited enhancement of the bilateral peripheral pulmonary arteries. There is no demonstrated pulmonary embolism. However, because the contrast bolus particularly in the distal vessels is not optimal, a subtle filling defect could be present and overlooked. Normal thoracic aorta and visualized great vessels. There is no demonstrated aortic dissection. There is cardiomegaly, particularly the left atrium, with calcified coronary vessels noted. Normal mediastinum. Normal hilar regions. There is peribronchial thickening. The lungs are well expanded. Patchy diffuse air space opacifications noted in both lung sommers suggesting multifocal pneumonitis with bibasilar consolidations, free-flowing pleural effusions and atelectasis. Covid pneumonia can have this radiographic appearance. Old healed left-sided rib fractures. Degenerative changes noted throughout the thoracic spine. Limited cuts through the upper abdomen do not show any suspicious abnormality. Persistent evidence of the hepatic flexure presenting between the anterior edge of the liver and the peritoneal surface. CT/CTA Chest W/WO Contrast IMPRESSION: No demonstrated PE, or thoracic aortic aneurysm or dissection. However, contrast bolus within the pulmonary arteries is not optimal. Scattered patchy airspace opacifications in both lung sommers with bilateral pleural effusions, bibasilar atelectasis and bibasilar consolidations. Findings suggest multifocal pneumonitis but other entities including Covid pneumonia can also have a similar appearance Cardiomegaly with calcified coronary vessels No suspicious adenopathy Degenerative bony changes Electronically Signed: Michael Chaudhari MD at 9:47 EDT ,
[2022-09-08] MEDS: Pantoprazole Sodium 40 MG Tablet PO (08:58)
[2022-09-08] MEDS: Metoprolol Tartrate 50 MG Tablet PO ×2 (08:58→20:31)
[2022-09-08] MEDS: Mirabegron 50 MG TAB.ER.24H PO (08:58)
[2022-09-08] MEDS: Azithromycin 250 MG Tablet 500 MG PO (08:58)
[2022-09-08] MEDS: Potassium Chloride Oral Tablet 20 MEQ PO (08:59)
[2022-09-08] MEDS: Enoxaparin 40 MG/0.4 ML Syringe SC ×2 (08:59→20:36)
[2022-09-08] MEDS: guaiFENesin 1,200 MG Tablet 1200 MG PO ×2 (08:59→20:31)
[2022-09-08] MEDS: Spironolactone 25 MG Tablet PO (08:59)
[2022-09-08] MEDS: Furosemide 20 MG/2 ML VIAL IV (09:56)
[2022-09-08] MEDS: MACITENTAN 10 MG PO (09:59)
--- NOTE | 2022-09-08 11:49 | CON.PCM.CC_ITS ---
Assessment & Plan Assessment/Plan (1) Acute and chronic respiratory failure with hypoxia: (2) Paroxysmal atrial fibrillation: (3) Nonrheumatic aortic valve stenosis: (4) Secondary pulmonary arterial hypertension: PLAN: Plan RECOMMENDATIONS: 1. Transition to Airvo for oxygenation 2. Wean oxygen as tolerated 3. Aggressive rate control 4. Continue antihypertensive medications 5. Potential transfer to a tertiary center of pulmonary hypertension if wishes to be aggressive 6. Aggressive pulmonary toileting. Continue steroids, antibiotics and bronchodilators IMPRESSIONS: 1. Acute on chronic hypoxic respiratory failure Unclear etiology at this time. Patient does have bilateral infiltrates with consolidation of the lower lobes, likely leading to significant worsening in oxygenation. Patient's viral work-up is negative. Patient is on broad- spectrum antibiotics at this time and viral testing has been not suggestive of an etiology. Patient does have 3+ Nadiya, but is not neutropenic to suggest a fungal pneumonia. Could consider infectious disease evaluation. Patient should continue pulmonary hypertensive medications as this can lead to significant rebound hypertension if discontinued. Patient would benefit from pulmonary recruitment measures of the lower lobes such as Acapella and potential vest therapy. Patient has not responded to diuretics thus far. Patient may require a right heart catheterization for quantification clarification of pulmonary artery pressures. If the family wishes to be aggressive, transfer to a tertiary pulmonary hypertension center may be necessary. Bronchoscopy for infectious etiology would likely result in intubation given her oxygen requirements at this time. 2. A-fib with RVR Patient was significant tachycardia on presentation. This would exacerbate patient's pulmonary hypertension. However, rate control appears to be improved at this time. Patient is not on Eliquis therapy at this time, but does not have any PE noted on CTA of the chest. 3. Diabetes mellitus type 2/chronic anemia/hypertension/hyperlipidemia/CKD stage III/chronic pain/morbid obesity/ROYAL/GERD/advanced age Complicates care, management, recovery and prognosis. Patient is very clear that she does not want to be intubated. Baseline medications have been continued. Patient's creatinine is somewhat elevated, but this is likely secondary to diuretic therapy. No indication for renal replacement therapy at this time, but previous baseline appears to be a creatinine of 0.9. HPI Consult Data Date of Consult: 09/08/22 HPI Narrative HPI Narrative: ADRIEN CHILEL is an 82 F, with past medical history listed below, who presented to [facility] on 09/04/2022 secondary to progressive shortness of breath. Patient does have chronic respiratory failure with pulmonary hypertension and requires 4 to 5 L of oxygen at baseline. Patient states that she goes up to 10 L at night with the use of CPAP. Patient states that over the previous 2 days she started to have increasing shortness of breath without any chest pain, fever or otherwise feeling ill. Patient states that she did follow-up with cardiology recently and spironolactone was added to her reg imen. Patient reportedly does take Lasix 80 mg a day in addition to treprostinil and Opsumit. In the ER, patient was afebrile, but tachycardic at 113 bpm. Patient was noted to be 90% on her baseline 4 L nasal cannula and tachypneic at 26 breaths/min. Laboratory work-up showed a white blood cell count of 5.5, hemoglobin of 9.4 and platelets of 168. Chemistry showed an elevated bicarbonate of 38 with a creatinine of 1.16 and a glucose of 142. BNP was slightly elevated at 288 with a troponin of 34. Lactate was within normal limits. Chest x-ray showed infiltrate with left lower lobe atelectasis or recurrent infiltrates. EKG showed A-fib with RVR and the patient was given a dose of Levaquin and admitted to the hospital. Over the subsequent 2 days, patient did not respond to diuretic therapy. Patient has but progressively gotten more hypoxic and a pulmonary consult was obtained. On my evaluation, patient was found to be on 13 L/min nasal cannula oxygen. Patient subjectively felt that she was not much improved from admission. Patient agreed that she did not have any fever, chills, nausea or vomiting. Patient states she has been compliant with her supplemental oxygen. Patient denied any recent sick contacts or increased salt load. Patient states her lower extremities may be slightly larger than normal. No rashes have been noted. Patient does state that she follows with Dr. Garcia at baseline, but he is not available to evaluate her. Patient was on BiPAP overnight. Review of systems otherwise negative from a constitutional, HEENT, respiratory, cardiovascular, GI, genitourinary, musculoskeletal, skin, neurologic, psychiatric and hematologic system unless stated above. [facility] Medical History Arthritis Back pain BiPAP (biphasic positive airway pressure) dependence COPD (chronic obstructive pulmonary disease) Debility Essential (primary) hypertension Left thyroid nodule Low back pain Neoplasm of uncertain behavior of bladder Nonobstructive atherosclerosis of coronary artery Nonrheumatic aortic valve stenosis Obesity On home oxygen therapy Osteoarthritis Overactive bladder Paroxysmal atrial fibrillation Paroxysmal SVT (supraventricular tachycardia) Persistent atrial fibrillation Pulmonary hypertension Restless leg syndrome RLS (restless legs syndrome) Secondary pulmonary arterial hypertension Shortness of breath on exertion Sleep apnea Type 2 diabetes mellitus without complications Urinary retention Wears dentures Wears glasses Home Medications fentanyl 25 mcg/hr transdermal patch 25 mcg TRANSDERM. Q72H Pain 09/26/15 [History Last Taken 04/06/22 23:00] multivitamin with folic acid 400 mcg tablet 1 tab PO DAILY Supplement 09/26/15 [History Last Taken Unknown] pramipexole 1 mg tablet (Mirapex) 1 mg PO QHS Restless legs 01/05/18 [History Last Taken Unknown] calcium-vitamin D3-vitamin K 500 mg-1,000 unit-40 mcg chewable tablet 2 ea PO DAILY Supplement 12/20/19 [History Last Taken Unknown] macitentan 10 mg tablet (Opsumit) 10 mg PO DAILY pulmonary htn 12/20/19 [History Last Taken 12/27/19] budesonide 0.5 mg/2 mL suspension for nebulization 0.5 mg inhalation BID Check with primary doctor 10/10/21 [History Last Taken Unknown] albuterol sulfate 1.25 mg/3 mL solution for nebulization 1.25 mg inhalation BID PRN sob 10/17/21 [History Last Taken Unknown] furosemide 40 mg tablet 80 mg (2 x 40 mg) PO 1XD 30 days #60 tabs 05/02/22 [Rx Last Taken Unknown] metoprolol tartrate 50 mg tablet 50 mg PO BID #0 tabs 05/02/22 [Rx Last Taken Unknown] pantoprazole 40 mg tablet,delayed release 40 mg PO DAILY 30 days #30 tabs 05/02/22 [Rx Last Taken Unknown] treprostinil diolamine 0.25 mg tablet,extended release (Orenitram) 0.5 mg (2 x 0.25 mg) PO 0700,1500,2300 #0 tabs 05/02/22 [Rx Last Taken Unknown] potassium chloride 20 mEq tablet,extended release(part/cryst) (Klor-Con M) 20 meq PO DAILY 30 days #30 tabs 08/14/22 [Rx Last Taken Unknown] spironolactone 25 mg tablet 25 mg PO DAILY #90 tabs 08/14/22 [Rx Last Taken Unknown] diclofenac sodium 1 % topical gel 2 g topical 4X/DAY PRN itching 09/04/22 [History Last Taken Unknown] mirabegron 50 mg tablet,extended release 24 hr (Myrbetriq) 50 mg PO DAILY 09/04/22 [History Last Taken Unknown] treprostinil diolamine 2.5 mg tablet,extended release (Orenitram) 5 mg PO 0700,1500,2300 09/04/22 [History Last Taken Unknown] Allergy/AdvReac Type Severity Reaction Status Date / Time gabapentin Allergy STROKE Verified 09/04/22 23:33 LIKE SYMPTOMS ropinirole HCl [From Requip] Allergy STROKE Verified 09/04/22 23:33 LIKE SYMPTOMS pentazocine lactate AdvReac Unknown Verified 09/04/22 23:33 [From Talwin] sulfamethoxazole AdvReac Makes me Verified 09/04/22 23:33 [From Bactrim] high, feel weird trimethoprim [From Bactrim] AdvReac Makes me Verified 09/04/22 23:33 feel strange Family History Father CAD (coronary artery disease) CVA (cerebral vascular accident) Hypertension Sister CAD (coronary artery disease) Diabetes Hypertension Surgical History H/O right heart catheterization (2007) History of carpal tunnel release History of cholecystectomy History of left heart catheterization (1999) History of open reduction and internal fixation (ORIF) procedure History of right knee joint replacement partial right knee replacement Social History household members: none Smoking Status: Former smoker how long ago did patient quit smokin alcohol intake: never caffeine: Yes Type: coffee Number of servings: 1 ROS ROS Narrative See HPI Physical Exam Const alert and oriented x3 Constitutional Narrative: Moderate conversational dyspnea noted. Patient in the bedside chair with feet elevated. General Appearance: cooperative and well developed HEENT normocephalic and head/scalp atraumatic Eyes PERRL, EOMs intact bilaterally, conjunctivae normal and no scleral icterus Eyes Narrative: Glasses in place Neck full ROM and no JVD Lymph Lymphatic: no lymphadenopathy noted Resp no use of accessory muscles Effort and Inspection: tachypneic Auscultation: rhonchi lower bilaterally and diminished lung sounds; Negative for rales or wheezes Cardio S1 normal heart sound, S2 normal heart sound, no murmurs, no rub and no gallops; Negative for regular rhythm Rate: tachycardic GI normal to inspection, nondistended, normoactive bowel sounds Extremity General Extremity: clubbing and edema Skin no rashes or lesions noted Neuro oriented x3, CN's II-XII intact bilaterally, moves all extremities and no focal motor deficits Psych cooperative and affect normal Medical Records Data Attestation: I reviewed the patient's medical records Lab / Micro Data Attestation: I reviewed the patient's lab results. Lab results narrative: Chest x-ray was reviewed and suggestive of a pleural effusion. Hospitalist had ordered a subsequent also CTA of the chest showing bilateral infiltrates with little effusions. 09/08/22 05:35 09/08/22 05:35 Labs: Laboratory Results - last 24 hr 09/07/22 16:28: POC Glucose 109 H 09/07/22 20:52: POC Glucose 202 H 09/08/22 05:35: WBC 4.6, RBC 3.09 L, Hgb 9.0 L, Hct 30.3 L, MCV 98.1, MCH 29.1, MCHC 29.7 L, RDW Std Deviation 53.3 H, RDW Coeff of Jacob 14.6, Plt Count 155, MPV 9.9, Immature Gran % (Auto) 0.900, Neut % (Auto) 94.6 H, Lymph % (Auto) 3.0 L, Smyth % (Auto) 1.5, Eos % (Auto) 0.0, Baso % (Auto) 0.0, Absolute Neuts (auto) 4.4, Absolute Lymphs (auto) 0.14 L, Nucleated RBC % 0, Differential Comment SCANNED, Sodium 136, Potassium 4.1, Chloride 98, Carbon Dioxide 35.0 H, Anion Gap 3 L, BUN 30 H, Creatinine 1.25 H, Estim Creat Clear Calc 53.33, Est GFR (MDRD) Af Amer 53 L, Est GFR (MDRD) Non-Af 44 L, BUN/Creatinine Ratio 24.0 H, Glucose 190 H, Calcium 8.5 09/08/22 06:28: POC Glucose 167 H Micro: Microbiology 09/05/22 19:45 Sputum, Expectorated/Coughed Gram Stain - Final 09/05/22 19:45 Sputum, Expectorated/Coughed Respiratory Culture - Final Presumptive C albicans Radiology Impression Chest CTA 09/08/22 08:20 IMPRESSION: No demonstrated PE, or thoracic aortic aneurysm or dissection. However, contrast bolus within the pulmonary arteries is not optimal. Scattered patchy airspace opacifications in both lung sommers with bilateral pleural effusions, bibasilar atelectasis and bibasilar consolidations. Findings suggest multifocal pneumonitis but other entities including Covid pneumonia can also have a similar appearance Cardiomegaly with calcified coronary vessels No suspicious adenopathy Degenerative bony changes Electronically Signed: Michael Chaudhari MD at 9:47 EDT , Charges/Coding Visit Charges Inpatient E&M: 70000 Init Hosp L3
[2022-09-08] MEDS: 0.9% Saline Lock 10 ML Syringe IV ×2 (12:07→20:41)
[2022-09-08 12:55] LABS: Bedside Glucose 276 mg/dL (74-106)
--- NOTE | 2022-09-08 14:37 | PN.HOSP_ITS ---
Reason for Visit Reason for Visit: Shortness of breath/cough/fatigue Subjective Subjective Patient is an 82-year-old white female who presented to the emergency department was prehospital on 09/05/2022 with shortness of breath, cough, and fatigue. The patient has known history of COPD with chronic hypoxic respiratory failure on 4 to 5 L nasal cannula at baseline. She follows with Dr. Gacria as an outpatient. She reported a period of increasing shortness of breath over approximately 2 days prior to presentation with no productive cough, fevers, or chills. She had no sick contacts of which she was aware. Vital signs on presentation demonstrated T98.3, heart rate 113, BP 102/67, respiratory rate 18, initially 90% on 4 L with transition to 5 L nasal cannula with improvement to 93 to 94% oxygenation. She had no leukocytosis. Her lactate was normal at 0.4 but her chest x-ray showed findings suspicious for pneumonia. The emergency de partment she was given Levaquin 750 mg x 1 dose and she was admitted to the medical floor. After initial antibiotic dosing her blood pressure did drop to 80 systolic and she responded to 500 cc bolus. Patient was maintained on broad- spectrum antibiotics, placed on the desonide therapy along with as needed albuterol and scheduled DuoNebs and has been on azithromycin and Rocephin. Respiratory viral panel was unremarkable. Strep pneumo and Legionella antigens were unremarkable. Sputum culture was obtained and only shows presumptive Nadiya albicans. She remains hypoxic and was on BiPAP at 70% through the night and had been transitioned to heated high flow nasal cannula at 15 L. She subse quently was placed on Airvo. She states she currently feels about the same as on presentation and has not noticed significant improvement as of yet. Objective Data Objective Data Vital Signs: Vital Signs Temp Pulse Resp BP Pulse Ox O2 Del Method O2 Flow Rate 98.8 F 105 H 18 101/56 L 90 Airvo 60 09/08/22 12:10 09/08/22 13:00 09/08/22 13:00 09/08/22 12:10 09/08/22 13:00 09/08/22 12:10 09/08/22 12:10 FiO2 94 09/08/22 13:00 Oxygen Flow Rate (L/min) 60 Oxygen Delivery Method Airvo Weight: 95.7 kg Body Mass Index (BMI) 42.6 Intake & Output: Intake and Output for Last 24 Hours 09/06/22 09/07/22 09/08/22 23:59 23:59 23:59 Intake Total 585 / 585 675 / 675 500 / 500 Output Total 650 / 650 Balance 585 / 585 25 / 500 / 500 Lab / Micro Data 09/08/22 05:35 09/08/22 05:35 Labs: Laboratory Results - last 24 hr 09/07/22 16:28: POC Glucose 109 H 09/07/22 20:52: POC Glucose 202 H 09/08/22 05:35: WBC 4.6, RBC 3.09 L, Hgb 9.0 L, Hct 30.3 L, MCV 98.1, MCH 29.1, MCHC 29.7 L, RDW Std Deviation 53.3 H, RDW Coeff of Jacob 14.6, Plt Count 155, MPV 9.9, Immature Gran % (Auto) 0.900, Neut % (Auto) 94.6 H, Lymph % (Auto) 3.0 L, Amador % (Auto) 1.5, Eos % (Auto) 0.0, Baso % (Auto) 0.0, Absolute Neuts (auto) 4.4, Absolute Lymphs (auto) 0.14 L, Nucleated RBC % 0, Differential Comment SCANNED, Sodium 136, Potassium 4.1, Chloride 98, Carbon Dioxide 35.0 H, Anion Gap 3 L, BUN 30 H, Creatinine 1.25 H, Estim Creat Clear Calc 53.33, Est GFR (MDRD) Af Amer 53 L, Est GFR (MDRD) Non-Af 44 L, BUN/Creatinine Ratio 24.0 H, Glucose 190 H, Calcium 8.5 09/08/22 06:28: POC Glucose 167 H 09/08/22 12:05: POC Glucose 276 H Micro: Microbiology 09/05/22 19:45 Sputum, Expectorated/Coughed Gram Stain - Final 09/05/22 19:45 Sputum, Expectorated/Coughed Respiratory Culture - Final Presumptive C albicans 09/05/22 00:26 Blood Culture (Wb) - Right Hand Blood Culture - Preliminary No growth in 48 hours. 09/05/22 00:26 Blood Culture (Wb) - Anticubital Left Blood Culture - Preliminary No growth in 48 hours. 09/05/22 08:49 Urine, Clean Catch Legionella Antigen - Final 09/05/22 08:49 Urine, Clean Catch Streptococcus pneumoniae Antigen (M - Final 09/05/22 03:18 Mucosa - Nasopharyngeal Respiratory Panel (PCR) - Final Radiography Diagnostic Testing: Radiology Impression Chest CTA 09/08/22 08:20 IMPRESSION: No demonstrated PE, or thoracic aortic aneurysm or dissection. However, contrast bolus within the pulmonary arteries is not optimal. Scattered patchy airspace opacifications in both lung sommers with bilateral pleural effusions, bibasilar atelectasis and bibasilar consolidations. Findings suggest multifocal pneumonitis but other entities including Covid pneumonia can also have a similar appearance Cardiomegaly with calcified coronary vessels No suspicious adenopathy Degenerative bony changes Electronically Signed: Michael Chaudhari MD at 9:47 EDT , Assessment & Plan Assessment/Plan (1) Acute and chronic respiratory failure with hypoxia: (2) Pneumonia: QUALIFIERS: Pneumonia type: due to unspecified organism Lateral ity: right Lung location: upper lobe of lung Qualified Code(s): J18.9 - Pneumonia, unspecified organism (3) Elevated serum creatinine: (4) Hyperglycemia: PLAN: Plan Acute on chronic hypoxic respiratory failure secondary to pneumonia -CT of the chest done today shows evidence of bilateral lower lobe infiltrates with scattered patchy airspace opacifications and no PE -Continue Airvo and wean as able -Check COVID 19 rapid -Baseline oxygen requirements are 4 to 5 L -Continue Zosyn and add Zyvox -Discontinue azithromycin -Respiratory viral panel is unremarkable -Strep pneumo and Legionella antigens are negative -Check MRSA PCR -Continue aggressive pulmonary toilet -Continue methylprednisolone 40 every 8 -Add Acapella 10 times every 2 hours -Continue incentive spirometry -Add vest therapy -Continue nocturnal BiPAP -Patient does not appear to be volume overloaded so will hold diuretics for now as serum creatinine is trending up -Appreciate pulmonary medicine input -Follows with Dr. Garcia as an outpatient Elevated serum creatinine -Baseline appears to be between 0.8 and 1 -Current serum creatinine is 1.25 -Hold diuretics as patient does not appear to be decompensated heart failure -Repeat BMP in a.m. -Avoid nephrotoxins as able Hyperglycemia -Patient without history of DM-2 -Related to steroid use -continue to monitor PAF -Continue home beta-ana -Patient had previously been on Eliquis but had hematoma and this has since been discontinued -No current issues HTN/HPL -Hold Lasix with rising creatinine -Continue metoprolol -Continue Aldactone -As needed hydralazine -Patient is not on statin patient with no documented allergy -We will allow for further outpatient evaluation CKD stage IIIa -Baseline serum creatinine appears to be between 0.8 and 1.0 -Slight rise as noted above -Avoid nephrotoxins Severe COPD -Baseline oxygen requirement is 4 to 5 L -Hold home inhalers -We will utilize nebs as noted above Pulmonary hypertension -Who group unclear -Continue treprostinil/Opsumit home regimen GERD -Continue PPI Chronic pain -Continue home fentanyl patch Restless leg syndrome -Continue home Mirapex Chronic anemia-macrocytic -Baseline hemoglobin between 8 and 9 -Hemoglobin remained stable -Continue to monitor ROYAL -Patient utilizes BiPAP at night -Continue nocturnal BiPAP DVT prophylaxis -Subcu Lovenox CODE STATUS DNR CCA with no intubation per discussion with patient on presentation Charges/Coding Visit Charges Inpatient E&M: 67032 Subs Hosp L3
--- NOTE | 2022-09-08 15:43 | CASEMGMT ---
[facility] TCU can take patient when she is ready for discharge. Ana GABRIEL
[2022-09-08] MEDS: Linezolid 600 MG 600 MG/300 ML BAG 200 MG IV ×2 (15:57→20:46)
[2022-09-08 17:21] LABS: Bedside Glucose 188 mg/dL (74-106)
[2022-09-08 18:19] LABS: M R Staph aureus DNA By PCR Negative (Negative); Probe Check PASS; Specimen Processing Control PASS
[2022-09-08] MEDS: Pramipexole Di-HCl 1 MG Tablet PO (20:31)
[2022-09-08 21:09] LABS: Bedside Glucose 218 mg/dL (74-106)
[2022-09-08] MEDS: Acetaminophen 325 MG Tablet 650 MG PO (21:41)
[2022-09-09] VITALS (22 sets, daily range): BP systolic 102–151; BP diastolic 51–79; PULSE 85–133; RESP 12–23; TEMP 36.6–37.6; O2SAT 78–96; BMI 43.7
[2022-09-09] MEDS: Ciprofloxacin 0.3% 2.5ml Bottle 2 DRP EACH EYE ×6 (01:32→20:50)
[2022-09-09 05:41] LABS: Absolute Lymphocyte Count 0.25 X10^3/uL (0.83-4.51); Absolute Neutrophil Count 6.7 X10^3/uL (2.0-7.7); Hematocrit 29.8 % (37-47); Hemoglobin 9.1 g/dL (12.0-15.0); Lymphocyte # 0.25 X10^3/ul (0.83-4.51); Lymphocyte % 3.5 % (19-41); Mean Corp Hgb Conc 30.5 g/dL (32-36); Mean Corpuscular Hgb 29.5 pg (27.0-32.0); Mean Corpuscular Volume 96.8 fL (81-99); Mean Platelet Vol. 9.8 fl (6.2-12.0); Monocyte# 0.19 X10^3/uL; Monocyte% 2.7 % (0-10); NRBC Flagged by Analyzer 0 % (0-5); Neutrophil # 6.69 X10^3/uL (2.7-7.7); Neutrophil % 93.4 % (47-70); POSITIVE DIFFERENTIAL YES; Platelet Count 163 K/mm3 (150-450); RBC Distribution Width SD 53.5 fl (35.1-43.9); Red Blood Count 3.08 M/mm3 (4.2-5.4); White Blood Count 7.2 K/mm3 (4.4-11.0)
[2022-09-09] MEDS: Methylprednisolone Sod Succ 40 MG/ML VIAL IV ×3 (05:42→20:50)
[2022-09-09 05:56] LABS: Differential Indicated SCAN CRITERIA MET
[2022-09-09 06:05] LABS: Anion Gap 2 (5-15); BUN 35 mg/dL (7-18); BUN/Creat Ratio 25.9 RATIO (10-20); Calcium,Total 8.6 mg/dL (8.5-10.1); Chloride 97 mmol/L (98-107); Creatinine, Serum 1.35 mg/dL (0.55-1.02); EST Glomerular Filtration Rate 40 mL/min (>60); Est Glom Filt Rate - Afr Amer 48 mL/min (>60); Estimated Creatinine Clearance 50.61 ml/min; Glucose 196 mg/dL (74-106); Potassium 4.4 mmol/L (3.5-5.1); Sodium Level 136 mmol/L (136-145)
[2022-09-09 06:06] LABS: Differential Comment SCANNED
[2022-09-09 06:31] LABS: Blood Gas Specimen Type ART; SITE R RADIAL
[2022-09-09] MEDS: Insulin Lispro 100 UNIT/ML INSULN.PEN SC ×3 (06:31→16:47)
[2022-09-09 06:32] LABS: Allen Test Positive; O2 Delivery Device Bi Pap
[2022-09-09 06:34] LABS: Comment 16/12; RR 14
[2022-09-09 06:35] LABS: pH 7.37 (7.35-7.45)
[2022-09-09 06:36] LABS: Base Excess 14 mmol/L (-2 to +2); Bicarbonate 39.1 mmol/L (22-26); PO2 42 mmHG (75-100); SO2 73 % (95-99); Total Carbon Dioxide 41 mmol/L
[2022-09-09 06:49] LABS: Bedside Glucose 175 mg/dL (74-106)
[2022-09-09] MEDS: Ipratropium 0.5 MG/2.5 ML SOLUTION INHALATION ×4 (07:02→19:43)
[2022-09-09] MEDS: Budesonide Respules 0.5 MG/2 ML AMPUL.NEB. INHALATION (07:02)
--- NOTE | 2022-09-09 07:57 | PCM.PN.INT ---
Assessment & Plan Assessment/Plan (1) Acute and chronic respiratory failure with hypoxia: (2) Paroxysmal atrial fibrillation: (3) Nonrheumatic aortic valve stenosis: (4) Secondary pulmonary arterial hypertension: PLAN: Plan RECOMMENDATIONS: 1. Continue BiPAP for recruitment 2. Wean oxygen as tolerated 3. Aggressive rate control 4. Continue antihypertensive medications 5. Aggressive diuresis 6. Aggressive pulmonary toileting. Continue steroids, antibiotics and bronchodilators IMPRESSIONS: 1. Acute on chronic hypoxic respiratory failure Unclear etiology at this time. Patient does have bilateral infiltrates with consolidation of the lower lobes, likely leading to significant worsening in oxygenation. Patient's viral work-up is negative. Patient is on broad-spectrum antibiotics at this time and viral testing has been not suggestive of an etiology. Patient does have 3+ Nadiya, but is not neutropenic to suggest a fungal pneumonia. Patient should continue pulmonary hypertensive medications as this can lead to significant rebound hypertension if discontinued. Patient likely benefiting from improvement from positive pressure. Patient has not responded to diuretics thus far. Patient may require a right heart catheterization for quantification clarification of pulmonary artery pressures. If the family wishes to be aggressive, transfer to a tertiary pulmonary hypertension center may be necessary. Bronchoscopy for infectious etiology would likely result in intubation given her oxygen requirements at this time. Patient is not willing to make this step. We will attempt aggressive diuresis for 24 hours 2. A-fib with RVR Patient was significant tachycardia on presentation. Rate much better controlled at this time. This would exacerbate patient's pulmonary hypertension. However, rate control appears to be improved at this time. Patient is not on Eliquis therapy at this time, but does not have any PE noted on CTA of the chest. 3. Diabetes mellitus type 2/chronic anemia/hypertension/hyperlipidemia/CKD stage III/chronic pain/morbid obesity/ROYAL/GERD/advanced age Complicates care, management, recovery and prognosis. Patient is very clear that she does not want to be intubated. Baseline medications have been continued. Patient's creatinine is somewhat elevated, but this is likely secondary to diuretic therapy. No indication for renal replacement therapy at this time, but previous baseline appears to be a creatinine of 0.9. Addendum 12:31 PM Called patient's POA to discuss her case. Her POA is an ICU nurse and is very familiar with her mom's care. She was updated on the various concerns including the fact that she is on BiPAP at 90%. Her POA was very clear that she would not want to be intubated for any reason. She wants us to continue with interventions such as antifungals without a bronchoscopy. She is going to attempt to get a flight earlier to come out and visit. She understands that if the patient does not improve the next 24 to 48 hours that this may be time for hospice to become involved. Patient's reportedly in August of last year and the family has felt that she has lived on borrowed time for some time and has been declining since December of last year. Offered support. The patient was concerned that these findings could be secondary to Tyvaso. An extensive literature search was obtained showing no known pneumonitis. Patient is on high-dose steroids at this time. However, in my opinion, rebound pulmonary hypertension with abrupt cessation of Tyvaso would likely be more dangerous than treating through with steroid therapy. Subjective Subjective Patient with additional decline overnight. Patient required BiPAP rescue with high FiO2 requirements. Patient is not reporting any cough, nausea or vomiting. Patient's heart rate has been relatively controlled. Patient did request a call be placed to her daughter in [place] to update. Objective Data Objective Data Vital Signs: Vital Signs Temp Pulse Resp BP Pulse Ox O2 Del Method O2 Flow Rate 36.6 C 85 19 H 122/69 H 92 Bi-pap 60 09/09/22 04:45 09/09/22 04:45 09/09/22 04:45 09/09/22 04:45 09/09/22 04:45 09/09/22 04:45 09/08/22 20:30 FiO2 95 09/09/22 04:45 Oxygen Flow Rate (L/min) 60 Oxygen Delivery Method Bi-pap Weight: 98.1 kg Body Mass Index (BMI) 43.7 Intake & Output: Intake and Output for Last 24 Hours 09/07/22 09/08/22 09/09/22 23:59 23:59 23:59 Intake Total 675 / 675 1550 / 1610 110 / 110 Output Total 650 / 650 Balance 1550 / 1610 110 / 110 Lab / Micro Data Attestation: I reviewed the patient's lab results. 09/09/22 04:44 09/09/22 04:44 Labs: Laboratory Results - last 24 hr 09/08/22 12:05: POC Glucose 276 H 09/08/22 16:00: MRSA (PCR) Negative 09/08/22 16:48: POC Glucose 188 H 09/08/22 20:40: POC Glucose 218 H 09/09/22 04:44: WBC 7.2, RBC 3.08 L, Hgb 9.1 L, Hct 29.8 L, MCV 96.8, MCH 29.5, MCHC 30.5 L, RDW Std Deviation 53.5 H, RDW Coeff of Jacob 15.0 H, Plt Count 163, MPV 9.8, Immature Gran % (Auto) 0.400, Neut % (Auto) 93.4 H, Lymph % (Auto) 3.5 L, [place] % (Auto) 2.7, Eos % (Auto) 0.0, Baso % (Auto) 0.0, Absolute Neuts (auto) 6.7, Absolute Lymphs (auto) 0.25 L, Nucleated RBC % 0, Differential Comment SCANNED, Sodium 136, Potassium 4.4, Chloride 97 L, Carbon Dioxide 37.0 H, Anion Gap 2 L, BUN 35 H, Creatinine 1.35 H, Estim Creat Clear Calc 50.61, Est GFR (MDRD) Af Amer 48 L, Est GFR (MDRD) Non-Af 40 L, BUN/Creatinine Ratio 25.9 H, Glucose 196 H, Calcium 8.6 09/09/22 06:30: POC Glucose 175 H Micro: Microbiology 09/08/22 16:00 Nasal Secretion SARS-CoV-2 Antigen (Rapid) - Final 09/05/22 19:45 Sputum, Expectorated/Coughed Gram Stain - Final 09/05/22 19:45 Sputum, Expectorated/Coughed Respiratory Culture - Final Presumptive C albicans 09/05/22 00:26 Blood Culture (Wb) - Right Hand Blood Culture - Preliminary No growth in 48 hours. 09/05/22 00:26 Blood Culture (Wb) - Anticubital Left Blood Culture - Preliminary No growth in 48 hours. 09/05/22 08:49 Urine, Clean Catch Legionella Antigen - Final 09/05/22 08:49 Urine, Clean Catch Streptococcus pneumoniae Antigen (M - Final 09/05/22 03:18 Mucosa - Nasopharyngeal Respiratory Panel (PCR) - Final ABG Data ABG results: ABG 09/07/22 19:09 Specimen Type ART Sample Site R RADIAL pH 7.37 Bicarbonate Actual 39.1 H Total CO2 41 Base Excess 14 H O2 Saturation 73 L ABG pCO2 68.0 H* ABG pO2 42 L Antonio Test Positive Respiration Rate 14 O2 Delivery Device Bi Pap Liter Flow 15.0 Blood Gas Notified Whom DR. YARBROUGH Blood Gas Notified Time 19:12 Clinical Comments 07/02 Attestation: I personally reviewed and interpreted this ABG as follows: (Compensated chronic respiratory acidosis with increased AA gradient) Radiography Diagnostic Testing: Radiology Impression Chest CTA 09/08/22 08:20 IMPRESSION: No demonstrated PE, or thoracic aortic aneurysm or dissection. However, contrast bolus within the pulmonary arteries is not optimal. Scattered patchy airspace opacifications in both lung sommers with bilateral pleural effusions, bibasilar atelectasis and bibasilar consolidations. Findings suggest multifocal pneumonitis but other entities including Covid pneumonia can also have a similar appearance Cardiomegaly with calcified coronary vessels No suspicious adenopathy Degenerative bony changes Electronically Signed: Michael Chaudhari MD at 9:47 EDT , Physical Exam Const alert and oriented x3 Constitutional Narrative: Patient in the bedside chair with feet elevated on BiPAP. General Appearance: cooperative and well developed HEENT normocephalic and head/scalp atraumatic Eyes PERRL, EOMs intact bilaterally, conjunctivae normal and no scleral icterus Neck full ROM Lymph Lymphatic: no lymphadenopathy noted Resp no use of accessory muscles Auscultation: rhonchi lower bilaterally and diminished lung sounds; Negative for rales or wheezes Cardio S1 normal heart sound, S2 normal heart sound, no murmurs, no rub and no gallops; Negative for regular rhythm GI normal to inspection, nondistended, normoactive bowel sounds Extremity General Extremity: clubbing and edema Skin no rashes or lesions noted Neuro oriented x3, CN's II-XII intact bilaterally, moves all extremities and no focal motor deficits Psych cooperative and affect normal Charges/Coding Visit Charges Inpatient E&M: 44902 Subs Hosp L3
[2022-09-09] MEDS: 0.9% Saline Lock 10 ML Syringe IV ×2 (08:29→13:51)
[2022-09-09] MEDS: Furosemide 40 MG/4 ML Vial IV ×3 (08:29→20:48)
--- NOTE | 2022-09-09 08:30 | NURSING ---
Patient on Airvo, 60L and 92%, O2 saturations in the 70's, did come up to 82% but not holding adequately. Placed back on Bipap, 90% and O2 saturations back up to 91-93%. Oral medications held at this time.
[2022-09-09] MEDS: Linezolid 600 MG 600 MG/300 ML BAG 200 MG IV ×2 (10:06→20:59)
[2022-09-09] MEDS: Insulin Glargine-YFGN 100 UNIT/ML Pen 10 UNIT SC (10:07)
[2022-09-09] MEDS: Enoxaparin 40 MG/0.4 ML Syringe SC ×2 (11:24→20:48)
[2022-09-09 11:50] LABS: Bedside Glucose 245 mg/dL (74-106)
--- NOTE | 2022-09-09 13:03 | PN.HOSP_ITS ---
Reason for Visit Reason for Visit: Shortness of breath/cough/fatigue Subjective Subjective Increased oxygen requirements over the night. Patient was no longer satting greater than 88% on Airvo and she was transition to BiPAP. Currently on BiPAP at 90% with sats at 93%. Patient denies a subjective feeling of shortness of breath. She is having no significant cough with sputum production. No fevers. I discussed the case with pulmonary medicine and they are unsure what the current etiology is as well. They offered bronchoscopy but could not guarantee that she would not require intubation and patient currently is a DNR CCA with no intubation. I rediscussed with her the possible need for intubation if bronchoscopy was performed and she was adamant that she did not want intubated. It appears that she had been undergoing work-up for possible amyloid as an outpatient but definitive work-up had not yet been able to be completed. Dr. Remy plans on calling her daughter in [place] this afternoon to update her with regards to options and treatment plan. Objective Data Objective Data Vital Signs: Vital Signs Temp Pulse Resp BP Pulse Ox O2 Del Method O2 Flow Rate 98.1 F 92 19 H 109/56 L 94 Bi-pap 60 09/09/22 11:25 09/09/22 11:25 09/09/22 11:25 09/09/22 11:25 09/09/22 11:25 09/09/22 11:25 09/09/22 08:30 FiO2 90 09/09/22 11:25 Oxygen Flow Rate (L/min) 60 Oxygen Delivery Method Bi-pap Weight: 98.1 kg Body Mass Index (BMI) 43.7 Intake & Output: Intake and Output for Last 24 Hours 09/07/22 09/08/22 09/09/22 23:59 23:59 23:59 Intake Total 675 / 675 1550 / 1610 700 / 700 Output Total 650 / 650 Balance 1550 / 1610 700 / 700 Lab / Micro Data 09/09/22 04:44 09/09/22 04:44 Labs: Laboratory Results - last 24 hr 09/08/22 16:00: MRSA (PCR) Negative 09/08/22 16:48: POC Glucose 188 H 09/08/22 20:40: POC Glucose 218 H 09/09/22 04:44: WBC 7.2, RBC 3.08 L, Hgb 9.1 L, Hct 29.8 L, MCV 96.8, MCH 29.5, MCHC 30.5 L, RDW Std Deviation 53.5 H, RDW Coeff of Jacob 15.0 H, Plt Count 163, MPV 9.8, Immature Gran % (Auto) 0.400, Neut % (Auto) 93.4 H, Lymph % (Auto) 3.5 L, [place] % (Auto) 2.7, Eos % (Auto) 0.0, Baso % (Auto) 0.0, Absolute Neuts (auto) 6.7, Absolute Lymphs (auto) 0.25 L, Nucleated RBC % 0, Differential Comment SCANNED, Sodium 136, Potassium 4.4, Chloride 97 L, Carbon Dioxide 37.0 H, Anion Gap 2 L, BUN 35 H, Creatinine 1.35 H, Estim Creat Clear Calc 50.61, Est GFR (MDRD) Af Amer 48 L, Est GFR (MDRD) Non-Af 40 L, BUN/Creatinine Ratio 25.9 H, Glucose 196 H, Calcium 8.6 09/09/22 06:30: POC Glucose 175 H 09/09/22 11:20: POC Glucose 245 H Micro: Microbiology 09/08/22 16:00 Nasal Secretion SARS-CoV-2 Antigen (Rapid) - Final 09/05/22 19:45 Sputum, Expectorated/Coughed Gram Stain - Final 09/05/22 19:45 Sputum, Expectorated/Coughed Respiratory Culture - Final Presumptive C albicans 09/05/22 00:26 Blood Culture (Wb) - Right Hand Blood Culture - Preliminary No growth in 48 hours. 09/05/22 00:26 Blood Culture (Wb) - Anticubital Left Blood Culture - Preliminary No growth in 48 hours. 09/05/22 08:49 Urine, Clean Catch Legionella Antigen - Final 09/05/22 08:49 Urine, Clean Catch Streptococcus pneumoniae Antigen (M - Final 09/05/22 03:18 Mucosa - Nasopharyngeal Respiratory Panel (PCR) - Final ABG Data ABG results: ABG 09/07/22 19:09 Specimen Type ART Sample Site R RADIAL pH 7.37 Bicarbonate Actual 39.1 H Total CO2 41 Base Excess 14 H O2 Saturation 73 L ABG pCO2 68.0 H* ABG pO2 42 L Antonio Test Positive Respiration Rate 14 O2 Delivery Device Bi Pap Liter Flow 15.0 Blood Gas Notified Whom DR. YARBROUGH Blood Gas Notified Time 19:12 Clinical Comments 07/02 Physical Exam Const alert, oriented x3, no apparent distress and well nourished; Negative for average body habitus or healthy appearing Constitutional Narrative: Morbidly obese, elderly, white female, sitting up in a chair at the bedside, on BiPAP watching television, appears comfortable, no signs of respiratory distress, nontoxic-appearing HEENT head/scalp atraumatic HEENT Narrative: BiPAP in place Head and Scalp: normocephalic Resp normal respiratory effort, no retractions and no use of accessory muscles Resp Narrative: Diffusely diminished but no significant adventitious sounds, no accessory muscle use or retractions, effort is normal with no tachypnea on BiPAP Auscultation: Negative for rales, rhonchi or wheezes Cardio regular rate, regular rhythm, S1 normal heart sound, S2 normal heart sound, no murmurs, no rub, no gallops and no clicks GI normal to inspection, nondistended, normoactive bowel sounds, soft to palpation and non-tender Extremity no clubbing, cyanosis or edema Extremity Narrative: Pedal pulses are 2+, radial pulses are 2+ Neuro oriented x3, moves all extremities and no focal motor deficits Neuro Narrative: Generalized weakness noted Speech: speech normal Psych affect normal Psych Narrative: Extremely pleasant Assessment & Plan Assessment/Plan (1) Acute and chronic respiratory failure with hypoxia: (2) Pneumonia: QUALIFIERS: Pneumonia type: due to unspecified organism Laterality: right Lung location: upper lobe of lung Qualified Code(s): J18.9 - Pneumonia, unspecified organism (3) Elevated serum creatinine: (4) Hyperglycemia: PLAN: Plan Acute on chronic hypoxic respiratory failure secondary to pneumonia -CT of the chest done today shows evidence of bilateral lower lobe infiltrates with scattered patchy airspace opacifications and no PE -Etiology is uncertain patient is not improving on broad-spectrum antibiotics -Patient has clinically worsened with regards to oxygenation and now is requiring continuous BiPAP -COVID-19 negative -Baseline oxygen requirements are 4 to 5 L -Continue Zosyn and and Zyvox -Add fluconazole with sputum culture only showing Nadiya albicans -I would not expect this to be infectious in a patient but does not immunosuppressed however with no other etiology identified we feel it is prudent to trial her on antifungals and see if she improves clinically -Respiratory viral panel is unremarkable -Strep pneumo and Legionella antigens are negative -MRSA PCR is unremarkable -Continue aggressive pulmonary toilet -Continue methylprednisolone 40 every 8 -Continue Acapella 10 times every 2 hours -Continue incentive spirometry -Continue vest therapy -ID consulted for assistance with antibiotics -Diuretics per primary service -Appreciate pulmonary medicine input--> Case discussed with Dr. Remy and plan is for further conversation with daughter later this afternoon -Follows with Dr. Garcia as an outpatient Elevated serum creatinine -Baseline appears to be between 0.8 and 1 -Current serum creatinine is 1.35 -Diuretics per pulmonary service however I do not feel that she is volume overloaded -Repeat BMP in a.m. -Avoid nephrotoxins as able Hyperglycemia -Patient without history of DM-2 -Related to steroid use -continue to monitor -Continue sliding scale -Add basal insulin 10 units -Accu-Cheks as ordered PAF -Currently in normal sinus rhythm -Continue home beta-ana but will transition IV due to need for continuous BiPAP -Patient had previously been on Eliquis but had hematoma and this has since been discontinued -Discontinued due to severe bleeding back in March 2022 -No current issues HTN/HPL -Lasix per pulmonary medicine -Continue metoprolol but trend to IV -hold Aldactone -As needed hydralazine -Patient is not on statin patient with no documented allergy -We will allow for further outpatient evaluation CKD stage IIIa -Baseline serum creatinine appears to be between 0.8 and 1.0 -Slight rise as noted above -Avoid nephrotoxins Severe COPD -Baseline oxygen requirement is 4 to 5 L -Hold home inhalers -We will utilize nebs as noted above Pulmonary hypertension -Who group unclear -Continue treprostinil/Opsumit home regimen if able to take p.o. GERD -Continue PPI transition to IV Chronic pain -Continue home fentanyl patch Restless leg syndrome -Continue home Mirapex if able to take p.o. Chronic anemia-macrocytic -Baseline hemoglobin between 8 and 9 -Hemoglobin remained stable -Continue to monitor ROYAL -Patient currently on continuous BiPAP -Typically uses nocturnal BiPAP DVT prophylaxis -Subcu Lovenox CODE STATUS DNR CCA with no intubation per discussion with patient on presentation Charges/Coding Visit Charges Inpatient E&M: 45602 Subs Hosp L2
[2022-09-09 16:47] LABS: Bedside Glucose 229 mg/dL (74-106)
[2022-09-09] MEDS: Metoprolol Tartrate 5 MG/5 ML Vial IV (17:54)
[2022-09-09] MEDS: Pramipexole Di-HCl 1 MG Tablet PO (20:50)
[2022-09-10] VITALS (23 sets, daily range): BP systolic 99–125; BP diastolic 51–66; PULSE 86–128; RESP 12–28; TEMP 36.2–37.3; O2SAT 83–96
[2022-09-10] MEDS: Metoprolol Tartrate 5 MG/5 ML Vial IV ×4 (00:03→18:11)
[2022-09-10] MEDS: Acetaminophen 325 MG Tablet 650 MG PO ×2 (00:05→11:20)
[2022-09-10] MEDS: Insulin Lispro 100 UNIT/ML INSULN.PEN SC ×4 (00:15→16:35)
[2022-09-10 00:34] LABS: Bedside Glucose 312 mg/dL (74-106)
[2022-09-10] MEDS: Ciprofloxacin 0.3% 2.5ml Bottle 2 DRP EACH EYE ×6 (03:28→22:09)
[2022-09-10 05:17] LABS: Absolute Lymphocyte Count 0.16 X10^3/uL (0.83-4.51); Absolute Neutrophil Count 5.8 X10^3/uL (2.0-7.7); Hematocrit 30.3 % (37-47); Hemoglobin 9.3 g/dL (12.0-15.0); Lymphocyte # 0.16 X10^3/ul (0.83-4.51); Lymphocyte % 2.6 % (19-41); Mean Corp Hgb Conc 30.7 g/dL (32-36); Mean Corpuscular Hgb 29.3 pg (27.0-32.0); Mean Corpuscular Volume 95.6 fL (81-99); Mean Platelet Vol. 9.5 fl (6.2-12.0); Monocyte% 1.6 % (0-10); NRBC Flagged by Analyzer 0 % (0-5); Neutrophil # 5.79 X10^3/uL (2.7-7.7); Neutrophil % 95.1 % (47-70); POSITIVE DIFFERENTIAL YES; Platelet Count 161 K/mm3 (150-450); RBC Distribution Width CV 14.8 % (11.6-14.6); RBC Distribution Width SD 52.5 fl (35.1-43.9); Red Blood Count 3.17 M/mm3 (4.2-5.4); White Blood Count 6.1 K/mm3 (4.4-11.0)
[2022-09-10 05:19] LABS: Differential Indicated SCAN CRITERIA MET
[2022-09-10] MEDS: Furosemide 40 MG/4 ML Vial IV ×3 (05:39→21:09)
[2022-09-10] MEDS: 0.9% Saline Lock 10 ML Syringe IV (05:41)
[2022-09-10] MEDS: Methylprednisolone Sod Succ 40 MG/ML VIAL IV ×3 (05:41→22:09)
[2022-09-10 05:53] LABS: ALB/GLOB Ratio 0.8 RATIO (0.9-2.4); AST(SGOT) 15 U/L (15-37); Alanine Aminotransfer ALT/SGPT 18 U/L (13-56); Albumin, Serum 2.7 g/dL (3.2-5.0); Alkaline Phosphatase 79 U/L (45-117); Anion Gap 4 (5-15); BUN 34 mg/dL (7-18); BUN/Creat Ratio 25.6 RATIO (10-20); Calcium,Total 8.2 mg/dL (8.5-10.1); Chloride 96 mmol/L (98-107); Creatinine, Serum 1.33 mg/dL (0.55-1.02); EST Glomerular Filtration Rate 41 mL/min (>60); Est Glom Filt Rate - Afr Amer 49 mL/min (>60); Estimated Creatinine Clearance 51.38 ml/min; Globulin 3.6 g/dL (2.2-4.2); Glucose 251 mg/dL (74-106); Magnesium 2.2 mg/dL (1.6-2.6); Phosphorus 4.2 mg/dL (2.5-4.9); Potassium 4.4 mmol/L (3.5-5.1); Protein, Total 6.3 g/dL (6.4-8.2); Sodium Level 135 mmol/L (136-145)
[2022-09-10 06:11] LABS: Bedside Glucose 248 mg/dL (74-106)
[2022-09-10 06:20] LABS: Differential Comment SCANNED; Hypochromasia 1+
[2022-09-10] MEDS: Ipratropium 0.5 MG/2.5 ML SOLUTION INHALATION ×4 (06:59→20:07)
[2022-09-10] MEDS: Enoxaparin 40 MG/0.4 ML Syringe SC ×2 (08:15→21:09)
[2022-09-10] MEDS: Mirabegron 50 MG TAB.ER.24H PO (08:21)
[2022-09-10] MEDS: MACITENTAN 10 MG PO (08:23)
--- NOTE | 2022-09-10 08:54 | PN.CC_ITS ---
Assessment & Plan Assessment/Plan (1) Acute and chronic respiratory failure with hypoxia: (2) Paroxysmal atrial fibrillation: (3) Nonrheumatic aortic valve stenosis: (4) Secondary pulmonary arterial hypertension: PLAN: Plan RECOMMENDATIONS: 1. Continue BiPAP for recruitment 2. Wean oxygen as tolerated 3. Aggressive rate control 4. Continue antihypertensive medications 5. Aggressive diuresis 6. Aggressive pulmonary toileting. Continue steroids, antibiotics and bron chodilators IMPRESSIONS: 1. Acute on chronic hypoxic respiratory failure Unclear etiology at this time. Patient does have bilateral infiltrates with consolidation of the lower lobes, likely leading to significant worsening in oxygenation. Patient's viral work-up is negative. Patient is on broad- spectrum antibiotics at this time and viral testing has been not suggestive of an etiology. Discussed with POA yesterday. Patient has been placed on antifungal therapy and increased diuretics. Patient with minimal improvements overnight. Still with very guarded prognosis. 2. A-fib with RVR Patient was significant tachycardia on presentation. Rate much better controlled at this time. This would exacerbate patient's pulmonary hypertension. However, rate control appears to be improved at this time. Ginger ent is not on Eliquis therapy at this time, but does not have any PE noted on CTA of the chest. Patient has remained off of anticoagulation secondary to abdominal hematoma 3. Diabetes mellitus type 2/chronic anemia/hypertension/hyperlipidemia/CKD stage III/chronic pain/morbid obesity/ROYAL/GERD/advanced age Complicates care, management, recovery and prognosis. Patient is very clear that she does not want to be intubated. Baseline medications have been continued. Patient's creatinine is somewhat elevated, but this is likely secondary to diuretic therapy. No indication for renal replacement therapy at this time, but previous baseline appears to be a creatinine of 0.9. Objective Data Objective Data Vital Signs: Vital Signs Temp Pulse Resp BP Pulse Ox O2 Del Method O2 Flow Rate 36.2 C L 108 H 28 H 113/58 L 93 Bi-pap 60 09/10/22 08:42 09/10/22 08:42 09/10/22 08:42 09/10/22 08:30 09/10/22 08:42 09/10/22 08:42 09/09/22 17:55 FiO2 85 09/10/22 08:42 Oxygen Flow Rate (L/min) 60 Oxygen Delivery Method Bi-pap Weight: 98.1 kg Body Mass Index (BMI) 43.7 Intake & Output: Intake and Output for Last 24 Hours 09/08/22 09/09/22 09/10/22 23:59 23:59 23:59 Intake Total 1550 / 1610 1480 / 1780 1150 / 1150 Output Total 300 / 700 601 / 601 Balance 1550 / 1610 1180 / 1080 549 / 549 Lab / Micro Data 09/10/22 04:46 09/10/22 04:46 Labs: Laboratory Results - last 24 hr 09/09/22 11:20: POC Glucose 245 H 09/09/22 16:23: POC Glucose 229 H 09/10/22 00:06: POC Glucose 312 H 09/10/22 04:46: WBC 6.1, RBC 3.17 L, Hgb 9.3 L, Hct 30.3 L, MCV 95.6, MCH 29.3, MCHC 30.7 L, RDW Std Deviation 52.5 H, RDW Coeff of Jacob 14.8 H, Plt Count 161, MPV 9.5, Immature Gran % (Auto) 0.700, Neut % (Auto) 95.1 H, Lymph % (Auto) 2.6 L, [place] % (Auto) 1.6, Eos % (Auto) 0.0, Baso % (Auto) 0.0, Absolute Neuts (auto) 5.8, Absolute Lymphs (auto) 0.16 L, Nucleated RBC % 0, Differential Comment SCANNED, Hypochromasia 1+, Sodium 135 L, Potassium 4.4, Chloride 96 L, Carbon Dioxide 35.0 H, Anion Gap 4 L, BUN 34 H, Creatinine 1.33 H, Estim Creat Clear Calc 51.38, Est GFR (MDRD) Af Amer 49 L, Est GFR (MDRD) Non-Af 41 L, BU N/Creatinine Ratio 25.6 H, Glucose 251 H, Calcium 8.2 L, Phosphorus 4.2, Magnesium 2.2, Total Bilirubin 0.40, AST 15, ALT 18, Alkaline Phosphatase 79, Total Protein 6.3 L, Albumin 2.7 L, Globulin 3.6, Albumin/Globulin Ratio 0.8 L 09/10/22 05:51: POC Glucose 248 H Micro: Microbiology 09/05/22 00:26 Blood Culture (Wb) - Right Hand Blood Culture - Final No growth in 5 days. 09/05/22 00:26 Blood Culture (Wb) - Anticubital Left Blood Culture - Final No growth in 5 days. 09/08/22 16:00 Nasal Secretion SARS-CoV-2 Antigen (Rapid) - Final 09/05/22 19:45 Sputum, Expectorated/Coughed Gram Stain - Final 09/05/22 19:45 Sputum, Expectorated/Coughed Respiratory Culture - Final Presumptive C albicans 09/05/22 08:49 Urine, Clean Catch Legionella Antigen - Final 09/05/22 08:49 Urine, Clean Catch Streptococcus pneumoniae Antigen (M - Final 09/05/22 03:18 Mucosa - Nasopharyngeal Respiratory Panel (PCR) - Final Physical Exam Const alert and oriented x3 Constitutional Narrative: Patient in the bedside chair with feet elevated on BiPAP. General Appearance: cooperative and well developed HEENT normocephalic and head/scalp atraumatic Eyes PERRL, EOMs intact bilaterally, conjunctivae normal and no scleral icterus Eyes Narrative: Glasses in place Neck full ROM and no JVD Lymph Lymphatic: no lymphadenopathy noted Resp no use of accessory muscles Effort and Inspection: tachypneic Auscultation: rhonchi lower bilaterally and diminished lung sounds; Negative for rales or wheezes Cardio S1 normal heart sound, S2 normal heart sound, no murmurs, no rub and no gallops; Negative for regular rhythm Rate: tachycardic GI normal to inspection, nondistended, normoactive bowel sounds Extremity General Extremity: clubbing and edema Skin no rashes or lesions noted Neuro oriented x3, CN's II-XII intact bilaterally, moves all extremities and no focal motor deficits Psych cooperative and affect normal Charges/Coding Visit Charges Inpatient E&M: 83737 Subs Hosp L3
--- NOTE | 2022-09-10 10:48 | PN.HOSP_ITS ---
Reason for Visit Reason for Visit: Shortness of breath/cough/fatigue Subjective Subjective No significant events overnight. Patient states she feels a little bit worse today however her oxygen saturations have improved on BiPAP. Sats remained stable about 94% and her oxygen has been able to be weaned to 80% FiO2. Pulmonary medicine was able to talk to the family, most pacifically her daughter who is a nurse in [place] and she indicated her mother has been declining over the last 6 months or so. Per discussion with Dr. Remy the plan is to keep keep pursuing aggressive management with what we are doing currently and then reevaluate once her daughter gets here for possible hospice intervention depending on improvement in overall condition. Her other daughter from [place] is here today and she was updated by pulmonary medicine. Objective Data Objective Data Vital Signs: Vital Signs Temp Pulse Resp BP Pulse Ox O2 Del Method O2 Flow Rate 97.2 F L 108 H 28 H 113/58 L 93 Bi-pap 60 09/10/22 08:42 09/10/22 08:42 09/10/22 08:42 09/10/22 08:30 09/10/22 08:42 09/10/22 08:42 09/09/22 17:55 FiO2 85 09/10/22 08:42 Oxygen Flow Rate (L/min) 60 Oxygen Delivery Method Bi-pap Weight: 98.1 kg Body Mass Index (BMI) 43.7 Intake & Output: Intake and Output for Last 24 Hours 09/08/22 09/09/22 09/10/22 23:59 23:59 23:59 Intake Total 1550 / 1610 1480 / 1780 1300 / 1300 Output Total 300 / 700 601 / 601 Balance 1550 / 1610 1180 / 1080 699 / 699 Lab / Micro Data 09/10/22 04:46 09/10/22 04:46 Labs: Laboratory Results - last 24 hr 09/09/22 11:20: POC Glucose 245 H 09/09/22 16:23: POC Glucose 229 H 09/10/22 00:06: POC Glucose 312 H 09/10/22 04:46: WBC 6.1, RBC 3.17 L, Hgb 9.3 L, Hct 30.3 L, MCV 95.6, MCH 29.3, MCHC 30.7 L, RDW Std Deviation 52.5 H, RDW Coeff of Jacob 14.8 H, Plt Count 161, MPV 9.5, Immature Gran % (Auto) 0.700, Neut % (Auto) 95.1 H, Lymph % (Auto) 2.6 L, [place] % (Auto) 1.6, Eos % (Auto) 0.0, Baso % (Auto) 0.0, Absolute Neuts (auto) 5.8, Absolute Lymphs (auto) 0.16 L, Nucleated RBC % 0, Differential Comment SCANNED, Hypochromasia 1+, Sodium 135 L, Potassium 4.4, Chloride 96 L, Carbon Dioxide 35.0 H, Anion Gap 4 L, BUN 34 H, Creatinine 1.33 H, Estim Creat Clear Calc 51.38, Est GFR (MDRD) Af Amer 49 L, Est GFR (MDRD) Non-Af 41 L, BUN/Creatinine Ratio 25.6 H, Glucose 251 H, Calcium 8.2 L, Phosphorus 4.2, Magnesium 2.2, Total Bilirubin 0.40, AST 15, ALT 18, Alkaline Phosphatase 79, To ann marie Protein 6.3 L, Albumin 2.7 L, Globulin 3.6, Albumin/Globulin Ratio 0.8 L 09/10/22 05:51: POC Glucose 248 H Micro: Microbiology 09/05/22 00:26 Blood Culture (Wb) - Right Hand Blood Culture - Final No growth in 5 days. 09/05/22 00:26 Blood Culture (Wb) - Anticubital Left Blood Culture - Final No growth in 5 days. 09/08/22 16:00 Nasal Secretion SARS-CoV-2 Antigen (Rapid) - Final 09/05/22 19:45 Sputum, Expectorated/Coughed Gram Stain - Final 09/05/22 19:45 Sputum, Expectorated/Coughed Respiratory Culture - Final Presumptive C albicans 09/05/22 08:49 Urine, Clean Catch Legionella Antigen - Final 09/05/22 08:49 Urine, Clean Catch Streptococcus pneumoniae Antigen (M - Final 09/05/22 03:18 Mucosa - Nasopharyngeal Respiratory Panel (PCR) - Final Physical Exam Const alert, oriented x3, no apparent distress and well nourished; Negative for avera ge body habitus or healthy appearing Constitutional Narrative: Morbidly obese, elderly, white female, sitting up in a chair at the bedside, on BiPAP watching television, appears comfortable, no signs of respiratory distress, nontoxic-appearing, appears more fatigued today, daughter at bedside HEENT head/scalp atraumatic HEENT Narrative: BiPAP in place which makes oropharynx difficult to assess fully however no thrush identified Head and Scalp: normocephalic Resp normal respiratory effort, no retractions and no use of accessory muscles Resp Narrative: Diffusely diminished but no significant adventitious sounds, no accessory muscle use or retractions, effort is normal with no tachypnea on BiPAP Auscultation: Negative for rales, rhonchi or wheezes Cardio regular rhythm, S1 normal heart sound, S2 normal heart sound, no murmurs, no rub, no gallops and no clicks Cardio Narrative: Mild tachycardia GI normal to inspection, nondistended, normoactive bowel sounds, soft to palpation and non-tender Extremity no clubbing, cyanosis or edema Extremity Narrative: Pedal pulses are 2+, radial pulses are 2+ Neuro oriented x3, moves all extremities and no focal motor deficits Neuro Narrative: Generalized weakness noted Speech: speech normal Psych affect normal Psych Narrative: Extremely pleasant Assessment & Plan Assessment/Plan (1) Acute and chronic respiratory failure with hypoxia: (2) Pneumonia: QUALIFIERS: Pneumonia type: due to unspecified organism Laterality: right Lung location: upper lobe of lung Qualified Code(s): J18.9 - Pneumonia, unspecified organism (3) Elevated serum creatinine: (4) Hyperglycemia: (5) Diabetes mellitus type 2 in obese: PLAN: Plan Acute on chronic hypoxic respiratory failure secondary to ? pneumonia -CT of the chest done 09/08/2022 showed evidence of bilateral lower lobe infiltrates with scattered patchy airspace opacifications and no PE -Etiology remains uncertain patient is not improving significantly on broad-spectrum antibiotics -Only slight improvement in the last 24 hours as her continuous BiPAP has been able to be weaned from 90% FiO2 to 80% FiO2 -COVID-19 negative -Baseline oxygen requirements are 4 to 5 L -Continue Zosyn, Zyvox, and fluconazole -Respiratory viral panel is unremarkable -Strep pneumo and Legionella antigens are negative -MRSA PCR is unremarkable -Continue aggressive pulmonary toilet -Continue methylprednisolone 40 every 8 -Continue Acapella 10 times every 2 hours -Continue incentive spirometry -Continue vest therapy -ID consulted for assistance with antibiotics -Diuretics per pulmonary medicine -Appreciate pulmonary medicine input--> Case discussed with Dr. Remy and plan is for further conversation with daughter later this afternoon -Follows with Dr. Garcia as an outpatient (he is out of town)--> I did attempt to review records from his office however I was not able to find any in [facility] Elevated serum creatinine -Baseline appears to be between 0.8 and 1 -Serum creatinine is stable at 1.33 despite diuresis -Repeat BMP in a.m. -Avoid nephrotoxins as able DM-2 -Patient without history of DM-2 however hemoglobin A1c is 6.8 which means she is a diabetic -Continue sliding scale -Increase basal insulin from 10 units to 15 units with a.m. fasting blood sugar at 251 -Accu-Cheks as ordered -Reassess tomorrow PAF -Currently in normal sinus rhythm -Continue IV metoprolol 5 mg every 6 hours -Patient had previously been on Eliquis but had hematoma and this has since been discontinued -Discontinued due to severe bleeding back in March 2022 -No current issues HTN/HPL -Lasix per pulmonary medicine -Continue metoprolol IV 5 mg every 6 hours -hold Aldactone -As needed hydralazine -Patient is not on statin patient with no documented allergy -We will allow for further outpatient evaluation CKD stage IIIa -Baseline serum creatinine appears to be between 0.8 and 1.0 -Slight rise as noted above -Avoid nephrotoxins Severe COPD -Baseline oxygen requirement is 4 to 5 L -Hold home inhalers -We will utilize nebs as noted above Pulmonary hypertension -Who group unclear -Continue treprostinil/Opsumit home regimen if able to take p.o. GERD -Continue PPI transition to IV Chronic pain -Continue home fentanyl patch Restless leg syndrome -Continue home Mirapex if able to take p.o. Chronic anemia-macrocytic -Baseline hemoglobin between 8 and 9 -Hemoglobin remained stable -Continue to monitor ROYAL -Patient currently on continuous BiPAP -Typically uses nocturnal BiPAP DVT prophylaxis -Subcu Lovenox CODE STATUS DNR CCA with no intubation per discussion with patient on presentation Charges/Coding Visit Charges Inpatient E&M: 79962 Subs Hosp L2
[2022-09-10] MEDS: Linezolid 600 MG 600 MG/300 ML BAG 200 MG IV ×2 (11:01→21:09)
[2022-09-10] MEDS: Insulin Glargine-YFGN 100 UNIT/ML Pen 15 UNIT SC (11:11)
[2022-09-10 11:32] LABS: Bedside Glucose 310 mg/dL (74-106)
--- NOTE | 2022-09-10 12:52 | PCM.CONS.GEN ---
Assessment & Plan Assessment/Plan (1) Acute and chronic respiratory failure with hypoxia: PLAN: Sputum with 3+ yeast. Cont empiric linezolid/zosyn with fluc. Will follow, thank you, d/w Dr. Amanda HPI Consult Data Date of Consult: 09/10/22 HPI Narrative Reason for Consultation: hypoxia HPI Narrative: ADRIEN CHILEL, is a 82 F with COPD on home O2, DM, CKD, presented 08/26 with several days acutely worsening dyspnea and hypoxia. Health had been slowly worsening over past few months. No sputum, no fever, no sweats. Admitted here, now on 80% fiO2 NIPPV, on linezolid/zosyn/fluconazole. Feeling about the same. Family at bedside provided additional history. Full ROS performed and neg except as noted above. [facility] Medical History Aortic valve stenosis and insufficiency, rheumatic Arthritis Back pain BiPAP (biphasic positive airway pressure) dependence COPD (chronic obstructive pulmonary disease) Debility Essential (primary) hypertension Left thyroid nodule Low back pain Neoplasm of uncertain behavior of bladder Nonobstructive atherosclerosis of coronary artery Nonrheumatic aortic valve stenosis Obesity On home oxygen therapy Osteoarthritis Overactive bladder Paroxysmal atrial fibrillation Paroxysmal SVT (supraventricular tachycardia) Persistent atrial fibrillation Pulmonary hypertension Restless leg syndrome RLS (restless legs syndrome) Secondary pulmonary arterial hypertension Shortness of breath on exertion Sleep apnea Type 2 diabetes mellitus without complications Urinary retention Wears dentures Wears glasses Home Medications fentanyl 25 mcg/hr transdermal patch 25 mcg TRANSDERM. Q72H Pain 09/26/15 [History Last Taken 04/06/22 23:00] multivitamin with folic acid 400 mcg tablet 1 tab PO DAILY Supplement 09/26/15 [History Last Taken Unknown] pramipexole 1 mg tablet (Mirapex) 1 mg PO QHS Restless legs 01/05/18 [History Last Taken Unknown] calcium-vitamin D3-vitamin K 500 mg-1,000 unit-40 mcg chewable tablet 2 ea PO DAILY Supplement 12/20/19 [History Last Taken Unknown] macitentan 10 mg tablet (Opsumit) 10 mg PO DAILY pulmonary htn 12/20/19 [History Last Taken 12/27/19] budesonide 0.5 mg/2 mL suspension for nebulization 0.5 mg inhalation BID Check with primary doctor 10/10/21 [History Last Taken Unknown] albuterol sulfate 1.25 mg/3 mL solution for nebulization 1.25 mg inhalation BID PRN sob 10/17/21 [History Last Taken Unknown] furosemide 40 mg tablet 80 mg (2 x 40 mg) PO 1XD 30 days #60 tabs 05/02/22 [Rx Last Taken Unknown] metoprolol tartrate 50 mg tablet 50 mg PO BID #0 tabs 05/02/22 [Rx Last Taken Unknown] pantoprazole 40 mg tablet,delayed release 40 mg PO DAILY 30 days #30 tabs 05/02/22 [Rx Last Taken Unknown] treprostinil diolamine 0.25 mg tablet,extended release (Orenitram) 0.5 mg (2 x 0.25 mg) PO 0700,1500,2300 #0 tabs 05/02/22 [Rx Last Taken Unknown] potassium chloride 20 mEq tablet,extended release(part/cryst) (Klor-Con M) 20 meq PO DAILY 30 days #30 tabs 08/14/22 [Rx Last Taken Unknown] spironolactone 25 mg tablet 25 mg PO DAILY #90 tabs 08/14/22 [Rx Last Taken Unknown] diclofenac sodium 1 % topical gel 2 g topical 4X/DAY PRN itching 09/04/22 [History Last Taken Unknown] mirabegron 50 mg tablet,extended release 24 hr (Myrbetriq) 50 mg PO DAILY 09/04/22 [History Last Taken Unknown] treprostinil diolamine 2.5 mg tablet,extended release (Orenitram) 5 mg PO 0700,1500,2300 09/04/22 [History Last Taken Unknown] Allergy/AdvReac Type Severity Reaction Status Date / Time gabapentin Allergy STROKE Verified 09/04/22 23:33 LIKE SYMPTOMS ropinirole HCl [From Requip] Allergy STROKE Verified 09/04/22 23:33 LIKE SYMPTOMS pentazocine lactate AdvReac Unknown Verified 09/04/22 23:33 [From Talwin] sulfamethoxazole AdvReac Makes me Verified 09/04/22 23:33 [From Bactrim] high, feel weird trimethoprim [From Bactrim] AdvReac Makes me Verified 09/04/22 23:33 feel strange Family History Father CAD (coronary artery disease) CVA (cerebral vascular accident) Hypertension Sister CAD (coronary artery disease) Diabetes Hypertension Surgical History H/O right heart catheterization (2007) History of carpal tunnel release History of cholecystectomy History of left heart catheterization (1999) History of open reduction and internal fixation (ORIF) procedure History of right knee joint replacement partial right knee replacement Social History household members: none Smoking Status: Former smoker how long ago did patient quit smokin alcohol intake: never caffeine: Yes Type: coffee Number of servings: 1 Physical Exam Const alert and no apparent distress General Appearance: cooperative Resp Auscultation: diminished lung sounds Cardio regular rate and regular rhythm GI soft to palpation, non-tender and non-distended Skin no rashes or lesions noted Neuro CN's II-XII intact bilaterally Lab / Micro Data Attestation: I reviewed the patient's lab results. 09/10/22 04:46 09/10/22 04:46 Labs: Laboratory Results - last 24 hr 09/09/22 16:23: POC Glucose 229 H 09/10/22 00:06: POC Glucose 312 H 09/10/22 04:46: WBC 6.1, RBC 3.17 L, Hgb 9.3 L, Hct 30.3 L, MCV 95.6, MCH 29.3, MCHC 30.7 L, RDW Std Deviation 52.5 H, RDW Coeff of Jacob 14.8 H, Plt Count 161, MPV 9.5, Immature Gran % (Auto) 0.700, Neut % (Auto) 95.1 H, Lymph % (Auto) 2.6 L, [place] % (Auto) 1.6, Eos % (Auto) 0.0, Baso % (Auto) 0.0, Absolute Neuts (auto) 5.8, Absolute Lymphs (auto) 0.16 L, Nucleated RBC % 0, Differential Comment SCANNED, Hypochromasia 1+, Sodium 135 L, Potassium 4.4, Chloride 96 L, Carbon Dioxide 35.0 H, Anion Gap 4 L, BUN 34 H, Creatinine 1.33 H, Estim Creat Clear Calc 51.38, Est GFR (MDRD) Af Amer 49 L, Est GFR (MDRD) Non-Af 41 L, BUN/Creatinine Ratio 25.6 H, Glucose 251 H, Calcium 8.2 L, Phosphorus 4.2, Magnesium 2.2, Total Bilirubin 0.40, AST 15, ALT 18, Alkaline Phosphatase 79, Total Protein 6.3 L, Albumin 2.7 L, Globulin 3.6, Albumin/Globulin Ratio 0.8 L 09/10/22 05:51: POC Glucose 248 H 09/10/22 11:09: POC Glucose 310 H Micro: Microbiology 09/05/22 00:26 Blood Culture (Wb) - Right Hand Blood Culture - Final No growth in 5 days. 09/05/22 00:26 Blood Culture (Wb) - Anticubital Left Blood Culture - Final No growth in 5 days.
[2022-09-10 16:59] LABS: Bedside Glucose 266 mg/dL (74-106)
[2022-09-10] MEDS: Menthol/Lanolin/Calamine/Znox 113 GM Tube 1 APPLIC TOPICAL (22:09)
[2022-09-10] MEDS: Pramipexole Di-HCl 1 MG Tablet PO (22:10)
[2022-09-11] VITALS (23 sets, daily range): BP systolic 103–133; BP diastolic 53–71; PULSE 92–136; RESP 12–24; TEMP 36.9–37.2; O2SAT 87–95; BMI 44.1
[2022-09-11] MEDS: Insulin Lispro 100 UNIT/ML INSULN.PEN SC ×5 (00:29→22:09)
[2022-09-11] MEDS: Metoprolol Tartrate 5 MG/5 ML Vial IV ×2 (00:29→05:15)
[2022-09-11] MEDS: Ciprofloxacin 0.3% 2.5ml Bottle 2 DRP EACH EYE ×6 (00:30→22:10)
[2022-09-11] MEDS: fentaNYL 25 MCG Patch TD (00:39)
--- NOTE | 2022-09-11 00:47 | NURSING ---
Pt scheduled fentanyl patch would not scan. verified by this RN and Dayanara HASTINGS. Patch wasted in sharps container and witnessed by this RN. unable to document waste in [employer], med not showing available to waste. Laura HASTINGS
[2022-09-11 00:50] LABS: Bedside Glucose 316 mg/dL (74-106)
[2022-09-11] MEDS: Furosemide 40 MG/4 ML Vial IV ×3 (05:01→22:11)
[2022-09-11] MEDS: Methylprednisolone Sod Succ 40 MG/ML VIAL IV ×3 (05:03→22:11)
[2022-09-11 05:38] LABS: Absolute Lymphocyte Count 0.14 X10^3/uL (0.83-4.51); Absolute Neutrophil Count 6.6 X10^3/uL (2.0-7.7); Hematocrit 31.6 % (37-47); Hemoglobin 10.1 g/dL (12.0-15.0); Lymphocyte # 0.14 X10^3/ul (0.83-4.51); Mean Corpuscular Hgb 30.2 pg (27.0-32.0); Mean Corpuscular Volume 94.6 fL (81-99); Mean Platelet Vol. 9.4 fl (6.2-12.0); Monocyte# 0.11 X10^3/uL; Monocyte% 1.6 % (0-10); NRBC Flagged by Analyzer 0 % (0-5); Neutrophil # 6.58 X10^3/uL (2.7-7.7); Neutrophil % 95.7 % (47-70); POSITIVE DIFFERENTIAL YES; Platelet Count 157 K/mm3 (150-450); RBC Distribution Width CV 14.7 % (11.6-14.6); RBC Distribution Width SD 51.4 fl (35.1-43.9); Red Blood Count 3.34 M/mm3 (4.2-5.4); White Blood Count 6.9 K/mm3 (4.4-11.0)
[2022-09-11 05:43] LABS: Differential Indicated SCAN CRITERIA MET
[2022-09-11 06:11] LABS: Anion Gap 5 (5-15); BUN 39 mg/dL (7-18); Calcium,Total 8.4 mg/dL (8.5-10.1); Chloride 96 mmol/L (98-107); EST Glomerular Filtration Rate 42 mL/min (>60); Est Glom Filt Rate - Afr Amer 51 mL/min (>60); Glucose 237 mg/dL (74-106); Potassium 4.2 mmol/L (3.5-5.1); Sodium Level 135 mmol/L (136-145)
[2022-09-11 06:36] LABS: Differential Comment SCANNED
[2022-09-11] MEDS: Ipratropium 0.5 MG/2.5 ML SOLUTION INHALATION ×3 (07:10→17:19)
[2022-09-11 09:14] LABS: Bedside Glucose 219 mg/dL (74-106)
--- NOTE | 2022-09-11 09:26 | PN.CC_ITS ---
Assessment & Plan Assessment/Plan (1) Acute and chronic respiratory failure with hypoxia: (2) Paroxysmal atrial fibrillation: (3) Nonrheumatic aortic valve stenosis: (4) Secondary pulmonary arterial hypertension: PLAN: Plan RECOMMENDATIONS: 1. Continue BiPAP rescue for recruitment and Airvo to facilitate nutrition 2. Wean oxygen as tolerated 3. Aggressive rate control 4. Continue antihypertensive medications 5. Continue aggressive diuresis 6. Aggressive pulmonary toileting. Continue steroids, antimicrobials and bronchodilators IMPRESSIONS: 1. Acute on chronic hypoxic respiratory failure Unclear etiology at this time. Patient does have bilateral infiltrates with consolidation of the lower lobes, likely leading to significant worsening in oxygenation. Patient's viral work-up is negative. Patient is on broad- spectrum antibiotics at this time and viral testing has been not suggestive of an etiology. Patient was placed on Diflucan with increased diuretics 2 days ago. Patient has had a significant improvement in oxygenation despite an increase in weight and reported positive fluid status. We will likely discuss with the daughters today, but anticipate to continue with this plan of care and see where oxygenation plateaus. Patient has been tolerating diuretics with no significant change in creatinine. 2. A-fib with RVR Patient was significant tachycardia on presentation. Rate much better controlled at this time. This would exacerbate patient's pulmonary h ypertension. However, rate control appears to be improved at this time. Patient is not on Eliquis therapy at this time, but does not have any PE noted on CTA of the chest. Patient has remained off of anticoagulation secondary to abdominal hematoma 3. Diabetes mellitus type 2/chronic anemia/hypertension/hyperlipidemia/CKD stage III/chronic pain/morbid obesity/ROYAL/GERD/advanced age Complicates care, management, recovery and prognosis. Patient is very clear that she does not want to be intubated. Baseline medications have been continued. Patient's creatinine is somewhat elevated, but this is likely secondary to diuretic therapy. No indication for renal replacement therapy at this time, but previous baseline appears to be a creatinine of 0.9. Subjective Subjective Patient describes yesterday as rough. Patient states she is feeling much better this morning and has been able to go to Airvo to facilitate p.o. intake. Patient is not reporting any significant cough and has remained in the bedside chair. Objective Data Objective Data Vital Signs: Vital Signs Temp Pulse Resp BP Pulse Ox O2 Del Method O2 Flow Rate 37.2 C 101 H 14 120/61 94 Airvo 60 07/20/23 04:06 09/11/22 07:10 09/11/22 07:10 09/11/22 05:15 09/11/22 07:10 09/11/22 07:10 09/11/22 07:10 FiO2 88 09/11/22 07:10 Oxygen Flow Rate (L/min) 60 Oxygen Delivery Method Airvo Weight: 99.473 kg Body Mass Index (BMI) 44.1 Intake & Output: Intake and Output for Last 24 Hours 09/09/22 09/10/22 09/11/22 23:59 23:59 23:59 Intake Total 1480 / 1780 2560 / 2560 272 / 272 Output Total 300 / 700 1401 / 1401 900 / 900 Balance 1180 / 1080 1159 / 1159 -628 / -628 Lab / Micro Data Attestation: I reviewed the patient's lab results. 09/11/22 05:10 09/11/22 05:10 Labs: Laboratory Results - last 24 hr 09/10/22 11:09: POC Glucose 310 H 09/10/22 16:26: POC Glucose 266 H 09/11/22 00:28: POC Glucose 316 H 09/11/22 05:09: POC Glucose 219 H 09/11/22 05:10: WBC 6.9, RBC 3.34 L, Hgb 10.1 L, Hct 31.6 L, MCV 94.6, MCH 30.2, MCHC 32.0, RDW Std Deviation 51.4 H, RDW Coeff of Jacob 14.7 H, Plt Count 157, MPV 9.4, Immature Gran % (Auto) 0.700, Neut % (Auto) 95.7 H, Lymph % (Auto) 2.0 L, [place] % (Auto) 1.6, Eos % (Auto) 0.0, Baso % (Auto) 0.0, Absolute Neuts (auto) 6.6, Absolute Lymphs (auto) 0.14 L, Nucleated RBC % 0, Differential Comment SCANNED, Sodium 135 L, Potassium 4.2, Chloride 96 L, Carbon Dioxide 34.0 H, Anion Gap 5, BUN 39 H, Creatinine 1.30 H, Estim Creat Clear Calc 53.30, Est GFR (MDRD) Af Amer 51 L, Est GFR (MDRD) Non-Af 42 L, BUN/Creatinine Ratio 30.0 H, Glucose 237 H, Calcium 8.4 L Micro: Microbiology 09/05/22 00:26 Blood Culture (Wb) - Right Hand Blood Culture - Final No growth in 5 days. 09/05/22 00:26 Blood Culture (Wb) - Anticubital Left Blood Culture - Final No growth in 5 days. 09/08/22 16:00 Nasal Secretion SARS-CoV-2 Antigen (Rapid) - Final 09/05/22 19:45 Sputum, Expectorated/Coughed Gram Stain - Final 09/05/22 19:45 Sputum, Expectorated/Coughed Respiratory Culture - Final Presumptive C albicans 09/05/22 08:49 Urine, Clean Catch Legionella Antigen - Final 09/05/22 08:49 Urine, Clean Catch Streptococcus pneumoniae Antigen (M - Final 09/05/22 03:18 Mucosa - Nasopharyngeal Respiratory Panel (PCR) - Final Physical Exam Const alert and oriented x3 Constitutional Narrative: Patient in the bedside chair with feet elevated on Airvo General Appearance: cooperative and well developed HEENT normocephalic and head/scalp atraumatic Eyes PERRL, EOMs intact bilaterally, conjunctivae normal and no scleral icterus Eyes Narrative: Glasses in place Neck full ROM and no JVD Lymph Lymphatic: no lymphadenopathy noted Resp no use of accessory muscles Resp Narrative: Mild conversational dyspnea Auscultation: diminished lung sounds; Negative for rales, rhonchi or wheezes Cardio S1 normal heart sound, S2 normal heart sound, no murmurs, no rub and no gallops; Negative for regular rhythm GI normal to inspection, nondistended, normoactive bowel sounds Extremity General Extremity: clubbing and edema Skin no rashes or lesions noted Neuro oriented x3, CN's II-XII intact bilaterally, moves all extremities and no focal motor deficits Psych cooperative and affect normal Charges/Coding Visit Charges Inpatient E&M: 52347 Subs Hosp L3
[2022-09-11] MEDS: Menthol/Lanolin/Calamine/Znox 113 GM Tube 1 APPLIC TOPICAL ×2 (09:42→22:20)
[2022-09-11] MEDS: Mirabegron 50 MG TAB.ER.24H PO (09:43)
[2022-09-11] MEDS: MACITENTAN 10 MG PO (09:43)
[2022-09-11] MEDS: Enoxaparin 40 MG/0.4 ML Syringe SC ×2 (09:44→22:08)
--- NOTE | 2022-09-11 10:04 | PCM.PN.ID ---
Physical Exam Narrative Breathing better, no fever, no sputum Const alert and no apparent distress Resp clear to auscultation bilaterally Auscultation: diminished lung sounds Cardio regular rate and regular rhythm GI soft to palpation, non-tender and non-distended Skin no rashes or lesions noted ID ID: Route of nutrition/ use of supplements: [] Nutritional Intake: [] IV Site: [] Sanchez Catheter: [] Assessment & Plan Assessment/Plan (1) Acute and chronic respiratory failure with hypoxia: PLAN: Sputum with 3+ yeast. MRSA pcr neg. Cont zosyn with fluc. Will stop linezlid. Will follow
--- NOTE | 2022-09-11 10:40 | PCM.PN.HOSP ---
Reason for Visit Reason for Visit: Shortness of breath/cough/fatigue Subjective Subjective Patient states she subjectively feels better today. Overall her pulmonary status has improved some. She is requiring less oxygen and tolerating Airvo a bit better. Sats have remained greater than 88% on Airvo at 90% FiO2 and a flow rate of 60 L/min which she was not able to tolerate yesterday and had been on continuous BiPAP. Pulmonary medicine intends to have further discussion with patient and daughters both of which are in from out of state today. Objective Data Objective Data Vital Signs: Vital Signs Temp Pulse Resp BP Pulse Ox O2 Del Method O2 Flow Rate 98.9 F 107 H 18 133/71 H 91 Airvo 60 09/11/22 09:39 09/11/22 09:39 09/11/22 09:39 09/11/22 09:39 09/11/22 09:39 09/11/22 09:45 09/11/22 07:10 FiO2 88 09/11/22 07:28 Oxygen Flow Rate (L/min) 60 Oxygen Delivery Method Airvo Weight: 99.473 kg Body Mass Index (BMI) 44.1 Intake & Output: Intake and Output for Last 24 Hours 09/09/22 09/10/22 09/11/22 23:59 23:59 23:59 Intake Total 1480 / 1780 2560 / 2560 432 / 432 Output Total 300 / 700 1401 / 1401 900 / 900 Balance 1180 / 1080 1159 / 1159 -468 / -468 Lab / Micro Data 09/11/22 05:10 09/11/22 05:10 Labs: Laboratory Results - last 24 hr 09/10/22 11:09: POC Glucose 310 H 09/10/22 16:26: POC Glucose 266 H 09/11/22 00:28: POC Glucose 316 H 09/11/22 05:09: POC Glucose 219 H 09/11/22 05:10: WBC 6.9, RBC 3.34 L, Hgb 10.1 L, Hct 31.6 L, MCV 94.6, MCH 30.2, MCHC 32.0, RDW Std Deviation 51.4 H, RDW Coeff of Jacob 14.7 H, Plt Count 157, MPV 9.4, Immature Gran % (Auto) 0.700, Neut % (Auto) 95.7 H, Lymph % (Auto) 2.0 L, Weld % (Auto) 1.6, Eos % (Auto) 0.0, Baso % (Auto) 0.0, Absolute Neuts (auto) 6.6, Absolute Lymphs (auto) 0.14 L, Nucleated RBC % 0, Differential Comment SCANNED, Sodium 135 L, Potassium 4.2, Chloride 96 L, Carbon Dioxide 34.0 H, Anion Gap 5, BUN 39 H, Creatinine 1.30 H, Estim Creat Clear Calc 53.30, Est GFR (MDRD) Af Amer 51 L, Est GFR (MDRD) Non-Af 42 L, BUN/Creatinine Ratio 30.0 H, Glucose 237 H, Calcium 8.4 L Micro: Microbiology 09/05/22 00:26 Blood Culture (Wb) - Right Hand Blood Culture - Final No growth in 5 days. 09/05/22 00:26 Blood Culture (Wb) - Anticubital Left Blood Culture - Final No growth in 5 days. 09/08/22 16:00 Nasal Secretion SARS-CoV-2 Antigen (Rapid) - Final 09/05/22 19:45 Sputum, Expectorated/Coughed Gram Stain - Final 09/05/22 19:45 Sputum, Expectorated/Coughed Respiratory Culture - Final Presumptive C albicans 09/05/22 08:49 Urine, Clean Catch Legionella Antigen - Final 09/05/22 08:49 Urine, Clean Catch Streptococcus pneumoniae Antigen (M - Final 09/05/22 03:18 Mucosa - Nasopharyngeal Respiratory Panel (PCR) - Final Physical Exam Const alert, oriented x3, no apparent distress and well nourished; Negative for average body habitus or healthy appearing Constitutional Narrative: Morbidly obese, elderly, white female, sitting up in a chair at the bedside, Airvo, eating breakfast and watching television, appears comfortable, no signs of respiratory distress, nontoxic-appearing, appears as if she is feeling better today than yesterday HEENT head/scalp atraumatic and moist oral mucous membranes HEENT Narrative: Dentures in place, Mallampati 3, no thrush Head and Scalp: normocephalic Resp normal respiratory effort, no retractions and no use of accessory muscles Resp Narrative: Diffusely diminished with few scattered crackles at bilateral bases Auscultation: rales; Negative for rhonchi or wheezes Cardio regular rate, S1 normal heart sound, S2 normal heart sound, no murmurs, no rub, no gallops and no clicks Cardio Narrative: Mild tachycardia, rhythm is irregularly irregular GI normal to inspection, nondistended, normoactive bowel sounds, soft to palpation and non-tender Extremity no clubbing, cyanosis or edema Extremity Narrative: Pedal pulses are 2+ Neuro oriented x3, moves all extremities and no focal motor deficits Neuro Narrative: Generalized weakness noted Speech: speech normal Psych affect normal Psych Narrative: Extremely pleasant Assessment & Plan Assessment/Plan (1) Acute and chronic respiratory failure with hypoxia: (2) Pneumonia: QUALIFIERS: Pneumonia type: due to unspecified organism Laterality: right Lung location: upper lobe of lung Qualified Code(s): J18.9 - Pneumonia, unspecified organism (3) Elevated serum creatinine: (4) Hyperglycemia: (5) Diabetes mellitus type 2 in obese: PLAN: Plan Acute on chronic hypoxic respiratory failure secondary to ? pneumonia -CT of the chest done 09/08/2022 showed evidence of bilateral lower lobe infiltrates with scattered patchy airspace opacifications and no PE -Etiology remains uncertain patient is not improving significantly on broad-spectrum antibiotics -More significant improvement in last 24 hours as patient is now tolerating Airvo with a flow of 60 L/min and 90% and she was not able to tolerate Airvo yesterday -COVID-19 negative -Baseline oxygen requirements are 4 to 5 L -Continue Zosyn and fluconazole--> Zyvox discontinued by infectious disease -Respiratory viral panel is unremarkable -Strep pneumo and Legionella antigens are negative -MRSA PCR is unremarkable -Continue aggressive pulmonary toilet -Continue methylprednisolone 40 every 8 -Continue Acapella 10 times every 2 hours -Continue incentive spirometry -Continue vest therapy -ID consulted for assistance with antibiotics -Diuretics per pulmonary medicine -Appreciate pulmonary medicine input--> Case discussed with Dr. Remy and plan is for further conversation with daughter later this afternoon -Follows with Dr. Garcia as an outpatient (he is out of town)--> I did attempt to review records from his office however I was not able to find any in [facility] -Pulmonary medicine have conversation with patient and daughters at the bedside later today Elevated serum creatinine -Baseline appears to be between 0.8 and 1 -Serum creatinine is stable at 1.30 despite diuresis -Repeat BMP in a.m. -Avoid nephrotoxins as able DM-2 -Patient without history of DM-2 however hemoglobin A1c is 6.8 which means she is a diabetic -Continue sliding scale -Increase basal insulin from 15 units to 25 units with a.m. fasting blood sugar at 237 -Will need to monitor closely when we backed down steroids -Accu-Cheks as ordered -Reassess tomorrow PAF -Currently in A-fib with mildly rapid ventricular rate in the low 100s -Continue IV metoprolol and restart home oral metoprolol as patient is able to take oral medications again at this time -Patient had previously been on Eliquis but had hematoma and this has since been discontinued -Discontinued due to severe bleeding back in March 2022 -No current issues HTN/HPL -Lasix per pulmonary medicine -Continue metoprolol restart home oral 50 mg p.o. twice daily -Restart home Aldactone -As needed hydralazine -Patient is not on statin patient with no documented allergy -We will allow for further outpatient evaluation Severe COPD -Baseline oxygen requirement is 4 to 5 L -Hold home inhalers -We will utilize nebs as noted above Pulmonary hypertension -Who group unclear -Continue treprostinil/Opsumit home regimen if able to take p.o. GERD -Continue PPI transition to IV Chronic pain -Continue home fentanyl patch Restless leg syndrome -Continue home Mirapex if able to take p.o. Chronic anemia-macrocytic -Baseline hemoglobin between 8 and 9 -Hemoglobin remained stable -Continue to monitor ROYAL -Patient currently on continuous BiPAP -Typically uses nocturnal BiPAP DVT prophylaxis -Subcu Lovenox CODE STATUS DNR CCA with no intubation per discussion with patient on presentation Charges/Coding Visit Charges Inpatient E&M: 26010 Subs Hosp L2
--- NOTE | 2022-09-11 11:30 | CASEMGMT ---
SW spoke with patient and her two daughters per their request. Family asked how things would go if patient went with Hospice and if patient did not go with Hospice. SW let them know that patient had requested to go to TCU should she need rehab. SW let them know TCU can take patient whenever she is ready. Patient and family were going to talk with physician to decide their next step. Ana Santos MSW NERY
[2022-09-11] MEDS: Insulin Glargine-YFGN 100 UNIT/ML Pen 25 UNIT SC (11:41)
[2022-09-11] MEDS: Acetaminophen 325 MG Tablet 650 MG PO (11:50)
[2022-09-11 12:04] LABS: Bedside Glucose 290 mg/dL (74-106)
[2022-09-11] MEDS: 0.9% Saline Lock 10 ML Syringe IV ×3 (14:19→22:10)
[2022-09-11 17:35] LABS: Bedside Glucose 209 mg/dL (74-106)
[2022-09-11] MEDS: Metoprolol Tartrate 50 MG Tablet PO (18:39)
[2022-09-11] MEDS: Pramipexole Di-HCl 1 MG Tablet PO (22:11)
[2022-09-11] MEDS: guaiFENesin 1,200 MG Tablet 1200 MG PO (22:11)
[2022-09-11 22:38] LABS: Bedside Glucose 251 mg/dL (74-106)
[2022-09-12] VITALS (18 sets, daily range): BP systolic 99–122; BP diastolic 52–79; PULSE 85–126; RESP 12–21; TEMP 36.2–37; O2SAT 85–93; BMI 44.2
[2022-09-12] MEDS: Methylprednisolone Sod Succ 40 MG/ML VIAL IV ×3 (05:35→21:06)
[2022-09-12] MEDS: Furosemide 40 MG/4 ML Vial IV ×3 (05:35→21:06)
[2022-09-12] MEDS: Ciprofloxacin 0.3% 2.5ml Bottle 2 DRP EACH EYE ×5 (05:36→21:06)
[2022-09-12] MEDS: Insulin Lispro 100 UNIT/ML INSULN.PEN SC ×4 (05:42→21:03)
[2022-09-12 06:27] LABS: Anion Gap 4 (5-15); BUN 46 mg/dL (7-18); BUN/Creat Ratio 33.6 RATIO (10-20); Calcium,Total 8.2 mg/dL (8.5-10.1); Chloride 95 mmol/L (98-107); Creatinine, Serum 1.37 mg/dL (0.55-1.02); EST Glomerular Filtration Rate 39 mL/min (>60); Est Glom Filt Rate - Afr Amer 48 mL/min (>60); Estimated Creatinine Clearance 50.64 ml/min; Glucose 179 mg/dL (74-106); Potassium 4.3 mmol/L (3.5-5.1); Sodium Level 135 mmol/L (136-145)
[2022-09-12 06:40] LABS: Bedside Glucose 180 mg/dL (74-106)
[2022-09-12] MEDS: Ipratropium 0.5 MG/2.5 ML SOLUTION INHALATION ×4 (07:21→19:28)
[2022-09-12] MEDS: Enoxaparin 40 MG/0.4 ML Syringe SC ×2 (08:14→21:04)
[2022-09-12] MEDS: MACITENTAN 10 MG PO (08:14)
[2022-09-12] MEDS: Mirabegron 50 MG TAB.ER.24H PO (08:15)
[2022-09-12] MEDS: Metoprolol Tartrate 50 MG Tablet PO ×2 (08:15→21:06)
[2022-09-12] MEDS: Spironolactone 25 MG Tablet PO (08:16)
[2022-09-12] MEDS: Fluconazole 100 MG Tablet 200 MG PO (08:16)
[2022-09-12] MEDS: guaiFENesin 1,200 MG Tablet 1200 MG PO ×2 (08:16→21:06)
[2022-09-12] MEDS: Menthol/Lanolin/Calamine/Znox 113 GM Tube 1 APPLIC TOPICAL ×2 (08:21→21:00)
--- NOTE | 2022-09-12 08:47 | PN.CC_ITS ---
Assessment & Plan Assessment/Plan (1) Acute and chronic respiratory failure with hypoxia: (2) Paroxysmal atrial fibrillation: (3) Nonrheumatic aortic valve stenosis: (4) Secondary pulmonary arterial hypertension: PLAN: Plan RECOMMENDATIONS: 1. BiPAP with sleep and Airvo during the day 2. Wean oxygen as tolerated 3. Aggressive rate control 4. Continue antihypertensive medications 5. Continue aggressive diuresis. Possibly increase diuresis tomorrow if oxygen requirements remain stable 6. Aggressive pulmonary toileting. Continue steroids, antimicrobials and bronchodilators 7. Possible change in CODE STATUS if condition deteriorates or fails to improve IMPRESSIONS: 1. Acute on chronic hypoxic respiratory failure Unclear etiology at this time. Patient does have bilateral infiltrates with consolidation of the lower lobes, likely leading to significant worsening in oxygenation. Patient's viral work-up is negative. Patient is on broad- spectrum antibiotics at this time and viral testing has been not suggestive of an etiology. Patient has improved on oxygen requirements after initiation of Diflucan and diuretics. Patient appears to be tolerating diuretics well at this point, but is still requiring significant amounts of oxygen to maintain saturations. Patient likely would not be able to be discharged. Family discussions indicate that patient would likely wait until Thursday and if not improving will change CODE STATUS to more comfort measures. 2. A-fib with RVR Patient was significant tachycardia on presentation. Rate much slightly higher at this time. This would exacerbate patient's pulmonary hypertension. However, rate control appears to be improved at this time. Patient is not on Eliquis therapy at this time, but does not have any PE noted on CTA of the chest. Patient has remained off of anticoagulation secondary to abdominal hematoma 3. Diabetes mellitus type 2/chronic anemia/hypertension/hyperlipidemia/CKD stage III/chronic pain/morbid obesity/ROYAL/GERD/advanced age Complicates care, management, recovery and prognosis. Patient is very clear that she does not want to be intubated. Baseline medications have been continued. Patient's creatinine is somewhat elevated, but this is likely secondary to diuretic therapy. No indication for renal replacement therapy at this time, but previous baseline appears to be a creatinine of 0.9. Subjective Subjective Patient did well over 24 hours. Patient states she is relatively asymptomatic despite requiring Airvo at rest. Patient does get significantly dyspneic and hypoxic with minimal movement. Patient is not reporting any chest pain. Objective Data Objective Data Vital Signs: Vital Signs Temp Pulse Resp BP Pulse Ox O2 Del Method O2 Flow Rate 36.8 C 109 H 17 99/52 L 85 Airvo 40 09/12/22 08:00 09/12/22 08:15 09/12/22 08:00 09/12/22 08:15 09/12/22 08:00 09/12/22 08:00 09/12/22 08:00 FiO2 70 09/12/22 04:32 Oxygen Flow Rate (L/min) 40 Oxygen Delivery Method Airvo Weight: 99.6 kg Body Mass Index (BMI) 44.2 Intake & Output: Intake and Output for Last 24 Hours 09/10/22 09/11/22 09/12/22 23:59 23:59 23:59 Intake Total 2560 / 2560 1382 / 1382 50 / 50 Output Total 1401 / 1401 2800 / 2800 700 / 700 Balance 1159 / 1159 -1418 / -1418 -650 / -650 Lab / Micro Data Attestation: I reviewed the patient's lab results. 09/11/22 05:10 09/12/22 05:11 Labs: Laboratory Results - last 24 hr 09/11/22 05:09: POC Glucose 219 H 09/11/22 11:38: POC Glucose 290 H 09/11/22 17:16: POC Glucose 209 H 09/11/22 22:06: POC Glucose 251 H 09/12/22 05:11: Sodium 135 L, Potassium 4.3, Chloride 95 L, Carbon Dioxide 36.0 H, Anion Gap 4 L, BUN 46 H, Creatinine 1.37 H, Estim Creat Clear Calc 50.64, Est GFR (MDRD) Af Amer 48 L, Est GFR (MDRD) Non-Af 39 L, BUN/Creatinine Ratio 33.6 H , Glucose 179 H, Calcium 8.2 L 09/12/22 05:40: POC Glucose 180 H Micro: Microbiology 09/11/22 22:48 Stool C. difficile DNA Amplification - Final 09/05/22 00:26 Blood Culture (Wb) - Right Hand Blood Culture - Final No growth in 5 days. 09/05/22 00:26 Blood Culture (Wb) - Anticubital Left Blood Culture - Final No growth in 5 days. 09/08/22 16:00 Nasal Secretion SARS-CoV-2 Antigen (Rapid) - Final 09/05/22 19:45 Sputum, Expectorated/Coughed Gram Stain - Final 09/05/22 19:45 Sputum, Expectorated/Coughed Respiratory Culture - Final Presumptive C albicans 09/05/22 08:49 Urine, Clean Catch Legionella Antigen - Final 09/05/22 08:49 Urine, Clean Catch Streptococcus pneumoniae Antigen (M - Reva l 09/05/22 03:18 Mucosa - Nasopharyngeal Respiratory Panel (PCR) - Final Physical Exam Const alert and oriented x3 Constitutional Narrative: Patient in the bedside chair with feet elevated on Airvo. Less conversational dyspnea than previous. General Appearance: cooperative and well developed HEENT normocephalic and head/scalp atraumatic Eyes PERRL, EOMs intact bilaterally, conjunctivae normal and no scleral icterus Eyes Narrative: Glasses in place Neck full ROM and no JVD Lymph Lymphatic: no lymphadenopathy noted Resp no use of accessory muscles Resp Narrative: Mild conversational dyspnea Effort and Inspection: tachypneic Auscultation: diminished lung sounds; Negative for rales, rhonchi or wheezes Cardio S1 normal heart sound, S2 normal heart sound, no murmurs, no rub and no gallops; Negative for regular rhythm GI normal to inspection, nondistended, normoactive bowel sounds Extremity General Extremity: clubbing and edema Skin no rashes or lesions noted Neuro oriented x3, CN's II-XII intact bilaterally, moves all extremities and no focal motor deficits Psych cooperative and affect normal Charges/Coding Visit Charges Inpatient E&M: 92306 Subs Hosp L3
[2022-09-12] MEDS: Insulin Glargine-YFGN 100 UNIT/ML Pen 25 UNIT SC (11:30)
[2022-09-12 11:56] LABS: Bedside Glucose 227 mg/dL (74-106)
--- NOTE | 2022-09-12 16:30 | PN.HOSP_ITS ---
Reason for Visit Reason for Visit: Shortness of breath Subjective Subjective Patient states she is feeling okay today. No significant change in last 24 hours. Per discussion with pulmonary medicine is to continue to monitor and continue aggressive treatment through Thursday and then if no improvement pursue hospice. Objective Data Objective Data Vital Signs: Vital Signs Temp Pulse Resp BP Pulse Ox O2 Del Method O2 Flow Rate 98.3 F 102 H 20 H 99/52 L 91 Airvo 60 09/12/22 08:00 09/12/22 11:02 09/12/22 11:02 09/12/22 08:15 09/12/22 12:20 09/12/22 08:00 09/12/22 12:31 FiO2 94 09/12/22 07:21 Oxygen Flow Rate (L/min) 60 Oxygen Delivery Method Airvo Weight: 99.6 kg Body Mass Index (BMI) 44.2 Intake & Output: Intake and Output for Last 24 Hours 09/10/22 09/11/22 09/12/22 23:59 23:59 23:59 Intake Total 2560 / 2560 1382 / 1382 50 / 50 Output Total 1401 / 1401 2800 / 2800 700 / 700 Balance 1159 / 1159 -1418 / -1418 -650 / -650 Lab / Micro Data 09/11/22 05:10 09/12/22 05:11 Labs: Laboratory Results - last 24 hr 09/11/22 17:16: POC Glucose 209 H 09/11/22 22:06: POC Glucose 251 H 09/12/22 05:11: Sodium 135 L, Potassium 4.3, Chloride 95 L, Carbon Dioxide 36.0 H, Anion Gap 4 L, BUN 46 H, Creatinine 1.37 H, Estim Creat Clear Calc 50.64, Est GFR (MDRD) Af Amer 48 L, Est GFR (MDRD) Non-Af 39 L, BUN/Creatinine Ratio 33.6 H , Glucose 179 H, Calcium 8.2 L 09/12/22 05:40: POC Glucose 180 H 09/12/22 11:28: POC Glucose 227 H Micro: Microbiology 09/11/22 22:48 Stool C. difficile DNA Amplification - Final 09/05/22 00:26 Blood Culture (Wb) - Right Hand Blood Culture - Final No growth in 5 days. 09/05/22 00:26 Blood Culture (Wb) - Anticubital Left Blood Culture - Final No growth in 5 days. 09/08/22 16:00 Nasal Secretion SARS-CoV-2 Antigen (Rapid) - Final 09/05/22 19:45 Sputum, Expectorated/Coughed Gram Stain - Final 09/05/22 19:45 Sputum, Expectorated/Coughed Respiratory Culture - Final Presumptive C albicans 09/05/22 08:49 Urine, Clean Catch Legionella Antigen - Final 09/05/22 08:49 Urine, Clean Catch Streptococcus pneumoniae Antigen (M - Final 09/05/22 03:18 Mucosa - Nasopharyngeal Respiratory Panel (PCR) - Final Physical Exam Const alert, oriented x3, no apparent distress and well nourished; Negative for average body habitus or healthy appearing Constitutional Narrative: Morbidly obese, elderly, white female, sitting up in a chair at the bedside, remains on Airvo, watching television, appears comfortable and nontoxic HEENT head/scalp atraumatic and moist oral mucous membranes HEENT Narrative: Mild body 3, no thrush Head and Scalp: normocephalic Resp normal respiratory effort, no retractions and no use of accessory muscles Resp Narrative: Diffusely diminished with few scattered crackles at bilateral bases greater on the right than the left Auscultation: rales; Negative for rhonchi or wheezes Cardio regular rate, regular rhythm, S1 normal heart sound, S2 normal heart sound, no murmurs, no rub, no gallops and no clicks Cardio Narrative: Mild tachycardia, rhythm is irregularly irregular GI normal to inspection, nondistended, normoactive bowel sounds, soft to palpation and non-tender Extremity no clubbing, cyanosis or edema Extremity Narrative: Pedal pulses are 2+ Neuro oriented x3, moves all extremities and no focal motor deficits Neuro Narrative: Generalized weakness noted Speech: speech normal Psych affect normal Psych Narrative: Extremely pleasant Assessment & Plan Assessment/Plan (1) Acute and chronic respiratory failure with hypoxia: (2) Pneumonia: QUALIFIERS: Pneumonia type: due to unspecified organism Laterality: right Lung location: upper lobe of lung Qualified Code(s): J18.9 - Pneumonia, unspecified organism (3) Elevated serum creatinine: (4) Hyperglycemia: (5) Diabetes mellitus type 2 in obese: PLAN: Plan Acute on chronic hypoxic respiratory failure secondary to ? pneumonia -CT of the chest done 09/08/2022 showed evidence of bilateral lower lobe inf iltrates with scattered patchy airspace opacifications and no PE -Etiology remains uncertain patient is not improving significantly on broad- spectrum antibiotics -No significant change in last 24 hours as patient is still on Airvo at 60 L/min and 90% FiO2 -COVID-19 negative -Baseline oxygen requirements are 4 to 5 L -Continue Zosyn and fluconazole -Respiratory viral panel is unremarkable -Strep pneumo and Legionella antigens are negative -MRSA PCR is unremarkable -Continue aggressive pulmonary toilet -Continue methylprednisolone 40 every 8 -Continue Acapella 10 times every 2 hours -Continue incentive spirometry -Continue vest therapy -ID consulted for assistance with antibiotics -Diuretics per pulmonary medicine -Appreciate pulmonary medicine input--> Case discussed with Dr. Remy and plan is for further conversation with daughter later this afternoon -Follows with Dr. Garcia as an outpatient (he is out of town)--> I did attempt to review records from his office however I was not able to find any in [facility] -Pulmonary medicine had discussion with patient and family yesterday and plan is to continue aggressive treatment through Thursday and evaluate progress and if patient is not significantly better pursue hospice Elevated serum creatinine -Baseline appears to be between 0.8 and 1 -Serum creatinine is stable at 1.37 despite diuresis -Repeat BMP in a.m. -Avoid nephrotoxins as able DM-2 -Patient without history of DM-2 however hemoglobin A1c is 6.8 which means she is a diabetic -Continue sliding scale -Blood sugars with better control after increase of basal insulin to 25-we will continue -Will need to monitor closely when we backed down steroids -Accu-Cheks as ordered PAF -Currently in A-fib with mildly rapid ventricular rate in the low 100s -Continue oral metoprolol -Patient had previously been on Eliquis but had hematoma and this has since been discontinued -Discontinued due to severe bleeding back in March 2022 -No current issues HTN/HPL -Lasix per pulmonary medicine -Continue metoprolol 50 mg p.o. twice daily -Continue home Aldactone -As needed hydralazine -Patient is not on statin patient with no documented allergy -We will allow for further outpatient evaluation Severe COPD -Baseline oxygen requirement is 4 to 5 L -Hold home inhalers -We will utilize nebs as noted above Pulmonary hypertension -Who group unclear -Continue treprostinil/Opsumit home regimen if able to take p.o. GERD -Continue PPI transition to IV Chronic pain -Continue home fentanyl patch Restless leg syndrome -Continue home Mirapex if able to take p.o. Chronic anemia-macrocytic -Baseline hemoglobin between 8 and 9 -Hemoglobin remained stable -Continue to monitor ROYAL -Patient currently on continuous BiPAP -Typically uses nocturnal BiPAP DVT prophylaxis -Subcu Lovenox CODE STATUS DNR CCA with no intubation per discussion with patient on presentation Charges/Coding Visit Charges Inpatient E&M: 04128 Subs Hosp L2
[2022-09-12 17:19] LABS: Bedside Glucose 173 mg/dL (74-106)
[2022-09-12] MEDS: Pramipexole Di-HCl 1 MG Tablet PO (21:06)
[2022-09-12] MEDS: 0.9% Saline Lock 10 ML Syringe IV (21:06)
[2022-09-12 21:33] LABS: Bedside Glucose 228 mg/dL (74-106)
[2022-09-12] MEDS: MELATONIN 3 MG TABLET PO (22:05)
[2022-09-13] VITALS (19 sets, daily range): BP systolic 94–132; BP diastolic 51–89; PULSE 80–122; RESP 12–25; TEMP 36.3–36.9; O2SAT 87–92; BMI 43.6
[2022-09-13] MEDS: Methylprednisolone Sod Succ 40 MG/ML VIAL IV ×3 (05:47→22:16)
[2022-09-13] MEDS: Loperamide 2 MG Capsule PO ×2 (05:47→22:21)
[2022-09-13] MEDS: Ciprofloxacin 0.3% 2.5ml Bottle 2 DRP EACH EYE ×5 (05:48→22:11)
[2022-09-13] MEDS: Furosemide 40 MG/4 ML Vial IV ×3 (05:48→22:14)
[2022-09-13] MEDS: Insulin Lispro 100 UNIT/ML INSULN.PEN SC ×4 (06:00→22:13)
[2022-09-13 07:07] LABS: Bedside Glucose 232 mg/dL (74-106)
[2022-09-13 07:10] LABS: Anion Gap 4 (5-15); BUN 59 mg/dL (7-18); BUN/Creat Ratio 37.6 RATIO (10-20); Chloride 93 mmol/L (98-107); Creatinine, Serum 1.57 mg/dL (0.55-1.02); EST Glomerular Filtration Rate 34 mL/min (>60); Est Glom Filt Rate - Afr Amer 41 mL/min (>60); Estimated Creatinine Clearance 44.19 ml/min; Glucose 232 mg/dL (74-106); Potassium 4.5 mmol/L (3.5-5.1); Sodium Level 134 mmol/L (136-145)
[2022-09-13] MEDS: Ipratropium 0.5 MG/2.5 ML SOLUTION INHALATION ×4 (07:16→19:07)
[2022-09-13] MEDS: Mirabegron 50 MG TAB.ER.24H PO (07:56)
[2022-09-13] MEDS: guaiFENesin 1,200 MG Tablet 1200 MG PO ×2 (07:56→22:16)
[2022-09-13] MEDS: Fluconazole 100 MG Tablet 200 MG PO (07:57)
[2022-09-13] MEDS: Spironolactone 25 MG Tablet PO (07:57)
[2022-09-13] MEDS: Menthol/Lanolin/Calamine/Znox 113 GM Tube 1 APPLIC TOPICAL ×2 (07:57→22:10)
[2022-09-13] MEDS: Metoprolol Tartrate 50 MG Tablet PO ×2 (07:58→22:15)
[2022-09-13] MEDS: MACITENTAN 10 MG PO (07:58)
[2022-09-13] MEDS: Enoxaparin 40 MG/0.4 ML Syringe SC ×2 (07:58→22:16)
--- NOTE | 2022-09-13 08:44 | PN.CC_ITS ---
Assessment & Plan Assessment/Plan (1) Acute and chronic respiratory failure with hypoxia: (2) Paroxysmal atrial fibrillation: (3) Nonrheumatic aortic valve stenosis: (4) Secondary pulmonary arterial hypertension: PLAN: Plan RECOMMENDATIONS: 1. BiPAP with sleep and Airvo during the day 2. Wean oxygen as tolerated 3. Aggressive rate control 4. Continue antihypertensive medications 5. Continue aggressive diuresis. Keep diuresis at current levels 6. Aggressive pulmonary toileting. Continue steroids, antimicrobials and bronchodilators 7. Possible change in CODE STATUS if condition deteriorates or fails to improve by Thursday IMPRESSIONS: 1. Acute on chronic hypoxic respiratory failure Likely secondary to cor pulmonale. Patient does have bilateral infiltrates with consolidation of the lower lobes, likely leading to significant worsening in oxygenation. Patient's viral work-up is negative. Patient treated with broad-spectrum antibiotics and viral testing has been not suggestive of an etiology. Patient has improved on oxygen requirements after initiation of Diflucan and diuretics, but appears to have plateaued. Patient appears to be tolerating diuretics well at this point, but is still requiring significant amounts of oxygen to maintain saturations. Patient did have a slight increase in creatinine compared to yesterday, so we will keep diuretics at the current dosing. Patient likely would not be able to be discharged. Family discussions indicate that patient would likely wait until Thursday and if not improving will change CODE STATUS to more comfort measures. 2. A-fib with RVR Patient was significant tachycardia on presentation. Rate much slightly higher at this time. This would exacerbate patient's pulmonary hypertension. However, rate control appears to be improved at this time. Patient is not on Eliquis therapy at this time, but does not have any PE noted on CTA of the chest. Patient has remained off of anticoagulation secondary to abdominal hematoma 3. Diabetes mellitus type 2/chronic anemia/hypertension/hyperlipidemia/CKD stage III/chronic pain/morbid obesity/ROYAL/GERD/advanced age Complicates care, management, recovery and prognosis. Patient is very clear that she does not want to be intubated. Baseline medications have been continued. Patient's creatinine is somewhat elevated, but this is likely secondary to diuretic therapy. No indication for renal replacement therapy at this time, but previous baseline appears to be a creatinine of 0.9. Subjective Subjective Patient overall appears to be unchanged subjectively. Patient still reports significant dyspnea on minimal exertion. Oxygen requirements have not changed significantly. Patient reports a periodic cough. Objective Data Objective Data Vital Signs: Vital Signs Temp Pulse Resp BP Pulse Ox O2 Del Method O2 Flow Rate 36.8 C 109 H 21 H 123/52 H 90 Airvo 60 09/13/22 08:00 09/13/22 08:00 09/13/22 08:00 09/13/22 08:00 09/13/22 08:00 09/13/22 08:00 09/13/22 08:00 FiO2 94 09/13/22 08:00 Oxygen Flow Rate (L/min) 60 Oxygen Delivery Method Airvo Weight: 99.6 kg Body Mass Index (BMI) 44.2 Intake & Output: Intake and Output for Last 24 Hours 09/11/22 09/12/22 09/13/22 23:59 23:59 23:59 Intake Total 1382 / 1382 950 / 1050 150 / 150 Output Total 2800 / 2800 1001 / 1601 1350 / 1350 Balance -1418 / -1418 -51 / -551 -1200 / -1200 Lab / Micro Data Attestation: I reviewed the patient's lab results. 09/11/22 05:10 09/13/22 05:40 Labs: Laboratory Results - last 24 hr 09/12/22 11:28: POC Glucose 227 H 09/12/22 16:36: POC Glucose 173 H 09/12/22 21:02: POC Glucose 228 H 09/13/22 05:40: Sodium 134 L, Potassium 4.5, Chloride 93 L, Carbon Dioxide 37.0 H, Anion Gap 4 L, BUN 59 H, Creatinine 1.57 H, Estim Creat Clear Calc 44.19, Est GFR (MDRD) Af Amer 41 L, Est GFR (MDRD) Non-Af 34 L, BUN/Creatinine Ratio 37.6 H , Glucose 232 H, Calcium 8.0 L 09/13/22 05:58: POC Glucose 232 H Micro: Microbiology 09/11/22 22:48 Stool C. difficile DNA Amplification - Final 09/05/22 00:26 Blood Culture (Wb) - Right Hand Blood Culture - Final No growth in 5 days. 09/05/22 00:26 Blood Culture (Wb) - Anticubital Left Blood Culture - Final No growth in 5 days. 09/08/22 16:00 Nasal Secretion SARS-CoV-2 Antigen (Rapid) - Final 09/05/22 19:45 Sputum, Expectorated/Coughed Gram Stain - Final 09/05/22 19:45 Sputum, Expectorated/Coughed Respiratory Culture - Final Presumptive C albicans 09/05/22 08:49 Urine, Clean Catch Legionella Antigen - Final 09/05/22 08:49 Urine, Clean Catch Streptococcus pneumoniae Antigen (M - Final 09/05/22 03:18 Mucosa - Nasopharyngeal Respiratory Panel (PCR) - Final Physical Exam Const alert and oriented x3 Constitutional Narrative: Patient in the bedside chair with feet elevated on Airvo. Less conversational dyspnea than previous. General Appearance: cooperative and well developed HEENT normocephalic and head/scalp atraumatic Eyes PERRL, EOMs intact bilaterally, conjunctivae normal and no scleral icterus Eyes Narrative: Glasses in place Neck full ROM and no JVD Lymph Lymphatic: no lymphadenopathy noted Resp no use of accessory muscles Resp Narrative: Mild conversational dyspnea Effort and Inspection: tachypneic Auscultation: diminished lung sounds; Negative for rales, rhonchi or wheezes Cardio S1 normal heart sound, S2 normal heart sound, no murmurs, no rub and no gallops; Negative for regular rhythm Rate: tachycardic GI normal to inspection, nondistended, normoactive bowel sounds Extremity General Extremity: clubbing and edema Skin no rashes or lesions noted Neuro oriented x3, CN's II-XII intact bilaterally, moves all extremities and no focal motor deficits Psych cooperative and affect normal Charges/Coding Visit Charges Inpatient E&M: 59887 Subs Hosp L3
[2022-09-13] MEDS: Insulin Glargine-YFGN 100 UNIT/ML Pen 34 UNIT SC (11:16)
[2022-09-13 11:39] LABS: Bedside Glucose 254 mg/dL (74-106)
--- NOTE | 2022-09-13 12:33 | PN.HOSP_ITS ---
Reason for Visit Reason for Visit: Shortness of breath Subjective Subjective No issues overnight. Clinically patient is about the same and on roughly the same amount of oxygen. Daughter is at bedside visiting. No complaints at this time. Objective Data Objective Data Vital Signs: Vital Signs Temp Pulse Resp BP Pulse Ox O2 Del Method O2 Flow Rate 98.2 F 84 16 123/52 H 89 Airvo 60 09/13/22 08:00 09/13/22 11:25 09/13/22 11:25 09/13/22 08:00 09/13/22 11:25 09/13/22 08:00 09/13/22 10:49 FiO2 94 09/13/22 11:25 Oxygen Flow Rate (L/min) 60 Oxygen Delivery Method Airvo Weight: 99.6 kg Body Mass Index (BMI) 44.2 Intake & Output: Intake and Output for Last 24 Hours 09/11/22 09/12/22 09/13/22 23:59 23:59 23:59 Intake Total 1382 / 1382 950 / 1050 200 / 200 Output Total 2800 / 2800 1001 / 1601 1350 / 1350 Balance -1418 / -1418 -51 / -551 -1150 / -1150 Lab / Micro Data 09/11/22 05:10 09/13/22 05:40 Labs: Laboratory Results - last 24 hr 09/12/22 16:36: POC Glucose 173 H 09/12/22 21:02: POC Glucose 228 H 09/13/22 05:40: Sodium 134 L, Potassium 4.5, Chloride 93 L, Carbon Dioxide 37.0 H, Anion Gap 4 L, BUN 59 H, Creatinine 1.57 H, Estim Creat Clear Calc 44.19, Est GFR (MDRD) Af Amer 41 L, Est GFR (MDRD) Non-Af 34 L, BUN/Creatinine Ratio 37.6 H , Glucose 232 H, Calcium 8.0 L 09/13/22 05:58: POC Glucose 232 H 09/13/22 11:14: POC Glucose 254 H Micro: Microbiology 09/11/22 22:48 Stool C. difficile DNA Amplification - Final 09/05/22 00:26 Blood Culture (Wb) - Right Hand Blood Culture - Final No growth in 5 days. 09/05/22 00:26 Blood Culture (Wb) - Anticubital Left Blood Culture - Final No growth in 5 days. 09/08/22 16:00 Nasal Secretion SARS-CoV-2 Antigen (Rapid) - Final 09/05/22 19:45 Sputum, Expectorated/Coughed Gram Stain - Final 09/05/22 19:45 Sputum, Expectorated/Coughed Respiratory Culture - Final Presumptive C albicans 09/05/22 08:49 Urine, Clean Catch Legionella Antigen - Final 09/05/22 08:49 Urine, Clean Catch Streptococcus pneumoniae Antigen (M - Final 09/05/22 03:18 Mucosa - Nasopharyngeal Respiratory Panel (PCR) - Final Physical Exam Const alert, oriented x3, no apparent distress and well nourished; Negative for average body habitus or healthy appearing Constitutional Narrative: Morbidly obese, elderly, white female, sitting up in a chair at the bedside, remains on Airvo, daughters at bedside and they are visiting, appears comfortable and nontoxic HEENT head/scalp atraumatic and moist oral mucous membranes HEENT Narrative: Mallampati 3, no thrush Head and Scalp: normocephalic Resp normal respiratory effort, no retractions and no use of accessory muscles Resp Narrative: Fusilli diminished, few crackles at left base, right base is clear today Auscultation: rales; Negative for rhonchi or wheezes Cardio regular rate, regular rhythm, S1 normal heart sound, S2 normal heart sound, no murmurs, no rub, no gallops and no clicks GI normal to inspection, nondistended, normoactive bowel sounds, soft to palpation and non-tender Extremity no clubbing, cyanosis or edema Extremity Narrative: Pedal pulses are 2+ Neuro oriented x3, moves all extremities and no focal motor deficits Speech: speech normal Psych affect normal Psych Narrative: Extremely pleasant Assessment & Plan Assessment/Plan (1) Acute and chronic respiratory failure with hypoxia: (2) Pneumonia: QUALIFIERS: Pneumonia type: due to unspecified organism Laterality: right Lung location: upper lobe of lung Qualified Code(s): J18.9 - Pneumonia, unspecified organism (3) Elevated serum creatinine: (4) Hyperglycemia: (5) Diabetes mellitus type 2 in obese: PLAN: Plan Acute on chronic hypoxic respiratory failure secondary to ? pneumonia -CT of the chest done 09/08/2022 showed evidence of bilateral lower lobe infiltrates with scattered patchy airspace opacifications and no PE -Etiology remains uncertain patient is not improving significantly on broad- spectrum antibiotics -No significant change in last 49 hours as patient is still on Airvo at 60 L/min and 94% FiO2 -COVID-19 negative -Baseline oxygen requirements are 4 to 5 L -Continue Zosyn and fluconazole -Respiratory viral panel is unremarkable -Strep pneumo and Legionella antigens are negative -MRSA PCR is unremarkable -Continue aggressive pulmonary toilet -Continue methylprednisolone 40 every 8 -Continue Acapella 10 times every 2 hours -Continue incentive spirometry -Continue vest therapy -ID consulted for assistance with antibiotics -Diuretics per pulmonary medicine -Appreciate pulmonary medicine input--> Case discussed with Dr. Remy and plan is for further conversation with daughter later this afternoon -Follows with Dr. Garcia as an outpatient (he is out of town)--> I did attempt to review records from his office however I was not able to find any in [facility] -Pulmonary medicine had discussion with patient and family yesterday and plan is to continue aggressive treatment through Thursday and evaluate progress and if patient is not significantly better pursue hospice Elevated serum creatinine -Baseline appears to be between 0.8 and 1 -Serum creatinine i is slowly trending up with aggressive diuretics 1.57 despite diuresis -Repeat BMP in a.m. -Avoid nephrotoxins as able DM-2 -Patient without history of DM-2 however hemoglobin A1c is 6.8 which means she is a diabetic -Continue sliding scale -Blood sugars up again today will increase basal insulin to 34 from 25 as fasting sugar this morning was 232 -Will need to monitor closely when we backed down steroids -Accu-Cheks as ordered PAF -Currently in A-fib with mildly rapid ventricular rate in the low 100s -Continue oral metoprolol -Patient had previously been on Eliquis but had hematoma and this has since been discontinued -Discontinued due to severe bleeding back in March 2022 -No current issues HTN/HPL -Lasix per pulmonary medicine -Continue metoprolol 50 mg p.o. twice daily -Continue home Aldactone -As needed hydralazine -Patient is not on statin patient with no documented allergy -We will allow for further outpatient evaluation Severe COPD -Baseline oxygen requirement is 4 to 5 L -Hold home inhalers -We will utilize nebs as noted above Pulmonary hypertension -Who group unclear -Continue treprostinil/Opsumit home regimen if able to take p.o. GERD -Continue PPI transition to IV Chronic pain -Continue home fentanyl patch Restless leg syndrome -Continue home Mirapex if able to take p.o. Chronic anemia-macrocytic -Baseline hemoglobin between 8 and 9 -Hemoglobin remained stable -Continue to monitor ROYAL -Patient currently on continuous BiPAP -Typically uses nocturnal BiPAP DVT prophylaxis -Subcu Lovenox CODE STATUS DNR CCA with no intubation per discussion with patient on presentation Charges/Coding Visit Charges Inpatient E&M: 45629 Subs Hosp L1
[2022-09-13] MEDS: 0.9% Saline Lock 10 ML Syringe IV ×2 (14:13→22:37)
[2022-09-13 17:36] LABS: Bedside Glucose 343 mg/dL (74-106)
[2022-09-13] MEDS: Pramipexole Di-HCl 1 MG Tablet PO (22:16)
[2022-09-13] MEDS: MELATONIN 3 MG TABLET PO (22:21)
[2022-09-13 23:18] LABS: Bedside Glucose 342 mg/dL (74-106)
[2022-09-14] VITALS (20 sets, daily range): BP systolic 105–129; BP diastolic 57–81; PULSE 84–113; RESP 12–24; TEMP 36.4–37.2; O2SAT 84–93; BMI 43.7
[2022-09-14] MEDS: fentaNYL 25 MCG Patch TD (02:24)
[2022-09-14] MEDS: Ciprofloxacin 0.3% 2.5ml Bottle 2 DRP EACH EYE ×6 (02:35→21:55)
[2022-09-14] MEDS: Furosemide 40 MG/4 ML Vial IV ×3 (05:41→21:58)
[2022-09-14] MEDS: Methylprednisolone Sod Succ 40 MG/ML VIAL IV ×3 (05:42→21:57)
[2022-09-14] MEDS: 0.9% Saline Lock 10 ML Syringe IV ×2 (05:57→14:28)
[2022-09-14 06:04] LABS: Absolute Neutrophil Count 6.6 X10^3/uL (2.0-7.7); Basophil# 0.01 X10^3/uL; Basophil% 0.1 % (0-1); Differential Indicated SCAN CRITERIA MET; Hematocrit 33.3 % (37-47); Hemoglobin 10.3 g/dL (12.0-15.0); Lymphocyte % 1.4 % (19-41); Mean Corp Hgb Conc 30.9 g/dL (32-36); Mean Corpuscular Hgb 28.7 pg (27.0-32.0); Mean Corpuscular Volume 92.8 fL (81-99); Mean Platelet Vol. 9.4 fl (6.2-12.0); Monocyte# 0.18 X10^3/uL; Monocyte% 2.6 % (0-10); NRBC Flagged by Analyzer 0 % (0-5); Neutrophil # 6.56 X10^3/uL (2.7-7.7); Neutrophil % 95.2 % (47-70); POSITIVE DIFFERENTIAL YES; Platelet Count 129 K/mm3 (150-450); RBC Distribution Width CV 14.5 % (11.6-14.6); RBC Distribution Width SD 49.1 fl (35.1-43.9); Red Blood Count 3.59 M/mm3 (4.2-5.4); White Blood Count 6.9 K/mm3 (4.4-11.0)
[2022-09-14] MEDS: Insulin Lispro 100 UNIT/ML INSULN.PEN SC ×4 (06:17→22:05)
[2022-09-14 06:34] LABS: Platelet Estimate SLT DEC (ADEQ)
[2022-09-14 06:47] LABS: Bedside Glucose 201 mg/dL (74-106)
[2022-09-14] MEDS: Ipratropium 0.5 MG/2.5 ML SOLUTION INHALATION ×4 (06:54→19:39)
[2022-09-14 06:55] LABS: Anion Gap 5 (5-15); BUN 55 mg/dL (7-18); BUN/Creat Ratio 40.1 RATIO (10-20); Calcium,Total 8.2 mg/dL (8.5-10.1); Chloride 95 mmol/L (98-107); Creatinine, Serum 1.37 mg/dL (0.55-1.02); EST Glomerular Filtration Rate 39 mL/min (>60); Est Glom Filt Rate - Afr Amer 48 mL/min (>60); Estimated Creatinine Clearance 49.98 ml/min; Glucose 203 mg/dL (74-106); Magnesium 2.5 mg/dL (1.6-2.6); Phosphorus 4.4 mg/dL (2.5-4.9); Potassium 4.3 mmol/L (3.5-5.1); Sodium Level 135 mmol/L (136-145)
--- NOTE | 2022-09-14 07:42 | PN.CC_ITS ---
Assessment & Plan Assessment/Plan (1) Acute and chronic respiratory failure with hypoxia: (2) Paroxysmal atrial fibrillation: (3) Nonrheumatic aortic valve stenosis: (4) Secondary pulmonary arterial hypertension: PLAN: Plan RECOMMENDATIONS: 1. BiPAP with sleep and Airvo during the day 2. Wean oxygen as tolerated 3. Aggressive rate control 4. Continue antihypertensive medications 5. Continue aggressive diuresis. Keep diuresis at current levels 6. Aggressive pulmonary toileting. Continue steroids, antimicrobials and bronchodilators 7. Consider hospice consult IMPRESSIONS: 1. Acute on chronic hypoxic respiratory failure Likely secondary to cor pulmonale. Patient does have bilateral infiltrates with consolidation of the lower lobes, likely leading to significant worsening in oxygenation. Patient's viral work-up is negative. Patient treated with broad-spectrum antibiotics and viral testing has been not suggestive of an etiology. Patient did improve on oxygen requirements after initiation of Dif lucan and diuretics, but appears to have plateaued. Patient has been diuresed for days and appears to have plateaued. Could consider a Lasix drip the patient wishes to be overly aggressive. However, hospice is likely more appropriate approach given conversation to have with the family earlier in the week. 2. A-fib with RVR Patient was significant tachycardia on presentation. Rate stable at this time. This would exacerbate patient's pulmonary hypertension. However, rate control appears to be improved at this time. Patient is not on Eliquis therapy at this time, but does not have any PE noted on CTA of the chest. Patient has remained off of anticoagulation secondary to abdominal hematoma 3. Diabetes mellitus type 2/chronic anemia/hypertension/hyperlipidemia/CKD stage III/chronic pain/morbid obesity/ROYAL/GERD/advanced age Complicates care, management, recovery and prognosis. Patient is very clear that she does not want to be intubated. Baseline medications have been continued. Patient's creatinine is somewhat elevated, but this is likely secondary to diuretic therapy. No indication for renal replacement therapy at this time, but previous baseline appears to be a creatinine of 0.9. Subjective Subjective Patient did okay overnight. No acute issues were reported. Patient subjectively feels unchanged compared to previous. Patient still with significant shortness of breath on exertion. Patient was sleeping on my initial evaluation, but woke easily on BiPAP. Objective Data Objective Data Vital Signs: Vital Signs Temp Pulse Resp BP Pulse Ox O2 Del Method O2 Flow Rate 36.4 C L 84 16 123/81 H 93 Airvo 60 09/14/22 05:36 09/14/22 07:04 09/14/22 07:04 09/14/22 05:36 09/14/22 07:04 09/14/22 06:22 09/14/22 06:22 FiO2 70 09/14/22 07:04 Oxygen Flow Rate (L/min) 60 Oxygen Delivery Method Airvo Weight: 98.3 kg Body Mass Index (BMI) 43.7 Intake & Output: Intake and Output for Last 24 Hours 09/12/22 09/13/22 09/14/22 23:59 23:59 23:59 Intake Total 950 / 1050 850 / 850 170 / 170 Output Total 1001 / 1601 3550 / 3550 550 / 550 Balance -51 / -551 -2700 / -2700 -380 / -380 Lab / Micro Data Attestation: I reviewed the patient's lab results. 09/14/22 05:19 09/14/22 05:19 Labs: Laboratory Results - last 24 hr 09/13/22 11:14: POC Glucose 254 H 09/13/22 17:12: POC Glucose 343 H 09/13/22 22:08: POC Glucose 342 H 09/14/22 05:19: WBC 6.9, RBC 3.59 L, Hgb 10.3 L, Hct 33.3 L, MCV 92.8, MCH 28.7, MCHC 30.9 L, RDW Std Deviation 49.1 H, RDW Coeff of Jacob 14.5, Plt Count 129 L, MPV 9.4, Immature Gran % (Auto) 0.700, Neut % (Auto) 95.2 H, Lymph % (Auto) 1.4 L, [place] % (Auto) 2.6, Eos % (Auto) 0.0, Baso % (Auto) 0.1, Absolute Neuts (auto) 6.6, Absolute Lymphs (auto) 0.10 L, Nucleated RBC % 0, Platelet Estimate SLT DEC, Sodium 135 L, Potassium 4.3, Chloride 95 L, Carbon Dioxide 35.0 H, Anion Gap 5, BUN 55 H, Creatinine 1.37 H, Estim Creat Clear Calc 49.98, Est GFR (MDRD) Af Amer 48 L, Est GFR (MDRD) Non-Af 39 L, BUN/Creatinine Ratio 40.1 H, Glucose 203 H, Calcium 8.2 L, Phosphorus 4.4, Magnesium 2.5 09/14/22 06:16: POC Glucose 201 H Micro: Microbiology 09/11/22 22:48 Stool C. difficile DNA Amplification - Final 09/05/22 00:26 Blood Culture (Wb) - Right Hand Blood Culture - Final No growth in 5 days. 09/05/22 00:26 Blood Culture (Wb) - Anticubital Left Blood Culture - Final No growth in 5 days. 09/08/22 16:00 Nasal Secretion SARS-CoV-2 Antigen (Rapid) - Final 09/05/22 19:45 Sputum, Expectorated/Coughed Gram Stain - Final 09/05/22 19:45 Sputum, Expectorated/Coughed Respiratory Culture - Final Presumptive C albicans 09/05/22 08:49 Urine, Clean Catch Legionella Antigen - Final 09/05/22 08:49 Urine, Clean Catch Streptococcus pneumoniae Antigen (M - Final 09/05/22 03:18 Mucosa - Nasopharyngeal Respiratory Panel (PCR) - Final Physical Exam Const alert and oriented x3 Constitutional Narrative: Patient in the bedside chair with feet elevated on BiPAP General Appearance: cooperative and well developed HEENT normocephalic and head/scalp atraumatic Eyes PERRL, EOMs intact bilaterally, conjunctivae normal and no scleral icterus Neck full ROM and no JVD Lymph Lymphatic: no lymphadenopathy noted Resp normal respiratory effort and no use of accessory muscles Resp Narrative: On BiPAP Auscultation: diminished lung sounds; Negative for rales, rhonchi or wheezes Cardio regular rate, S1 normal heart sound, S2 normal heart sound, no murmurs, no rub and no gallops; Negative for regular rhythm GI normal to inspection, nondistended, normoactive bowel sounds Extremity General Extremity: clubbing and edema Skin no rashes or lesions noted Neuro oriented x3, CN's II-XII intact bilaterally, moves all extremities and no focal motor deficits Psych cooperative and affect normal Charges/Coding Visit Charges Inpatient E&M: 91739 Subs Hosp L3
--- NOTE | 2022-09-14 07:48 | PCM.PN.HOSP ---
Reason for Visit Reason for Visit: Diagnoses Type 2 diabetes mellitus with other specified complication (09/05/22) Obesity, unspecified (09/05/22) Secondary pulmonary arterial hypertension (09/05/22) Nonrheumatic aortic (valve) stenosis (09/05/22) Paroxysmal atrial fibrillation (09/05/22) Pneumonia, unspecified organism (09/05/22) Acute and chronic respiratory failure with hypoxia (09/05/22) Hyperglycemia, unspecified (09/05/22) Other specified abnormal findings of blood chemistry (09/05/22) Subjective Subjective Follow-up for acute on chronic hypoxic respiratory failure. Objective Data Objective Data Vital Signs: Vital Signs Temp Pulse Resp BP Pulse Ox O2 Del Method O2 Flow Rate 97.6 F L 84 16 123/81 H 93 Airvo 60 09/14/22 05:36 09/14/22 07:04 09/14/22 07:04 09/14/22 05:36 09/14/22 07:04 09/14/22 06:22 09/14/22 06:22 FiO2 70 09/14/22 07:04 Oxygen Flow Rate (L/min) 60 Oxygen Delivery Method Airvo Weight: 216 lb 11.43 oz Body Mass Index (BMI) 43.7 Intake & Output: Intake and Output for Last 24 Hours 09/12/22 09/13/22 09/14/22 23:59 23:59 23:59 Intake Total 950 / 1050 850 / 850 170 / 170 Output Total 1001 / 1601 3550 / 3550 550 / 550 Balance -51 / -551 -2700 / -2700 -380 / -380 Lab / Micro Data 09/14/22 05:19 09/14/22 05:19 Labs: Laboratory Results - last 24 hr 09/13/22 11:14: POC Glucose 254 H 09/13/22 17:12: POC Glucose 343 H 09/13/22 22:08: POC Glucose 342 H 09/14/22 05:19: WBC 6.9, RBC 3.59 L, Hgb 10.3 L, Hct 33.3 L, MCV 92.8, MCH 28.7, MCHC 30.9 L, RDW Std Deviation 49.1 H, RDW Coeff of Jacob 14.5, Plt Count 129 L, MPV 9.4, Immature Gran % (Auto) 0.700, Neut % (Auto) 95.2 H, Lymph % (Auto) 1.4 L, Major % (Auto) 2.6, Eos % (Auto) 0.0, Baso % (Auto) 0.1, Absolute Neuts (auto) 6.6, Absolute Lymphs (auto) 0.10 L, Nucleated RBC % 0, Platelet Estimate SLT DEC, Sodium 135 L, Potassium 4.3, Chloride 95 L, Carbon Dioxide 35.0 H, Anion Gap 5, BUN 55 H, Creatinine 1.37 H, Estim Creat Clear Calc 49.98, Est GFR (MDRD) Af Amer 48 L, Est GFR (MDRD) Non-Af 39 L, BUN/Creatinine Ratio 40.1 H, Glucose 203 H, Calcium 8.2 L, Phosphorus 4.4, Magnesium 2.5 09/14/22 06:16: POC Glucose 201 H Micro: Microbiology 09/11/22 22:48 Stool C. difficile DNA Amplification - Final 09/05/22 00:26 Blood Culture (Wb) - Right Hand Blood Culture - Final No growth in 5 days. 09/05/22 00:26 Blood Culture (Wb) - Anticubital Left Blood Culture - Final No growth in 5 days. 09/08/22 16:00 Nasal Secretion SARS-CoV-2 Antigen (Rapid) - Final 09/05/22 19:45 Sputum, Expectorated/Coughed Gram Stain - Final 09/05/22 19:45 Sputum, Expectorated/Coughed Respiratory Culture - Final Presumptive C albicans 09/05/22 08:49 Urine, Clean Catch Legionella Antigen - Final 09/05/22 08:49 Urine, Clean Catch Streptococcus pneumoniae Antigen (M - Final 09/05/22 03:18 Mucosa - Nasopharyngeal Respiratory Panel (PCR) - Final Physical Exam Narrative Seen and examined. Patient did not had improvement for more than 1 week on BiPAP and Airvo. Patient is being comanaged with heating systems installer. Tried all different combinations of antibiotic antifungal, IV steroid, bronchodilator but no improvement. [employer] Superintendent recommended hospice. Talked to the patient and she is having discussion with her daughters. She was on BiPAP, 70% FiO2 all night currently on Airvo. She has history of pulmonary hypertension and is on home oxygen. She follows Dr. Garcia. Physical exam General: Alert, Oriented x3, Cooperative HEENT: Atraumatic, PERRLA, EOMI, Normocephalic Oral: Oral mucosa dry. No Gingival or Mucosal Lesions/ Ulcerations Neck: Supple, No JVD, Negative Carotid Bruits Lungs: Air entry very diminished in bilateral lung bases. No crepitation/rhonchi. On Airvo/BiPAP Cardiovascular: Regular rate, Regular Rhythm, loud P2. Systolic murmur LLSB. Abdomen: Bowel Sounds Present, Soft, Non Tender, Non-Distended : No renal angle tenderness. No suprapubic tenderness. Extremities: No edema, Capillary Refill Less than 3 Seconds Skin: No rashes, No breakdown Musculoskeletal: No Tenderness to Palpation of Joints or Extremities. ROM intact. Neurological: Cranial nerves II-XII grossly intact, DTR 2+/4 and Symmetrical, Neuro grossly intact Psych/Mental Status: Flat affect. Assessment & Plan Assessment/Plan (1) Acute and chronic respiratory failure with hypoxia: (2) Pneumonia: QUALIFIERS: Laterality: right Lung location: upper lobe of lung Pneumonia type: due to unspecified organism Qualified Code(s): J18.9 - Pneumonia, unspecified organism (3) Elevated serum creatinine: (4) Hyperglycemia: (5) Diabetes mellitus type 2 in obese: PLAN: Plan Acute on chronic hypoxic respiratory failure secondary to ? pneumonia -CT of the chest done 09/08/2022 showed evidence of bilateral lower lobe infiltrates with scattered patchy airspace opacifications and no PE -Etiology remains uncertain patient is not improving significantly on broad-spectrum antibiotics -No significant change in last 49 hours as patient is still on Airvo at 60 L/min and 94% FiO2 -COVID-19 negative -Baseline oxygen requirements are 4 to 5 L -Continue Zosyn and fluconazole -Respiratory viral panel is unremarkable -Strep pneumo and Legionella antigens are negative -MRSA PCR is unremarkable -Continue aggressive pulmonary toilet -Continue methylprednisolone 40 every 8 -Continue Acapella 10 times every 2 hours -Continue incentive spirometry -Continue vest therapy -ID consulted for assistance with antibiotics -Diuretics per pulmonary medicine -Appreciate pulmonary medicine input--> Case discussed with Dr. Remy and plan is for further conversation with daughter later this afternoon -Follows with Dr. Garcia as an outpatient (he is out of town)--> I did attempt to review records from his office however I was not able to find any in [facility] -Pulmonary medicine had discussion with patient and family yesterday and plan is to continue aggressive treatment through Thursday and evaluate progress and if patient is not significantly better pursue hospice Elevated serum creatinine -Baseline appears to be between 0.8 and 1 -Serum creatinine went up aggressive diuretics 1.57 yesterday. Today 1.37. On IV furosemide 40 mg every 8 hourly. -Avoid nephrotoxins as able DM-2 -Patient without history of DM-2 however hemoglobin A1c is 6.8 which means she is a diabetic -Continue sliding scale -Blood sugars up again today will increase basal insulin to 34 from 25 as fasting sugar this morning was 232 Glucose is 200-342. Low enthesis increased to 22 units subcutaneous twice daily. PAF -Currently in A-fib with mildly rapid ventricular rate in the low 100s -Continue oral metoprolol -Patient had previously been on Eliquis but had hematoma and this has since been discontinued -Discontinued due to severe bleeding back in March 2022 -No current issues HTN/HPL -Lasix per pulmonary medicine -Continue metoprolol 50 mg p.o. twice daily -Continue home Aldactone -As needed hydralazine -Patient is not on statin patient with no documented allergy -We will allow for further outpatient evaluation Severe COPD -Baseline oxygen requirement is 4 to 5 L -Hold home inhalers -We will utilize nebs as noted above Pulmonary hypertension -Who group unclear -Continue treprostinil/Opsumit home regimen if able to take p.o. GERD -Continue PPI transition to IV Chronic pain -Continue home fentanyl patch Restless leg syndrome -Continue home Mirapex if able to take p.o. Chronic anemia-macrocytic -Baseline hemoglobin between 8 and 9 -Hemoglobin remained stable -Continue to monitor ROYAL -Patient currently on continuous BiPAP -Typically uses nocturnal BiPAP DVT prophylaxis -Subcu Lovenox CODE STATUS DNR CCA with no intubation per discussion with patient on presentation Charges/Coding Visit Charges Inpatient E&M: 52388 Subs Hosp L3
[2022-09-14] MEDS: Spironolactone 25 MG Tablet PO (08:11)
[2022-09-14] MEDS: Fluconazole 100 MG Tablet 200 MG PO (08:11)
[2022-09-14] MEDS: Enoxaparin 40 MG/0.4 ML Syringe SC ×2 (08:12→21:57)
[2022-09-14] MEDS: guaiFENesin 1,200 MG Tablet 1200 MG PO ×2 (08:12→21:58)
[2022-09-14] MEDS: Mirabegron 50 MG TAB.ER.24H PO (08:12)
[2022-09-14] MEDS: Metoprolol Tartrate 50 MG Tablet PO ×2 (08:12→21:56)
[2022-09-14] MEDS: MACITENTAN 10 MG PO (08:13)
[2022-09-14] MEDS: Menthol/Lanolin/Calamine/Znox 113 GM Tube 1 APPLIC TOPICAL ×2 (08:13→21:56)
[2022-09-14] MEDS: Acetaminophen 325 MG Tablet 650 MG PO (08:20)
[2022-09-14] MEDS: Loperamide 2 MG Capsule PO ×2 (08:20→22:04)
[2022-09-14] MEDS: BENZOCAINE/MENTHOL 1 LOZENGE MUCOUS MEM (11:12)
[2022-09-14] MEDS: Insulin Glargine-YFGN 100 UNIT/ML Pen 34 UNIT SC (11:12)
[2022-09-14 11:35] LABS: Bedside Glucose 179 mg/dL (74-106)
[2022-09-14 18:07] LABS: Bedside Glucose 244 mg/dL (74-106)
[2022-09-14] MEDS: Pramipexole Di-HCl 1 MG Tablet PO (21:58)
[2022-09-14] MEDS: MELATONIN 3 MG TABLET PO (22:04)
[2022-09-14] MEDS: Insulin Glargine-YFGN 100 UNIT/ML Pen 22 UNIT SC (22:05)
[2022-09-14 22:46] LABS: Bedside Glucose 292 mg/dL (74-106)
[2022-09-15] VITALS (11 sets, daily range): BP systolic 110–115; BP diastolic 57–68; PULSE 87–110; RESP 12–20; TEMP 36.2–36.7; O2SAT 73–95; BMI 43.5
[2022-09-15] MEDS: Ciprofloxacin 0.3% 2.5ml Bottle 2 DRP EACH EYE ×4 (01:58→14:51)
[2022-09-15] MEDS: Furosemide 40 MG/4 ML Vial IV ×2 (05:54→14:55)
[2022-09-15] MEDS: Methylprednisolone Sod Succ 40 MG/ML VIAL IV (05:54)
[2022-09-15] MEDS: Insulin Lispro 100 UNIT/ML INSULN.PEN SC ×2 (06:15→12:15)
[2022-09-15] MEDS: 0.9% Saline Lock 10 ML Syringe IV (06:15)
[2022-09-15 06:41] LABS: Bedside Glucose 200 mg/dL (74-106)
[2022-09-15] MEDS: Ipratropium 0.5 MG/2.5 ML SOLUTION INHALATION ×2 (06:54→11:03)
[2022-09-15] MEDS: Metoprolol Tartrate 50 MG Tablet PO (08:13)
[2022-09-15] MEDS: Spironolactone 25 MG Tablet PO (08:14)
[2022-09-15] MEDS: Fluconazole 100 MG Tablet 200 MG PO (08:14)
[2022-09-15] MEDS: MACITENTAN 10 MG PO (08:14)
[2022-09-15] MEDS: Menthol/Lanolin/Calamine/Znox 113 GM Tube 1 APPLIC TOPICAL (08:15)
[2022-09-15] MEDS: Enoxaparin 40 MG/0.4 ML Syringe SC (08:16)
[2022-09-15] MEDS: Mirabegron 50 MG TAB.ER.24H PO (08:17)
[2022-09-15] MEDS: guaiFENesin 1,200 MG Tablet 1200 MG PO (08:17)
[2022-09-15] MEDS: Insulin Glargine-YFGN 100 UNIT/ML Pen 22 UNIT SC (08:19)
--- NOTE | 2022-09-15 10:31 | PN.CC_ITS ---
Assessment & Plan Assessment/Plan (1) Acute and chronic respiratory failure with hypoxia: (2) Paroxysmal atrial fibrillation: (3) Nonrheumatic aortic valve stenosis: (4) Secondary pulmonary arterial hypertension: PLAN: Plan RECOMMENDATIONS: 1. Proceed with hospice care referral, per patient request. 2. Continue BiPAP therapy with sleep and heated high flow oxygen throughout the day. Wean FiO2 for saturations greater than 90%. 3. Continue empiric antimicrobials for now. 4. Ongoing diuresis as tolerated by hemodynamics and renal function. IMPRESSIONS: 1. Acute on chronic hypoxic respiratory failure Most likely secondary to cor pulmonale. The patient does have bilateral infiltrates with consolidation of the lower lobes, likely leading to significant worsening in oxygenation. The patient has been managed with antimicrobials and aggressive diuretics, but appears to have plateaued from an oxygenation perspective. The patient continues to report ongoing symptoms and would like to consider hospice care referral. Orders will be placed accordingly. 2. A-fib with RVR The patient initially presented with an elevated heart rate which could exacerbate her underlying pulmonary hypertension. However, rate control appears to be improved at this time. 3. Diabetes mellitus type 2/chronic anemia/hypertension/hyperlipidemia/CKD stage III/chronic pain/morbid obesity/ROYAL/GERD/advanced age Complicates care, management, recovery and prognosis. Baseline medications have been continued. Goals of care was discussed with the patient and her family this morning at the bedside. They are wishing to pursue with referral to hospice care services. This note was generated with [employer] dictation software. It may contain incorrect words, spelling, and punctuation that were not noted in checking the note before signing. Subjective Subjective The patient was seen and examined at the bedside this morning. Events from the last 24 hours have been reviewed. The patient is currently afebrile, hemodynamically stable and maintaining appropriate oxygen saturations on heated high flow with an FiO2 requirement of 70%. The patient continues to report significant shortness of breath with any form of exertion. Objective Data Objective Data The patient's most recent lab work, culture data and imaging studies have all been personally reviewed. Vital Signs: Vital Signs Temp Pulse Resp BP Pulse Ox O2 Del Method O2 Flow Rate 97.2 F L 110 H 20 H 110/57 L 88 Bi-pap 60 09/15/22 05:40 09/15/22 08:13 09/15/22 06:54 09/15/22 08:13 09/15/22 06:54 09/15/22 06:00 09/15/22 05:45 FiO2 70 09/15/22 06:54 Oxygen Flow Rate (L/min) 60 Oxygen Delivery Method Bi-pap Weight: 216 lb 0.848 oz Body Mass Index (BMI) 43.5 Intake & Output: Intake and Output for Last 24 Hours 09/13/22 09/14/22 09/15/22 23:59 23:59 23:59 Intake Total 850 / 850 1050 / 1050 100 / 100 Output Total 3550 / 3550 1850 / 2550 1999 / 1999 Balance -2700 / -2700 -800 / -1500 -1900 / -1900 Lab / Micro Data Attestation: I reviewed the patient's lab results. 09/14/22 05:19 09/14/22 05:19 Labs: Laboratory Results - last 24 hr 09/14/22 11:10: POC Glucose 179 H 09/14/22 16:39: POC Glucose 244 H 09/14/22 22:01: POC Glucose 292 H 09/15/22 06:14: POC Glucose 200 H Micro: Microbiology 09/11/22 22:48 Stool C. difficile DNA Amplification - Final 09/05/22 00:26 Blood Culture (Wb) - Right Hand Blood Culture - Final No growth in 5 days. 09/05/22 00:26 Blood Culture (Wb) - Anticubital Left Blood Culture - Final No growth in 5 days. 09/08/22 16:00 Nasal Secretion SARS-CoV-2 Antigen (Rapid) - Final 09/05/22 19:45 Sputum, Expectorated/Coughed Gram Stain - Final 09/05/22 19:45 Sputum, Expectorated/Coughed Respiratory Culture - Final Presumptive C albicans 09/05/22 08:49 Urine, Clean Catch Legionella Antigen - Final 09/05/22 08:49 Urine, Clean Catch Streptococcus pneumoniae Antigen (M - Final 09/05/22 03:18 Mucosa - Nasopharyngeal Respiratory Panel (PCR) - Final Physical Exam Const alert and oriented x3 Constitutional Narrative: Sitting in bedside recliner. General Appearance: cooperative and well developed HEENT normocephalic and head/scalp atraumatic Eyes PERRL, EOMs intact bilaterally, conjunctivae normal and no scleral icterus Neck full ROM and no JVD Lymph Lymphatic: no lymphadenopathy noted Resp normal respiratory effort and no use of accessory muscles Resp Narrative: On BiPAP Auscultation: diminished lung sounds; Negative for rales, rhonchi or wheezes Cardio regular rate, S1 normal heart sound, S2 normal heart sound, no murmurs, no rub and no gallops; Negative for regular rhythm GI normal to inspection, nondistended, normoactive bowel sounds Extremity General Extremity: edema; Negative for clubbing Skin no rashes or lesions noted Neuro oriented x3, CN's II-XII intact bilaterally, moves all extremities and no focal motor deficits Psych cooperative and affect normal Charges/Coding Visit Charges Inpatient E&M: 88787 Subs Hosp L2
--- NOTE | 2022-09-15 11:34 | CASEMGMT ---
RIANA was informed family would like Hospice. RN CHEPE confirmed patient and family would like [facility]. RIANA called Kailee at Hospice and made referral. RIANA also faxed over referral information. Ana GABRIEL
[2022-09-15 12:36] LABS: Bedside Glucose 161 mg/dL (74-106)
--- NOTE | 2022-09-15 13:52 | CASEMGMT ---
Patient signed with Hospice. RN from Hospice is at [facility] to evaluate patient for the inpatient unit. Ana GABRIEL
--- NOTE | 2022-09-15 15:12 | DCINST_ITS ---
Discharge Instructions Diet Discharge Diet: No restrictions Activity Discharge Activity: Return to Normal Activity Weight Bearing Status: Weight bearing as tolerated Dressing / Incision Call your doctor if you observe: - (Patient is being admitted to inpatient hospice care.) Follow Up Care When: IN 2 WEEKS Test Results: Test results from this visit will be discussed in further detail at your follow- up appointment, if applicable. Discharge Plan Admission Admit Date/Time: 09/05/22 01:41 Primary Reason for Your Visit: Acute on chronic hypoxic respiratory failure. Pulmonary hypertension Attending Provider: Pranav Franco Primary Care Provider: Jake Schwarz Consulting Providers: Chela Hernandez; Abhinav Remy; Baldev Leigh; Vasiliy Limon; Fede Adams; Alma Rosa Arita NP; Pranav Franco; Gerhard Biggs; Patricia Amanda Discharge Orders/Prescriptions Prescriptions: New fluconazole 100 mg Tablet 200 mg PO DAILY 3 Days Qty: 6 0RF acetaminophen 325 mg Tablet 650 mg PO Q4H PRN PRN (Reason: Fever, pain 1-1010) Qty: 0 0RF Deep Sea Nasal 0.65 % Aerosol,Jordan 2 spray NASAL TID PRN PRN (Reason: NASAL DRYNESS) Qty: 0 0RF Mucus Relief ER 1,200 mg Tablet Extended Release 12hr 1,200 mg PO BID Qty: 0 0RF menthol-zinc oxide [Calmoseptine] 0.44-20.6 % Ointment 1 applic topical BID Qty: 0 0RF Protocol: *Topical Application Instructions APPLICATION INSTRUCTIONS: apply to coccyx Continued pramipexole [Mirapex] 1 mg tablet 1 mg PO QHS potassium chloride [Klor-Con M20] 20 mEq tablet,ER particles/crystals 20 meq PO DAILY 30 Days Qty: 30 0RF spironolactone 25 mg tablet 25 mg PO DAILY Qty: 90 3RF fentanyl 25 MCG patch 25 mcg TRANSDERM. Q72H multivitamin with folic acid 1 TABLET tablet 1 tab PO DAILY calcium-vitamin D3-vitamin K 1 EACH tablet,chewable 2 ea PO DAILY Opsumit 10 MG tablet 10 mg PO DAILY Rx Instructions: Patient may use own medication budesonide 0.5 mg/2 mL Suspension For Nebulization 0.5 mg INHALATION BID Hold Instructions: Order Changed furosemide 40 mg Tablet 80 mg PO 1XD 30 Days Qty: 60 0RF metoprolol tartrate 50 mg Tablet 50 mg PO BID Qty: 0 0RF Orenitram 0.25 mg Tablet Extended Release 0.5 mg PO 0700,1500,2300 Qty: 0 0RF Hold Instructions: Order Changed pantoprazole 40 mg Tablet,Delayed Release (Dr/Ec) 40 mg PO DAILY 30 Days Qty: 30 0RF Myrbetriq 50 mg tablet extended release 24 hr 50 mg PO DAILY diclofenac sodium 1 % gel 2 g TOPICAL 4X/DAY PRN (Reason: itching) Orenitram 2.5 mg Tablet Extended Release 5 mg PO 0700,1500,2300 Changed albuterol sulfate 1.25 mg/3 mL Solution For Nebulization 1.25 mg INHALATION Q4H PRN (Reason: sob) Qty: 30 0RF Referrals / Follow Up: Jake Schwarz MD [Primary Care Provider] - Disposition Disposition (needs filled in before D/C Order can be placed): Hospice in Medical Facility
--- NOTE | 2022-09-15 15:18 | PCM.DC.SUM ---
Providers Date of Admission: 09/05/22 Date of Discharge: 09/15/22 Primary Care Physician: Dr. Jake Schwarz MD Consultations 09/07/22 13:14 Consult: Starch Cooker / Pulmonary Medicine Routine Consulting Provider: Pulmonary Medicine alexandre Jenkinjones Reason for Consult: Pulm HTN, RUL pneumonia, COPD? EMERGENT Consult: No Notified: Yes Date Notified: 09/07/22 Time Notified: 13:14 Method of Notification: Verbal 09/09/22 10:51 Consult: Infectious Disease Routine Consulting Provider: Gerhard Biggs Reason for Consult: pna EMERGENT Consult: No Notified: Yes Date Notified: 09/09/22 Time Notified: 10:56 Method of Notification: Answering Service Reason For Visit: PNEUMONIA Diagnosis Discharge Diagnosis (1) Acute and chronic respiratory failure with hypoxia: Status: Chronic Code(s): J96.21 - Acute and chronic respiratory failure with hypoxia (2) Paroxysmal atrial fibrillation: Status: Chronic Code(s): I48.0 - Paroxysmal atrial fibrillation (3) Nonrheumatic aortic valve stenosis: Status: Chronic Code(s): I35.0 - Nonrheumatic aortic (valve) stenosis (4) Secondary pulmonary arterial hypertension: Status: Acute Code(s): I27.21 - Secondary pulmonary arterial hypertension Plan 82-year-old female with multiple comorbidities was admitted with dyspnea at rest, cough and fatigue for 2 days. No fever. BP in ED 102/67 along with sinus tachycardia. Her hospital course was lengthy and assessment, evaluation and management as mentioned below 1. Acute on chronic hypoxic respiratory failure secondary to ? pneumonia -CT of the chest done 09/08/2022 showed evidence of bilateral lower lobe infiltrates with scattered patchy airspace opacifications and no PE -Etiology remains uncertain patient is not improving significantly on broad-spectrum antibiotics -No significant change in last 49 hours as patient is still on Airvo at 60 L/min and 94% FiO2 -COVID-19 negative -Baseline oxygen requirements are 4 to 5 L -Continue Zosyn and fluconazole -Respiratory viral panel is unremarkable -Strep pneumo and Legionella antigens are negative -MRSA PCR is unremarkable -Continue aggressive pulmonary toilet -Continue methylprednisolone 40 every 8 -Continue Acapella 10 times every 2 hours -Continue incentive spirometry -Continue vest therapy -ID consulted for assistance with antibiotics -Diuretics per pulmonary medicine -Appreciate pulmonary medicine input--> Case discussed with Dr. Remy and plan is for further conversation with daughter later this afternoon -Follows with Dr. Garcia as an outpatient (he is out of town)--> I did attempt to review records from his office however I was not able to find any in [facility] -Pulmonary medicine had discussion with patient and family yesterday and plan is to continue aggressive treatment through Thursday and evaluate progress and if patient is not significantly better pursue hospice 09/15: I discussed with patient and her daughter near the bedside. Patient's other family members agreeable for inpatient hospice. Patient's family member agreed for DNR CC hospice care. DNRCC papers signed. Hospice service called. Patient is being discharged to inpatient hospice care. Home medication reconciliation done. Patient completed 8 days of IV Zosyn and does not need further.She was also started on Diflucan completed 4 days and discharged on 3 more days to complete a 7 days. Linezolid was discontinued earlier by ID. Sputum shows 3+ yeast. Antimicrobial agent was started empirically without definite diagnosis of pneumonia. Patient was comanaged with field crew chief/fire battalion chief and ID review consultant. GAURAV mainly prerenal due to IV diuretic, furosemide. -Baseline appears to be between 0.8 and 1 -Serum creatinine went up aggressive diuretics 1.57 yesterday. Today 1.37. On IV furosemide 40 mg every 8 hourly. -Avoid nephrotoxins as able DM-2 -Patient without history of DM-2 however hemoglobin A1c is 6.8 which means she is a diabetic -Continue sliding scale -Blood sugars up again today will increase basal insulin to 34 from 25 as fasting sugar this morning was 232 Glucose is 200-342. Low enthesis increased to 22 units subcutaneous twice daily. PAF -Currently in A-fib with mildly rapid ventricular rate in the low 100s -Continue oral metoprolol -Patient had previously been on Eliquis but had hematoma and this has since been discontinued -Discontinued due to severe bleeding back in March 2022 -No current issues HTN/HPL -Lasix per pulmonary medicine -Continue metoprolol 50 mg p.o. twice daily -Continue home Aldactone -As needed hydralazine -Patient is not on statin patient with no documented allergy -We will allow for further outpatient evaluation Severe COPD -Baseline oxygen requirement is 4 to 5 L -Hold home inhalers -We will utilize nebs as noted above Pulmonary hypertension -Who group unclear -Continue treprostinil/Opsumit home regimen if able to take p.o. GERD -Continue PPI transition to IV Chronic pain -Continue home fentanyl patch Restless leg syndrome -Continue home Mirapex if able to take p.o. Chronic anemia-macrocytic -Baseline hemoglobin between 8 and 9 -Hemoglobin remained stable -Continue to monitor ROYAL -Patient currently on continuous BiPAP -Typically uses nocturnal BiPAP DVT prophylaxis -Subcu Lovenox CODE STATUS DNR CCA with no intubation per discussion with patient on presentation Patient is being discharged to inpatient hospice care. Discharge meds reconciliation done. Medications at Discharge Home Medications fentanyl 25 mcg/hr transdermal patch 25 mcg TRANSDERM. Q72H Pain 09/26/15 multivitamin with folic acid 400 mcg tablet 1 tab PO DAILY Supplement 09/26/15 pramipexole 1 mg tablet (Mirapex) 1 mg PO QHS Restless legs 01/05/18 calcium-vitamin D3-vitamin K 500 mg-1,000 unit-40 mcg chewable tablet 2 ea PO DAILY Supplement 12/20/19 macitentan 10 mg tablet (Opsumit) 10 mg PO DAILY pulmonary htn 12/20/19 budesonide 0.5 mg/2 mL suspension for nebulization 0.5 mg inhalation BID Check with primary doctor 10/10/21 furosemide 40 mg tablet 80 mg (2 x 40 mg) PO 1XD 30 days #60 tabs 05/02/22 metoprolol tartrate 50 mg tablet 50 mg PO BID #0 tabs 05/02/22 pantoprazole 40 mg tablet,delayed release 40 mg PO DAILY 30 days #30 tabs 05/02/22 treprostinil diolamine 0.25 mg tablet,extended release (Orenitram) 0.5 mg (2 x 0.25 mg) PO 0700,1500,2300 #0 tabs 05/02/22 potassium chloride 20 mEq tablet,extended release(part/cryst) (Klor-Con M) 20 meq PO DAILY 30 days #30 tabs 08/14/22 spironolactone 25 mg tablet 25 mg PO DAILY #90 tabs 08/14/22 diclofenac sodium 1 % topical gel 2 g topical 4X/DAY PRN itching 09/04/22 mirabegron 50 mg tablet,extended release 24 hr (Myrbetriq) 50 mg PO DAILY 09/04/22 treprostinil diolamine 2.5 mg tablet,extended release (Orenitram) 5 mg PO 0700,1500,2300 09/04/22 acetaminophen 325 mg tablet 650 mg (2 x 325 mg) PO Q4H PRN PRN Fever, pain 1-1010 #0 tabs 09/15/22 albuterol sulfate 1.25 mg/3 mL solution for nebulization 1.25 mg (3 mL) inhalation Q4H PRN sob #30 mL 09/15/22 fluconazole 100 mg tablet 200 mg (2 x 100 mg) PO DAILY 3 days #6 tabs 09/15/22 guaifenesin 1,200 mg tablet, extended release 12 hr (Mucus Relief ER) 1,200 mg PO BID #0 tabs 09/15/22 menthol 0.44 %-zinc oxide 20.6 % topical ointment (Calmoseptine) 1 applic topical BID #0 grams 09/15/22 sodium chloride 0.65 % nasal spray aerosol (Deep Sea Nasal) 2 spray NASAL TID PRN PRN NASAL DRYNESS #0 mL 09/15/22 Physical Exam Narrative Seen and examined. Patient did not had improvement for about 10 days in hospital. Patient is being comanaged with fire battalion chief and ID. Tried all different combinations of antibiotic antifungal, IV steroid, bronchodilator but no improvement. Starch Cooker recommended hospice and family members elected hospice. Patient is still o Airvo during daytime and BiPAP at night. Discussed with Dr. Garcia yesterday evening and he agreed to stop by in the hospital. I communicated to the family member overall hospital course, prognosis. Physical exam General: Alert, Oriented x3, Cooperative HEENT: Atraumatic, PERRLA, EOMI, Normocephalic Oral: Oral mucosa dry. No Gingival or Mucosal Lesions/ Ulcerations Neck: Supple, No JVD, Negative Carotid Bruits Lungs: Air entry very diminished in bilateral lung bases. No crepitation/rhonchi. On Airvo/BiPAP Cardiovascular: Sinus tachycardia, loud P2. Systolic murmur LLSB. Abdomen: Bowel Sounds Present, Soft, Non Tender, Non-Distended : No renal angle tenderness. No suprapubic tenderness. Extremities: No edema, Capillary Refill Less than 3 Seconds Skin: No rashes, No breakdown Musculoskeletal: No Tenderness to Palpation of Joints or Extremities. ROM intact. Neurological: Cranial nerves II-XII grossly intact, DTR 2+/4 and Symmetrical, Neuro grossly intact Psych/Mental Status: Flat affect. Weight / BMI Weight Weight: 216 lb 0.848 oz Body Mass Index (BMI) 43.5 ABG / Lab / Microbiology Data 09/14/22 05:19 09/14/22 05:19 Laboratory: Laboratory Results - last 24 hr 09/14/22 16:39: POC Glucose 244 H 09/14/22 22:01: POC Glucose 292 H 09/15/22 06:14: POC Glucose 200 H 09/15/22 12:10: POC Glucose 161 H Microbiology: Microbiology 09/11/22 22:48 Stool C. difficile DNA Amplification - Final 09/05/22 00:26 Blood Culture (Wb) - Right Hand Blood Culture - Final No growth in 5 days. 09/05/22 00:26 Blood Culture (Wb) - Anticubital Left Blood Culture - Final No growth in 5 days. 09/08/22 16:00 Nasal Secretion SARS-CoV-2 Antigen (Rapid) - Final 09/05/22 19:45 Sputum, Expectorated/Coughed Gram Stain - Final 09/05/22 19:45 Sputum, Expectorated/Coughed Respiratory Culture - Final Presumptive C albicans 09/05/22 08:49 Urine, Clean Catch Legionella Antigen - Final 09/05/22 08:49 Urine, Clean Catch Streptococcus pneumoniae Antigen (M - Final 09/05/22 03:18 Mucosa - Nasopharyngeal Respiratory Panel (PCR) - Final D/C Instructions Discharge Diet: No restrictions Weight Bearing Status: Weight bearing as tolerated Call your doctor if you observe: - (Patient is being admitted to inpatient hospice care.) When: IN 2 WEEKS Meaningful Use Info Meaningful Use Diagnoses (Choose all that apply): None applicable Discharge Plan Admission Admit Date/Time: 09/05/22 01:41 Primary Reason for Your Visit: Acute on chronic hypoxic respiratory failure. Pulmonary hypertension Attending Provider: Pranav Franco Primary Care Provider: Jake Schwarz Consulting Providers: Chela Hernandez; Abhinav Remy; Baldev Leigh; Vasiliy Limon; Fede Adams; Alma Rosa Arita NP; Pranav Franco; Gerhard Biggs; Patricia Amanda; jR Rodriguez; Yazmin Yusuf; Roberta Giang; Lana Phelan FOOD AIDE Discharge Orders/Prescriptions Prescriptions: New fluconazole 100 mg Tablet 200 mg PO DAILY 3 Days Qty: 6 0RF acetaminophen 325 mg Tablet 650 mg PO Q4H PRN PRN (Reason: Fever, pain 1-10/10) Qty: 0 0RF Deep Sea Nasal 0.65 % Aerosol,[place] 2 spray NASAL TID PRN PRN (Reason: NASAL DRYNESS) Qty: 0 0RF Mucus Relief ER 1,200 mg Tablet Extended Release 12hr 1,200 mg PO BID Qty: 0 0RF menthol-zinc oxide [Calmoseptine] 0.44-20.6 % Ointment 1 applic topical BID Qty: 0 0RF Protocol: *Topical Application Instructions APPLICATION INSTRUCTIONS: apply to coccyx Continued pramipexole [Mirapex] 1 mg tablet 1 mg PO QHS potassium chloride [Klor-Con M20] 20 mEq tablet,ER particles/crystals 20 meq PO DAILY 30 Days Qty: 30 0RF spironolactone 25 mg tablet 25 mg PO DAILY Qty: 90 3RF fentanyl 25 MCG patch 25 mcg TRANSDERM. Q72H multivitamin with folic acid 1 TABLET tablet 1 tab PO DAILY calcium-vitamin D3-vitamin K 1 EACH tablet,chewable 2 ea PO DAILY Opsumit 10 MG tablet 10 mg PO DAILY Rx Instructions: Patient may use own medication budesonide 0.5 mg/2 mL Suspension For Nebulization 0.5 mg INHALATION BID Hold Instructions: Order Changed furosemide 40 mg Tablet 80 mg PO 1XD 30 Days Qty: 60 0RF metoprolol tartrate 50 mg Tablet 50 mg PO BID Qty: 0 0RF Orenitram 0.25 mg Tablet Extended Release 0.5 mg PO 0700,1500,2300 Qty: 0 0RF Hold Instructions: Order Changed pantoprazole 40 mg Tablet,Delayed Release (Dr/Ec) 40 mg PO DAILY 30 Days Qty: 30 0RF Myrbetriq 50 mg tablet extended release 24 hr 50 mg PO DAILY diclofenac sodium 1 % gel 2 g TOPICAL 4X/DAY PRN (Reason: itching) Orenitram 2.5 mg Tablet Extended Release 5 mg PO 0700,1500,2300 Changed albuterol sulfate 1.25 mg/3 mL Solution For Nebulization 1.25 mg INHALATION Q4H PRN (Reason: sob) Qty: 30 0RF Referrals / Follow Up: Jake Schwarz MD [Primary Care Provider] - Disposition Disposition (needs filled in before D/C Order can be placed): Hospice in Medical Facility Charges/Coding Visit Charges Inpatient E&M: 99785 Disch Hosp >30min
--- NOTE | 2022-09-15 15:33 | CASEMGMT ---
Patient is going to the inpatient Hospice unit. Hospice's mobile unit is transporting patient. Ana GABRIEL
--- NOTE | 2022-09-15 15:54 | NURSING ---
Patient discharged per orders to hospice facility. Transfer via stretcher and ambulance. Daughter accompanied wildfire prevention specialist. Report called to accepting facility
== END 2022-09-15 15:52 | disposition hospice, inpatient (51) | DRG 193 ==
LOC: ED 09-05 01:20 → PCU 09-05 03:26
PROVIDERS: Internal Medicine; Admitting Provider Family Medicine; Emergency Provider Emergency Medicine; PCP Family Medicine; Visit Provider Internal Medicine
DX: J18.9 Pneumonia, unspecified organism (principal); J96.21 Acute and chronic respiratory failure with hypoxia; J44.0 Chronic obstructive pulmonary disease with (acute) lower respiratory infection; N17.9 Acute kidney failure, unspecified; Z68.41 Body mass index [BMI] 40.0-44.9, adult; J44.1 Chronic obstructive pulmonary disease with (acute) exacerbation; J96.11 Chronic respiratory failure with hypoxia; I27.21 Secondary pulmonary arterial hypertension; I27.81 Cor pulmonale (chronic); B37.9 Candidiasis, unspecified; I48.0 Paroxysmal atrial fibrillation; E11.22 Type 2 diabetes mellitus with diabetic chronic kidney disease; E66.01 Morbid (severe) obesity due to excess calories; E11.65 Type 2 diabetes mellitus with hyperglycemia; N18.31 Chronic kidney disease, stage 3a; G25.81 Restless legs syndrome; I12.9 Hypertensive chronic kidney disease with stage 1 through stage 4 chronic kidney disease, or unspecified chronic kidney disease; K21.9 Gastro-esophageal reflux disease without esophagitis; E78.5 Hyperlipidemia, unspecified; I25.10 Atherosclerotic heart disease of native coronary artery without angina pectoris; G47.33 Obstructive sleep apnea (adult) (pediatric); I35.0 Nonrheumatic aortic (valve) stenosis; I35.2 Nonrheumatic aortic (valve) stenosis with insufficiency; G89.4 Chronic pain syndrome; Z66 Do not resuscitate; Z20.822 Contact with and (suspected) exposure to COVID-19; Z99.81 Dependence on supplemental oxygen; Z79.51 Long term (current) use of inhaled steroids; Z87.891 Personal history of nicotine dependence
CPT/HCPCS: 36415; 36600; 71045; 71275; 80048; 80053; 82803; 82962; 83036; 83605; 83735; 83880; 84100; 84145; 84484; 85025; 87040; 87070; 87205; 87426; 87449; 87493; 87633; 87641; 93005; 93306; 94002; 94003; 94640; 94660; 94667; 94668; 94762; 97110; 97116; 97162; 97166; 97530; 97535; 99285; J2020; J7030; J7040; Q9967; A4216; J0696; J1940